=== PATIENT | female | born 1955 | race Caucasian/White ===

== ENCOUNTER 2016-10-11 17:53 | Emergency (ER) | payer BC, MEDICARE, OTHER ==
[2016-10-11 18:00] VITALS: TEMP 98.7
--- NOTE | 2016-10-11 18:26 | ED ---
General Adult HPI - General Chief complaint: Chest Pain Stated complaint: chest pain Time Seen by Provider: 10/11/16 18:25 Source: patient, RN notes reviewed, old records reviewed Mode of arrival: wheelchair Limitations: no limitations - History of Present Illness Initial comments: This is a 61-year-old female here for chest pain. Patient has significant history of coronary artery disease, patient states chest pain is been going on for about a week now. Still has pain evaluation for persistent pain. She states it does state her does feel similar to prior anginal-type issues. Patient states she does have improvement with nitro. Patient concerned for heart disease or heart attack. No fevers cough or congestion or travel history. Patient states she does take all medication as prescribed. Pain is just been persistent, worse with activity. Patient states that she has insulin diabetes. Patient states her blood sugar is elevated and she does sometimes have chest pain and anxiety with this. She does also admit to increased stress at home prior to event. Patient states upon arrival to emergency room her pain has resolved, she states she would like to go home but states since she is here surmise will be evaluated - Related Data Home Medications Medication Instructions Recorded Confirmed ALPRAZolam [Xanax] 0.25 mg PO DAILY PRN 10/11/16 10/11/16 Allopurinol [Zyloprim] 100 mg PO DAILY 10/11/16 10/11/16 Aspirin EC [Ecotrin Low Dose] 81 mg PO DAILY 10/11/16 10/11/16 Atenolol [Tenormin] 25 mg PO HS 10/11/16 10/11/16 Atorvastatin [Lipitor] 80 mg PO HS 10/11/16 10/11/16 David/D3/Mag11/Zinc/Cook Specialty/Anjel/Bor 1 tab PO HS 10/11/16 10/11/16 [Caltrate 600+D Plus Tablet] Clopidogrel Bisulfate [Plavix] 75 mg PO DAILY 10/11/16 10/11/16 Ezetimibe [Zetia] 10 mg PO HS 10/11/16 10/11/16 Ferrous Sulfate [Feosol] 325 mg PO TID 10/11/16 10/11/16 Insulin Aspart (For Pump) [NovoLOG 0.01 unit SQ-PUMP CONTINUOUS 10/11/16 (For Pump)] Montelukast [Singulair] 10 mg PO HS 10/11/16 10/11/16 Nitroglycerin Sl Tabs [Nitrostat] 0.4 mg SUBLINGUAL Q5M PRN 10/11/16 10/11/16 Quinapril HCl [Accupril] 20 mg PO DAILY 10/11/16 10/11/16 Torsemide [Demadex] 20 mg PO DAILY 10/11/16 10/11/16 Allergies Allergy/AdvReac Type Severity Reaction Status Date / Time droperidol AdvReac Anxiety Verified 10/11/16 18:38 ezetimibe [From Vytorin] AdvReac Acid Reflux Verified 10/11/16 18:38 fentanyl AdvReac "Can't Verified 10/11/16 18:38 wake up"/Nausea hydrocodone AdvReac Angina Verified 10/11/16 18:38 hydromorphone [From Dilaudid] AdvReac Angina Verified 10/11/16 18:38 midazolam [From Versed] AdvReac Anxiety Verified 10/11/16 18:38 paroxetine [From Paxil] AdvReac Acid Reflux Verified 10/11/16 18:38 simvastatin [From Vytorin] AdvReac Acid Reflux Verified 10/11/16 18:38 sulfamethoxazole AdvReac Decreased Verified 10/11/16 18:38 [From Bactrim] Renal Function trandolapril [From Tarka] AdvReac Acid Reflux Verified 10/11/16 18:38 trimethoprim [From Bactrim] AdvReac Decreased Verified 10/11/16 18:38 Renal Function verapamil [From Tarka] AdvReac Acid Reflux Verified 10/11/16 18:38 Review of Systems ROS Statement: Those systems with pertinent positive or pertinent negative responses have been documented in the HPI. ROS Other: All systems not noted in ROS Statement are negative. Past Medical History Past Medical History: Diabetes Mellitus, Renal Disease Additional Past Medical History / Comment(s): angina, kidney disease stage 4, pilonidal cyst, carpal tunnel, insulin pump History of Any Multi-Drug Resistant Organisms: None Reported Past Surgical History: Heart Catheterization With Stent, Tonsillectomy, Tubal Ligation Additional Past Surgical History / Comment(s): cataracts Past Psychological History: No Psychological Hx Reported Smoking Status: Never smoker Past Alcohol Use History: Rare Past Drug Use History: None Reported General Exam Limitations: no limitations General appearance: alert, in no apparent distress, anxious Head exam: Present: atraumatic, normocephalic, normal inspection Eye exam: Present: normal appearance, PERRL, EOMI. Absent: scleral icterus, conjunctival injection, periorbital swelling ENT exam: Present: normal exam, mucous membranes moist Neck exam: Present: normal inspection. Absent: tenderness, meningismus, lymphadenopathy Respiratory exam: Present: normal lung sounds bilaterally. Absent: respiratory distress, wheezes, rales, rhonchi, stridor Cardiovascular Exam: Present: regular rate, normal rhythm, normal heart sounds. Absent: systolic murmur, diastolic murmur, rubs, gallop, clicks GI/Abdominal exam: Present: soft, normal bowel sounds. Absent: distended, tenderness, guarding, rebound, rigid Extremities exam: Present: normal inspection, full ROM, normal capillary refill. Absent: tenderness, pedal edema, joint swelling, calf tenderness Back exam: Present: normal inspection Neurological exam: Present: alert, oriented X3, CN II-XII intact Psychiatric exam: Present: normal affect, normal mood Skin exam: Present: warm, dry, intact, normal color. Absent: rash Course Vital Signs 10/11/16 10/11/16 17:54 20:02 Temperature 98.7 F Pulse Rate 85 53 L Respiratory 18 16 Rate Blood Pressure 122/57 138/70 O2 Sat by Pulse 98 98 Oximetry - Reevaluation(s) Reevaluation #1: Patient does remain without chest pain , at this time is refusing to stay in the hospital EKG Findings - EKG Comments: EKG Findings:: EKG shows sinus rhythm rate of 80, OH 144, QRS 76, QT C4 33 Medical Decision Making - Medical Decision Making 61 female to the ED chest pain, does have significant cardiac history. She has spoken with at length regarding need to stay in the hospital for evaluation of cardiac disease. Patient's troponin is initially negative, EKG is normal and unchanged from prior. Patient states chest pain is and remains resolved - Lab Data Result diagrams: 10/11/16 18:14 10/11/16 18:14 Lab Results 10/11/16 10/11/16 10/11/16 Range/Units 18:14 18:14 18:14 WBC 8.5 (3.8-10.6) k/uL RBC 3.91 (3.80-5.40) m/uL Hgb 11.9 (11.4-16.0) gm/dL Hct 38.5 (34.0-46.0) % MCV 98.4 (80.0-100.0) fL MCH 30.5 (25.0-35.0) pg MCHC 31.0 (31.0-37.0) g/dL RDW 14.4 (11.5-15.5) % Plt Count 233 (150-450) k/uL Neutrophils % 81 % Lymphocytes % 12 % Monocytes % 3 % Eosinophils % 2 % Basophils % 1 % Neutrophils # 6.9 (1.3-7.7) k/uL Lymphocytes # 1.1 (1.0-4.8) k/uL Monocytes # 0.3 (0-1.0) k/uL Eosinophils # 0.1 (0-0.7) k/uL Basophils # 0.1 (0-0.2) k/uL PT (9.0-12.0) sec INR (<1.1) APTT (22.0-30.0) sec Sodium 138 (137-145) mmol/L Potassium 4.6 (3.5-5.1) mmol/L Chloride 102 (98-107) mmol/L Carbon Dioxide 22 (22-30) mmol/L Anion Gap 14 mmol/L BUN 70 H (7-17) mg/dL Creatinine 2.60 H (0.52-1.04) mg/dL Est GFR (MDRD) Af Amer 23 (>60 ml/min/1.73 sqM) Est GFR (MDRD) Non-Af 19 (>60 ml/min/1.73 sqM) Glucose 321 H (74-99) mg/dL Calcium 9.8 (8.4-10.2) mg/dL Magnesium 2.1 (1.6-2.3) mg/dL Total Bilirubin 0.5 (0.2-1.3) mg/dL AST 25 (14-36) U/L ALT 33 (9-52) U/L Alkaline Phosphatase 107 (38-126) U/L Total Creatine Kinase 147 H (30-135) U/L CK-MB (CK-2) 2.2 (0.0-2.4) ng/mL CK-MB (CK-2) Rel Index 1.5 Troponin I <0.012 (0.000-0.034) ng/mL Total Protein 6.2 L (6.3-8.2) g/dL Albumin 4.1 (3.5-5.0) g/dL Lipase 88 (23-300) U/L 10/11/16 Range/Units 18:14 WBC (3.8-10.6) k/uL RBC (3.80-5.40) m/uL Hgb (11.4-16.0) gm/dL Hct (34.0-46.0) % MCV (80.0-100.0) fL MCH (25.0-35.0) pg MCHC (31.0-37.0) g/dL RDW (11.5-15.5) % Plt Count (150-450) k/uL Neutrophils % % Lymphocytes % % Monocytes % % Eosinophils % % Basophils % % Neutrophils # (1.3-7.7) k/uL Lymphocytes # (1.0-4.8) k/uL Monocytes # (0-1.0) k/uL Eosinophils # (0-0.7) k/uL Basophils # (0-0.2) k/uL PT 10.3 (9.0-12.0) sec INR 1.0 (<1.1) APTT 24.4 (22.0-30.0) sec Sodium (137-145) mmol/L Potassium (3.5-5.1) mmol/L Chloride (98-107) mmol/L Carbon Dioxide (22-30) mmol/L Anion Gap mmol/L BUN (7-17) mg/dL Creatinine (0.52-1.04) mg/dL Est GFR (MDRD) Af Amer (>60 ml/min/1.73 sqM) Est GFR (MDRD) Non-Af (>60 ml/min/1.73 sqM) Glucose (74-99) mg/dL Calcium (8.4-10.2) mg/dL Magnesium (1.6-2.3) mg/dL Total Bilirubin (0.2-1.3) mg/dL AST (14-36) U/L ALT (9-52) U/L Alkaline Phosphatase (38-126) U/L Total Creatine Kinase (30-135) U/L CK-MB (CK-2) (0.0-2.4) ng/mL CK-MB (CK-2) Rel Index Troponin I (0.000-0.034) ng/mL Total Protein (6.3-8.2) g/dL Albumin (3.5-5.0) g/dL Lipase (23-300) U/L - Radiology Data Radiology results: report reviewed (Chest x-ray is negative for acute disease), image reviewed Critical Care Time Critical Care Time: Yes Total Critical Care Time: 31 Disposition Clinical Impression: Chest pain Disposition: HOME SELF-CARE Condition: Good Instructions: Chest Pain (ED) Referrals: Tavon Rose DO [Primary Care Provider] - 1-2 days
[2016-10-11 18:48] LABS: Basophils # (A) 0.1 k/uL (0-0.2); Basophils % (A) 1 %; CH 31.2; CHCM 31.9; Eosinophils # (A) 0.1 k/uL (0-0.7); Eosinophils % (A) 2 %; HCT 38.5 % (34.0-46.0); HDW 2.26; HGB 11.9 gm/dL (11.4-16.0); Luc % (Auto) 1; Lymphocytes # (A) 1.1 k/uL (1.0-4.8); Lymphocytes % (A) 12 %; MCH 30.5 pg (25.0-35.0); MCV 98.4 fL (80.0-100.0); Mean Platelet Volume 7.4; Monocytes # (A) 0.3 k/uL (0-1.0); Monocytes % (A) 3 %; Neutrophils # (A) 6.9 k/uL (1.3-7.7); Neutrophils % (A) 81 %; RBC 3.91 m/uL (3.80-5.40); RDW 14.4 % (11.5-15.5); WBC 8.5 k/uL (3.8-10.6); WBC (Perox) 9.05
[2016-10-11 18:56] LABS: Calcium 9.8 mg/dL (8.4-10.2); Magnesium 2.1 mg/dL (1.6-2.3); Potassium 4.6 mmol/L (3.5-5.1); Total Bilirubin 0.5 mg/dL (0.2-1.3); Total Protein 6.2 g/dL (6.3-8.2)
--- NOTE | 2016-10-11 18:58 | XR ---
EXAMINATION TYPE: XR chest 2V DATE OF EXAM: 10/11/2016 COMPARISON: 05/08/2008 HISTORY: Chest pain TECHNIQUE: Frontal and lateral views of the chest are obtained. FINDINGS: Heart and mediastinum are normal. There is small linear density in the left lower lobe. Th e other lung orourke are clear. There are no hilar masses. There are chest leads. There is no pleural effusion. Bony thorax is intact. IMPRESSION: There is new minimal atelectasis at the left lung base compared to old exam.
[2016-10-11 19:01] LABS: Partial Thromboplastin Time 24.4 sec (22.0-30.0); Prothrombin Time 10.3 sec (9.0-12.0)
[2016-10-11 19:12] LABS: Creatine Kinase 147 U/L (30-135)
[2016-10-11 19:25] LABS: Creatine Kinase MB 2.2 ng/mL (0.0-2.4); Troponin I <0.012 ng/mL (0.000-0.034)
[2016-10-11 20:03] VITALS: BP 138/70; PULSE 53; RESP 16
== END 2016-10-11 20:04 | disposition home or self-care (01) ==
LOC: EC 17:53
DX: R07.9 Chest pain, unspecified (principal); E11.22 Type 2 diabetes mellitus with diabetic chronic kidney disease; N18.4 Chronic kidney disease, stage 4 (severe); Z79.01 Long term (current) use of anticoagulants; Z79.4 Long term (current) use of insulin; Z79.82 Long term (current) use of aspirin; Z79.899 Other long term (current) drug therapy; Z88.1 Allergy status to other antibiotic agents; Z88.5 Allergy status to narcotic agent; Z88.8 Allergy status to other drugs, medicaments and biological substances
CPT/HCPCS: 36415; 71020; 80053; 82550; 82553; 83690; 83735; 84484; 85025; 85610; 85730; 93005; 99285

== ENCOUNTER → 2019-03-19 | Outpatient (CLI) | payer BC ==
--- NOTE | 2019-03-19 13:22 | MM ---
Reason for exam: screening (asymptomatic). Last mammogram was performed 5 years and 9 months ago. History: Patient is postmenopausal and history of other cancer. Took estrogen beginning at age 52. Took progesterone beginning at age 52. Physical Findings: A clinical breast exam by your physician is recommended on an annual basis and results should be correlated with mammographic findings. MG Screening Mammo w CAD Bilateral CC and MLO view(s) were taken. Prior study comparison: June 30, 2013, bilateral digital screening mammo w/CAD. August 28, 2007, bilateral digital screening mammogram. Finding: There are typically benign vascular, fine, diffuse/scattered calcifications in the left breast. No significant changes in finding since June 30, 2013. ASSESSMENT: Benign, BI-RAD 2 RECOMMENDATION: Routine screening mammogram of both breasts in 1 year.
== END | disposition home or self-care (01) ==
LOC: RADMAMWWP 07:12
PROVIDERS: ATTEND Family Medicine
DX: Z12.31 Encounter for screening mammogram for malignant neoplasm of breast (principal)
CPT/HCPCS: 77067

== ENCOUNTER → 2019-09-30 | Outpatient (CLI) | payer BC | END | disposition home or self-care (01) | LOC: LABWHC1 08:17 | PROVIDERS: ATTEND Surgery | DX: Z11.59 Encounter for screening for other viral diseases (principal) ==

== ENCOUNTER → 2019-10-20 | Outpatient (CLI) | payer BC | END | disposition home or self-care (01) | LOC: LABWHC1 12:14 | PROVIDERS: ATTEND Internal Medicine | DX: Z11.59 Encounter for screening for other viral diseases (principal) ==

== ENCOUNTER → 2020-01-12 | Outpatient (CLI) | payer BC | END | disposition home or self-care (01) | LOC: LABWHC1 10:25 | PROVIDERS: ATTEND Surgery | DX: Z20.828 Contact with and (suspected) exposure to other viral communicable diseases (principal) | CPT/HCPCS: U0003; C9803 ==

== ENCOUNTER 2020-02-03 15:33 | Inpatient (IN) | payer BC ==
[2020-02-03] MEDS ORDERED: ASPIRIN 81 MG PO STA (15:56)
[2020-02-03] MEDS ORDERED: NITROGLYCERIN SL TABS 0.4 MG TAB SUBLINGUAL STA (15:56)
--- NOTE | 2020-02-03 16:05 | ED ---
Chest Pain HPI - General Chief Complaint: Chest Pain Stated Complaint: chest pain/acid reflux Time Seen by Provider: 02/03/20 15:45 Source: patient, RN notes reviewed Mode of arrival: ambulatory Limitations: no limitations - History of Present Illness Initial Comments: This is a 64-year-old female history of heart disease with stents reportedly with one vessel was 90% occluded also history of kidney failure with a GFR of 16% who states she's been having a lot of reflux recently she believes partially due to medication she states was every night but last night started developing cough congestion and retrosternal chest pressure that she states is 6/10 in severity gets worse with exertion. No fevers chills sweats no overt phlegm production no other complaints or modifying factors he does have a gallbladder ultrasound scheduled for this week in 3 days. He was instructed to come for further evaluation MD Complaint: chest pain - Related Data Home Medications Medication Instructions Recorded Confirmed ALPRAZolam [Xanax] 0.25 mg PO DAILY PRN 10/11/16 02/03/20 Aspirin EC [Ecotrin Low Dose] 81 mg PO DAILY 10/11/16 02/03/20 Atorvastatin [Lipitor] 80 mg PO HS 10/11/16 02/03/20 Clopidogrel Bisulfate [Plavix] 75 mg PO DAILY 10/11/16 02/03/20 Ezetimibe [Zetia] 10 mg PO HS 10/11/16 02/03/20 Insulin Aspart (For Pump) [NovoLOG 0.01 unit SQ-PUMP CONTINUOUS 10/11/16 02/03/20 (For Pump)] Montelukast [Singulair] 10 mg PO HS 10/11/16 02/03/20 Nitroglycerin Sl Tabs [Nitrostat] 0.4 mg SUBLINGUAL Q5M PRN 10/11/16 02/03/20 Torsemide [Demadex] 20 mg PO BID PRN 10/11/16 02/03/20 allopurinoL [Zyloprim] 100 mg PO DAILY 10/11/16 02/03/20 atenoloL [Tenormin] 25 mg PO DAILY 10/11/16 02/03/20 Calcium Citrate/Vitamin D3 1 tab PO DAILY 02/03/20 02/03/20 [Calcium Cit 315-Vit D3 250 Tab] Cholecalciferol [Vitamin D3 (25 1,000 unit PO HS 02/03/20 02/03/20 Mcg = 1000 Iu)] NIFEdipine [NIFEdipine ER] 30 mg PO HS 02/03/20 02/03/20 Allergies Allergy/AdvReac Type Severity Reaction Status Date / Time droperidol AdvReac Anxiety Verified 02/03/20 16:41 ezetimibe [From Vytorin] AdvReac Acid Reflux Verified 02/03/20 16:41 fentanyl AdvReac "Can't Verified 02/03/20 16:41 wake up"/Nausea hydrocodone AdvReac Angina Verified 02/03/20 16:41 hydromorphone [From Dilaudid] AdvReac Angina Verified 02/03/20 16:41 midazolam [From Versed] AdvReac Anxiety Verified 02/03/20 16:41 nitroglycerin AdvReac Acid Reflux Verified 02/03/20 16:41 paroxetine [From Paxil] AdvReac Acid Reflux Verified 02/03/20 16:41 simvastatin [From Vytorin] AdvReac Acid Reflux Verified 02/03/20 16:41 sulfamethoxazole AdvReac Decreased Verified 02/03/20 16:41 [From Bactrim] Renal Function trandolapril [From Tarka] AdvReac Acid Reflux Verified 02/03/20 16:41 trimethoprim [From Bactrim] AdvReac Decreased Verified 02/03/20 16:41 Renal Function verapamil [From Tarka] AdvReac Acid Reflux Verified 02/03/20 16:41 Review of Systems ROS Statement: Those systems with pertinent positive or pertinent negative responses have been documented in the HPI. ROS Other: All systems not noted in ROS Statement are negative. Past Medical History Past Medical History: Diabetes Mellitus, Hyperlipidemia, Hypertension, Renal Disease Additional Past Medical History / Comment(s): angina, kidney disease stage 4, pilonidal cyst, carpal tunnel, insulin pump History of Any Multi-Drug Resistant Organisms: None Reported Past Surgical History: Heart Catheterization With Stent, Tonsillectomy, Tubal Ligation Additional Past Surgical History / Comment(s): cataracts Past Psychological History: No Psychological Hx Reported Smoking Status: Never smoker Past Alcohol Use History: Rare Past Drug Use History: None Reported General Exam - General Exam Comments Initial Comments: This is a well-developed well-nourished awake alert oriented 3 female Limitations: no limitations General appearance: alert, in no apparent distress Head exam: Present: atraumatic, normocephalic, normal inspection Eye exam: Present: normal appearance, PERRL, EOMI. Absent: scleral icterus, conjunctival injection, periorbital swelling ENT exam: Present: normal exam, mucous membranes moist Neck exam: Present: normal inspection. Absent: tenderness, meningismus, lymphadenopathy Respiratory exam: Present: normal lung sounds bilaterally. Absent: respiratory distress, wheezes, rales, rhonchi, stridor Cardiovascular Exam: Present: regular rate, normal rhythm, normal heart sounds. Absent: systolic murmur, diastolic murmur, rubs, gallop, clicks GI/Abdominal exam: Present: soft, normal bowel sounds. Absent: distended, tenderness, guarding, rebound, rigid Extremities exam: Present: normal inspection, full ROM, normal capillary refill. Absent: tenderness, pedal edema, joint swelling, calf tenderness Back exam: Present: normal inspection Neurological exam: Present: alert, oriented X3, CN II-XII intact Psychiatric exam: Present: normal affect, normal mood Skin exam: Present: warm, dry, intact, normal color. Absent: rash Course Vital Signs 02/03/20 15:38 Temperature 98.4 F Pulse Rate 76 Respiratory 18 Rate Blood Pressure 164/72 O2 Sat by Pulse 98 Oximetry - Reevaluation(s) Reevaluation #1: 02/03/20 17:34 A she did get relief from her nitroglycerin with respect her chest discomfort. She did however also get nauseated from it. The patient's troponin is mildly elevated there is evidence of CHF. Renal function has improved from the previous one done in the office she will be admitted case discussed with the [facility]. Critical Care Time Critical Care Time: Yes Total Critical Care Time: 37 Critical Care Time: Critical care time includes initial presentation with history physical labs x- rays multiple reevaluation the patient discussed with the admitting physician initial orders review of old charting mentation the above Disposition Clinical Impression: Unstable angina pectoris, Chest pain Disposition: ADMITTED IP TO THIS HOSP Condition: Fair Referrals: Tavon Rose DO [Primary Care Provider] - 1-2 days
[2020-02-03 16:21] LABS: Basophils # (A) 0.1 k/uL (0-0.2); Basophils % (A) 1 %; Eosinophils # (A) 0.1 k/uL (0-0.7); Eosinophils % (A) 2 %; HCT 32.7 % (34.0-46.0); HGB 10.5 gm/dL (11.4-16.0); Lymphocytes # (A) 1.1 k/uL (1.0-4.8); Lymphocytes % (A) 15 %; MCH 30.4 pg (25.0-35.0); MCHC 32.1 g/dL (31.0-37.0); MCV 94.6 fL (80.0-100.0); Mean Platelet Volume 7.8; Monocytes # (A) 0.4 k/uL (0-1.0); Monocytes % (A) 5 %; Neutrophils # (A) 5.3 k/uL (1.3-7.7); Neutrophils % (A) 76 %; Platelet Count 221 k/uL (150-450); RBC 3.45 m/uL (3.80-5.40); RDW 15.6 % (11.5-15.5)
--- NOTE | 2020-02-03 16:36 | XR ---
EXAMINATION TYPE: XR chest 2V DATE OF EXAM: 02/03/2020 CLINICAL HISTORY: Chest pain. Reflux. TECHNIQUE: Frontal and lateral views of the chest are obtained. COMPARISON: 10/11/2016 chest radiograph FINDINGS: Cardiomegaly. Mediastinal silhouette normal. Coarsened interstitial markings. There is no focal air space opacity, pleural effusion, or pneumothorax seen. The osseous structures are intact. IMPRESSION: Cardiomegaly. Increased interstitial coarsening versus 10/11/2016 comparison. Findings are nonspecific and may represent interstitial pneumonitis, pulmonary edema, or chronic interstitial abilio nges.
[2020-02-03 16:40] LABS: INR 0.9 (<1.2); Partial Thromboplastin Time 26.6 sec (22.0-30.0); Prothrombin Time 9.7 sec (9.0-12.0)
[2020-02-03 17:05] LABS: Albumin 3.6 g/dL (3.5-5.0); Calcium 9.3 mg/dL (8.4-10.2); Magnesium 2.5 mg/dL (1.6-2.3); Potassium 4.4 mmol/L (3.5-5.1); Total Bilirubin 0.7 mg/dL (0.2-1.3); Total Protein 5.9 g/dL (6.3-8.2)
[2020-02-03] MEDS ORDERED: PANTOPRAZOLE 40 MG/10 ML VIAL IVP STA (17:10)
[2020-02-03] MEDS ORDERED: MORPHINE SULFATE 4 MG/ML SYRINGE IVP STA (17:12)
[2020-02-03] MEDS ORDERED: FUROSEMIDE 10 MG/ML 4 ML VIAL IV STA (17:13)
[2020-02-03] MEDS ORDERED: ONDANSETRON 4 MG/2 ML VIAL IVP STA (17:25)
[2020-02-03] MEDS ORDERED: NITROGLYCERIN SL TABS 0.4 MG TAB SUBLINGUAL PRN (17:35)
[2020-02-03] MEDS ORDERED: HEPARIN SODIUM,PORCINE 5,000 UNIT/ML 1 ML VIAL IV ONE (17:35)
[2020-02-03] MEDS ORDERED: ALPRAZolam 0.25 MG TAB PO PRN (17:38)
--- NOTE | 2020-02-03 17:41 | ED ---
Medical Decision Making - Lab Data Result diagrams: 02/03/20 16:04 02/03/20 16:04 Lab Results 02/03/20 02/03/20 02/03/20 Range/Units 16:04 16:04 16:04 WBC 7.0 (3.8-10.6) k/uL RBC 3.45 L (3.80-5.40) m/uL Hgb 10.5 L (11.4-16.0) gm/dL Hct 32.7 L (34.0-46.0) % MCV 94.6 (80.0-100.0) fL MCH 30.4 (25.0-35.0) pg MCHC 32.1 (31.0-37.0) g/dL RDW 15.6 H (11.5-15.5) % Plt Count 221 (150-450) k/uL Neutrophils % 76 % Lymphocytes % 15 % Monocytes % 5 % Eosinophils % 2 % Basophils % 1 % Neutrophils # 5.3 (1.3-7.7) k/uL Lymphocytes # 1.1 (1.0-4.8) k/uL Monocytes # 0.4 (0-1.0) k/uL Eosinophils # 0.1 (0-0.7) k/uL Basophils # 0.1 (0-0.2) k/uL PT 9.7 (9.0-12.0) sec INR 0.9 (<1.2) APTT 26.6 (22.0-30.0) sec Sodium 137 (137-145) mmol/L Potassium 4.4 (3.5-5.1) mmol/L Chloride 105 (98-107) mmol/L Carbon Dioxide 28 (22-30) mmol/L Anion Gap 4 mmol/L BUN 65 H (7-17) mg/dL Creatinine 2.60 H (0.52-1.04) mg/dL Est GFR (CKD-EPI)AfAm 22 (>60 ml/min/1.73 sqM) Est GFR (CKD-EPI)NonAf 19 (>60 ml/min/1.73 sqM) Glucose 197 H (74-99) mg/dL Calcium 9.3 (8.4-10.2) mg/dL Magnesium 2.5 H (1.6-2.3) mg/dL Total Bilirubin 0.7 (0.2-1.3) mg/dL AST 33 (14-36) U/L ALT 35 H (4-34) U/L Alkaline Phosphatase 74 (38-126) U/L Creatine Kinase 79 (30-135) U/L Troponin I (0.000-0.034) ng/mL NT-Pro-B Natriuret Pep pg/mL Total Protein 5.9 L (6.3-8.2) g/dL Albumin 3.6 (3.5-5.0) g/dL Lipase 46 (23-300) U/L 02/03/20 02/03/20 Range/Units 16:04 16:04 WBC (3.8-10.6) k/uL RBC (3.80-5.40) m/uL Hgb (11.4-16.0) gm/dL Hct (34.0-46.0) % MCV (80.0-100.0) fL MCH (25.0-35.0) pg MCHC (31.0-37.0) g/dL RDW (11.5-15.5) % Plt Count (150-450) k/uL Neutrophils % % Lymphocytes % % Monocytes % % Eosinophils % % Basophils % % Neutrophils # (1.3-7.7) k/uL Lymphocytes # (1.0-4.8) k/uL Monocytes # (0-1.0) k/uL Eosinophils # (0-0.7) k/uL Basophils # (0-0.2) k/uL PT (9.0-12.0) sec INR (<1.2) APTT (22.0-30.0) sec Sodium (137-145) mmol/L Potassium (3.5-5.1) mmol/L Chloride (98-107) mmol/L Carbon Dioxide (22-30) mmol/L Anion Gap mmol/L BUN (7-17) mg/dL Creatinine (0.52-1.04) mg/dL Est GFR (CKD-EPI)AfAm (>60 ml/min/1.73 sqM) Est GFR (CKD-EPI)NonAf (>60 ml/min/1.73 sqM) Glucose (74-99) mg/dL Calcium (8.4-10.2) mg/dL Magnesium (1.6-2.3) mg/dL Total Bilirubin (0.2-1.3) mg/dL AST (14-36) U/L ALT (4-34) U/L Alkaline Phosphatase (38-126) U/L Creatine Kinase (30-135) U/L Troponin I 0.048 H* (0.000-0.034) ng/mL NT-Pro-B Natriuret Pep 17522 pg/mL Total Protein (6.3-8.2) g/dL Albumin (3.5-5.0) g/dL Lipase (23-300) U/L Disposition Clinical Impression: Unstable angina pectoris, Chest pain, Congestive heart failure (CHF), Chronic renal insufficiency Disposition: ADMITTED IP TO THIS HOSP Condition: Fair Referrals: Tavon Rose DO [Primary Care Provider] - 1-2 days
[2020-02-03] MEDS ORDERED: HEPARIN SOD,PORK IN 0.45% NACL 25,000 UNIT in 0.45% NACL 1 250ML.BAG IV SCH (17:45)
[2020-02-03] MEDS ORDERED: Insulin Aspart (For Pump) 100 UNIT/ML VIAL SQ-PUMP SCH (17:45)
[2020-02-03] MEDS: CHOLECALCIFEROL 1,000 UNIT TAB PO SCH (20:04)
[2020-02-03] MEDS: NIFEdipine XL 30 MG TAB.ER.24 PO SCH (20:04)
[2020-02-03] MEDS: MONTELUKAST 10 MG TAB PO SCH (20:04)
[2020-02-03] MEDS: ATORVASTATIN 80 MG TAB PO SCH (20:04)
[2020-02-03 20:26] LABS: Glucose,Whole Blood 117 mg/dL (75-99)
[2020-02-03] MEDS ORDERED: ONDANSETRON 4 MG/2 ML VIAL IVP PRN (20:55)
[2020-02-03] MEDS: EZETIMIBE 10 MG TAB PO SCH (20:59)
[2020-02-04 02:10] LABS: Cholesterol 163 mg/dL (<200); HDL Cholesterol 90 mg/dL (40-60); LDL Cholesterol,Calculated 57 mg/dL (0-99); Triglycerides 79 mg/dL (<150)
[2020-02-04 06:41] LABS: Glucose,Whole Blood 97 mg/dL (75-99)
[2020-02-04] MEDS: atenoloL 25 MG TAB PO SCH ×2 (08:58→11:46)
[2020-02-04] MEDS: CALCIUM CARB-VIT D 500MG-200UN 1 EACH TAB PO SCH (08:58)
[2020-02-04] MEDS: CLOPIDOGREL 75 MG TAB PO SCH (08:58)
[2020-02-04] MEDS: allopurinoL 100 MG TAB PO SCH (08:58)
[2020-02-04] MEDS ORDERED: ASPIRIN 325 MG TAB PO SCH (09:00)
[2020-02-04] MEDS ORDERED: ASPIRIN 81 MG PO SCH (09:00)
[2020-02-04] MEDS ORDERED: ALPRAZolam 0.25 MG TAB PO PRN (10:48)
[2020-02-04] MEDS ORDERED: SODIUM CHLORIDE 0.9% 1,000 ML in EMPTY BAG 1 BAG IV ONE (10:48)
[2020-02-04] MEDS ORDERED: ATORVASTATIN 80 MG TAB PO STA (10:48)
[2020-02-04] MEDS ORDERED: ALPRAZolam 0.5 MG TAB PO PRN (10:48)
[2020-02-04] MEDS ORDERED: ASPIRIN 325 MG TAB PO STA (10:48)
[2020-02-04] MEDS: ATORVASTATIN 80 MG TAB PO SCH (11:03)
[2020-02-04] MEDS ORDERED: INSULIN PUMP ACTIVE INSULIN 1 EACH MISC MISCELLANE PRN (11:23)
[2020-02-04] MEDS ORDERED: INSULIN PUMP BASAL RATES 1 EACH MISC MISCELLANE PRN (11:23)
[2020-02-04] MEDS ORDERED: INSPUCOR MISCELLANE PRN (11:23)
[2020-02-04] MEDS ORDERED: INSULIN PUMP TARGET GLUCOSE 1 EACH MISC MISCELLANE PRN (11:23)
[2020-02-04] MEDS ORDERED: INSULIN ASPART (NovoLOG) 100 UNIT/ML VIAL SQ PRN (11:23)
[2020-02-04] MEDS: INSULIN PUMP MEAL BOLUS 1 UNIT MISC MISCELLANE SCH ×3 (11:47→21:00)
[2020-02-04 11:51] LABS: Glucose,Whole Blood 82 mg/dL (75-99)
--- NOTE | 2020-02-04 11:53 | US ---
EXAMINATION TYPE: US gallbladder DATE OF EXAM: 02/04/2020 COMPARISON: 05/15/2012 CLINICAL HISTORY: epigastric pain, reflux. reflux, diabetic, known gb stones EXAM MEASUREMENTS: Liver Length: 14.5 cm Gallbladder Wall: 0.2 cm CBD: 0.4 cm Right Kidney: 9.3 x 4.6 x 4.5 cm Pancreas: wnl Liver: wnl Gallbladder: 2 stones seen, one within fundal fold = 1.0cm Evidence for sonographic Ramesh's sign: no CBD: wnl Right Kidney: 3.5cm superior irregular cyst seen IMPRESSION: 1. Cholelithiasis with no evidence of gallbladder wall thickening. 2. There is a somewhat irregular right renal cyst which does not meet the criteria of a simple cyst. Recommend CT scan of the abdomen.
--- NOTE | 2020-02-04 12:07 | ECHOF ---
Referral Reason:chest pain MEASUREMENTS -------- HEIGHT: 154.9 cm WEIGHT: 61.2 kg BP: IVSd: 1.6 cm (0.6 - 1.1) LVIDd: 3.5 cm (3.9 - 5.3) LVPWd: 1.7 cm (0.6 - 1.1) IVSs: 1.9 cm LVIDs: 2.6 cm LVPWs: 1.7 cm LAESV Index (A-L): 26.34 ml/m Ao Diam: 2.8 cm (2.0 - 3.7) AV Cusp: 0.9 cm (1.5 - 2.6) LA Diam: 2.6 cm (2.7 - 3.8) MV EXCURSION: 9.371 mm (> 18.000) MV EF SLOPE: 59 mm/s (70 - 150) EPSS: 0.3 cm MV E Hakeem: 1.38 m/s MV DecT: 131 ms MV A Hakeem: 1.07 m/s MV E/A Ratio: 1.29 AV maxP.01 mmHg AV meanP.72 mmHg RAP: 5.00 mmHg RVSP: 20.13 mmHg FINDINGS -------- Sinus rhythm. This was a technically adequate study. The left ventricular size is normal. There is severe concentric left ventricular hypertrophy. Ove rall left ventricular systolic function is low-normal with, an EF between 50 - 55 %. Normal LAP Gra de 1 Diastolic Dysfunction. Mid to The right ventricle is normal in size. Normal LA size by volume 22+/-6 ml/m2. The right atrial size is normal. There is severe aortic valve sclerosis. There is moderate aortic stenosis present. Peak/mean grad ient across the Aortic Valve is 30.01mmHg / 14.72mmHg. The mitral valve leaflets are moderately thickened. Severe mitral annular calcification present. [id number] mitral regurgitation is present. The tricuspid valve appears structurally normal. Mild tricuspid regurgitation present. Right vent ricular systolic pressure is normal at < 35 mmHg. The pulmonic valve was not well visualized. There is no pulmonic regurgitation present. The aortic root size is normal. Normal inferior vena cava with normal inspiratory collapse consistent with estimated right atrial pre ssure of 5 mmHg. There is a small, generalized pericardial effusion present. CONCLUSIONS -------- 1. There is severe concentric left ventricular hypertrophy. 2. Overall left ventricular systolic function is low-normal with, an EF between 50 - 55 %. 3. Normal LAP Grade 1 Diastolic Dysfunction. 4. Normal LA size by volume 22+/-6 ml/m2. 5. There is severe aortic valve sclerosis. 6. There is moderate aortic stenosis present. 7. Peak/mean gradient across the Aortic Valve is 30.01mmHg / 14.72mmHg. 8. The mitral valve leaflets are moderately thickened. 9. Severe mitral annular calcification present. 10. [id number] mitral regurgitation is present. 11. Mild tricuspid regurgitation present. 12. There is a small, generalized pericardial effusion present. UNDERTAKER ASSISTANT: Rylee Sierra RDCS
[2020-02-04] MEDS ORDERED: fentaNYL (PF) 50 MCG/ML 2 ML AMP ONE (12:09)
[2020-02-04] MEDS ORDERED: LIDOCAINE 1% INJ 10MG/ML (20 ML MDV) ONE (12:09)
[2020-02-04] MEDS ORDERED: VERAPAMIL 2.5 MG/ML 2 ML AMP ONE (12:09)
[2020-02-04] MEDS ORDERED: IV FLUID CONTINUATION 1,000 ML IV ONE ×2 (12:11)
[2020-02-04] MEDS ORDERED: LORazepam 2 MG/ML INJ IV STA (12:17)
[2020-02-04] MEDS: LORazepam 2 MG/ML INJ IV ONE ×2 (12:26→12:29)
[2020-02-04] MEDS ORDERED: HEPARIN SODIUM 1,000 UN/ML (10ML VL) ONE (12:27)
[2020-02-04] MEDS: LIDOCAINE 1% INJ 10MG/ML (20 ML MDV) SQ ONE ×2 (12:31→12:43)
--- NOTE | 2020-02-04 12:51 | P.CRDCN ---
History of Present Illness Consult date: 02/04/20 History of present illness: CHIEF COMPLAINT: Chest pain HISTORY OF PRESENT ILLNESS: This is a 64-year old female with a past medical history significant for coronary artery disease, diabetes mellitus, hypertension, hyperlipidemia, and chronic kidney disease. Patient follows with Dr. Lima at [facility]. We have been asked to see the patient in consultation for chest pain. Patient does have a history of cardiac catheterization in 2004 and had 3 stents placed to the RCA. Patient reports she has been experiencing reflux like symptoms since June. She was evaluated at [facility] and underwent EGD which was unremarkable. She is supposed to have a gallbladder US performed this week to rule out gallbladder etiology. She states she has been having a burning pain in her chest almost daily. This usually occurs after eating. However, it has also been occurring more frequently and has been worse at night. She reports chest pain that started two days ago. She denies radiation to arm, jaw, or neck. She also reports associated shortness of breath. She states she received nitro in the ER with relief of chest pain. Re cords were obtained from [facility] and reviewed. Patient had a stress test performed in November 2019 at [facility] revealing oderate sized, moderate to severe, inferior lateral and inferior significant partial reversibility defect consistent with impaired perfusion reversible ischemia and infarction in the territory typical of the mid and distal LCx and/or RCA. DIAGNOSTICS: EKG reveals sinus mechanism with t wave inversions in V1-V2. Chest xray cardiomegaly. Increased interstitial coarsening compared to previous x-ray. Findings are nonspecific and may represent interstitial pneumonitis, pulmonary edema, or chronic interstitial changes. Laboratory data: WBC 7.0. Hemoglobin 10.5. Platelet count 221. Sodium 137. Potassium 4.4. BUN 65. Creatinine 2.60. Magnesium 2.5. BNP 11,200. troponin 0.048. 0.063. 0.072. Current home cardiac medications include Demadex 20 mg twice a day as needed, nifedipine 30 mg daily, atenolol 25 mg daily, Plavix 75 mg daily, Lipitor 80 mg daily, aspirin 81 mg daily Echocardiogram reveals ejection fraction 50-55%, moderate aortic stenosis, moderate to severe mitral regurgitation, mild tricuspid regurgitation, and small generalized pericardial effusion. REVIEW OF SYSTEMS: At the time of my exam: CONSTITUTIONAL: Denies fever or chills. HEENT: Denies blurred vision, vision changes, or eye pain. Denies hemoptysis CARDIOVASCULAR: Denies chest pain, orthopnea, PND or palpitations RESPIRATORY: No shortness of breath. GASTROINTESTINAL: Denies abdominal pain. Denies nausea or vomiting. HEMATOLOGIC: Denies bleeding disorders. GENITOURINARY: Denies any blood in urine. SKIN: Denies pruitis. Denies rash. PHYSICAL EXAM: VITAL SIGNS: Reviewed. GENERAL: Well-developed in no acute distress. HEENT: Head is normocephalic. Pupils are equal, round. Sclerae anicteric. Mucous membranes of the mouth are moist. Neck supple. No JVD or thyromegaly LUNGS: Respirations even and unlabored. Lungs diminished. HEART: Regular rate and rhythm. S1 and S2 heard. Systolic murmur noted. ABDOMEN: Soft. Nondistended. Nontender. EXTREMITIES: Normal range of motion. No clubbing or cyanosis. Peripheral pulse s intact. Trace bilateral extremity edema NEUROLOGIC: Awake and alert. Oriented x 3. ASSESSMENT: Chest pain with abnormal troponins, possible NSTEMI Abnormal stress test, November 2019 History of coronary artery disease with previous PCI to RCA 3 Acute exacerbation of chronic diastolic congestive heart failure, EF 50-55% Valvular heart disease including moderate aortic stenosis, moderate to severe mitral regurgitation, mild tricuspid regurgitation Chronic kidney disease Hypertension Hyperlipidemia Diabetes mellitus PLAN: Resume home cardiac medications Patient received IV lasix x 1 dose in ER. Resume home dose of Demadex Patient to undergo cardiac cath today with Dr. Canas Nurse practitioner note has been reviewed by physician. Signing provider agrees with the documented findings, assessment, and plan of care. Past Medical History Past Medical History: Diabetes Mellitus, Hyperlipidemia, Hypertension, Renal Disease Additional Past Medical History / Comment(s): angina, kidney disease stage 4, pilonidal cyst, carpal tunnel, insulin pump History of Any Multi-Drug Resistant Organisms: None Reported Past Surgical History: Heart Catheterization With Stent, Tonsillectomy, Tubal Ligation Additional Past Surgical History / Comment(s): cataracts Date of Last Stent Placement:: 2004 Past Psychological History: No Psychological Hx Reported Smoking Status: Former smoker Past Alcohol Use History: Rare Past Drug Use History: None Reported Medications and Allergies Home Medications Medication Instructions Recorded Confirmed Type ALPRAZolam [Xanax] 0.25 mg PO DAILY PRN 10/11/16 02/03/20 History Aspirin EC [Ecotrin Low Dose] 81 mg PO DAILY 10/11/16 02/03/20 History Atorvastatin [Lipitor] 80 mg PO HS 10/11/16 02/03/20 History Clopidogrel Bisulfate [Plavix] 75 mg PO DAILY 10/11/16 02/03/20 History Ezetimibe [Zetia] 10 mg PO HS 10/11/16 02/03/20 History Insulin Aspart (For Pump) [NovoLOG 0.01 unit SQ-PUMP CONTINUOUS 10/11/16 02/03/20 History (For Pump)] Montelukast [Singulair] 10 mg PO HS 10/11/16 02/03/20 History Nitroglycerin Sl Tabs [Nitrostat] 0.4 mg SUBLINGUAL Q5M PRN 10/11/16 02/03/20 History Torsemide [Demadex] 20 mg PO BID PRN 10/11/16 02/03/20 History allopurinoL [Zyloprim] 100 mg PO DAILY 10/11/16 02/03/20 History atenoloL [Tenormin] 25 mg PO DAILY 10/11/16 02/03/20 History Calcium Citrate/Vitamin D3 1 tab PO DAILY 02/03/20 02/03/20 History [Calcium Cit 315-Vit D3 250 Tab] Cholecalciferol [Vitamin D3 (25 1,000 unit PO HS 02/03/20 02/03/20 History Mcg = 1000 Iu)] NIFEdipine [NIFEdipine ER] 30 mg PO HS 02/03/20 02/03/20 History Allergies Allergy/AdvReac Type Severity Reaction Status Date / Time droperidol AdvReac Anxiety Verified 02/03/20 16:41 ezetimibe [From Vytorin] AdvReac Acid Reflux Verified 02/03/20 16:41 fentanyl AdvReac "Can't Verified 02/03/20 16:41 wake up"/Nausea hydrocodone AdvReac Angina Verified 02/03/20 16:41 hydromorphone [From Dilaudid] AdvReac Angina Verified 02/03/20 16:41 midazolam [From Versed] AdvReac Anxiety Verified 02/03/20 16:41 nitroglycerin AdvReac Acid Reflux Verified 02/03/20 16:41 paroxetine [From Paxil] AdvReac Acid Reflux Verified 02/03/20 16:41 simvastatin [From Vytorin] AdvReac Acid Reflux Verified 02/03/20 16:41 sulfamethoxazole AdvReac Decreased Verified 02/03/20 16:41 [From Bactrim] Renal Function trandolapril [From Tarka] AdvReac Acid Reflux Verified 02/03/20 16:41 trimethoprim [From Bactrim] AdvReac Decreased Verified 02/03/20 16:41 Renal Function verapamil [From Tarka] AdvReac Acid Reflux Verified 02/03/20 16:41 Physical Exam Vitals: Vital Signs Temp Pulse Pulse Resp BP BP Pulse Ox 02/04/20 11:43 97.6 F 67 17 134/64 92 L 02/04/20 08:00 98.5 F 95 16 119/58 95 02/04/20 04:00 97.6 F 69 18 117/58 93 L 02/04/20 00:00 98.9 F 83 18 156/72 95 02/03/20 20:00 99.3 F 70 18 143/67 98 02/03/20 18:59 98.6 F 69 18 109/56 97 02/03/20 18:00 99.3 F 70 18 145/67 98 02/03/20 17:36 71 18 138/68 96 02/03/20 15:38 98.4 F 76 18 164/72 98 Intake and Output 02/03/20 02/04/20 02/04/20 22:59 06:59 14:59 Intake Total 59.886 75.728 Balance 59.886 75.728 Intake: Intake, IV Titration 59.886 75.728 Amount Heparin Sod,Pork in 0.45% 59.886 75.728 NaCl 25,000 unit In 0.45 % NaCl 1 250ml.bag @ 12 UNITS/KG/HR 7.348 mls/hr IV .Q24H [facility] Rx#: [id number] Oral 0 Other: Voiding Method Toilet Toilet Toilet # Voids 1 Weight 61.235 kg 62.5 kg Results 02/03/20 16:04 02/03/20 16:04 Cardiac Enzymes 02/03/20 02/03/20 02/03/20 Range/Units 16:04 16:04 19:24 AST 33 (14-36) U/L Troponin I 0.048 H* 0.063 H* (0.000-0.034) ng/mL 02/03/20 Range/Units 22:14 AST (14-36) U/L Troponin I 0.072 H* (0.000-0.034) ng/mL Coagulation 02/03/20 02/04/20 Range/Units 16:04 01:45 PT 9.7 (9.0-12.0) sec APTT 26.6 43.2 H (22.0-30.0) sec Lipids 02/04/20 Range/Units 01:45 Triglycerides 79 (<150) mg/dL Cholesterol 163 (<200) mg/dL HDL Cholesterol 90 H (40-60) mg/dL CBC 02/03/20 Range/Units 16:04 WBC 7.0 (3.8-10.6) k/uL RBC 3.45 L (3.80-5.40) m/uL Hgb 10.5 L (11.4-16.0) gm/dL Hct 32.7 L (34.0-46.0) % Plt Count 221 (150-450) k/uL Comprehensive Metabolic Panel 02/03/20 Range/Units 16:04 Sodium 137 (137-145) mmol/L Potassium 4.4 (3.5-5.1) mmol/L Chloride 105 (98-107) mmol/L Carbon Dioxide 28 (22-30) mmol/L BUN 65 H (7-17) mg/dL Creatinine 2.60 H (0.52-1.04) mg/dL Glucose 197 H (74-99) mg/dL Calcium 9.3 (8.4-10.2) mg/dL AST 33 (14-36) U/L ALT 35 H (4-34) U/L Alkaline Phosphatase 74 (38-126) U/L Total Protein 5.9 L (6.3-8.2) g/dL Albumin 3.6 (3.5-5.0) g/dL Current Medications Generic Name Dose Route Start Last Admin Trade Name Freq PRN Reason Stop Dose Admin Allopurinol 100 mg 02/04/20 09:00 02/04/20 08:58 Allopurinol 100 Mg Tab PO 100 mg DAILY OSIRIS Administration Alprazolam 0.25 mg 02/04/20 10:48 Alprazolam 0.25 Mg Tab PO Q6HR PRN Mild Anxiety Alprazolam 0.5 mg 02/04/20 10:48 Alprazolam 0.5 Mg Tab PO Q6HR PRN Moderate Anxiety Aspirin 81 mg 02/05/20 09:00 Aspirin 81 Mg PO DAILY OSIRIS Atenolol 25 mg 02/04/20 09:00 02/04/20 11:46 Atenolol 25 Mg Tab PO Not Given DAILY OSIRIS Atorvastatin Calcium 80 mg 02/03/20 21:00 02/04/20 11:03 Atorvastatin 80 Mg Tab PO Not Given HS OSIRIS Calcium Carbonate 1 each 02/04/20 09:00 02/04/20 08:58 Calcium Carb-Vit D 500mg-200un 1 Each Tab PO 1 each DAILY OSIRIS Administration Cholecalciferol 1,000 unit 02/03/20 21:00 02/03/20 20:04 Cholecalciferol 1,000 Unit Tab PO Not Given HS OSIRIS Clopidogrel Bisulfate 75 mg 02/04/20 09:00 02/04/20 08:58 Clopidogrel 75 Mg Tab PO 75 mg DAILY OSIRIS Administration Ezetimibe 10 mg 02/03/20 21:00 02/03/20 20:59 Ezetimibe 10 Mg Tab PO 10 mg HS OSIRIS Administration Heparin Sodium/Sodium Chloride 250 mls @ 7.348 mls/hr 02/03/20 17:45 02/04/20 11:47 25,000 unit/ Sodium Chloride IV 0 units/kg/hr .Q24H OSIRIS 0 mls/hr Titration Protocol 12 UNITS/KG/HR Sodium Chloride 1,000 ml/ IV 1,000 mls @ 62.5 mls/hr 02/04/20 10:48 02/04/20 11:28 Solution IV 02/05/20 02:47 62.5 mls/hr .Q16H ONE Administration 1 ML/KG/HR Insulin Aspart 0 unit 02/04/20 11:23 Insulin Aspart (Novolog) 100 Unit/Ml Vial SQ DAILY PRN Insulin Pump Replacement Miscellaneous Information 1 each 02/04/20 11:23 Insulin Pump Basal Rates 1 Each Misc MISCELLANE Q6HR PRN Blood Sugar - High Protocol Miscellaneous Information 0 unit 02/04/20 12:30 02/04/20 11:47 Insulin Pump Meal Bolus 1 Unit Misc MISCELLANE Not Given ACHS [facility] Protocol Miscellaneous Information 0 unit 02/04/20 11:23 Insulin Pump Correction Bolus 1 Unit Misc MISCELLANE ACHS PRN Blood Sugar - High Protocol Miscellaneous Information 1 each 02/04/20 11:23 Insulin Pump Active Insulin 1 Each Misc MISCELLANE ACHS PRN Blood Sugar - High Protocol Miscellaneous Information 1 each 02/04/20 11:23 Insulin Pump Target Glucose 1 Each Misc MISCELLANE ACHS PRN Blood Sugar - High Protocol Montelukast Sodium 10 mg 02/03/20 21:00 02/03/20 20:04 Montelukast 10 Mg Tab PO 10 mg HS OSIRIS Administration Nifedipine 30 mg 02/03/20 21:00 02/03/20 20:04 Nifedipine Xl 30 Mg Tab.Er.24 PO 30 mg HS OSIRIS Administration Nitroglycerin 0.4 mg 02/04/20 10:48 Nitroglycerin Sl Tabs 0.4 Mg Tab SUBLINGUAL Q5M PRN Chest Pain Ondansetron HCl 4 mg 02/03/20 20:55 02/03/20 22:27 Ondansetron 4 Mg/2 Ml Vial IVP 4 mg Q6HR PRN Administration Nausea And Vomiting Torsemide 20 mg 02/03/20 17:38 Torsemide 20 Mg Tab PO BID PRN Edema Intake and Output 02/03/20 02/04/20 02/04/20 22:59 06:59 14:59 Intake Total 59.886 75.728 Balance 59.886 75.728 Intake: Intake, IV Titration 59.886 75.728 Amount Heparin Sod,Pork in 0.45% 59.886 75.728 NaCl 25,000 unit In 0.45 % NaCl 1 250ml.bag @ 12 UNITS/KG/HR 7.348 mls/hr IV .Q24H [facility] Rx#: [id number] Oral 0 Other: Voiding Method Toilet Toilet Toilet # Voids 1 Weight 61.235 kg 62.5 kg 02/03/20 16:04 02/03/20 16:04
[2020-02-04] MEDS ORDERED: BIVALIRUDIN BOLUS 250 MG/50 ML IV ONE (13:25)
[2020-02-04] MEDS ORDERED: BIVALIRUDIN 250 MG in SODIUM CHLORIDE 0.9% 50 ML IV ONE (13:26)
--- NOTE | 2020-02-04 13:29 | P.CARDCATH ---
Date of Procedure: 02/04/20 Preoperative Diagnosis: Non-STEMI Postoperative Diagnosis: Critical 2 vessel disease Procedure(s) Performed: Left heart catheterization without left ventriculography Description of Procedure: HISTORY: This is a 64-year-old female with history of ischemic heart disease, chronic renal failure was admitted to the hospital with complaints of increasing chest pain and positive enzymes CONSENT:I have discussed the risks, benefits and alternative therapies for the above-mentioned procedure and for both sedation/analgesia as well as necessary blood product administration, if indicated, as they pertain to this patient. The patient has indicated understanding and acceptance of the risks and procedures discussed. [] PROCEDURE: Patient was brought to the lab in a fasting state. Patient was given some IV sedation. The right wrist is infiltrated with lidocaine. The right radial artery was entered and a guidewire was advanced. However catheter could not be advanced because of the spasm. The procedure was abandoned and the catheterization was performed from the right groin. The right groin is infiltrated with lidocaine and right femoral artery was entered using Seldinger technique. A 6-Greek catheter was left in place and selective coronary arteriography and left ventriculography was performed. Patient tolerated the procedure well. Femoral angiogram was performed and Angio-Seal was applied for hemostasis. No immediate complications were noted and patient was transferred to [facility] in a stable condition Conscious Sedation: Ativan 1 mg Duration 50 minutes HEMODYNAMICS: The aortic pressure is about 100/70. Left ventricle end-diastolic pressure is 20. No gradient across the aortic valve SELECTIVE CORONARY ARTERIOGRAPHY: LEFT MAIN: Normal length and free of any significant occlusive disease THE LEFT ANTERIOR DESCENDING CORONARY ARTERY:. This is a good caliber vessel giving rise to good-sized diagonal branch. The LAD and branches show mild diffuse plaque without any significant focal lesions THE LEFT CIRCUMFLEX AND IS CORONARY ARTERY:. This is totally occluded after the OM branch. There is a faint flow into the OM branch which has about 99% stenosis proximally. THE RIGHT CORONARY ARTERY: This a fair caliber vessel with about 95% stenosis in the stented segment, distally. Patient has multiple stent minutes LEFT VENTRICULOGRAPHY: Not performed FINAL IMPRESSION: Critical two-vessel disease. 95% stenosis of the RCA within the stented segments. Total occlusion of the circumflex with a chronic 99% stenosis of the OM branch PLAN: Dr. Velasco is going to the stent placement to the RCA. Possible stenting of the circumflex in the future. PROGNOSIS: Guarded
[2020-02-04] MEDS ORDERED: NITROGLYCERIN 1000MCG/10ML SYRINGE INTRACORON ONE (13:42)
[2020-02-04] MEDS ORDERED: CLOPIDOGREL 75 MG TAB ONE (13:50)
[2020-02-04] MEDS ORDERED: CLOPIDOGREL 75 MG TAB PO ONE (13:52)
[2020-02-04] MEDS ORDERED: IOPAMIDOL-370 125ML BTL INJ ONE (13:52)
[2020-02-04] MEDS ORDERED: ONDANSETRON 4 MG/2 ML VIAL ONE (14:01)
[2020-02-04] MEDS ORDERED: ONDANSETRON 4 MG/2 ML VIAL IVP ONE (14:03)
[2020-02-04] MEDS: NITROGLYCERIN SL TABS 0.4 MG TAB SUBLINGUAL PRN ×2 (15:32→16:53)
[2020-02-04 16:53] LABS: Glucose,Whole Blood 151 mg/dL (75-99)
[2020-02-04] MEDS: SODIUM CHLORIDE 0.9% 1,000 ML IV SCH (18:00)
[2020-02-04] MEDS ORDERED: CALCIUM CARBONATE 500 MG CHEWABLE PO PRN (18:51)
--- NOTE | 2020-02-04 19:44 | CA ---
CARDIOLOGY REPORT DATE OF SERVICE: 02/04/2020 CHIEF COMPLAINT: Chest pain. HISTORY OF PRESENT ILLNESS: This 64-year-old woman with a past medical history of multiple medical problems, including diabetes mellitus, hypertension, hyperlipidemia, renal disease, chronic kidney disease, stage 4, being followed by Dr. Rose as well as [facility], has presented with chest pain to [facility]. The patient had chest pain which was felt in the anterior part of the chest which was radiating upwards, mild to moderate in intensity, developing cough and congestion. Patient came to [facility] and was found to have troponin elevated at 0.072 and creatinine was elevated up to 2.6. The patient was admitted for further evaluation. Patient does have AV fistula on the left forearm which is maturing at this time. There is no history of any fever, rigor or chills. No history of headache, loss of consciousness, seizures. PAST MEDICAL HISTORY: History of diabetes mellitus, hypertension, hyperlipidemia, history of renal disease, history of angina, history of cardiac catheterization and stent. HOME MEDICATIONS: Home medications are calcium with vitamin D, Demadex, vitamin D3, nitroglycerin, nifedipine, Singulair, NovoLog, Tenormin, Zetia, Plavix, Lipitor, Ecotrin, zyloprim, Xanax. ALLERGIES: MULTIPLE ALLERGIES, INCLUDING VYTORIN, FENTANYL, HYDROCODONE, DILAUDID, VERSED, NITROGLYCERIN, PAXIL, BACTRIM, TARKA. FAMILY HISTORY: No history of heart disease or strokes in the family. SOCIAL HISTORY: Previous history of smoking. No current smoking or alcohol intake. REVIEW OF SYSTEMS: ENT: No diminished hearing. No diminished vision. CARDIOVASCULAR SYSTEM: As mentioned earlier. RESPIRATORY SYSTEM: As mentioned earlier. GI: As mentioned earlier. : As mentioned earlier. NERVOUS SYSTEM: No numbness, weakness. ALLERGY/IMMUNOLOGY: No asthma, hayfever. MUSCULOSKELETAL: As mentioned earlier. HEMATOLOGY/ONCOLOGY: No history of anemia. ENDOCRINE: Diabetes mellitus. CONSTITUTIONAL: As mentioned earlier. DERMATOLOGY: Negative. RHEUMATOLOGY: Negative. PSYCHIATRY: As mentioned earlier. PHYSICAL EXAMINATION: Patient alert and oriented x3. Pulse is 90, blood pressure is 130/64, respirations 17, temperature normal, pulse ox 94% on 3 L. HEENT: Conjunctivae normal. Oral mucosa moist. NECK: No jugular venous distention. No carotid bruit. No lymph node enlargement. CARDIOVASCULAR SYSTEM: S1, S2 muffled. No S3. No S4. RESPIRATORY SYSTEM: Breath sounds diminished at the bases. A few scattered rhonchi. No crackles. ABDOMEN: Soft, non-tender. No mass palpable. LEGS: No edema. No swelling. NERVOUS SYSTEM: Higher functions as mentioned earlier. Moves all 4 limbs. No focal motor or sensory deficit. LYMPHATICS: No lymph node palpable in neck, axillae or groin. SKIN: No ulcer, rash, bleeding. JOINTS: No active deforming arthropathy. LABS: WBC 7, hemoglobin 10.5, creatinine is 2.60. Other labs are noted. Troponin 0.072. ASSESSMENT: 1. Chest pain, possible unstable angina, possible acute kae-DC-heejyoc-elevation myocardial infarction. 2. History of coronary artery disease, stent. 3. Diabetes mellitus, type 2. 4. Chronic kidney stage, stage 4. 5. Hyperlipidemia. 6. Hypertension. 7. History of pilonidal cyst. 8. History of insulin pump. 9. Tonsillectomy. 10.Tubal ligation. 11.History of cataracts. RECOMMENDATIONS AND DISCUSSION: In this 64-year-old woman who presented with multiple complex medical issues, we will monitor the patient closely, continue the current medications, continue with symptomatic treatment. Cardiology consultation. Possible cardiac cath. Resume the home medications. Avoid nephrotoxic medications. Monitor creatinine closely. Prognosis is guarded because of multiple complex medical issues. Further recommendations to follow. A copy of this dictation is being forwarded to Dr. Rose, who is the primary physician. MMANA MARIAL / IJN: [id number] /
[2020-02-04 20:17] LABS: Glucose,Whole Blood 294 mg/dL (75-99)
[2020-02-04] MEDS: EZETIMIBE 10 MG TAB PO SCH (20:34)
[2020-02-04] MEDS: NIFEdipine XL 30 MG TAB.ER.24 PO SCH (20:34)
[2020-02-04] MEDS: CHOLECALCIFEROL 1,000 UNIT TAB PO SCH (20:34)
[2020-02-04] MEDS: MONTELUKAST 10 MG TAB PO SCH (20:34)
--- NOTE | 2020-02-05 02:57 | PTCA ---
PERCUTANEOUSTRANS CORORONARY ANGIOGRAPHY DATE OF SERVICE: 02/04/2020 PROCEDURE: PTCA and stenting of distal dominant RCA a restenotic lesion with in-stent restenosis using a drug-eluting stent. PERFORMED BY: Dr. Yoly Velasco. Moderate conscious sedation time was 32 minutes. Patient was administered Versed. Oxygen saturation, hemodynamics and EKG were monitored closely. CLINICAL INFORMATION: Mrs. Dionne Mercado is a 64-year-old lady with diabetes mellitus and advanced chronic kidney disease, who also has known CAD, underwent stenting of RCA performed more than 10 years ago and since then she has stopped seeing here and was being followed at [facility]. She had a positive stress test with inferior wall ischemia, was advised medical therapy comes into the hospital with chest pain and troponin elevation was seen and evaluated by Dr. Canas who performed a cardiac cath which revealed a total occlusion of circumflex which is a non dominant/codominant vessel. This appears to be a chronic total occlusion with the circumflex marginal being filled antegrade and the groove branch being filled by collaterals from the RCA. LAD had 30% to 40% narrowing. She was advised intervention of the right coronary artery with the understanding that circumflex could be staged later, but this would be a [employer] occlusion of circumflex. The patient already received about 50 mL of dye and she had a threshold of about 70 or so. She was advised intervention mainly because she was having symptoms of chest discomfort. PROCEDURE NOTE: The existing 6-Eritrean introducer in the right femoral artery was used. I used an ART 3.5 right catheter to cannulate the right coronary artery and a Whisper wire was used to cross the lesion. Predilatation was performed with a 12 mm 2.5 caliber NC Trek balloon at 12 atmospheres. Patient had discomfort in the chest with mild EKG changes. She also became hypotensive with the inflation. Subsequently a 15 mm long 3.0 caliber Xience stent was deployed at 14 atmospheres. Patient had chest pain, hypotension and mild EKG changes. Excellent angiographic result was achieved without complication. The catheter was then taken out. The patient was transiently hypotensive, but after giving some fluids, the pressure came back to 108/60. Patient was asymptomatic. EKG was normal. There was a good PAULINA-3 flow. The sheath was taken out and Angio-Seal device used to secure hemostasis. Results were discussed with the patient and also I spoke to her daughter, Valarie, who is a nurse in the emergency room. The patient will also need circumflex intervention, but this should be performed at a later date and this is probably a chronic total occlusion. The right coronary artery results were excellent. This was a restenotic lesion within a previously placed stent that was of 2.5 caliber and I used a 3.0 caliber Xience stent of 15 mm length. The patient received Angiomax bolus and infusion as per protocol adjusted to her renal condition. She also received 225 mg of Plavix and she was already on aspirin and Plavix combination. The patient was sent to the room in stable condition with excellent angiographic result. MMODL / IJN: [id number] /
[2020-02-05 04:08] LABS: Appearance,Urine Clear (Clear); Bacteria,Urine Rare /hpf; Bilirubin,Urine Negative (Negative); Blood,Urine Trace (Negative); Color,Urine Light Yellow; Glucose,Urine (UA) Trace (Negative); Ketones,Urine Negative (Negative); Leukocyte Esterase,Urine Large (Negative); Mucus,Urine Rare /hpf; Nitrite,Urine Negative (Negative); PH, Urine 5.5 (5.0-8.0); Protein,Urine 2+ (Negative); RBC,Urine 5 /hpf (0-5); Specific Gravity,Urine 1.027 (1.001-1.035); Squamous Epithelial Cell,Urine 2 /hpf (0-4); Urobilinogen,Urine <2.0 mg/dL (<2.0); WBC,Urine 10 /hpf (0-5)
[2020-02-05 06:10] LABS: Glucose,Whole Blood 104 mg/dL (75-99)
[2020-02-05] MEDS: SODIUM CHLORIDE 0.9% 1,000 ML IV SCH (06:12)
[2020-02-05] MEDS: INSULIN PUMP MEAL BOLUS 1 UNIT MISC MISCELLANE SCH ×4 (06:13→20:44)
[2020-02-05] MEDS: TORSEMIDE 20 MG TAB PO PRN ×2 (06:34→20:40)
[2020-02-05] MEDS ORDERED: FUROSEMIDE 10 MG/ML 4 ML VIAL IV STA (08:16)
[2020-02-05] MEDS ORDERED: FUROSEMIDE 10 MG/ML 4 ML VIAL ONE (08:18)
[2020-02-05 08:38] LABS: HCT 31.3 % (34.0-46.0); HGB 9.9 gm/dL (11.4-16.0); Hypochromasia Slight; MCH 30.4 pg (25.0-35.0); MCHC 31.7 g/dL (31.0-37.0); MCV 95.6 fL (80.0-100.0); Mean Platelet Volume 7.8; Platelet Count 209 k/uL (150-450); RBC 3.27 m/uL (3.80-5.40); RDW 15.6 % (11.5-15.5); WBC 10.3 k/uL (3.8-10.6)
[2020-02-05 09:04] LABS: Calcium 8.6 mg/dL (8.4-10.2); Potassium 4.8 mmol/L (3.5-5.1)
[2020-02-05] MEDS: CLOPIDOGREL 75 MG TAB PO SCH (09:38)
[2020-02-05] MEDS: ASPIRIN 81 MG PO SCH (09:38)
[2020-02-05] MEDS: CALCIUM CARB-VIT D 500MG-200UN 1 EACH TAB PO SCH (09:38)
[2020-02-05] MEDS: allopurinoL 100 MG TAB PO SCH (09:38)
[2020-02-05] MEDS: atenoloL 25 MG TAB PO SCH (09:38)
[2020-02-05 12:03] LABS: Glucose,Whole Blood 183 mg/dL (75-99)
--- NOTE | 2020-02-05 13:33 | P.PN ---
Subjective Progress Note Date: 02/05/20 CHIEF COMPLAINT: Chest pain HISTORY OF PRESENT ILLNESS: Patient examined this morning at the bedside. Patient is s/p cardiac cath with stent placement to the RCA. Patient denies chest pain or pressure. She did report some shortness of breath this morning and was given a one time dose of lasix. PHYSICAL EXAM: VITAL SIGNS: Reviewed. GENERAL: Well-developed in no acute distress. HEENT: Head is normocephalic. Pupils are equal, round. Sclerae anicteric. Mucous membranes of the mouth are moist. Neck supple. No JVD or thyromegaly LUNGS: Respirations even and unlabored. Lungs diminished with rales noted to the bases. HEART: Regular rate and rhythm. S1 and S2 heard. Systolic murmur noted. ABDOMEN: Soft. Nondistended. Nontender. EXTREMITIES: Normal range of motion. No clubbing or cyanosis. Right groin and radial cath site with pulses intact. Peripheral pulses intact. Trace bilateral extremity edema NEUROLOGIC: Awake and alert. Oriented x 3. ASSESSMENT: NSTEMI, s/p PCI to RCA Abnormal stress test, November 2019 History of coronary artery disease with previous PCI to RCA 3 Acute exacerbation of chronic diastolic congestive heart failure, EF 50-55% Valvular heart disease including moderate aortic stenosis, moderate to severe mitral regurgitation, mild tricuspid regurgitation Chronic kidney disease Hypertension Hyperlipidemia Diabetes mellitus PLAN: Nephrology consulted for CKD Diuretics per nephrology Monitor kidney function Accurate I & O Continue current cardiac medications Patient will require stenting of circumflex at a later date Nurse practitioner note has been reviewed by physician. Signing provider agrees with the documented findings, assessment, and plan of care. Objective - Vital Signs Vital signs: Vital Signs Temp 98.5 F 02/05/20 12:00 Pulse 79 02/05/20 12:00 Resp 17 02/05/20 12:00 BP 107/52 02/05/20 12:00 Pulse Ox 94 L 02/05/20 12:00 Intake & Output 02/04/20 02/05/20 02/05/20 18:59 06:59 18:59 Intake Total 765.728 450 Balance 765.728 450 Weight 64.4 kg Intake: IV 570 Intake, IV Titration 75.728 Amount Heparin Sod,Pork in 0.45% 75.728 NaCl 25,000 unit In 0.45 % NaCl 1 250ml.bag @ 12 UNITS/KG/HR 7.348 mls/hr IV .Q24H [facility] Rx#: [id number] Oral 120 450 Other: Voiding Method Toilet Toilet Toilet # Voids 0 2 1 - Labs CBC & Chem 7: 02/05/20 07:17 02/05/20 07:17 Labs: Abnormal Lab Results - Last 24 Hours (Table) 02/04/20 02/04/20 02/05/20 Range/Units 16:41 20:16 03:50 RBC (3.80-5.40) m/uL Hgb (11.4-16.0) gm/dL Hct (34.0-46.0) % RDW (11.5-15.5) % Sodium (137-145) mmol/L Carbon Dioxide (22-30) mmol/L BUN (7-17) mg/dL Creatinine (0.52-1.04) mg/dL POC Glucose (mg/dL) 151 H 294 H (75-99) mg/dL Urine Protein 2+ H (Negative) Urine Glucose (UA) Trace H (Negative) Urine Blood Trace H (Negative) Ur Leukocyte Esterase Large H (Negative) Urine WBC 10 H (0-5) /hpf Urine Bacteria Rare H (None) /hpf Urine Mucus Rare H (None) /hpf 02/05/20 02/05/20 02/05/20 Range/Units 06:09 07:17 07:17 RBC 3.27 L (3.80-5.40) m/uL Hgb 9.9 L (11.4-16.0) gm/dL Hct 31.3 L (34.0-46.0) % RDW 15.6 H (11.5-15.5) % Sodium 133 L (137-145) mmol/L Carbon Dioxide 21 L (22-30) mmol/L BUN 77 H (7-17) mg/dL Creatinine 3.48 H (0.52-1.04) mg/dL POC Glucose (mg/dL) 104 H (75-99) mg/dL Urine Protein (Negative) Urine Glucose (UA) (Negative) Urine Blood (Negative) Ur Leukocyte Esterase (Negative) Urine WBC (0-5) /hpf Urine Bacteria (None) /hpf Urine Mucus (None) /hpf 02/05/20 Range/Units 12:00 RBC (3.80-5.40) m/uL Hgb (11.4-16.0) gm/dL Hct (34.0-46.0) % RDW (11.5-15.5) % Sodium (137-145) mmol/L Carbon Dioxide (22-30) mmol/L BUN (7-17) mg/dL Creatinine (0.52-1.04) mg/dL POC Glucose (mg/dL) 183 H (75-99) mg/dL Urine Protein (Negative) Urine Glucose (UA) (Negative) Urine Blood (Negative) Ur Leukocyte Esterase (Negative) Urine WBC (0-5) /hpf Urine Bacteria (None) /hpf Urine Mucus (None) /hpf
--- NOTE | 2020-02-05 14:18 | XR ---
EXAMINATION TYPE: XR chest 2V DATE OF EXAM: 02/05/2020 CLINICAL HISTORY: Shortness of breath TECHNIQUE: Frontal and lateral views of the chest are obtained. COMPARISON: 02/03/2020 chest radiograph FINDINGS: Cardiomegaly. Mediastinal silhouette normal. Coarsened interstitial lung markings redemons trated. Mild haziness of the left costophrenic angle. No pneumothorax. The osseous structures are int act. IMPRESSION: 1. Unchanged diffuse interstitial coarsening versus 02/03/2020. 2. Haziness of the left costophrenic angle may represent atelectasis versus tiny pleural effusion. 3. Cardiomegaly.
[2020-02-05 17:16] LABS: Glucose,Whole Blood 174 mg/dL (75-99)
--- NOTE | 2020-02-05 17:40 | CONS ---
CONSULTATION REASON FOR CONSULT: Renal failure. HISTORY OF PRESENT ILLNESS: The patient is a 64-year-old female who was admitted to the hospital on 02/03/2020 with complaints of chest pain. She has stage 4-5 chronic kidney disease and follows with a manager graphic out of [facility]. She does have a fistula in her left arm and she states her GFR has been at about 16. Post admission patient was noted to have elevated troponin at 0.072. She did have cardiac catheterization performed yesterday which showed critical two-vessel disease, and plan was for stent placement to RCA later on, which was done last night. At this time patient denies any chest pains. Her serum creatinine is up to 3.4 from 2.6 on 02/03/2020. Current GFR is at 13 mL/minute. The patient has been voiding. Her blood pressure is slightly on the lower side this morning. She is not on any nephrotoxic medications. PAST MEDICAL HISTORY: Coronary artery disease, CKD stage 4 to 5, hypertension, dyslipidemia. PAST SURGICAL HISTORY: AV fistula in left arm, previous cardiac catheterization, coronary stent placement, tonsillectomy, tubal ligation, cataract surgery. SOCIAL HISTORY: Negative for smoking, drug abuse or alcohol abuse. MEDICATIONS: Medications prior to admission were Xanax, aspirin, Lipitor, Plavix, Zetia, Nitrostat, Singulair, Demadex, zyloprim, Tenormin, vitamin D, nifedipine. ALLERGIES: ALLERGIES are MULTIPLE. Please see list. REVIEW OF SYSTEMS: As per HPI. Other systems negative. PHYSICAL EXAMINATION: Patient is comfortable, awake, not in any acute distress. Alert and oriented x3. Blood pressure is 107/52, heart rate 79 per minute. She is afebrile. EXAMINATION OF THE HEART: S1 and S2. EXAMINATION OF LUNGS: Bilateral breath sounds are heard. ABDOMEN: Soft, non-tender. Examination of lower extremities shows no significant edema. 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 LABS: Labs show sodium 133, potassium 4.8, chloride 104. CO2 is 21, BUN 77, serum creatinine 3.48, hemoglobin 9.9 g/dL. ASSESSMENT: 1. Chronic kidney disease secondary to nephrosclerosis, stage 4-5, with baseline GFR close to 16 to 15 mL/minute, currently with a left arm AV fistula. 2. Acute kidney injury, nonoliguric, possibly prerenal. Currently patient does not appear to be significantly volume-overloaded. However, chest x-ray on 02/03/2020 did show some interstitial changes. She is not on any IV fluids. Patient has received IV Lasix as well this morning; therefore I will maintain her off of IV fluids for now, follow up on the chest x-ray from today, and there is no indication for renal replacement therapy at this time. However, we will continue to monitor the renal function and patient is advised to follow up with her primary manager graphic soon after discharge. 3. Coronary artery disease, status post cardiac catheterization and stenting of RCA with positive stress test and inferior wall ischemia as outpatient. 4. Hypertension, controlled. PLAN: Follow up on chest x-ray. Continue off of IV fluids for now. Avoid hypotension. Repeat labs in a.m. Follow up with primary manager graphic post discharge. No indication for starting renal replacement therapy at this time. MMODL / IJN: [id number] /
[2020-02-05] MEDS: ACETAMINOPHEN TAB 325 MG TAB PO PRN (18:05)
--- NOTE | 2020-02-05 20:06 | P.PN ---
Progress Note - Text Progress Note Date: 02/05/20 presenting complaint: Chest pain Interval history: Patient was admitted by my colleague Dr. Dorado. This is 64-year-old patient was chronic stable medical conditions include diabetes mellitus, hypertension, hyperlipidemia, CK D stage IV, on insulin pump, coronary artery disease with prior stent. Presented with chest pain. Admitted with non-ST elevation myocardial infarction. Had abnormal stress test in November this year. Underwent cardiac catheterization with a PTCA and stenting to distal dominant RCA with in-stent restenosis. Drug-eluting stent was used. Today-this morning patient got short of breath. 1 dose of IV Lasix was given. Feeling better. No chest pain. Did eat breakfast. Review of systems: Was done for constitutional, cardiovascular, GI, pulmonary. relevant finding as above Active Medications Acetaminophen (Acetaminophen Tab 325 Mg Tab) 650 mg PO Q6HR PRN PRN Reason: Fever and/ or Pain Last Admin: 02/05/20 18:05 Dose: 650 mg Documented by: Allopurinol (Allopurinol 100 Mg Tab) 100 mg PO DAILY [facility] Last Admin: 02/05/20 09:38 Dose: 100 mg Documented by: Alprazolam (Alprazolam 0.25 Mg Tab) 0.25 mg PO Q6HR PRN PRN Reason: Mild Anxiety Alprazolam (Alprazolam 0.5 Mg Tab) 0.5 mg PO Q6HR PRN PRN Reason: Moderate Anxiety Aspirin (Aspirin 81 Mg) 81 mg PO DAILY [facility] Last Admin: 02/05/20 09:38 Dose: 81 mg Documented by: Atenolol (Atenolol 25 Mg Tab) 25 mg PO DAILY [facility] Last Admin: 02/05/20 09:38 Dose: 25 mg Documented by: Atorvastatin Calcium (Atorvastatin 80 Mg Tab) 80 mg PO [facility] Last Admin: 02/04/20 11:03 Dose: Not Given Documented by: Calcium Carbonate (Calcium Carb-Vit D 500mg-200un 1 Each Tab) 1 each PO DAILY [facility] Last Admin: 02/05/20 09:38 Dose: 1 each Documented by: Calcium Carbonate/Glycine (Calcium Carbonate 500 Mg Chewable) 500 mg PO QID PRN PRN Reason: Heartburn Cholecalciferol (Cholecalciferol 1,000 Unit Tab) 1,000 unit PO [facility] Last Admin: 02/04/20 20:34 Dose: 1,000 unit Documented by: Clopidogrel Bisulfate (Clopidogrel 75 Mg Tab) 75 mg PO DAILY [facility] Last Admin: 02/05/20 09:38 Dose: 75 mg Documented by: Ezetimibe (Ezetimibe 10 Mg Tab) 10 mg PO [facility] Last Admin: 02/04/20 20:34 Dose: 10 mg Documented by: Insulin Aspart (Insulin Aspart (Novolog) 100 Unit/Ml Vial) 0 unit SQ DAILY PRN PRN Reason: Insulin Pump Replacement Miscellaneous Information (Insulin Pump Basal Rates 1 Each Misc) 1 each MISCELLANE Q6HR PRN; Protocol PRN Reason: Blood Sugar - High Miscellaneous Information (Insulin Pump Meal Bolus 1 Unit Misc) 0 unit MISCELLANE ACHS [facility]; Protocol Last Admin: 02/05/20 18:41 Dose: 1.8 unit Documented by: Miscellaneous Information (Insulin Pump Correction Bolus 1 Unit Misc) 0 unit MISCELLANE ACHS PRN; Protocol PRN Reason: Blood Sugar - High Miscellaneous Information (Insulin Pump Active Insulin 1 Each Misc) 1 each MISCELLANE ACHS PRN; Protocol PRN Reason: Blood Sugar - High Miscellaneous Information (Insulin Pump Target Glucose 1 Each Misc) 1 each MISCELLANE ACHS PRN; Protocol PRN Reason: Blood Sugar - High Montelukast Sodium (Montelukast 10 Mg Tab) 10 mg PO [facility] Last Admin: 02/04/20 20:34 Dose: 10 mg Documented by: Nifedipine (Nifedipine Xl 30 Mg Tab.Er.24) 30 mg PO [facility] Last Admin: 02/04/20 20:34 Dose: 30 mg Documented by: Nitroglycerin (Nitroglycerin Sl Tabs 0.4 Mg Tab) 0.4 mg SUBLINGUAL Q5M PRN PRN Reason: Chest Pain Last Admin: 02/04/20 16:53 Dose: 0.4 mg Documented by: Ondansetron HCl (Ondansetron 4 Mg/2 Ml Vial) 4 mg IVP Q6HR PRN PRN Reason: Nausea And Vomiting Last Admin: 02/03/20 22:27 Dose: 4 mg Documented by: Torsemide (Torsemide 20 Mg Tab) 20 mg PO BID PRN PRN Reason: Edema Last Admin: 02/05/20 06:34 Dose: 20 mg Documented by: On examination: VITAL SIGNS: 98.5, 79, 17, 107/52, 94% room air GENERAL APPEARANCE: Propped up in bed, tired EYES: Pupils equal. Conjunctiva normal. NECK: JVD not raised. Mass not palpable. RESPIRATORY: Respiratory effort increased. Lungs-basilar crackles. CARDIOVASCULAR: First and second sounds normal. No edema. ABDOMEN: Soft. Liver and spleen not palpable. No tenderness. No mass palpable. PSYCHIATRY: Alert and oriented x3. Mood and affect normal. INVESTIGATIONS, reviewed in the clinical context: White count 10.3 hemoglobin 9.9 potassium 4.8 creatinine 3.48 bun 77 Chest x-ray film personally reviewed by me-pulmonary edema Admission testing: Hemoglobin 10.5 platelets 221 bun 65 creatinine 2.60 Troponin I 0.048, 0.063, 0.072 LDL 57 2-D echocardiogram-severe concentric LVH, EF 50-55%, severe aortic valve sclerosis, moderate aortic stenosis, moderate to severe mitral regurgitation Abdominal ultrasound-gallstones. Assessment: -Acute non-Q wave myocardial infarction -Acute congestive heart failure exacerbation from diastolic dysfunction EF 50- 55% from underlying coronary artery disease-new diagnosis today -Cardiac catheterization with successful angioplasty stenting to RCA -Coronary artery disease with prior stents -Diabetes mellitus type 2 on insulin pump -Hyperlipidemia -Essential hypertension -CK D stage IV to include diabetic nephropathy and hypertensive nephrosclerosis -Acute kidney injury possibly contrast-induced nephropathy -Severe aortic valve sclerosis with moderate aortic stenosis, moderate to severe mitral regurgitation -Gallstones asymptomatic -Normocytic anemia, secondary to chronic kidney disease Plan: Patient did receive a dose of IV Lasix earlier today. Current medications include Xanax, aspirin, Lipitor, Tenormin, Procardia XL. Plavix.follow with cardiology, nephrology discussed with the patient.
[2020-02-05] MEDS: EZETIMIBE 10 MG TAB PO SCH (20:41)
[2020-02-05] MEDS: ATORVASTATIN 80 MG TAB PO SCH (20:41)
[2020-02-05] MEDS: MONTELUKAST 10 MG TAB PO SCH (20:41)
[2020-02-05] MEDS: CHOLECALCIFEROL 1,000 UNIT TAB PO SCH (20:41)
[2020-02-05] MEDS: NIFEdipine XL 30 MG TAB.ER.24 PO SCH (20:41)
[2020-02-05 20:43] LABS: Glucose,Whole Blood 109 mg/dL (75-99)
[2020-02-06 06:21] LABS: Glucose,Whole Blood 126 mg/dL (75-99)
[2020-02-06] MEDS: INSULIN PUMP MEAL BOLUS 1 UNIT MISC MISCELLANE SCH ×5 (06:22→19:17)
[2020-02-06 08:45] LABS: Calcium 8.4 mg/dL (8.4-10.2); Potassium 4.7 mmol/L (3.5-5.1)
[2020-02-06] MEDS: ASPIRIN 81 MG PO SCH (09:02)
[2020-02-06] MEDS: allopurinoL 100 MG TAB PO SCH (09:02)
[2020-02-06] MEDS: atenoloL 25 MG TAB PO SCH (09:02)
[2020-02-06] MEDS: CALCIUM CARB-VIT D 500MG-200UN 1 EACH TAB PO SCH (09:02)
[2020-02-06] MEDS: CLOPIDOGREL 75 MG TAB PO SCH (09:02)
[2020-02-06] MEDS ORDERED: FUROSEMIDE 10 MG/ML 10 ML VIAL IV STA (11:27)
[2020-02-06 12:09] LABS: Glucose,Whole Blood 223 mg/dL (75-99)
--- NOTE | 2020-02-06 13:28 | P.PN ---
Subjective This is a pleasant 64-year-old female past medical history significant for coronary artery disease status post PCI to the RCA, chronic diastolic heart failure, chronic kidney disease, hypertension, dyslipidemia and diabetes mellitus. She underwent coronary angiography and PCI to the RCA on this admission. She has an almost total occlusion of the circumflex that will require intervention in the future. She is seen and examined sitting up in bed in no acute distress. She has no symptoms of chest pain, shortness of breath, dizziness or palpitations. Blood pressure 121/56 heart rate 76 afebrile maintaining oxygen saturation on nasal cannula. Laboratory data reviewed, sodium 132, potassium 4.7, creatinine 4.31. Currently maintained on aspirin 81 mg daily, atenolol 25 mg daily, atorvastatin 80 mg daily, Plavix 75 mg daily, Ze tia 10 mg daily, Lasix 60 mg IV twice a day per nephrology and nifedipine 30 mg at bedtime. Nephrology is following closely as well and they're recommending IV diuresis repeat kidney function in the morning possible dialysis if renal function does not improve. Chest xray from this morning reveals coursened interstitial markings. Telemetry tracings indicate sinus mechanism with no significant arrhythmias noted. GENERAL: Well-appearing, well-nourished and in no acute distress. NECK: Supple without JVD or thyromegaly. LUNGS: Breath sounds clear to auscultation bilaterally. Respiration equal and unlabored. No wheezes, rales or rhonchi. HEART: Regular rate and rhythm with systolic ejection murmur at the base and left sternal border, no rubs or gallops. S1 and S2 heard. EXTREMITIES: Normal range of motion, no edema. No clubbing or cyanosis. Peripheral pulses intact. Right radial access site clean, dry and intact with no evidence of bleeding or hematoma. ASSESSMENT Non-ST elevated myocardial infarction status post PCI to the RCA History of previous coronary artery disease Acute on chronic diastolic heart failure ejection fraction 50-55% Valvular heart disease Chronic kidney disease Hypertension Dyslipidemia Diabetes mellitus PLAN Continue IV diuretics per nephrology. Document accurate intake and output along with daily weights. Follow renal function and electrolytes in the morning. Continue dual anti-platelet therapy. Nurse Practitioner note has been reviewed, I agree with a documented findings and plan of care. Patient was seen and examined. Objective - Vital Signs Vital signs: Vital Signs Temp 98.9 F 02/06/20 12:00 Pulse 76 02/06/20 12:00 Resp 15 02/06/20 12:00 BP 121/56 02/06/20 12:00 Pulse Ox 91 L 02/06/20 12:00 Intake & Output 02/05/20 02/06/20 02/06/20 18:59 06:59 18:59 Intake Total 0 Balance 0 Weight 65.1 kg 65.1 kg Intake: Oral 0 Other: Voiding Method Toilet Toilet Toilet # Voids 3 1 - Labs CBC & Chem 7: 02/05/20 07:17 02/06/20 07:44 Labs: Abnormal Lab Results - Last 24 Hours (Table) 02/05/20 02/05/20 02/06/20 Range/Units 17:12 20:21 06:12 Sodium (137-145) mmol/L BUN (7-17) mg/dL Creatinine (0.52-1.04) mg/dL Glucose (74-99) mg/dL POC Glucose (mg/dL) 174 H 109 H 126 H (75-99) mg/dL 02/06/20 02/06/20 Range/Units 07:44 12:07 Sodium 132 L (137-145) mmol/L BUN 85 H (7-17) mg/dL Creatinine 4.31 H (0.52-1.04) mg/dL Glucose 112 H (74-99) mg/dL POC Glucose (mg/dL) 223 H (75-99) mg/dL
[2020-02-06 15:23] VITALS: BMI 26.6
[2020-02-06] MEDS: FUROSEMIDE 100 MG in SODIUM CHLORIDE 0.9% 90 ML IV SCH ×2 (16:43→21:52)
--- NOTE | 2020-02-06 19:44 | PN ---
PROGRESS NOTE Patient is seen for followup for acute kidney injury on top of chronic kidney disease. Patient follows up at [facility] for CKD, which is basically stage 4 to 5 with baseline GFR about 15 to 16 mL/minute. She was admitted to the hospital with a [id number] VT and she is status post PTCA and stenting of the RCA. Patient, however, has developed volume overload. She does have some urine output. She has an AV fistula in her left arm. However, this was only placed about 3 to 4 weeks ago and is not ready yet. Patient has had good urine output. I have discussed with her regarding possibility of starting dialysis this admission if her renal function and volume status do not improve. Patient is agreeable. PHYSICAL EXAMINATION: On examination today, blood pressure is 121/56, heart rate 76 per minute. She is afebrile. EXAMINATION OF THE HEART: S1 and S2. EXAMINATION OF LUNGS: Bilateral breath sounds are heard. Bilateral crackles are heard at the bases. ABDOMEN: Soft, non-tender. Examination of lower extremities shows edema 1+ bilaterally. 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 LABS: Labs show sodium 132, potassium 4.7, BUN 85, creatinine 4.3, calcium 8.4. ASSESSMENT: 1. Chronic kidney disease, stage 5, with progressive acute kidney injury post myocardial infarction and cardiac catheterization. Currently patient is also in volume overload. I will diurese her and I have advised her that if her renal function does not improve and if her volume status does not improve, she will need to start dialysis. At this time she is agreeable. She will, however, need a PermCath, as her AV fistula is not mature yet. 2. Volume overload. Add diuretics. Lasix 60 mg IV x1 now and then maintain q.12 hours. 3. Okg-[id number] myocardial infarction, status post cardiac catheterization and stenting of right coronary artery. 4. Severe aortic valve sclerosis. 5. Hypertension, currently controlled. PLAN: Diurese patient, and if no further improvement start dialysis this admission. Patient is agreeable. However, her AV fistula is not ready and we will need to consult Vascular Surgery for PermCath placement. MMODL / IJN: [id number] /
[2020-02-06] MEDS: EZETIMIBE 10 MG TAB PO SCH (20:26)
[2020-02-06] MEDS: NIFEdipine XL 30 MG TAB.ER.24 PO SCH (20:26)
[2020-02-06] MEDS: MONTELUKAST 10 MG TAB PO SCH (20:26)
[2020-02-06] MEDS: CHOLECALCIFEROL 1,000 UNIT TAB PO SCH (20:27)
[2020-02-06] MEDS: ATORVASTATIN 80 MG TAB PO SCH (20:27)
[2020-02-06 20:31] LABS: Glucose,Whole Blood 207 mg/dL (75-99)
[2020-02-06] MEDS ORDERED: FUROSEMIDE 10 MG/ML 10 ML VIAL IV SCH (21:00)
--- NOTE | 2020-02-06 23:12 | P.PN ---
Progress Note - Text Progress Note Date: 02/06/20 presenting complaint: Chest pain Interval history: Patient was admitted by my colleague Dr. Dorado. This is 64-year-old patient was chronic stable medical conditions include diabetes mellitus, hypertension, hyperlipidemia, CK D stage IV, on insulin pump, coronary artery disease with prior stent. Presented with chest pain. Admitted with non-ST elevation myocardial infarction. Had abnormal stress test in November this year. Underwent cardiac catheterization with a PTCA and stenting to distal dominant RCA with in-stent restenosis. Drug-eluting stent was used. Also had pulmonary edema. Kidney function worsening Today-no chest pain. Shortness of breath still present. Getting diuretics. Did tolerate some diet. Review of systems: Was done for constitutional, cardiovascular, GI, pulmonary. relevant finding as above Active Medications Acetaminophen (Acetaminophen Tab 325 Mg Tab) 650 mg PO Q6HR PRN PRN Reason: Fever and/ or Pain Last Admin: 02/05/20 18:05 Dose: 650 mg Documented by: Allopurinol (Allopurinol 100 Mg Tab) 100 mg PO DAILY [facility] Last Admin: 02/06/20 09:02 Dose: 100 mg Documented by: Alprazolam (Alprazolam 0.25 Mg Tab) 0.25 mg PO Q6HR PRN PRN Reason: Mild Anxiety Alprazolam (Alprazolam 0.5 Mg Tab) 0.5 mg PO Q6HR PRN PRN Reason: Moderate Anxiety Aspirin (Aspirin 81 Mg) 81 mg PO DAILY [facility] Last Admin: 02/06/20 09:02 Dose: 81 mg Documented by: Atenolol (Atenolol 25 Mg Tab) 25 mg PO DAILY [facility] Last Admin: 02/06/20 09:02 Dose: 25 mg Documented by: Atorvastatin Calcium (Atorvastatin 80 Mg Tab) 80 mg PO [facility] Last Admin: 02/06/20 20:27 Dose: 80 mg Documented by: Calcium Carbonate (Calcium Carb-Vit D 500mg-200un 1 Each Tab) 1 each PO DAILY [facility] Last Admin: 02/06/20 09:02 Dose: 1 each Documented by: Calcium Carbonate/Glycine (Calcium Carbonate 500 Mg Chewable) 500 mg PO QID PRN PRN Reason: Heartburn Cholecalciferol (Cholecalciferol 1,000 Unit Tab) 1,000 unit PO [facility] Last Admin: 02/06/20 20:27 Dose: 1,000 unit Documented by: Clopidogrel Bisulfate (Clopidogrel 75 Mg Tab) 75 mg PO DAILY [facility] Last Admin: 02/06/20 09:02 Dose: 75 mg Documented by: Ezetimibe (Ezetimibe 10 Mg Tab) 10 mg PO [facility] Last Admin: 02/06/20 20:26 Dose: 10 mg Documented by: Furosemide 100 mg/ Sodium (Chloride) 100 mls @ 10 mls/hr IV .Q10H [facility] Last Admin: 02/06/20 21:52 Dose: 10 mg/hr, 10 mls/hr Documented by: Insulin Aspart (Insulin Aspart (Novolog) 100 Unit/Ml Vial) 0 unit SQ DAILY PRN PRN Reason: Insulin Pump Replacement Miscellaneous Information (Insulin Pump Basal Rates 1 Each Misc) 1 each MISCELLANE Q6HR PRN; Protocol PRN Reason: Blood Sugar - High Miscellaneous Information (Insulin Pump Meal Bolus 1 Unit Misc) 0 unit MISCELLANE ACHS [facility]; Protocol Last Admin: 02/06/20 19:17 Dose: 1.8 unit Documented by: Miscellaneous Information (Insulin Pump Correction Bolus 1 Unit Misc) 0 unit IN SCELLANE ACHS PRN; Protocol PRN Reason: Blood Sugar - High Miscellaneous Information (Insulin Pump Active Insulin 1 Each Misc) 1 each MISCELLANE ACHS PRN; Protocol PRN Reason: Blood Sugar - High Miscellaneous Information (Insulin Pump Target Glucose 1 Each Misc) 1 each MISCELLANE ACHS PRN; Protocol PRN Reason: Blood Sugar - High Montelukast Sodium (Montelukast 10 Mg Tab) 10 mg PO [facility] Last Admin: 02/06/20 20:26 Dose: 10 mg Documented by: Nifedipine (Nifedipine Xl 30 Mg Tab.Er.24) 30 mg PO [facility] Last Admin: 02/06/20 20:26 Dose: 30 mg Documented by: Nitroglycerin (Nitroglycerin Sl Tabs 0.4 Mg Tab) 0.4 mg SUBLINGUAL Q5M PRN PRN Reason: Chest Pain Last Admin: 02/04/20 16:53 Dose: 0.4 mg Documented by: Ondansetron HCl (Ondansetron 4 Mg/2 Ml Vial) 4 mg IVP Q6HR PRN PRN Reason: Nausea And Vomiting Last Admin: 02/03/20 22:27 Dose: 4 mg Documented by: On examination: VITAL SIGNS: 98.9, 76, 15, 121/56, 91% liters GENERAL APPEARANCE: Propped up in bed, awake EYES: Pupils equal. Conjunctiva normal. NECK: JVD not raised. Mass not palpable. RESPIRATORY: Respiratory effort increased. Lungs-basilar crackles. CARDIOVASCULAR: First and second sounds normal. No edema. ABDOMEN: Soft. Liver and spleen not palpable. No tenderness. No mass palpable. PSYCHIATRY: Alert and oriented x3. Mood and affect normal. INVESTIGATIONS, reviewed in the clinical context: Potassium 3.7 creatinine 4.31 bun 85 Admission testing: Hemoglobin 10.5 platelets 221 bun 65 creatinine 2.60 Troponin I 0.048, 0.063, 0.072 LDL 57 2-D echocardiogram-severe concentric LVH, EF 50-55%, severe aortic valve sclerosis, moderate aortic stenosis, moderate to severe mitral regurgitation Abdominal ultrasound-gallstones. 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 Kidney functions worsening. Nephrology did discuss with the patient about possible renal replacement therapy if no improvement in renal function. Other medications to continue.
[2020-02-07 06:33] LABS: Glucose,Whole Blood 107 mg/dL (75-99)
[2020-02-07] MEDS: INSULIN PUMP MEAL BOLUS 1 UNIT MISC MISCELLANE SCH ×4 (06:51→21:23)
[2020-02-07] MEDS: FUROSEMIDE 100 MG in SODIUM CHLORIDE 0.9% 90 ML IV SCH ×3 (07:30→20:01)
[2020-02-07 08:20] LABS: Calcium 8.1 mg/dL (8.4-10.2); Potassium 4.4 mmol/L (3.5-5.1)
[2020-02-07] MEDS: ASPIRIN 81 MG PO SCH (09:14)
[2020-02-07] MEDS: atenoloL 25 MG TAB PO SCH (09:15)
[2020-02-07] MEDS: allopurinoL 100 MG TAB PO SCH (09:15)
[2020-02-07] MEDS: CLOPIDOGREL 75 MG TAB PO SCH (09:15)
[2020-02-07] MEDS: CALCIUM CARB-VIT D 500MG-200UN 1 EACH TAB PO SCH (09:15)
--- NOTE | 2020-02-07 10:50 | P.PN ---
Subjective Progress Note Date: 02/07/20 Principal diagnosis: This 63-year-old female admitted with chest pain and is diagnosed as non-ST MN. She has known chronic kidney disease stage IV to 5, [employer] at [facility]. She has a sister in her left upper arm which is about 3 weeks old. She had cardiac catheterization done here on 02/04/2020, and stent was placed. Creatinine went up postprocedure from 2.6 on 02/02/2021 creatinine to -4.78 today. She was fairly short of breath yesterday but she is feeling somewhat better but has poor appetite like of energy. No nausea, vomiting no dizziness. Her blood pressure is somewhat low in the 107/55-116/63 range heart rate is in the 60s to 80s. She is on Procardia 30 mg, Objective - Vital Signs Vital signs: Vital Signs Temp 97.7 F 02/07/20 07:30 Pulse 66 02/07/20 07:30 Resp 18 02/07/20 07:35 BP 107/55 02/07/20 07:30 Pulse Ox 95 02/07/20 07:35 Intake & Output 02/06/20 02/07/20 02/07/20 18:59 06:59 18:59 Intake Total 480 171.5 306.333 Output Total 100 950 Balance 380 -778.5 306.333 Weight 65.1 kg 64.5 kg Intake: IV 10 Invasive Line 2 10 Intake, IV Titration 51.5 96.333 Amount Furosemide 100 mg In 51.5 96.333 Sodium Chloride 0.9% 90 ml @ 10 MG/HR 10 mls/hr IV .Q10H [facility] Rx#: [id number] Oral 480 120 200 Output: Urine 100 950 Other: Voiding Method Toilet # Voids 3 Examination awake alert oriented she is on room air HEENT exam no JVP neck is supple no facial asymmetry Lungs are significant for an occasional fine crackle at bases on both sides good air entry bilaterally Heart sounds are unremarkable for any murmur rub gallop Abdomen soft nontender Extremity exam was minimal edema - Labs CBC & Chem 7: 02/05/20 07:17 02/07/20 06:56 Labs: Abnormal Lab Results - Last 24 Hours (Table) 02/06/20 02/06/20 02/07/20 Range/Units 12:07 20:27 06:10 Sodium (137-145) mmol/L Carbon Dioxide (22-30) mmol/L BUN (7-17) mg/dL Creatinine (0.52-1.04) mg/dL POC Glucose (mg/dL) 223 H 207 H 107 H (75-99) mg/dL Calcium (8.4-10.2) mg/dL 02/07/20 Range/Units 06:56 Sodium 132 L (137-145) mmol/L Carbon Dioxide 21 L (22-30) mmol/L BUN 95 H (7-17) mg/dL Creatinine 4.78 H (0.52-1.04) mg/dL POC Glucose (mg/dL) (75-99) mg/dL Calcium 8.1 L (8.4-10.2) mg/dL Assessment and Plan Assessment: Impression 1. Chronic kidney disease stage IV, etiology nephrosclerosis. Creatinine was 2.6 on 02/03/2020 and was 2.09, on 08/27/2013 6 years ago 2. Admitted with non-ST MN with slight increase in troponins, max troponin is 0.072 3. Status post cardiac cath, thousand 2019 with stent. 4. Acute kidney injury secondary to dye 5. Congestive heart failure 6. Anemia hemoglobin 10.5 down to 9.9 7. Mild hyponatremia secondary to acute kidney injury 8. Mild non-gap acidosis with bicarb is 21 secondary to chronic kidney disease and acute kidney injury Recommendation 1. Hold Procardia for blood pressure less than 120 2. We'll try to hold off dialysis. 3. Diurese, she is on Lasix drip continued 4. Strict I's and O's 5. Check iron saturation 6. Is aware of need for possible dialysis. We will try to hold it off for righ t now
[2020-02-07 12:05] LABS: Glucose,Whole Blood 160 mg/dL (75-99)
--- NOTE | 2020-02-07 15:15 | P.PN ---
Subjective This is a pleasant 64-year-old female past medical history significant for coronary artery disease status post PCI to the RCA, chronic diastolic heart failure, chronic kidney disease, hypertension, dyslipidemia and diabetes mellitus. She underwent coronary angiography and PCI to the RCA on this admission. She has an almost total occlusion of the circumflex that will require intervention in the future. She is seen and examined sitting up in bed in no acute distress. She has no symptoms of chest pain, shortness of breath, dizziness or palpitations. Blood pressure 121/56 heart rate 76 afebrile maintaining oxygen saturation on nasal cannula. Laboratory data reviewed, sodium 132, potassium 4.7, creatinine 4.31. Currently maintained on aspirin 81 mg daily, atenolol 25 mg daily, atorvastatin 80 mg daily, Plavix 75 mg daily, Ze tia 10 mg daily, Lasix 60 mg IV twice a day per nephrology and nifedipine 30 mg at bedtime. Nephrology is following closely as well and they're recommending IV diuresis repeat kidney function in the morning possible dialysis if renal function does not improve. Chest xray from this morning reveals coursened interstitial markings. Telemetry tracings indicate sinus mechanism with no significant arrhythmias noted. 02/07/2020 Pt is seen and examined sitting up in bed in no acute distress. She states overall she is feeling great and is surprised that her renal function has not improved based on how she is feeling. Nephrology has her on a lasix infusion currently. No immediate plans for dialysis today. She denies chest pain, shortness of breath, dizziness or palpitations. Blood pressure 106/47 heart rate 69 afebrile and maintaining oxygen saturations on room air. Lab data reviewed, sodium 132, potassium 4.4, creatinine 4.78. She has had just over 1-liter of urine output and is maintaining a negative fluid balance. GENERAL: Well-appearing, well-nourished and in no acute distress. NECK: Supple without JVD or thyromegaly. LUNGS: Breath sounds clear to auscultation bilaterally. Respiration equal and unlabored. No wheezes, rales or rhonchi. HEART: Regular rate and rhythm with systolic ejection murmur at the base and left sternal border, no rubs or gallops. S1 and S2 heard. EXTREMITIES: Normal range of motion, no edema. No clubbing or cyanosis. Peripheral pulses intact. Right radial access site clean, dry and intact with no evidence of bleeding or hematoma. ASSESSMENT Non-ST elevated myocardial infarction status post PCI to the RCA History of previous coronary artery disease Acute on chronic diastolic heart failure ejection fraction 50-55% Valvular heart disease Chronic kidney disease Hypertension Dyslipidemia Diabetes mellitus PLAN Continue IV diuretics per nephrology. Document accurate intake and output along with daily weights. Follow renal function and electrolytes in the morning. Continue dual anti-platelet therapy. Nurse Practitioner note has been reviewed, I agree with a documented findings and plan of care. Patient was seen and examined. Objective - Vital Signs Vital signs: Vital Signs Temp 97.8 F 02/07/20 11:10 Pulse 69 02/07/20 11:10 Resp 18 02/07/20 11:10 BP 106/47 02/07/20 11:10 Pulse Ox 93 L 02/07/20 11:10 Intake & Output 02/06/20 02/07/20 02/07/20 18:59 06:59 18:59 Intake Total 480 171.5 326.333 Output Total 100 950 300 Balance 380 -778.5 26.333 Weight 65.1 kg 64.5 kg Intake: IV 30 Invasive Line 2 30 Intake, IV Titration 51.5 96.333 Amount Furosemide 100 mg In 51.5 96.333 Sodium Chloride 0.9% 90 ml @ 10 MG/HR 10 mls/hr IV .Q10H [facility] Rx#: [id number] Oral 480 120 200 Output: Urine 100 950 300 Other: Voiding Method Toilet # Voids 3 3 - Labs CBC & Chem 7: 02/05/20 07:17 02/07/20 06:56 Labs: Abnormal Lab Results - Last 24 Hours (Table) 02/06/20 02/07/20 02/07/20 Range/Units 20:27 06:10 06:56 Sodium 132 L (137-145) mmol/L Carbon Dioxide 21 L (22-30) mmol/L BUN 95 H (7-17) mg/dL Creatinine 4.78 H (0.52-1.04) mg/dL POC Glucose (mg/dL) 207 H 107 H (75-99) mg/dL Calcium 8.1 L (8.4-10.2) mg/dL 02/07/20 Range/Units 12:02 Sodium (137-145) mmol/L Carbon Dioxide (22-30) mmol/L BUN (7-17) mg/dL Creatinine (0.52-1.04) mg/dL POC Glucose (mg/dL) 160 H (75-99) mg/dL Calcium (8.4-10.2) mg/dL
[2020-02-07 17:04] LABS: Glucose,Whole Blood 218 mg/dL (75-99)
[2020-02-07] MEDS: ACETAMINOPHEN TAB 325 MG TAB PO PRN (19:57)
[2020-02-07 20:43] LABS: Glucose,Whole Blood 166 mg/dL (75-99)
[2020-02-07] MEDS: CHOLECALCIFEROL 1,000 UNIT TAB PO SCH (21:20)
[2020-02-07] MEDS: ATORVASTATIN 80 MG TAB PO SCH (21:20)
[2020-02-07] MEDS: EZETIMIBE 10 MG TAB PO SCH (21:20)
[2020-02-07] MEDS: MONTELUKAST 10 MG TAB PO SCH (21:20)
--- NOTE | 2020-02-07 21:55 | P.PN ---
Progress Note - Text Progress Note Date: 02/07/20 presenting complaint: Chest pain Interval history: Patient was admitted by my colleague Dr. Dorado. This is 64-year-old patient was chronic stable medical conditions include diabetes mellitus, hypertension, hyperlipidemia, CK D stage IV, on insulin pump, coronary artery disease with prior stent. Presented with chest pain. Admitted with non-ST elevation myocardial infarction. Had abnormal stress test in November this year. Underwent cardiac catheterization with a PTCA and stenting to distal dominant RCA with in-stent restenosis. Drug-eluting stent was used. Also had pulmonary edema. Kidney function worsening. Still short of breath. Put on a Lasix drip. Today-on Lasix drip. Failure urine output. Breathing getting better. Oral intake improving. Review of systems: Was done for constitutional, cardiovascular, GI, pulmonary. relevant finding as above Active Medications Acetaminophen (Acetaminophen Tab 325 Mg Tab) 650 mg PO Q6HR PRN PRN Reason: Fever and/ or Pain Last Admin: 02/07/20 19:57 Dose: 650 mg Documented by: Allopurinol (Allopurinol 100 Mg Tab) 100 mg PO DAILY [facility] Last Admin: 02/07/20 09:15 Dose: 100 mg Documented by: Alprazolam (Alprazolam 0.25 Mg Tab) 0.25 mg PO Q6HR PRN PRN Reason: Mild Anxiety Alprazolam (Alprazolam 0.5 Mg Tab) 0.5 mg PO Q6HR PRN PRN Reason: Moderate Anxiety Aspirin (Aspirin 81 Mg) 81 mg PO DAILY [facility] Last Admin: 02/07/20 09:14 Dose: 81 mg Documented by: Atenolol (Atenolol 25 Mg Tab) 25 mg PO DAILY [facility] Last Admin: 02/07/20 09:15 Dose: 25 mg Documented by: Atorvastatin Calcium (Atorvastatin 80 Mg Tab) 80 mg PO [facility] Last Admin: 02/07/20 21:20 Dose: 80 mg Documented by: Calcium Carbonate (Calcium Carb-Vit D 500mg-200un 1 Each Tab) 1 each PO DAILY [facility] Last Admin: 02/07/20 09:15 Dose: 1 each Documented by: Calcium Carbonate/Glycine (Calcium Carbonate 500 Mg Chewable) 500 mg PO QID PRN PRN Reason: Heartburn Cholecalciferol (Cholecalciferol 1,000 Unit Tab) 1,000 unit PO [facility] Last Admin: 02/07/20 21:20 Dose: 1,000 unit Documented by: Clopidogrel Bisulfate (Clopidogrel 75 Mg Tab) 75 mg PO DAILY [facility] Last Admin: 02/07/20 09:15 Dose: 75 mg Documented by: Ezetimibe (Ezetimibe 10 Mg Tab) 10 mg PO HS [facility] Last Admin: 02/07/20 21:20 Dose: 10 mg Documented by: Furosemide 100 mg/ Sodium (Chloride) 100 mls @ 10 mls/hr IV .Q10H [facility] Last Admin: 02/07/20 20:01 Dose: 10 mg/hr, 10 mls/hr Documented by: Insulin Aspart (Insulin Aspart (Novolog) 100 Unit/Ml Vial) 0 unit SQ DAILY PRN PRN Reason: Insulin Pump Replacement Miscellaneous Information (Insulin Pump Basal Rates 1 Each Misc) 1 each MISCELLANE Q6HR PRN; Protocol PRN Reason: Blood Sugar - High Miscellaneous Information (Insulin Pump Meal Bolus 1 Unit Misc) 0 unit MISCELLANE ACHS [facility]; Protocol Last Admin: 02/07/20 21:23 Dose: 1.5 unit Documented by: Miscellaneous Information (Insulin Pump Correction Bolus 1 Unit Misc) 0 unit MISCELLANE ACHS PRN; Protocol PRN Reason: Blood Sugar - High Miscellaneous Information (Insulin Pump Active Insulin 1 Each Misc) 1 each MISCELLANE ACHS PRN; Protocol PRN Reason: Blood Sugar - High Miscellaneous Information (Insulin Pump Target Glucose 1 Each Misc) 1 each MISCELLANE ACHS PRN; Protocol PRN Reason: Blood Sugar - High Montelukast Sodium (Montelukast 10 Mg Tab) 10 mg PO [facility] Last Admin: 02/07/20 21:20 Dose: 10 mg Documented by: Nifedipine (Nifedipine Xl 30 Mg Tab.Er.24) 30 mg PO DAILY [facility] Nitroglycerin (Nitroglycerin Sl Tabs 0.4 Mg Tab) 0.4 mg SUBLINGUAL Q5M PRN PRN Reason: Chest Pain Last Admin: 02/04/20 16:53 Dose: 0.4 mg Documented by: Ondansetron HCl (Ondansetron 4 Mg/2 Ml Vial) 4 mg IVP Q6HR PRN PRN Reason: Nausea And Vomiting Last Admin: 02/03/20 22:27 Dose: 4 mg Documented by: On examination: VITAL SIGNS: 97.8, 69, 18, 106/47, 93% on room air GENERAL APPEARANCE: Propped up in bed, tired EYES: Pupils equal. Conjunctiva normal. NECK: JVD not raised. Mass not palpable. RESPIRATORY: Respiratory effort increased. Bases decreased crackles CARDIOVASCULAR: First and second sounds normal. No edema. ABDOMEN: Soft. Liver and spleen not palpable. No tenderness. No mass palpable. PSYCHIATRY: Alert and oriented x3. Mood and affect normal. INVESTIGATIONS, reviewed in the clinical context: Potassium 4.4 bun 35 creatinine 4.78 Admission testing: Hemoglobin 10.5 platelets 221 bun 65 creatinine 2.60 Troponin I 0.048, 0.063, 0.072 LDL 57 2-D echocardiogram-severe concentric LVH, EF 50-55%, severe aortic valve sclerosis, moderate aortic stenosis, moderate to severe mitral regurgitation Abdominal ultrasound-gallstones. Chest x-ray film personally reviewed by me-pulmonary edema Assessment: -Acute non-Q wave myocardial infarction -Acute congestive heart failure exacerbation from diastolic dysfunction EF 50- 55% from underlying coronary artery- slow to respond. On Lasix drip -Cardiac catheterization with successful angioplasty stenting to RCA -Coronary artery disease with prior stents -Diabetes mellitus type 2 on insulin pump -Hyperlipidemia -Essential hypertension -CK D stage IV to include diabetic nephropathy and hypertensive nephrosclerosis -Acute kidney injury possibly contrast-induced nephropathy-worsening -Severe aortic valve sclerosis with moderate aortic stenosis, moderate to severe mitral regurgitation -Gallstones asymptomatic -Normocytic anemia, secondary to chronic kidney disease Plan: Continue IV Lasix drip. Kidney functions worsening. Patient may be heading close to delivery Presman therapy. Discussed with the patient. Repeat chest x- ray in the morning
[2020-02-08] MEDS: FUROSEMIDE 100 MG in SODIUM CHLORIDE 0.9% 90 ML IV SCH (03:15)
[2020-02-08 06:22] LABS: Glucose,Whole Blood 105 mg/dL (75-99)
[2020-02-08] MEDS: INSULIN PUMP MEAL BOLUS 1 UNIT MISC MISCELLANE SCH ×4 (06:41→20:24)
[2020-02-08] MEDS: ASPIRIN 81 MG PO SCH (08:20)
[2020-02-08] MEDS: allopurinoL 100 MG TAB PO SCH (08:20)
[2020-02-08] MEDS: CALCIUM CARB-VIT D 500MG-200UN 1 EACH TAB PO SCH (08:20)
[2020-02-08] MEDS: atenoloL 25 MG TAB PO SCH (08:20)
[2020-02-08] MEDS: CLOPIDOGREL 75 MG TAB PO SCH (08:20)
[2020-02-08] MEDS ORDERED: NIFEdipine XL 30 MG TAB.ER.24 PO SCH (09:00)
--- NOTE | 2020-02-08 09:21 | XR ---
EXAMINATION TYPE: XR chest 2V DATE OF EXAM: 02/08/2020 COMPARISON: 02/05/2020 HISTORY: 64-year-old female CHF TECHNIQUE: PA and lateral views FINDINGS: Heart mildly enlarged. Small bilateral pleural effusions. Diffuse interstitial and perihilar opacitie s persist. Effusion slightly increased. IMPRESSION: Mild cardiomegaly and interstitial/perihilar density. Small effusions have increased. Correlate for C HF with worsening pulmonary vascular congestion.
--- NOTE | 2020-02-08 12:08 | P.PN ---
Subjective Progress Note Date: 02/08/20 Principal diagnosis: This 63-year-old female followed up with chronic kidney disease secondary diabetic nephropathy and acute kidney injury post cardiac cath. She was admitted with chest pain and is diagnosed as non-ST PA. She has known chronic kidney disease stage IV to 5, likely from diabetic nephropathy since she is diabetic from age 19. she follows up with a [employer] at [facility]. She has a fistula in her left upper arm which is about 3 weeks old. She had cardiac catheterization done here on 02/04/2020, and stent was placed. Creatinine went up post procedure from 2.6 on 02/02/2021 creatinine to -4.78 today. She is on Lasix drip and she is feeling much better today urine output has gone up and cc severe to the bathroom almost on the hour. Her breathing is better No chest pain Her blood pressure is somewhat low in the 110 systolic 120 systolic, heart rate in the 70s. She was on Procardia 30 mg that was discontinued yesterday because of the low blood pressure Urine output is 9 50 mL, 300 mL, 800 mL for the last three 12 hour shifts Objective - Vital Signs Vital signs: Vital Signs Temp 97.3 F L 02/08/20 08:00 Pulse 73 02/08/20 08:00 Resp 16 02/08/20 10:57 BP 100/47 02/08/20 08:00 Pulse Ox 95 02/08/20 08:00 Intake & Output 02/07/20 02/08/20 02/08/20 18:59 06:59 18:59 Intake Total 904.166 339.666 Output Total 300 800 Balance 604.166 -460.334 Weight 64.3 kg Intake: IV 30 Invasive Line 2 30 Intake, IV Titration 194.166 99.666 Amount Furosemide 100 mg In 194.166 99.666 Sodium Chloride 0.9% 90 ml @ 10 MG/HR 10 mls/hr IV .Q10H [facility] Rx#: [id number] Oral 680 240 Output: Urine 300 800 Other: Voiding Method Toilet Toilet # Voids 3 1 Examination awake alert oriented comfortable HEENT exam no JVP neck is supple no facial asymmetry Lungs are with in her bilateral crackles. Good air entry bilaterally Heart sounds are unremarkable for any murmur rub gallop Abdomen soft nontender Extremity exam was minimal edema. Her right leg seems to be slightly more swollen than the left and she had some knee injury on the right side Neurologically awake alert oriented - Labs CBC & Chem 7: 02/05/20 07:17 02/07/20 06:56 Labs: Abnormal Lab Results - Last 24 Hours (Table) 02/07/20 02/07/20 02/07/20 Range/Units 12:02 17:03 20:15 POC Glucose (mg/dL) 160 H 218 H 166 H (75-99) mg/dL 02/08/20 Range/Units 06:12 POC Glucose (mg/dL) 105 H (75-99) mg/dL Assessment and Plan Assessment: Impression 1. Acute kidney injury secondary to cardiac catheterization. Urine output is improved, labs are pending today. Creatinine was 2.6 on 02/02/2023 cardiac cath and was 4.78 as of yesterday. 2. Chronic kidney disease stage IV, etiology is diabetic nephropathy. Creatinine was 2.6 on 02/03/2020 and was 2.09, on 08/27/2013 - 6 years ago. 3. Admitted with non-ST PA with slight increase in troponins, max troponin is 0.072 4. Status post cardiac cath, dated 02/04/2020 with stent. 5. Congestive heart failure 6. Anemia hemoglobin 10.5 down to 9.9 as of 02/05/2020 7. Mild hyponatremia secondary to acute kidney injury. Last today pending 8. Mild non-gap acidosis with bicarb is 21 secondary to chronic kidney disease and acute kidney injury Recommendation 1. Pending labs today no changes in medications, expect recovery so in 2. We'll try to hold off dialysis. 3. continue Diurese, she is on Lasix drip 4. Strict I's and O's 5. Check iron saturation 6. Is aware of need for possible dialysis. We will try to hold it off for right now
[2020-02-08 12:24] LABS: Calcium 8.5 mg/dL (8.4-10.2)
[2020-02-08 12:25] LABS: Glucose,Whole Blood 152 mg/dL (75-99)
--- NOTE | 2020-02-08 14:12 | P.PN ---
Subjective This is a pleasant 64-year-old female past medical history significant for coronary artery disease status post PCI to the RCA, chronic diastolic heart failure, chronic kidney disease, hypertension, dyslipidemia and diabetes mellitus. She underwent coronary angiography and PCI to the RCA on this admission. She has an almost total occlusion of the circumflex that will require intervention in the future. She is seen and examined sitting up in bed in no acute distress. She has no symptoms of chest pain, shortness of breath, dizziness or palpitations. Overall she states she is feeling pretty good. Blood pressure 105/53 heart rate 73 afebrile maintaining oxygen saturation on nasal cannula Laboratory data reviewed, sodium 136, potassium 4.0, BUS and 103, creatinine 4.64. Output for the previous 24 hours 1050 mL's. GENERAL: Well-appearing, well-nourished and in no acute distress. NECK: Supple without JVD or thyromegaly. LUNGS: Breath sounds clear to auscultation bilaterally. Respiration equal and unlabored. No wheezes, rales or rhonchi. HEART: Regular rate and rhythm with systolic ejection murmur at the base and left sternal border, no rubs or gallops. S1 and S2 heard. EXTREMITIES: Normal range of motion, no edema. No clubbing or cyanosis. Peripheral pulses intact. Right radial access site clean, dry and intact with no evidence of bleeding or hematoma. ASSESSMENT Non-ST elevated myocardial infarction status post PCI to the RCA History of previous coronary artery disease Acute on chronic diastolic heart failure ejection fraction 50-55% Valvular heart disease Chronic kidney disease Hypertension Dyslipidemia Diabetes mellitus PLAN Continue IV diuretics per nephrology. Document accurate intake and output along with daily weights. Follow renal function and electrolytes in the morning. Continue dual anti-platelet therapy. Nurse Practitioner note has been reviewed, I agree with a documented findings and plan of care. Patient was seen and examined. Objective - Vital Signs Vital signs: Vital Signs Temp 98.3 F 02/08/20 12:56 Pulse 73 02/08/20 12:56 Resp 16 02/08/20 12:56 BP 105/53 02/08/20 12:56 Pulse Ox 95 02/08/20 12:56 Intake & Output 02/07/20 02/08/20 02/08/20 18:59 06:59 18:59 Intake Total 904.166 339.666 Output Total 300 800 Balance 604.166 -460.334 Weight 64.3 kg Intake: IV 30 Invasive Line 2 30 Intake, IV Titration 194.166 99.666 Amount Furosemide 100 mg In 194.166 99.666 Sodium Chloride 0.9% 90 ml @ 10 MG/HR 10 mls/hr IV .Q10H [facility] Rx#: [id number] Oral 680 240 Output: Urine 300 800 Other: Voiding Method Toilet Toilet # Voids 3 1 - Labs CBC & Chem 7: 02/05/20 07:17 02/08/20 11:54 Labs: Abnormal Lab Results - Last 24 Hours (Table) 02/07/20 02/07/20 02/08/20 Range/Units 17:03 20:15 06:12 Sodium (137-145) mmol/L BUN (7-17) mg/dL Creatinine (0.52-1.04) mg/dL Glucose (74-99) mg/dL POC Glucose (mg/dL) 218 H 166 H 105 H (75-99) mg/dL 02/08/20 02/08/20 Range/Units 11:54 12:17 Sodium 136 L (137-145) mmol/L BUN 103 H* (7-17) mg/dL Creatinine 4.64 H (0.52-1.04) mg/dL Glucose 134 H (74-99) mg/dL POC Glucose (mg/dL) 152 H (75-99) mg/dL
--- NOTE | 2020-02-08 16:26 | P.PN ---
Progress Note - Text Progress Note Date: 02/08/20 presenting complaint: Chest pain Interval history: Patient was admitted by my colleague Dr. Dorado. This is 64-year-old patient was chronic stable medical conditions include diabetes mellitus, hypertension, hyperlipidemia, CK D stage IV, on insulin pump, coronary artery disease with prior stent. Presented with chest pain. Admitted with non-ST elevation myocardial infarction. Had abnormal stress test in November this year. Underwent cardiac catheterization with a PTCA and stenting to distal dominant RCA with in-stent restenosis. Drug-eluting stent was used. Also had pulmonary edema. Kidney function worsening. Still short of breath. Put on a Lasix drip. Today-on Lasix drip. breathing better. Appetite improved. Shortness of breath improved.. Review of systems: Was done for constitutional, cardiovascular, GI, pulmonary. relevant finding as above Active Medications Acetaminophen (Acetaminophen Tab 325 Mg Tab) 650 mg PO Q6HR PRN PRN Reason: Fever and/ or Pain Last Admin: 02/07/20 19:57 Dose: 650 mg Documented by: Allopurinol (Allopurinol 100 Mg Tab) 100 mg PO DAILY [facility] Last Admin: 02/08/20 08:20 Dose: 100 mg Documented by: Alprazolam (Alprazolam 0.25 Mg Tab) 0.25 mg PO Q6HR PRN PRN Reason: Mild Anxiety Alprazolam (Alprazolam 0.5 Mg Tab) 0.5 mg PO Q6HR PRN PRN Reason: Moderate Anxiety Aspirin (Aspirin 81 Mg) 81 mg PO DAILY [facility] Last Admin: 02/08/20 08:20 Dose: 81 mg Documented by: Atenolol (Atenolol 25 Mg Tab) 25 mg PO DAILY [facility] Last Admin: 02/08/20 08:20 Dose: 25 mg Documented by: Atorvastatin Calcium (Atorvastatin 80 Mg Tab) 80 mg PO [facility] Last Admin: 02/07/20 21:20 Dose: 80 mg Documented by: Calcium Carbonate (Calcium Carb-Vit D 500mg-200un 1 Each Tab) 1 each PO DAILY [facility] Last Admin: 02/08/20 08:20 Dose: 1 each Documented by: Calcium Carbonate/Glycine (Calcium Carbonate 500 Mg Chewable) 500 mg PO QID PRN PRN Reason: Heartburn Cholecalciferol (Cholecalciferol 1,000 Unit Tab) 1,000 unit PO [facility] Last Admin: 02/07/20 21:20 Dose: 1,000 unit Documented by: Clopidogrel Bisulfate (Clopidogrel 75 Mg Tab) 75 mg PO DAILY [facility] Last Admin: 02/08/20 08:20 Dose: 75 mg Documented by: Ezetimibe (Ezetimibe 10 Mg Tab) 10 mg PO HS [facility] Last Admin: 02/07/20 21:20 Dose: 10 mg Documented by: Furosemide 100 mg/ Sodium (Chloride) 100 mls @ 10 mls/hr IV .Q10H [facility] Last Admin: 02/08/20 03:15 Dose: 10 mg/hr, 10 mls/hr Documented by: Insulin Aspart (Insulin Aspart (Novolog) 100 Unit/Ml Vial) 0 unit SQ DAILY PRN PRN Reason: Insulin Pump Replacement Miscellaneous Information (Insulin Pump Basal Rates 1 Each Misc) 1 each MISCELLANE Q6HR PRN; Protocol PRN Reason: Blood Sugar - High Miscellaneous Information (Insulin Pump Meal Bolus 1 Unit Misc) 0 unit MISCELLANE ACHS [facility]; Protocol Last Admin: 02/08/20 12:32 Dose: 0.9 unit Documented by: Miscellaneous Information (Insulin Pump Correction Bolus 1 Unit Misc) 0 unit MISCELLANE ACHS PRN; Protocol PRN Reason: Blood Sugar - High Miscellaneous Information (Insulin Pump Active Insulin 1 Each Misc) 1 each MISCELLANE ACHS PRN; Protocol PRN Reason: Blood Sugar - High Miscellaneous Information (Insulin Pump Target Glucose 1 Each Misc) 1 each MISCELLANE ACHS PRN; Protocol PRN Reason: Blood Sugar - High Montelukast Sodium (Montelukast 10 Mg Tab) 10 mg PO [facility] Last Admin: 02/07/20 21:20 Dose: 10 mg Documented by: Nifedipine (Nifedipine Xl 30 Mg Tab.Er.24) 30 mg PO [facility] Nitroglycerin (Nitroglycerin Sl Tabs 0.4 Mg Tab) 0.4 mg SUBLINGUAL Q5M PRN PRN Reason: Chest Pain Last Admin: 02/04/20 16:53 Dose: 0.4 mg Documented by: Ondansetron HCl (Ondansetron 4 Mg/2 Ml Vial) 4 mg IVP Q6HR PRN PRN Reason: Nausea And Vomiting Last Admin: 02/03/20 22:27 Dose: 4 mg Documented by: On examination: VITAL SIGNS:98.3, 70, 16, 105/53, 95% on 2 L GENERAL APPEARANCE: Propped up in bed,looking therapy or EYES: Pupils equal. Conjunctiva normal. NECK: JVD not raised. Mass not palpable. RESPIRATORY: Respiratory effort increased. decreased basal crackles CARDIOVASCULAR: First and second sounds normal. No edema. ABDOMEN: Soft. Liver and spleen not palpable. No tenderness. No mass palpable. PSYCHIATRY: Alert and oriented x3. Mood and affect normal. INVESTIGATIONS, reviewed in the clinical context: Potassium 4.4 bun bun 103 creatinine 4.64 Chest x-ray film personally reviewed by me-pulmonary edema and a small pleural effusion Admission testing: Hemoglobin 10.5 platelets 221 bun 65 creatinine 2.60 Troponin I 0.048, 0.063, 0.072 LDL 57 2-D echocardiogram-severe concentric LVH, EF 50-55%, severe aortic valve sclerosis, moderate aortic stenosis, moderate to severe mitral regurgitation Abdominal ultrasound-gallstones. Chest x-ray film personally reviewed by me-pulmonary edema Assessment: -Acute non-Q wave myocardial infarction -Acute congestive heart failure exacerbation from diastolic dysfunction EF 50- 55% from underlying coronary artery- slow to respond. 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 Slowly heading towards renal replacement therapy.keep on Lasix drip. Discussed with patient.
[2020-02-08 17:32] LABS: Glucose,Whole Blood 178 mg/dL (75-99)
[2020-02-08] MEDS: MONTELUKAST 10 MG TAB PO SCH (20:19)
[2020-02-08] MEDS: EZETIMIBE 10 MG TAB PO SCH (20:19)
[2020-02-08] MEDS: ATORVASTATIN 80 MG TAB PO SCH (20:19)
[2020-02-08] MEDS: CHOLECALCIFEROL 1,000 UNIT TAB PO SCH (20:19)
[2020-02-08] MEDS: NIFEdipine XL 30 MG TAB.ER.24 PO SCH (20:20)
[2020-02-08 20:49] LABS: Glucose,Whole Blood 182 mg/dL (75-99)
[2020-02-08] MEDS: ACETAMINOPHEN TAB 325 MG TAB PO PRN (23:01)
--- NOTE | 2020-02-08 23:34 | HP ---
HISTORY AND PHYSICAL DATE OF SERVICE: 02/04/2020 CHIEF COMPLAINT: Chest pain. HISTORY OF PRESENT ILLNESS: This 64-year-old woman with a past medical history of multiple medical problems including diabetes mellitus, hypertension, hyperlipidemia, history of renal failure, chronic kidney disease stage 4 was being followed by [facility] . The patient came with anterior chest pain which radiated to the neck and troponin was found to be 0.072. The patient admitted for further evaluation and treatment. The patient had AV fistula on the left arm which is maturing at this time. There is no history of any fever or rigors. No history of headache, loss of consciousness, seizures. PAST MEDICAL HISTORY: Diabetes mellitus, hypertension, hyperlipidemia, history of renal disease, chronic kidney stage 4. MEDICATIONS: Home medications are reviewed and include: Calcium with vitamin D, Demadex, vitamin D3, Nitrostat, nifedipine, Singulair, insulin pump, Tenormin, Zetia, Plavix, Lipitor, Ecotrin, Zyloprim, Xanax. ALLERGIES: Allergies are multiple allergies: DROPERIDOL, VYTORIN, FENTANYL, DILAUDID, VERSED, NITROGLYCERIN, PAXIL, VYTORIN, BACTRIM, TARKA. FAMILY HISTORY: No history of heart disease or strokes in the family. SOCIAL HISTORY: Previous history of smoking. REVIEW OF SYSTEMS: ENT: No diminished hearing or diminished vision. CARDIOVASCULAR SYSTEM: As mentioned earlier. RESPIRATORY SYSTEM: As mentioned earlier. GI: As mentioned earlier. : As mentioned earlier. NERVOUS SYSTEM: No numbness or weakness. ALLERGY/IMMUNOLOGY: No asthma or hayfever. MUSCULOSKELETAL: As mentioned earlier. HEMATOLOGY/ONCOLOGY: No history of anemia. ENDOCRINE: As mentioned earlier. CONSTITUTIONAL: As mentioned earlier. DERMATOLOGY: Negative. RHEUMATOLOGY: Negative. PSYCHIATRY: As mentioned earlier. PHYSICAL EXAMINATION: Patient is alert and oriented x3. The pulse is 76, blood pressure 164/72, respiration 18, temperature 98.4, pulse ox 98% on room air. HEENT: Conjunctivae normal. Normal oral mucosa NECK: No jugular venous distention. No carotid bruit. No lymph node enlargement. CARDIOVASCULAR: S1, S2 muffled. No S3, no S4. RESPIRATORY: Breath sound diminished at the bases. A few scattered rhonchi and crackles. ABDOMEN: Soft, nontender. No mass palpable. LEGS: No edema, no swelling. NERVOUS SYSTEM: Higher function as mentioned earlier. Moves all 4 limbs. No focal motor or sensory deficits. LYMPHATICS: No lymphadenopathy of the neck, axillae or groin. SKIN: Left AV fistula present left upper arm. JOINTS: No active deforming arthropathy. LABS: WBC 7.3, hemoglobin 10.5. Creatinine is 2.6. Other labs are noted. ASSESSMENT: 1. Chest pain possible acute rax-ZJ-mdthxme-elevation myocardial infarction. 2. Troponin 0.072. 3. Chronic kidney disease, stage 4. 4. Anemia, normocytic anemia of kidney disease. 5. Hypertension. 6. Hyperlipidemia. 7. Diabetes mellitus type 2. 8. History of pilonidal cyst. 9. History of insulin pump. 10.History of coronary artery disease, stent. 11.History of tonsillectomy. 12.History of tubal ligation. 13.History of cataracts. RECOMMENDATIONS AND DISCUSSION: In this 64-year-old woman who presented with multiple complex medical issues, we will monitor the patient closely. We will initiate protocol. Obtain cardiology consultation possible cardiac catheterization. The renal failure is an issue at this time. I recommend nephrology consultation. Obtain old records from [facility]. Overall prognosis guarded. Further recommendations to follow. Please refer to the medication record sheet for further information. Discussed with the patient, understands and agrees. Further recommendations follow. Dr. Mar will follow tomorrow. MMANA MARIAL / IJN: [id number] / MTDD
[2020-02-09 06:38] LABS: Glucose,Whole Blood 81 mg/dL (75-99)
[2020-02-09] MEDS: FUROSEMIDE 100 MG in SODIUM CHLORIDE 0.9% 90 ML IV SCH (06:41)
[2020-02-09] MEDS: INSULIN PUMP MEAL BOLUS 1 UNIT MISC MISCELLANE SCH ×5 (06:43→21:11)
[2020-02-09 08:07] LABS: Calcium 8.7 mg/dL (8.4-10.2); Potassium 3.9 mmol/L (3.5-5.1)
[2020-02-09] MEDS: allopurinoL 100 MG TAB PO SCH (08:17)
[2020-02-09] MEDS: CLOPIDOGREL 75 MG TAB PO SCH (08:17)
[2020-02-09] MEDS: CALCIUM CARB-VIT D 500MG-200UN 1 EACH TAB PO SCH (08:17)
[2020-02-09] MEDS: atenoloL 25 MG TAB PO SCH (08:17)
[2020-02-09] MEDS: ASPIRIN 81 MG PO SCH (08:17)
[2020-02-09] MEDS: FUROSEMIDE 10 MG/ML 10 ML VIAL IV SCH ×2 (10:52→21:11)
--- NOTE | 2020-02-09 11:01 | P.PN ---
Subjective Patient is seen in follow-up for acute kidney injury and chronic kidney disease. Renal function better. Good urine output. Edema improved. Maintained on Lasix drip. Vital signs are stable. General: The patient appeared well nourished and normally developed. HEENT: Head exam is unremarkable. Neck is without jugular venous distension. LUNGS: Lungs are clear to auscultation and percussion. Breath sounds decreased. HEART: Rate and Rhythm are regular. First and second heart sounds normal. No murmurs, rubs or gallops. ABDOMEN: Abdominal exam reveals normal bowel sounds. Non-tender and non- distended. EXTREMITITES: No clubbing, cyanosis, or edema. Objective - Vital Signs Vital signs: Vital Signs Temp 98.0 F 02/09/20 07:49 Pulse 63 02/09/20 07:54 Resp 17 02/09/20 07:54 BP 118/55 02/09/20 07:49 Pulse Ox 95 02/09/20 07:49 Intake & Output 02/08/20 02/09/20 02/09/20 18:59 06:59 18:59 Intake Total 422 Output Total 700 Balance -278 Weight 63.3 kg Intake: Intake, IV Titration 100 Amount Furosemide 100 mg In 100 Sodium Chloride 0.9% 90 ml @ 10 MG/HR 10 mls/hr IV .Q10H [facility] Rx#: [id number] Oral 322 Output: Urine 700 Other: Voiding Method Toilet Toilet Toilet # Voids 2 1 - Labs CBC & Chem 7: 02/05/20 07:17 02/09/20 07:04 Labs: Abnormal Lab Results - Last 24 Hours (Table) 02/08/20 02/08/20 02/08/20 Range/Units 11:54 12:17 17:29 Sodium 136 L (137-145) mmol/L BUN 103 H* (7-17) mg/dL Creatinine 4.64 H (0.52-1.04) mg/dL Glucose 134 H (74-99) mg/dL POC Glucose (mg/dL) 152 H 178 H (75-99) mg/dL 02/08/20 02/09/20 Range/Units 20:46 07:04 Sodium (137-145) mmol/L BUN 98 H (7-17) mg/dL Creatinine 3.96 H (0.52-1.04) mg/dL Glucose (74-99) mg/dL POC Glucose (mg/dL) 182 H (75-99) mg/dL Assessment and Plan Plan: Assessment: 1. Acute kidney injury secondary to ATN secondary to cardiorenal syndrome. Also component of contrast-induced acute kidney injury. Creatinine peaked at 4.78 this admission and is 3.96 today. 2. Chronic kidney disease stage IV/V. she has a maturing AV fistula. Etiology is diabetic kidney disease. 3. Coronary artery disease status post stent to the RCA February 03. 4. Volume overload. Improved with diuresis. 5. Insulin-dependent diabetes mellitus. Plan: Stop Lasix drip. Start IV Lasix 60 mg twice daily. Continue to monitor renal function and urine output. No urgent need for renal placement therapy at this time.
[2020-02-09 12:15] LABS: Glucose,Whole Blood 188 mg/dL (75-99)
--- NOTE | 2020-02-09 14:07 | P.PN ---
Subjective This is a pleasant 64-year-old female past medical history significant for coronary artery disease status post PCI to the RCA, chronic diastolic heart failure, chronic kidney disease, hypertension, dyslipidemia and diabetes mellitus. She underwent coronary angiography and PCI to the RCA on this admission. She has an almost total occlusion of the circumflex that will require intervention in the future if she is symptomatic. She is seen and examined sitting up in the chair in no acute distress. She is urinating frequently. Output for the previous 24 hours is 1100 ml. She denies chest pain, shortness of breath, dizziness or palpitations. Blood pressure 112/56 heart rate 60 afebrile and maintaining oxygen saturation on room air. Laboratory data reviewed, sodium 139, potassium 3.9, creatinine 3.96. Nephrology has discontinued her lasix gtt and started IVP 60 mg BID. GENERAL: Well-appearing, well-nourished and in no acute distress. NECK: Supple without JVD or thyromegaly. LUNGS: Breath sounds clear to auscultation bilaterally. Respiration equal and unlabored. No wheezes, rales or rhonchi. HEART: Regular rate and rhythm with systolic ejection murmur at the base and left sternal border, no rubs or gallops. S1 and S2 heard. EXTREMITIES: Normal range of motion, no edema. No clubbing or cyanosis. Peripheral pulses intact. Right radial access site clean, dry and intact with no evidence of bleeding or hematoma. ASSESSMENT Non-ST elevated myocardial infarction status post PCI to the RCA History of previous coronary artery disease Acute on chronic diastolic heart failure ejection fraction 50-55% Valvular heart disease Chronic kidney disease Hypertension Dyslipidemia Diabetes mellitus PLAN Continue IV diuretics per nephrology. Document accurate intake and output along with daily weights. Follow renal function and electrolytes in the morning. Continue dual anti-platelet therapy. Nurse Practitioner note has been reviewed, I agree with a documented findings and plan of care. Patient was seen and examined. Objective - Vital Signs Vital signs: Vital Signs Temp 98.2 F 02/09/20 11:41 Pulse 60 02/09/20 11:41 Resp 17 02/09/20 11:41 BP 112/56 02/09/20 11:41 Pulse Ox 100 02/09/20 11:41 Intake & Output 02/08/20 02/09/20 02/09/20 18:59 06:59 18:59 Intake Total 422 Output Total 700 600 Balance -278 -600 Weight 63.3 kg Intake: Intake, IV Titration 100 Amount Furosemide 100 mg In 100 Sodium Chloride 0.9% 90 ml @ 10 MG/HR 10 mls/hr IV .Q10H [facility] Rx#: [id number] Oral 322 Output: Urine 700 600 Other: Voiding Method Toilet Toilet Toilet # Voids 2 1 - Labs CBC & Chem 7: 02/05/20 07:17 02/09/20 07:04 Labs: Abnormal Lab Results - Last 24 Hours (Table) 02/08/20 02/08/20 02/09/20 Range/Units 17:29 20:46 07:04 BUN 98 H (7-17) mg/dL Creatinine 3.96 H (0.52-1.04) mg/dL POC Glucose (mg/dL) 178 H 182 H (75-99) mg/dL 02/09/20 Range/Units 12:13 BUN (7-17) mg/dL Creatinine (0.52-1.04) mg/dL POC Glucose (mg/dL) 188 H (75-99) mg/dL
[2020-02-09 16:37] LABS: Glucose,Whole Blood 248 mg/dL (75-99)
--- NOTE | 2020-02-09 19:22 | P.PN ---
Progress Note - Text Progress Note Date: 02/09/20 presenting complaint: Chest pain Interval history: Patient was admitted by my colleague Dr. Dorado. This is 64-year-old patient was chronic stable medical conditions include diabetes mellitus, hypertension, hyperlipidemia, CK D stage IV, on insulin pump, coronary artery disease with prior stent. Presented with chest pain. Admitted with non-ST elevation myocardial infarction. Had abnormal stress test in November this year. Underwent cardiac catheterization with a PTCA and stenting to distal dominant RCA with in-stent restenosis. Drug-eluting stent was used. Also had pulmonary edema. Kidney function worsening. Still short of breath. Put on a Lasix drip. Today-breathing much improved. Eating better. No chest pain. Swished over to Lasix 60 mg IV every 12.. Review of systems: Was done for constitutional, cardiovascular, GI, pulmonary. relevant finding as above Active Medications Acetaminophen (Acetaminophen Tab 325 Mg Tab) 650 mg PO Q6HR PRN PRN Reason: Fever and/ or Pain Last Admin: 02/08/20 23:01 Dose: 650 mg Documented by: Allopurinol (Allopurinol 100 Mg Tab) 100 mg PO DAILY [facility] Last Admin: 02/09/20 08:17 Dose: 100 mg Documented by: Alprazolam (Alprazolam 0.25 Mg Tab) 0.25 mg PO Q6HR PRN PRN Reason: Mild Anxiety Last Admin: 02/08/20 23:07 Dose: 0.25 mg Documented by: Alprazolam (Alprazolam 0.5 Mg Tab) 0.5 mg PO Q6HR PRN PRN Reason: Moderate Anxiety Aspirin (Aspirin 81 Mg) 81 mg PO DAILY [facility] Last Admin: 02/09/20 08:17 Dose: 81 mg Documented by: Atenolol (Atenolol 25 Mg Tab) 25 mg PO DAILY [facility] Last Admin: 02/09/20 08:17 Dose: 25 mg Documented by: Atorvastatin Calcium (Atorvastatin 80 Mg Tab) 80 mg PO HS [facility] Last Admin: 02/08/20 20:19 Dose: 80 mg Documented by: Calcium Carbonate (Calcium Carb-Vit D 500mg-200un 1 Each Tab) 1 each PO DAILY [facility] Last Admin: 02/09/20 08:17 Dose: 1 each Documented by: Calcium Carbonate/Glycine (Calcium Carbonate 500 Mg Chewable) 500 mg PO QID PRN PRN Reason: Heartburn Cholecalciferol (Cholecalciferol 1,000 Unit Tab) 1,000 unit PO [facility] Last Admin: 02/08/20 20:19 Dose: 1,000 unit Documented by: Clopidogrel Bisulfate (Clopidogrel 75 Mg Tab) 75 mg PO DAILY [facility] Last Admin: 02/09/20 08:17 Dose: 75 mg Documented by: Ezetimibe (Ezetimibe 10 Mg Tab) 10 mg PO [facility] Last Admin: 02/08/20 20:19 Dose: 10 mg Documented by: Furosemide (Furosemide 10 Mg/Ml 10 Ml Vial) 60 mg IV Q12HR [facility] Last Admin: 02/09/20 10:52 Dose: 60 mg Documented by: Insulin Aspart (Insulin Aspart (Novolog) 100 Unit/Ml Vial) 0 unit SQ DAILY PRN PRN Reason: Insulin Pump Replacement Miscellaneous Information (Insulin Pump Basal Rates 1 Each Misc) 1 each MISCELLANE Q6HR PRN; Protocol PRN Reason: Blood Sugar - High Miscellaneous Information (Insulin Pump Meal Bolus 1 Unit Misc) 0 unit MISCELLANE ACHS [facility]; Protocol Last Admin: 02/09/20 18:03 Dose: 5.3 unit Documented by: Miscellaneous Information (Insulin Pump Correction Bolus 1 Unit Misc) 0 unit MISCELLANE ACHS PRN; Protocol PRN Reason: Blood Sugar - High Miscellaneous Information (Insulin Pump Active Insulin 1 Each Misc) 1 each MISCELLANE ACHS PRN; Protocol PRN Reason: Blood Sugar - High Miscellaneous Information (Insulin Pump Target Glucose 1 Each Misc) 1 each MISCELLANE ACHS PRN; Protocol PRN Reason: Blood Sugar - High Montelukast Sodium (Montelukast 10 Mg Tab) 10 mg PO [facility] Last Admin: 02/08/20 20:19 Dose: 10 mg Documented by: Nifedipine (Nifedipine Xl 30 Mg Tab.Er.24) 30 mg PO [facility] Last Admin: 02/08/20 20:20 Dose: Not Given Documented by: Nitroglycerin (Nitroglycerin Sl Tabs 0.4 Mg Tab) 0.4 mg SUBLINGUAL Q5M PRN PRN Reason: Chest Pain Last Admin: 02/04/20 16:53 Dose: 0.4 mg Documented by: Ondansetron HCl (Ondansetron 4 Mg/2 Ml Vial) 4 mg IVP Q6HR PRN PRN Reason: Nausea And Vomiting Last Admin: 02/03/20 22:27 Dose: 4 mg Documented by: On examination: VITAL SIGNS: 98.2, 16, 17, 112/56, 100% room air GENERAL APPEARANCE: Sitting up in a chair, breathing better EYES: Pupils equal. Conjunctiva normal. NECK: JVD not raised. Mass not palpable. RESPIRATORY: Respiratory effort increased. Crackles improved CARDIOVASCULAR: First and second sounds normal. No edema. ABDOMEN: Soft. Liver and spleen not palpable. No tenderness. No mass palpable. PSYCHIATRY: Alert and oriented x3. Mood and affect normal. INVESTIGATIONS, reviewed in the clinical context: Potassium 3.9 creatinine 3.86 Admission testing: Hemoglobin 10.5 platelets 221 bun 65 creatinine 2.60 Troponin I 0.048, 0.063, 0.072 LDL 57 2-D echocardiogram-severe concentric LVH, EF 50-55%, severe aortic valve sclerosis, moderate aortic stenosis, moderate to severe mitral regurgitation Abdominal ultrasound-gallstones. 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 Changed to IV Lasix bolus 60 mg every 12. Other medications to continue. Encouraged to ambulate in the hallway.
[2020-02-09 20:38] LABS: Glucose,Whole Blood 94 mg/dL (75-99)
[2020-02-09] MEDS: ATORVASTATIN 80 MG TAB PO SCH (21:10)
[2020-02-09] MEDS: CHOLECALCIFEROL 1,000 UNIT TAB PO SCH (21:10)
[2020-02-09] MEDS: MONTELUKAST 10 MG TAB PO SCH (21:11)
[2020-02-09] MEDS: NIFEdipine XL 30 MG TAB.ER.24 PO SCH (21:11)
[2020-02-09] MEDS: EZETIMIBE 10 MG TAB PO SCH (21:11)
[2020-02-10] MEDS: ACETAMINOPHEN TAB 325 MG TAB PO PRN (02:57)
[2020-02-10 06:15] LABS: Glucose,Whole Blood 92 mg/dL (75-99)
[2020-02-10 08:18] LABS: Calcium 8.4 mg/dL (8.4-10.2); Magnesium 2.2 mg/dL (1.6-2.3); Potassium 3.9 mmol/L (3.5-5.1)
[2020-02-10] MEDS: ASPIRIN 81 MG PO SCH (08:56)
[2020-02-10] MEDS: CALCIUM CARB-VIT D 500MG-200UN 1 EACH TAB PO SCH (08:57)
[2020-02-10] MEDS: atenoloL 25 MG TAB PO SCH (08:57)
[2020-02-10] MEDS: FUROSEMIDE 10 MG/ML 10 ML VIAL IV SCH (08:57)
[2020-02-10] MEDS: allopurinoL 100 MG TAB PO SCH (08:57)
[2020-02-10] MEDS: CLOPIDOGREL 75 MG TAB PO SCH (08:57)
[2020-02-10 10:08] VITALS: TEMP 97.8
[2020-02-10] MEDS: INSULIN PUMP MEAL BOLUS 1 UNIT MISC MISCELLANE SCH (10:09)
--- NOTE | 2020-02-10 10:29 | P.PN ---
Subjective Patient is seen in follow-up for acute kidney injury and chronic kidney disease. Renal function better. Good urine output. Edema improved. Maintained on 60 mg IV twice daily Lasix. Feels better. No active complaints. Vital signs are stable. General: The patient appeared well nourished and normally developed. HEENT: Head exam is unremarkable. Neck is without jugular venous distension. LUNGS: Lungs are clear to auscultation and percussion. Breath sounds decreased. HEART: Rate and Rhythm are regular. First and second heart sounds normal. No murmurs, rubs or gallops. ABDOMEN: Abdominal exam reveals normal bowel sounds. Non-tender and non- distended. EXTREMITITES: No clubbing, cyanosis, or edema. Objective - Vital Signs Vital signs: Vital Signs Temp 97.8 F 02/10/20 08:00 Pulse 62 02/10/20 08:00 Resp 14 02/10/20 08:00 BP 111/47 02/10/20 08:00 Pulse Ox 100 02/10/20 08:00 Intake & Output 02/09/20 02/10/20 02/10/20 18:59 06:59 18:59 Intake Total 180 230 Output Total 1700 1800 Balance -1520 -1800 230 Weight 61.2 kg Intake: Oral 180 230 Output: Urine 1700 1800 Other: Voiding Method Toilet Toilet Toilet # Voids 1 - Labs CBC & Chem 7: 02/05/20 07:17 02/10/20 06:55 Labs: Abnormal Lab Results - Last 24 Hours (Table) 02/09/20 02/09/20 02/10/20 Range/Units 12:13 16:35 06:55 BUN 93 H (7-17) mg/dL Creatinine 3.17 H (0.52-1.04) mg/dL Glucose 105 H (74-99) mg/dL POC Glucose (mg/dL) 188 H 248 H (75-99) mg/dL Assessment and Plan Plan: Assessment: 1. Acute kidney injury secondary to ATN secondary to cardiorenal syndrome. Also component of contrast-induced acute kidney injury. Creatinine peaked at 4.78 this admission and is 3.17 today. 2. Chronic kidney disease stage IV/V. she has a maturing AV fistula. Etiology is diabetic kidney disease. 3. Coronary artery disease status post stent to the RCA February 03. 4. Volume overload. Improved with diuresis. 5. Insulin-dependent diabetes mellitus. Plan: Discontinue IV Lasix. Start torsemide 20 mg once daily which is what she takes at home. Continue to monitor renal function and urine output. No urgent need for renal placement therapy at this time. Stable for discharge home from nephrology standpoint. Follow up outpatient in 1-2 weeks.
[2020-02-10 12:13] LABS: Glucose,Whole Blood 143 mg/dL (75-99)
--- NOTE | 2020-02-10 13:00 | P.PN ---
Subjective This is a pleasant 64-year-old female past medical history significant for coronary artery disease status post PCI to the RCA, chronic diastolic heart failure, chronic kidney disease, hypertension, dyslipidemia and diabetes mellitus. She underwent coronary angiography and PCI to the RCA on this admission. She has an almost total occlusion of the circumflex that will require intervention in the future if she is symptomatic. She is seen and examined sitting up in the chair in no acute distress. She is urinating frequently. Output for the previous 24 hours is 1100 ml. She denies chest pain, shortness of breath, dizziness or palpitations. Blood pressure 112/56 heart rate 60 afebrile and maintaining oxygen saturation on room air. Laboratory data reviewed, sodium 139, potassium 3.9, creatinine 3.96. Nephrology has discontinued her lasix gtt and started IVP 60 mg BID. 02/10/2020 Patient is seen and examined sitting up in the chair in no acute distress. She has no symptoms of chest pain, shortness of breath, dizziness or palpitations. Blood pressure 111/47 heart rate 62 afebrile maintaining oxygen saturation on room air. Laboratory data reviewed, Sodium 139, potassium 3.9, creatinine 3.17 and magnesium 2.2. GENERAL: Well-appearing, well-nourished and in no acute distress. NECK: Supple without JVD or thyromegaly. LUNGS: Breath sounds clear to auscultation bilaterally. Respiration equal and unlabored. No wheezes, rales or rhonchi. HEART: Regular rate and rhythm with systolic ejection murmur at the base and left sternal border, no rubs or gallops. S1 and S2 heard. EXTREMITIES: Normal range of motion, no edema. No clubbing or cyanosis. Peripheral pulses intact. Right radial access site clean, dry and intact with no evidence of bleeding or hematoma. ASSESSMENT Non-ST elevated myocardial infarction status post PCI to the RCA History of previous coronary artery disease Acute on chronic diastolic heart failure ejection fraction 50-55% Valvular heart disease Chronic kidney disease Hypertension Dyslipidemia Diabetes mellitus PLAN Creatinine has stabilized. Hemodynamically stable from a cardiac perspective. Continue dual anti-platelet therapy. Follow-up with Dr. Canas in the office in one week. Nurse Practitioner note has been reviewed, I agree with a documented findings and plan of care. Patient was seen and examined. Objective - Vital Signs Vital signs: Vital Signs Temp 97.8 F 02/10/20 08:00 Pulse 62 02/10/20 08:00 Resp 14 02/10/20 08:00 BP 111/47 02/10/20 08:00 Pulse Ox 100 02/10/20 08:00 Intake & Output 02/09/20 02/10/20 02/10/20 18:59 06:59 18:59 Intake Total 180 230 Output Total 1700 1800 900 Balance -1526 -1800 -222 Weight 61.2 kg Intake: Oral 180 230 Output: Urine 1700 1800 900 Other: Voiding Method Toilet Toilet Toilet # Voids 1 3 - Labs CBC & Chem 7: 02/05/20 07:17 02/10/20 06:55 Labs: Abnormal Lab Results - Last 24 Hours (Table) 02/09/20 02/10/20 02/10/20 Range/Units 16:35 06:55 12:09 BUN 93 H (7-17) mg/dL Creatinine 3.17 H (0.52-1.04) mg/dL Glucose 105 H (74-99) mg/dL POC Glucose (mg/dL) 248 H 143 H (75-99) mg/dL
[2020-02-10 13:27] VITALS: BP 152/70; PULSE 60; RESP 15
--- NOTE | 2020-02-10 23:29 | P.DS ---
Providers Date of admission: 02/03/20 17:35 Expected date of discharge: 02/10/20 Attending physician: Mio Mar Consults: 02/03/20 17:35 Consult Physician Urgent Consulting Provider: Christopher Mckeon Consult Reason/Comments: Chest pain Do you want consulting provider notified?: Yes 02/04/20 14:09 Consult Physician Routine Consulting Provider: Chula Arriaga Consult Reason/Comments: CKD, s/p cardiac cath Do you want consulting provider notified?: Yes Primary care physician: [facility] Course: presenting complaint: Chest pain Interval history: Patient was admitted by my colleague Dr. Dorado. This is 64-year-old patient was chronic stable medical conditions include diabetes mellitus, hypertension, hyperlipidemia, CK D stage IV, on insulin pump, coronary artery disease with prior stent. Presented with chest pain. Admitted with non-ST elevation myocardial infarction. Had abnormal stress test in November this year. Underwent cardiac catheterization with a PTCA and stenting to distal dominant RCA with in-stent restenosis. Drug-eluting stent was used. Also had pulmonary edema. Kidney function worsening. [place] to be cardiorenal syndrome. . Put on a Lasix drip. Then used well. Creatinine went up from 2.6-4.78. Did come down to 3.17 today. Today-feeling well. Up to the bathroom. Breathing greatly improved. Discussed with the patient. Swished to oral diuretic. Study Assistant: [facility] On examination: VITAL SIGNS: 97.8, 60, 15, 150 dose 70, 98% room air GENERAL APPEARANCE: Sitting comfortable EYES: Pupils equal. Conjunctiva normal. NECK: JVD not raised. Mass not palpable. RESPIRATORY: Respiratory effort increased. Clear CARDIOVASCULAR: First and second sounds normal. No edema. ABDOMEN: Soft. Liver and spleen not palpable. No tenderness. No mass palpable. PSYCHIATRY: Alert and oriented x3. Mood and affect normal. INVESTIGATIONS, reviewed in the clinical context: Potassium 3.9 bun 93 creatinine 3.17 Admission testing: Hemoglobin 10.5 platelets 221 bun 65 creatinine 2.60 Troponin I 0.048, 0.063, 0.072 LDL 57 2-D echocardiogram-severe concentric LVH, EF 50-55%, severe aortic valve sclerosis, moderate aortic stenosis, moderate to severe mitral regurgitation Abdominal ultrasound-gallstones. Chest x-ray film personally reviewed by me-pulmonary edema Assessment: -Acute non-Q wave myocardial infarction -Acute congestive heart failure exacerbation from diastolic dysfunction EF 50- 55% from underlying coronary artery- -Cardiac catheterization with successful angioplasty stenting to RCA -Coronary artery disease with prior stents -Diabetes mellitus type 2 on insulin pump -Hyperlipidemia -Essential hypertension -CK D stage IV to include diabetic nephropathy and hypertensive nephrosclerosis -Acute kidney injury possibly contrast-induced improved -Severe aortic valve sclerosis with moderate aortic stenosis, moderate to severe mitral regurgitation -Gallstones asymptomatic -Normocytic anemia, secondary to chronic kidney disease Disposition: Home Patient Condition at Discharge: Stable Plan - Discharge Summary Discharge Rx Participant: Yes New Discharge Prescriptions: Continue Nitroglycerin Sl Tabs [Nitrostat] 0.4 mg SUBLINGUAL Q5M PRN PRN Reason: Angina Montelukast [Singulair] 10 mg PO HS Ezetimibe [Zetia] 10 mg PO HS allopurinoL [Zyloprim] 100 mg PO DAILY ALPRAZolam [Xanax] 0.25 mg PO DAILY PRN PRN Reason: Anxiety Clopidogrel Bisulfate [Plavix] 75 mg PO DAILY Atorvastatin [Lipitor] 80 mg PO HS atenoloL [Tenormin] 25 mg PO DAILY Aspirin EC [Ecotrin Low Dose] 81 mg PO DAILY Insulin Aspart (For Pump) [NovoLOG (For Pump)] 0.01 unit SQ-PUMP CONTINUOUS Calcium Citrate/Vitamin D3 [Calcium Cit 315-Vit D3 250 Tab] 1 tab PO DAILY Cholecalciferol [Vitamin D3 (25 Mcg = 1000 Iu)] 1,000 unit PO HS NIFEdipine [NIFEdipine ER] 30 mg PO HS Changed Torsemide [Demadex] 20 mg PO DAILY PRN #0 PRN Reason: Edema Discharge Medication List ALPRAZolam [Xanax] 0.25 mg PO DAILY PRN 10/11/16 [History] Aspirin EC [Ecotrin Low Dose] 81 mg PO DAILY 10/11/16 [History] Atorvastatin [Lipitor] 80 mg PO HS 10/11/16 [History] Clopidogrel Bisulfate [Plavix] 75 mg PO DAILY 10/11/16 [History] Ezetimibe [Zetia] 10 mg PO HS 10/11/16 [History] Insulin Aspart (For Pump) [NovoLOG (For Pump)] 0.01 unit SQ-PUMP CONTINUOUS 10/11/16 [History] Montelukast [Singulair] 10 mg PO HS 10/11/16 [History] Nitroglycerin Sl Tabs [Nitrostat] 0.4 mg SUBLINGUAL Q5M PRN 10/11/16 [History] allopurinoL [Zyloprim] 100 mg PO DAILY 10/11/16 [History] atenoloL [Tenormin] 25 mg PO DAILY 10/11/16 [History] Calcium Citrate/Vitamin D3 [Calcium Cit 315-Vit D3 250 Tab] 1 tab PO DAILY 02/03/20 [History] Cholecalciferol [Vitamin D3 (25 Mcg = 1000 Iu)] 1,000 unit PO HS 02/03/20 [History] NIFEdipine [NIFEdipine ER] 30 mg PO HS 02/03/20 [History] Torsemide [Demadex] 20 mg PO DAILY PRN #0 02/10/20 [Rx] Follow up Appointment(s)/Referral(s): kidney-doctor, [Other] - 1 Week (Please follow up with your kidney specialist.) [facility] [NON-STAFF] - (After discharge, you will follow-up with your cue selector. Once you have obtained a prescription for cardiac rehab, please call [phone] to set up an evaluation.) Tavon Rose DO [Primary Care Provider] - 02/24/20 10:40 am Arely Canas MD [STAFF PHYSICIAN] - 02/13/20 10:15 am (Cancelled per patient wishes. See's [facility] cue selector.) Patient Instructions/Handouts: *Surgery [facility] - After Heart Catheterization - Pad Extraction Tender Instructions, Chest Pain (GEN), Chronic Kidney Disease (DC) Discharge Disposition: HOME SELF-CARE
[2020-02-11] MEDS ORDERED: TORSEMIDE 20 MG TAB PO SCH (09:00)
== END 2020-02-10 15:24 | disposition home or self-care (01) | DRG 246 ==
LOC: EC 15:33 → 3SCARD 17:35
PROVIDERS: ADMIT Hospitalist; ATTEND Hospitalist
PROC: 027034Z Dilation of Coronary Artery, One Artery with Drug-eluting Intraluminal Device, Percutaneous Approach (ICD-10-PCS; principal; 2020-02-04 12:10)
PROC: 4A023N7 Measurement of Cardiac Sampling and Pressure, Left Heart, Percutaneous Approach (ICD-10-PCS; 2020-02-04 12:10)
PROC: B2111ZZ Fluoroscopy of Multiple Coronary Arteries using Low Osmolar Contrast (ICD-10-PCS; 2020-02-04 12:10)
DX: T82.855A Stenosis of coronary artery stent, initial encounter (principal); I21.4 Non-ST elevation (NSTEMI) myocardial infarction; I50.33 Acute on chronic diastolic (congestive) heart failure; N17.0 Acute kidney failure with tubular necrosis; I13.0 Hypertensive heart and chronic kidney disease with heart failure and stage 1 through stage 4 chronic kidney disease, or unspecified chronic kidney disease; N18.4 Chronic kidney disease, stage 4 (severe); I25.110 Atherosclerotic heart disease of native coronary artery with unstable angina pectoris; E87.1 Hypo-osmolality and hyponatremia; E87.2 Acidosis; D63.1 Anemia in chronic kidney disease; E11.22 Type 2 diabetes mellitus with diabetic chronic kidney disease; Z79.4 Long term (current) use of insulin; I08.3 Combined rheumatic disorders of mitral, aortic and tricuspid valves; E78.5 Hyperlipidemia, unspecified; K80.20 Calculus of gallbladder without cholecystitis without obstruction; K21.9 Gastro-esophageal reflux disease without esophagitis; G56.00 Carpal tunnel syndrome, unspecified upper limb; N14.2 Nephropathy induced by unspecified drug, medicament or biological substance; T50.8X5A Adverse effect of diagnostic agents, initial encounter; Z79.82 Long term (current) use of aspirin; Z79.02 Long term (current) use of antithrombotics/antiplatelets; Z79.899 Other long term (current) drug therapy; Z96.41 Presence of insulin pump (external) (internal); Z95.5 Presence of coronary angioplasty implant and graft; Z90.89 Acquired absence of other organs; Z98.51 Tubal ligation status; Z98.890 Other specified postprocedural states; Z98.42 Cataract extraction status, left eye; Z98.41 Cataract extraction status, right eye; Z87.2 Personal history of diseases of the skin and subcutaneous tissue; Z95.828 Presence of other vascular implants and grafts; Z87.891 Personal history of nicotine dependence; Y84.0 Cardiac catheterization as the cause of abnormal reaction of the patient, or of later complication, without mention of misadventure at the time of the procedure; Z88.5 Allergy status to narcotic agent; Z88.2 Allergy status to sulfonamides; Z88.8 Allergy status to other drugs, medicaments and biological substances
CPT/HCPCS: 36415; 71046; 76705; 80048; 80053; 80061; 81001; 82550; 83690; 83735; 83880; 84484; 85025; 85027; 85610; 85730; 93005; 93306; 93458; 96374; 96375; 99291

== ENCOUNTER → 2020-03-31 | Outpatient (CLI) | payer BC ==
--- NOTE | 2020-04-01 11:19 | MM ---
Reason for exam: screening (asymptomatic). Last mammogram was performed 1 year ago. History: Patient is postmenopausal and history of other cancer. Took estrogen beginning at age 52. Took progesterone beginning at age 52. Physical Findings: A clinical breast exam by your physician is recommended on an annual basis and results should be correlated with mammographic findings. MG Screening Mammo w CAD Bilateral CC and MLO view(s) were taken. Prior study comparison: March 19, 2019, bilateral MG screening mammo w CAD. June 30, 2013, bilateral digital screening mammo w/CAD. The breast tissue is heterogeneously dense. This may lower the sensitivity of mammography. There are benign appearing round, vascular calcifications. There is no discrete abnormality. ASSESSMENT: Benign, BI-RAD 2 RECOMMENDATION: Routine screening mammogram of both breasts in 1 year.
== END | disposition home or self-care (01) ==
LOC: RADMAMWWP 07:48
PROVIDERS: ATTEND Family Medicine
DX: Z12.31 Encounter for screening mammogram for malignant neoplasm of breast (principal)
CPT/HCPCS: 77067

== ENCOUNTER → 2020-06-15 | Outpatient (CLI) | payer BC | END | disposition home or self-care (01) | LOC: LABWHC1 09:59 | PROVIDERS: ATTEND Surgery | DX: Z20.822 Contact with and (suspected) exposure to COVID-19 (principal) | CPT/HCPCS: U0003; C9803 ==

== ENCOUNTER → 2020-08-16 | Outpatient (CLI) | payer BC | END | disposition home or self-care (01) | LOC: LABWHC1 10:52 | PROVIDERS: ATTEND Internal Medicine | DX: Z20.822 Contact with and (suspected) exposure to COVID-19 (principal); Z88.1 Allergy status to other antibiotic agents; Z88.2 Allergy status to sulfonamides; Z88.4 Allergy status to anesthetic agent; Z88.5 Allergy status to narcotic agent; Z88.6 Allergy status to analgesic agent; Z88.8 Allergy status to other drugs, medicaments and biological substances | CPT/HCPCS: U0003; C9803; U0005 ==

== ENCOUNTER → 2021-07-15 | Outpatient (CLI) | payer MEDICARE | END | disposition home or self-care (01) | LOC: LABWHC1 15:12 | PROVIDERS: ATTEND Physician Assistant | DX: Z53.9 Procedure and treatment not carried out, unspecified reason (principal) ==

== ENCOUNTER 2021-08-12 04:23 | Emergency (ER) | payer MEDICARE ==
[2021-08-12 04:32] VITALS: TEMP 97.8
--- NOTE | 2021-08-12 05:01 | ED ---
Chest Pain HPI - General Chief Complaint: Chest Pain Stated Complaint: chest pain Time Seen by Provider: 08/12/21 04:35 Source: patient, family Mode of arrival: ambulatory Limitations: no limitations - History of Present Illness Initial Comments: Patient is 66-year-old woman presenting to have evaluation for chest pain. She states she has been having episodes of chest pain going back 1 month though much more consistent over past 1-2 days. Is morning that was also accompanying nausea and vomiting as well as some dyspnea. Patient was told she probably should go to [facility] for evaluation by her buff wheel fabricator's there, but patient family did not want to risk the long drive before she had evaluation. Patient states that she is feeling a little better after arrival here and initial medicine. MD Complaint: chest pain -: month(s) Onset: during rest Pain Location: substernal, left chest Pain Radiation: neck Severity: moderate Quality: aching Consistency: intermittent Improves With: nothing Worsens With: nothing Anginal Symptoms: nausea, dyspnea - Related Data Home Medications Medication Instructions Recorded Confirmed ALPRAZolam [Xanax] 0.25 mg PO DAILY PRN 10/11/16 02/03/20 Aspirin EC [Ecotrin Low Dose] 81 mg PO DAILY 10/11/16 02/03/20 Atorvastatin [Lipitor] 80 mg PO HS 10/11/16 02/03/20 Clopidogrel Bisulfate [Plavix] 75 mg PO DAILY 10/11/16 02/03/20 Ezetimibe [Zetia] 10 mg PO HS 10/11/16 02/03/20 Insulin Aspart (For Pump) [NovoLOG 0.01 unit SQ-PUMP CONTINUOUS 10/11/16 02/03/20 (For Pump)] Montelukast [Singulair] 10 mg PO HS 10/11/16 02/03/20 Nitroglycerin Sl Tabs [Nitrostat] 0.4 mg SUBLINGUAL Q5M PRN 10/11/16 02/03/20 allopurinoL [Zyloprim] 100 mg PO DAILY 10/11/16 02/03/20 atenoloL [Tenormin] 25 mg PO DAILY 10/11/16 02/03/20 Calcium Citrate/Vitamin D3 1 tab PO DAILY 02/03/20 02/03/20 [Calcium Cit 315-Vit D3 6.25 Mcg (250 Iu)] Cholecalciferol [Vitamin D3 (25 1,000 unit PO HS 02/03/20 02/03/20 Mcg = 1000 Iu)] NIFEdipine [NIFEdipine ER] 30 mg PO HS 02/03/20 02/03/20 Previous Rx's Medication Instructions Recorded Torsemide [Demadex] 20 mg PO DAILY PRN #0 02/10/20 Allergies Allergy/AdvReac Type Severity Reaction Status Date / Time nifedipine Allergy Swelling Verified 08/12/21 04:33 droperidol AdvReac Anxiety Verified 08/12/21 04:32 ezetimibe [From Vytorin] AdvReac Acid Reflux Verified 08/12/21 04:32 fentanyl AdvReac "Can't Verified 08/12/21 04:32 wake up"/Nausea hydrocodone AdvReac Angina Verified 08/12/21 04:32 hydromorphone [From Dilaudid] AdvReac Angina Verified 08/12/21 04:32 midazolam [From Versed] AdvReac Anxiety Verified 08/12/21 04:32 nitroglycerin AdvReac Acid Reflux Verified 08/12/21 04:32 paroxetine [From Paxil] AdvReac Acid Reflux Verified 08/12/21 04:32 simvastatin [From Vytorin] AdvReac Acid Reflux Verified 08/12/21 04:32 sulfamethoxazole AdvReac Decreased Verified 08/12/21 04:32 [From Bactrim] Renal Function trandolapril [From Tarka] AdvReac Acid Reflux Verified 08/12/21 04:32 trimethoprim [From Bactrim] AdvReac Decreased Verified 08/12/21 04:32 Renal Function verapamil [From Tarka] AdvReac Acid Reflux Verified 08/12/21 04:32 Review of Systems ROS Statement: Those systems with pertinent positive or pertinent negative responses have been documented in the HPI. ROS Other: All systems not noted in ROS Statement are negative. Constitutional: Denies: fever, chills Respiratory: Reports: dyspnea. Denies: cough Cardiovascular: Reports: chest pain. Denies: palpitations, edema Gastrointestinal: Reports: nausea. Denies: abdominal pain, vomiting Genitourinary: Denies: dysuria, hematuria Musculoskeletal: Denies: back pain Skin: Denies: rash Neurological: Denies: headache EKG Findings - EKG Results: EKG: sinus rhythm (With sinus arrhythmia, rate 78 bpm), normal axis, normal QRS - Blocks, [place], Hypertrophy, ST Abn: Repolarization changes or abnormalities: ST or T wave suggestive of ischemia Past Medical History Past Medical History: Diabetes Mellitus, Hyperlipidemia, Hypertension, Renal Disease Additional Past Medical History / Comment(s): angina, kidney disease stage 4, pilonidal cyst, carpal tunnel, insulin pump History of Any Multi-Drug Resistant Organisms: None Reported Past Surgical History: Coronary Bypass/CABG, Heart Catheterization With Stent, Tonsillectomy, Tubal Ligation Additional Past Surgical History / Comment(s): cataracts Date of Last Stent Placement:: 2004 Past Psychological History: No Psychological Hx Reported Smoking Status: Former smoker Past Alcohol Use History: Rare Past Drug Use History: None Reported General Exam Limitations: no limitations General appearance: alert, in no apparent distress Head exam: Present: atraumatic, normocephalic Eye exam: Present: normal appearance. Absent: scleral icterus, conjunctival injection ENT exam: Present: normal oropharynx Neck exam: Present: normal inspection Respiratory exam: Present: normal lung sounds bilaterally. Absent: respiratory distress, wheezes, rales, rhonchi, stridor Cardiovascular Exam: Present: regular rate, normal rhythm, normal heart sounds. Absent: systolic murmur, diastolic murmur, rubs, gallop GI/Abdominal exam: Present: soft. Absent: distended, tenderness, guarding, rebound, rigid, mass Extremities exam: Present: normal inspection, normal capillary refill. Absent: pedal edema, calf tenderness Back exam: Present: normal inspection. Absent: CVA tenderness (R), CVA tenderness (L) Neurological exam: Present: alert Skin exam: Present: warm, dry, intact, normal color. Absent: rash Course Vital Signs 08/12/21 08/12/21 08/12/21 04:28 05:05 05:59 Temperature 97.8 F Pulse Rate 82 78 65 Respiratory 20 14 16 Rate Blood Pressure 159/79 166/96 153/70 O2 Sat by Pulse 98 98 100 Oximetry 08/12/21 08/12/21 08/12/21 06:44 07:00 07:11 Temperature Pulse Rate 76 82 80 Respiratory 11 L 18 18 Rate Blood Pressure 145/81 162/108 148/79 O2 Sat by Pulse 100 100 100 Oximetry Chest Pain [facility] Patient is a 66-year-old woman with chest pain and found to have degree of congestive heart failure. The patient does have mildly elevated troponin. Discussed with patient's further evaluation and treatment and she would like to be transferred to [facility] where her cardiology care is located. Discussed with the transfer team there and they will accept. Disposition Clinical Impression: Congestive heart failure (CHF), Chronic renal insufficiency, Chest pain, Elevated troponin I level Disposition: OTHER INSTITUTION NOT DEFINED Condition: Fair Is patient prescribed a controlled substance at d/c from ED?: No Referrals: Tavon Rose DO [Primary Care Provider] - 1-2 days - Out of Hospital Transfer - Req. Specs Out of Hospital Transfer - Requested Specifics: Other Emergency Center
[2021-08-12 05:02] LABS: Anisocytosis Slight; Basophils # (A) 0.1 k/uL (0-0.2); Basophils % (A) 1 %; Eosinophils # (A) 0.3 k/uL (0-0.7); Eosinophils % (A) 5 %; HCT 35.2 % (34.0-46.0); HGB 11.3 gm/dL (11.4-16.0); Lymphocytes # (A) 1.4 k/uL (1.0-4.8); Lymphocytes % (A) 21 %; MCHC 32.2 g/dL (31.0-37.0); MCV 93.2 fL (80.0-100.0); Mean Platelet Volume 8.2; Monocytes # (A) 0.4 k/uL (0-1.0); Monocytes % (A) 6 %; Neutrophils # (A) 4.3 k/uL (1.3-7.7); Neutrophils % (A) 64 %; Platelet Count 219 k/uL (150-450); RBC 3.77 m/uL (3.80-5.40); RDW 16.3 % (11.5-15.5); WBC 6.7 k/uL (3.8-10.6)
--- NOTE | 2021-08-12 05:11 | XR ---
EXAMINATION TYPE: XR chest 2V DATE OF EXAM: 08/12/2021 COMPARISON: 02/08/2020 HISTORY: Short of breath. Chest pain TECHNIQUE: FINDINGS: There is linear density in the right midlung field. No heart failure seen. There are chest leads. There are sternal wires. Costophrenic angles are clear. IMPRESSION: Mild atelectasis right mid lung field. There is clearing of the heart failure and pleural fluid compared to old exam.
[2021-08-12 05:43] LABS: INR 0.9 (<1.2); Prothrombin Time 9.9 sec (9.0-12.0)
[2021-08-12 06:19] LABS: Calcium 10.5 mg/dL (8.4-10.2); Potassium 4.3 mmol/L (3.5-5.1)
[2021-08-12 06:20] LABS: Albumin 4.2 g/dL (3.5-5.0); Magnesium 2.3 mg/dL (1.6-2.3); Total Bilirubin 0.5 mg/dL (0.2-1.3); Total Protein 6.9 g/dL (6.3-8.2)
[2021-08-12] MEDS ORDERED: ONDANSETRON 4 MG/2 ML VIAL IVP STA (07:00)
[2021-08-12] MEDS ORDERED: MORPHINE SULFATE 4 MG/ML SYRINGE IV STA (07:00)
[2021-08-12] MEDS ORDERED: NITROGLYCERIN SL TABS 0.4 MG TAB SUBLINGUAL STA (07:00)
[2021-08-12 07:09] VITALS: RESP 18
[2021-08-12 07:12] VITALS: BP 148/79; PULSE 80
== END 2021-08-12 07:27 | disposition other institution (70) ==
LOC: EC 04:23
DX: I13.0 Hypertensive heart and chronic kidney disease with heart failure and stage 1 through stage 4 chronic kidney disease, or unspecified chronic kidney disease (principal); I50.9 Heart failure, unspecified; N18.4 Chronic kidney disease, stage 4 (severe); E11.22 Type 2 diabetes mellitus with diabetic chronic kidney disease; E11.36 Type 2 diabetes mellitus with diabetic cataract; E78.5 Hyperlipidemia, unspecified; Z79.82 Long term (current) use of aspirin; Z87.891 Personal history of nicotine dependence; Z88.1 Allergy status to other antibiotic agents; Z88.2 Allergy status to sulfonamides; Z88.5 Allergy status to narcotic agent; Z95.1 Presence of aortocoronary bypass graft; Z88.8 Allergy status to other drugs, medicaments and biological substances
CPT/HCPCS: 36415; 93005; 83880; 80053; 83735; 84484; 85025; 85610; 85730; 71046; 99285; 96374; 96375; J2270; J2405

== ENCOUNTER → 2022-03-13 | Outpatient (CLI) | payer MEDICARE ==
[~2022-03-13] MED LIST: DENOSUMAB 60 MG/ML 1 ML SYRINGE SQ ONE
[2022-03-13 08:28] VITALS: BP 138/62; PULSE 74; RESP 16; TEMP 98.2
== END ==
LOC: PROCWHC3 08:17
PROVIDERS: ATTEND Internal Medicine
DX: M81.0 Age-related osteoporosis without current pathological fracture (principal); Z88.8 Allergy status to other drugs, medicaments and biological substances; Z88.5 Allergy status to narcotic agent; Z88.2 Allergy status to sulfonamides; Z88.6 Allergy status to analgesic agent
CPT/HCPCS: 96372; J0897

== ENCOUNTER → 2022-03-22 | Outpatient (CLI) | payer MEDICARE, OTHER ==
--- NOTE | 2022-03-23 18:50 | MM ---
Reason for Exam: Screening (asymptomatic). Last mammogram was performed 1 year(s) and 11 month(s) ago. Patient History: Menarche at age 13. First Full-Term at age 18. Postmenopausal. Estrogen, from age 52 until age 56. Progesterone, from age 52 until age 56. Risk Values: Mervat 5 year model risk: 1.2%. NCI Lifetime model risk: 4.6%. Prior Study Comparison: 06/30/2013 Bilateral Screening Mammogram, [facility]. 03/19/2019 Bilateral Screening Mammogram, [facility]. 03/31/2020 Bilateral Screening Mammogram, [facility]. Tissue Density: The breast tissue is heterogeneously dense. This may lower the sensitivity of mammography. Findings: Analyzed By CAD. Benign vascular calcifications on both sides. There is no suspicious group of microcalcifications or new suspicious mass in either breast. Overall Assessment: Benign, BI-RAD 2 Management: Screening Mammogram of both breasts in 1 year. 1. Patient should continue monthly self breast exams. 2. A clinical breast exam by your physician is recommended on an annual basis. 3. This exam should not preclude additional follow-up of suspicious palpable abnormalities. Electronically signed and approved by: Valeriy Flor M.D. Radiologist
== END | disposition home or self-care (01) ==
LOC: RADMAMWWP 14:54
PROVIDERS: ATTEND Family Medicine
DX: Z12.31 Encounter for screening mammogram for malignant neoplasm of breast (principal); Z78.0 Asymptomatic menopausal state
CPT/HCPCS: 77063; 77067

== ENCOUNTER → 2022-09-11 | Outpatient (CLI) | payer MEDICARE, OTHER ==
[~2022-09-11] MED LIST changes: +DENOSUMAB 60 MG/ML 1 ML SYRINGE SQ NR; -DENOSUMAB 60 MG/ML 1 ML SYRINGE SQ ONE
[2022-09-11 13:22] VITALS: BP 114/53; PULSE 72; RESP 16; TEMP 97.7
== END ==
LOC: PROCWHC3 13:01
PROVIDERS: ATTEND Internal Medicine
DX: M81.0 Age-related osteoporosis without current pathological fracture (principal)
CPT/HCPCS: 96372; J0897

== ENCOUNTER 2023-02-27 01:50 | Inpatient (IN) | payer MEDICARE, OTHER ==
[2023-02-27] MEDS ORDERED: NITROGLYCERIN OINT 1 INCH/GM PACKET TOPICAL STA (02:10)
--- NOTE | 2023-02-27 02:14 | ED ---
Chest Pain HPI - General Source: patient, EMS, RN notes reviewed Mode of arrival: EMS Limitations: no limitations <Tomás Lopez - Last Filed: 02/27/23 02:10> - History of Present Illness MD Complaint: chest pain -: hour(s) Onset: during rest, during exertion Pain Location: substernal, left chest Pain Radiation: LUE Severity: moderate Severity scale (1-10): 4 Quality: tightness, heaviness Consistency: constant Improves With: nitroglycerin Worsens With: nothing Anginal Symptoms: sense of impending doom Other Symptoms: palpitations Treatments Prior to Arrival: none <Aguila Hernandez - Last Filed: 02/27/23 21:46> - General Chief Complaint: Chest Pain Stated Complaint: Chest Pain Time Seen by Provider: 02/27/23 02:04 - History of Present Illness Initial Comments: This a 67-year-old female presents emergency department via EMS chief complaint of chest pain, chest pressure. Patient states it started earlier this evening. Patient states that she has a very extensive cardiac history in which she states that she's had multiple stents, CABG. She has a history of hyperlipidemia hypertension, renal disease. She states that she has cardiac cath every 3-6 months at [facility] secondary to plaque formation. Patient states that she does dialysis Sunday there is a Sunday. She states nitro does help for a short period of time states she took 6 nitro she did receive aspirin by EMS and states that she took aspirin prior. (Tomás Lopez) This is a 67-year-old female to the emergency department for evaluation. He does have extensive cardiac history with recurrent heart catheterization (Aguila Hernandez) - Related Data Home Medications Medication Instructions Recorded Confirmed ALPRAZolam [Xanax] 0.25 mg PO TID PRN 10/11/16 02/27/23 Aspirin EC [Ecotrin Low Dose] 81 mg PO DAILY 10/11/16 02/27/23 Atorvastatin [Lipitor] 80 mg PO HS 10/11/16 02/27/23 Clopidogrel Bisulfate [Plavix] 75 mg PO DAILY 10/11/16 02/27/23 Ezetimibe [Zetia] 10 mg PO HS 10/11/16 02/27/23 Insulin Aspart (For Pump) [NovoLOG 0.01 unit SQ-PUMP CONTINUOUS 10/11/16 02/27/23 (For Pump)] Montelukast [Singulair] 10 mg PO HS 10/11/16 02/27/23 Nitroglycerin Sl Tabs [Nitrostat] 0.4 mg SUBLINGUAL Q5M PRN 10/11/16 02/27/23 allopurinoL [Zyloprim] 100 mg PO DAILY 10/11/16 02/27/23 Alirocumab [Praluent Pen] 75 mg SQ Q14D 09/08/21 02/27/23 Cinacalcet [Sensipar] 30 mg PO TUSA 02/27/23 02/27/23 Denosumab [Prolia] 1 dose SQ Q180D 02/27/23 02/27/23 Ferric Citrate [Auryxia] 210 mg PO AC-TID 02/27/23 02/27/23 Folic Acid/Vit B Complex and C 0.8 mg PO HS 02/27/23 02/27/23 [Nephro-Moi Tablet] Insulin Glargine,Hum.rec.anlog 12 unit SQ HS PRN 02/27/23 02/27/23 [Basaglar Kwikpen U-100] Isosorbide Mononitrate ER [Imdur] 30 mg PO SUMOWEFR 02/27/23 02/27/23 Lidocaine-Prilocaine Cream [Emla 1 applic TOPICAL TUTHSA 02/27/23 02/27/23 Cream 2.5%/2.5%] Metoprolol Tartrate [Lopressor] 12.5 mg PO SUMOWEFR 02/27/23 02/27/23 Midodrine [ProAmatine] 2.5 - 5 mg PO BID PRN 02/27/23 02/27/23 Torsemide [Demadex] 20 mg PO BID 02/27/23 02/27/23 Allergies Allergy/AdvReac Type Severity Reaction Status Date / Time nifedipine Allergy Swelling Verified 02/27/23 07:31 droperidol AdvReac Anxiety Verified 02/27/23 07:31 ezetimibe [From Vytorin] AdvReac Acid Reflux Verified 02/27/23 07:31 fentanyl AdvReac "Can't Verified 02/27/23 07:31 wake up"/Nausea hydrocodone AdvReac Angina Verified 02/27/23 07:31 hydromorphone [From Dilaudid] AdvReac Angina Verified 02/27/23 07:31 midazolam [From Versed] AdvReac Anxiety Verified 02/27/23 07:31 morphine AdvReac Nausea & Verified 02/27/23 07:31 Vomiting nitroglycerin AdvReac Acid Reflux Verified 02/27/23 07:31 paroxetine [From Paxil] AdvReac Acid Reflux Verified 02/27/23 07:31 simvastatin [From Vytorin] AdvReac Acid Reflux Verified 02/27/23 07:31 sulfamethoxazole AdvReac Decreased Verified 02/27/23 07:31 [From Bactrim] Renal Function trandolapril [From Tarka] AdvReac Acid Reflux Verified 02/27/23 07:31 trimethoprim [From Bactrim] AdvReac Decreased Verified 02/27/23 07:31 Renal Function verapamil [From Tarka] AdvReac Acid Reflux Verified 02/27/23 07:31 Review of Systems ROS Other: All systems not noted in ROS Statement are negative. <Tomás Lopez - Last Filed: 02/27/23 02:10> ROS Other: All systems not noted in ROS Statement are negative. <Aguila Hernandez - Last Filed: 02/27/23 21:46> ROS Statement: Those systems with pertinent positive or pertinent negative responses have been documented in the HPI. EKG Findings - EKG Comments: EKG Findings:: EKG performed at 2:07 sinus rhythm with rate of 84 [place] 166 QRS 105 QT/QTC 360/401 - EKG Results: EKG: interpreted by ERMD <Tomás Lopez - Last Filed: 02/27/23 02:10> - Dysrhythmias: Sinus rhythms and dysrhythmias: sinus rhythm (EKG is sinus 83 [place] 166 QRS profile QTC 401 souvenir and novelty maker by me with no ST elevation) <Aguila Hernandez - Last Filed: 02/27/23 21:46> Past Medical History Past Medical History: Diabetes Mellitus, Hyperlipidemia, Hypertension, Renal Disease Additional Past Medical History / Comment(s): DIALYSIS.angina, kidney disease stage 4, pilonidal cyst, carpal tunnel, insulin pump History of Any Multi-Drug Resistant Organisms: None Reported Past Surgical History: Coronary Bypass/CABG, Heart Catheterization With Stent, Tonsillectomy, Tubal Ligation Additional Past Surgical History / Comment(s): cataracts Past Anesthesia/Blood Transfusion Reactions: No Reported Reaction Date of Last Stent Placement:: 2004 Past Psychological History: No Psychological Hx Reported Smoking Status: Former smoker Past Alcohol Use History: Rare Past Drug Use History: None Reported <Tomás Lopez - Last Filed: 02/27/23 02:10> General Exam General appearance: alert, in no apparent distress Head exam: Present: atraumatic, normocephalic, normal inspection Eye exam: Present: normal appearance, PERRL, EOMI. Absent: scleral icterus, conjunctival injection, periorbital swelling ENT exam: Present: normal exam, normal oropharynx, mucous membranes moist Neck exam: Present: normal inspection, full ROM. Absent: tenderness, meningismus, lymphadenopathy Respiratory exam: Present: normal lung sounds bilaterally. Absent: respiratory distress, wheezes, rales, rhonchi, stridor Cardiovascular Exam: Present: regular rate, normal rhythm, normal heart sounds. Absent: systolic murmur, diastolic murmur, rubs, gallop, clicks GI/Abdominal exam: Present: soft, normal bowel sounds. Absent: distended, tenderness, guarding, rebound, rigid Neurological exam: Present: alert, oriented X3 Skin exam: Present: warm, dry, intact, normal color. Absent: rash <Tomás Lopez - Last Filed: 02/27/23 02:10> General appearance: alert, in no apparent distress Head exam: Present: atraumatic, normocephalic, normal inspection Eye exam: Present: normal appearance, PERRL, EOMI. Absent: scleral icterus, conjunctival injection, periorbital swelling ENT exam: Present: normal exam, mucous membranes moist Neck exam: Present: normal inspection. Absent: tenderness, meningismus, lymphadenopathy Respiratory exam: Present: normal lung sounds bilaterally. Absent: respiratory distress, wheezes, rales, rhonchi, stridor Cardiovascular Exam: Present: regular rate, normal rhythm, normal heart sounds. Absent: systolic murmur, diastolic murmur, rubs, gallop, clicks GI/Abdominal exam: Present: soft, normal bowel sounds. Absent: distended, tenderness, guarding, rebound, rigid Extremities exam: Present: normal inspection, full ROM, normal capillary refill. Absent: tenderness, pedal edema, joint swelling, calf tenderness Back exam: Present: normal inspection Neurological exam: Present: alert, oriented X3, CN II-XII intact Psychiatric exam: Present: normal affect, normal mood Skin exam: Present: warm, dry, intact, normal color. Absent: rash <Aguila Hernandez - Last Filed: 02/27/23 21:46> Course <Aguila Hernandez - Last Filed: 02/27/23 21:46> Vital Signs 02/27/23 02/27/23 02/27/23 01:54 03:30 04:00 Temperature Pulse Rate 80 80 Pulse Rate [ Traffic Officer ] Respiratory 20 18 16 Rate Blood Pressure 128/66 112/54 Blood Pressure [Right Arm] O2 Sat by Pulse 98 93 L Oximetry 02/27/23 02/27/23 02/27/23 05:00 08:35 09:50 Temperature 97.9 F 98.0 F Pulse Rate 78 87 90 Pulse Rate [ Traffic Officer ] Respiratory 16 17 19 Rate Blood Pressure 135/71 143/61 117/51 Blood Pressure [Right Arm] O2 Sat by Pulse 95 97 95 Oximetry 02/27/23 02/27/23 02/27/23 11:35 14:20 17:35 Temperature 98.1 F 98.3 F 98.5 F Pulse Rate 85 98 Pulse Rate [ 74 Traffic Officer ] Respiratory 18 20 18 Rate Blood Pressure 129/68 151/77 Blood Pressure 142/63 [Right Arm] O2 Sat by Pulse 96 98 Oximetry 02/27/23 18:30 Temperature 98.2 F Pulse Rate 82 Pulse Rate [ Traffic Officer ] Respiratory 18 Rate Blood Pressure 122/73 Blood Pressure [Right Arm] O2 Sat by Pulse 96 Oximetry - Reevaluation(s) Reevaluation #1: 02/27/23 Medical records reviewed (Aguila Hernandez) Reevaluation #2: 02/27/23 Patient symptoms are unchanged Patient still with persistent chest pain here in the ER (Aguila Hernandez) Reevaluation #3: 02/27/23 Patient informed results and questions also been answered Studies Chest x-ray is negative for acute disease interpreted by me (Aguila Hernandez) Reevaluation #4: 02/27/23 Was pt. sent in by a medical professional or institution (Dr., PA, HORTICULTURAL FARMWORKER, urgent care, hospital, or custodial...) When possible be specific @ -no Did you speak to anyone other than the patient for history (EMS, parent, family, police, friend...)? What history was obtained from this source @ -no Did you review nursing and triage notes (agree or disagree)? Why? @ -agree Are old charts reviewed (outside hosp., previous admission, EMS record, old EKG, old radiological studies, urgent care reports/EKG's, custodial records)? Report findings @ -yes Differential Diagnosis (chest pain, altered mental status, abdominal pain women, abdominal pain men, vaginal bleeding, weakness, fever, dyspnea, syncope, headache, dizziness, GI bleed, back pain, seizure, CVA, palpatations, mental health, musculoskeletal)? @ -prior EKG interpreted by me (3pts min.). @ -yes X-rays interpreted by me (1pt min.). @ -yes CT interpreted by me (1pt min.). @ -no U/S interpreted by me (1pt. min.). @ -no What testing was considered but not performed or refused? (CT, X-rays, U/S, labs)? Why? @ -none What meds were considered but not given or refused? Why? @ -none Did you discuss the management of the patient with other professionals (mariah finn i.eNAYA Rodrigues Dr., HORTICULTURAL FARMWORKER, lab, RT, psych nurse, psychosocial rehabilitation counselor, miner pick, teacher, juvenile justice officer, director of casework department)? Give summary @ -no Was smoking cessation discussed for >3mins.? @ -no Was critical care preformed (if so, how long)? @ -yes31 Were there social determinants of health that impacted care today? How? (Homelessness, low income, unemployed, alcoholism, drug addiction, transportation, low edu. Level, literacy, decrease access to med. care, [facility], rehab)? @ -none Was there de-escalation of care discussed even if they declined (Discuss DNR or withdrawal of care, Hospice)? DNR status @ -no What co-morbidities impacted this encounter? (DM, HTN, Smoking, COPD, CAD, Cancer, CVA, ARF, Chemo, Hep., AIDS, mental health diagnosis, sleep apnea, morbid obesity)? @ -none Was patient admitted / discharged? Hospital course, mention meds given and route, prescriptions, significant lab abnormalities, going to OR and other pertinent info. @ - 67 female today for evaluation, patient comes in for evaluation of chest pain with extensive history of heart disease. Patient is usually followed at [facility] but states that she needs more urgent evaluation would like to stay in the hospital today. Patient be admitted for cardiology evaluation Admitted Undiagnosed new problem with uncertain prognosis? @ -no Drug Therapy requiring intensive monitoring for toxicity (Heparin, Nitro, Insulin, Cardizem)? @ -no Were any procedures done? @ -no Diagnosis/symptom? @ -Chest pain with unstable angina Acute, or Chronic, or Acute on Chronic? @ -Acute Uncomplicated (without systemic symptoms) or Complicated (systemic symptoms)? @ -Complicated Side effects of treatment? @ -no Exacerbation, Progression, or Severe Exacerbation? @ -exacerbation Poses a threat to life or bodily function? How? (Chest pain, [place], [place], pneumonia, PE, COPD, DKA, ARF, appy, cholecystitis, CVA, Diverticulitis, Homicidal, Suicidal, threat to staff... and all critical care pts) @ -yes with acute ACS and history of heart disease (Aguila Hernandez) Reevaluation #5: Differential Chest Pain: Stable Angina, Unstable Angina, STEMI, NSTEMI Aortic Dissection, Pneumothorax, Musculoskeletal, Esophageal Spasm GERD, Cholecystitis, Pancreatitis, Zoster, this is not meant to be an all-inclusive list. (Aguila Hernandez) - Consultations Consultation #1: Spoke with [facility] were agrees to admit this patient (Aguila Hernandez) Chest Pain MDM <Aguila Hernandez - Last Filed: 02/27/23 21:46> - [facility] 67 female today for evaluation, patient comes in for evaluation of chest pain with extensive history of heart disease. Patient is usually followed at [facility] but states that she needs more urgent evaluation would like to stay in the hospital today. Patient be admitted for cardiology evaluation (Aguila Hernandez) Critical Care Time Critical Care Time: Yes Total Critical Care Time: 31 <Aguila Hernandez - Last Filed: 02/27/23 21:46> Disposition <Tomás Lopez - Last Filed: 02/27/23 02:10> Is patient prescribed a controlled substance at d/c from ED?: No Time of Disposition: 04:35 <Aguila Hernandez - Last Filed: 02/27/23 21:46> Clinical Impression: Unstable angina pectoris, Chest pain, Chronic renal insufficiency, Congestive heart failure (CHF) Disposition: ADMITTED IP TO THIS HOSP Condition: Serious
[2023-02-27 02:30] LABS: Basophils # (A) 0.1 k/uL (0-0.2); Basophils % (A) 1 %; Eosinophils # (A) 0.3 k/uL (0-0.7); Eosinophils % (A) 3 %; HGB 10.2 gm/dL (11.4-16.0); Lymphocytes # (A) 1.3 k/uL (1.0-4.8); Lymphocytes % (A) 18 %; MCH 33.1 pg (25.0-35.0); MCHC 32.9 g/dL (31.0-37.0); MCV 100.6 fL (80.0-100.0); Macrocytosis Slight; Mean Platelet Volume 7.7; Monocytes # (A) 0.5 k/uL (0-1.0); Monocytes % (A) 8 %; Neutrophils # (A) 4.9 k/uL (1.3-7.7); Neutrophils % (A) 67 %; Platelet Count 228 k/uL (150-450); RBC 3.08 m/uL (3.80-5.40); RDW 14.1 % (11.5-15.5); WBC 7.3 k/uL (3.8-10.6)
[2023-02-27 02:35] LABS: ALT 15 U/L (4-34); AST 23 U/L (14-36); African American GFR (CKD) 7 (>60 ml/min/1.73 sqM); Albumin 3.6 g/dL (3.5-5.0); Alkaline Phosphatase 136 U/L (38-126); Anion Gap 12 mmol/L; Blood Urea Nitrogen 64 mg/dL (7-17); Calcium 10.1 mg/dL (8.4-10.2); Carbon Dioxide 26 mmol/L (22-30); Chloride 101 mmol/L (98-107); Glucose 98 mg/dL (74-99); Magnesium 2.3 mg/dL (1.6-2.3); Non-African American GFR(CKD) 6 (>60 ml/min/1.73 sqM); Potassium 4.4 mmol/L (3.5-5.1); Sodium 139 mmol/L (137-145); Total Bilirubin 0.4 mg/dL (0.2-1.3); Total Protein 6.2 g/dL (6.3-8.2)
[2023-02-27 02:43] LABS: NT-Pro-B-Type Natriuretic Pept 16100 pg/mL
[2023-02-27 03:03] LABS: Partial Thromboplastin Time 24.9 sec (22.0-30.0); Prothrombin Time 10.8 sec (10.0-12.5)
[2023-02-27] MEDS ORDERED: ASPIRIN 81 MG PO STA (04:49)
[2023-02-27] MEDS ORDERED: NITROGLYCERIN SL TABS 0.4 MG TAB SUBLINGUAL PRN ×2 (04:49→10:29)
[2023-02-27] MEDS ORDERED: HEPARIN SODIUM 1,000 UN/ML (10ML VL) IV ONE (04:49)
--- NOTE | 2023-02-27 05:26 | XR ---
EXAM: XR Chest, 2 Views CLINICAL HISTORY: Chest Pain TECHNIQUE: Frontal and lateral views of the chest. COMPARISON: 08-12-21 FINDINGS: Lungs: Small linear opacities over bilateral lower lung zones are again noted. Pleural space: Unremarkable. No pneumothorax. Mediastinum: Sternal wires and mediastinal clips are again noted. Bones/joints: No acute findings. IMPRESSION: Small linear opacities over bilateral lower lung zones are again noted, likely represent atelectasis and/or scarring. Pneumonia is less. No substantial change.
[2023-02-27] MEDS: HEPARIN SOD,PORK IN 0.45% NACL 25,000 UNIT in 0.45% NACL 1 250ML.BAG IV SCH (06:08)
--- NOTE | 2023-02-27 09:09 | CONS ---
CONSULTATION CHIEF COMPLAINT: Chest pain. HISTORY OF PRESENT ILLNESS: Dionne is a 67-year-old lady with history of coronary artery disease, status post prior bypass surgery; end-stage renal disease, on hemodialysis; hypertension; diabetes; and dyslipidemia, who presented to [facility] with episodes of chest pain. She states that she had an episode of chest discomfort 2 days ago while she was mowing the lawn and subsequently has had recurrent episodes of chest discomfort, had most pain yesterday evening, due to which she came to hospital and is being admitted. She follows with a rrts at [facility] and has had bypass surgery 2 years ago and also had cardiac catheterization and angioplasty and brachytherapy. I do not have details of these records at this time. At the time of my evaluation, she is being treated with the intravenous heparin with significant improvement in her symptoms. Her troponin is elevated at 0.035, and she had elevated troponin in July of 2021 also. Her BNP is also elevated. The patient states that most recently she had a cardiac catheterization about 6 to 8 months ago and underwent brachytherapy. I am going to get hold of these records from [facility]. She underwent a cardiac catheterization here in 2019 and underwent stenting of the distal right coronary artery and also had chronically occluded circumflex coronary artery at that time. An EKG on this admission revealed sinus rhythm with nonspecific ST-T wave changes. An echocardiogram in 2019 revealed normal LV systolic function with moderate aortic stenosis and moderate to severe mitral regurgitation. PAST MEDICAL HISTORY: Significant for coronary artery disease, status post bypass surgery, status post prior brachytherapy; hypertension; diabetes; dyslipidemia. CURRENT MEDICATIONS: Include: 1. Xanax. 2. Lopressor 12.5. 3. Imdur 30 daily. 4. Allopurinol. 5. Lipitor. 6. Singulair. 7. Aspirin. 8. Demadex. 9. Zetia. 10.Plavix. ALLERGIES: She has multiple drug allergies. They are charted, and I reviewed them. FAMILY HISTORY: Negative for premature coronary artery disease. SOCIAL HISTORY: Denies current smoking, EtOH abuse, or drug abuse. REVIEW OF SYSTEMS: HEENT: Unremarkable. CARDIAC: As described above. RESPIRATORY: As described above. GI: Negative. GENITOURINARY: Negative. ALLERGY/IMMUNOLOGY: Negative. SKIN: Negative. MUSCULOSKELETAL: Significant for arthritis. PSYCHOSOCIAL: Negative. DERM: Negative. CONSTITUTIONAL: Negative. ONCOLOGICAL: Negative. STEVEDORE DOCK: Negative. Rest of the system review is not relevant. PHYSICAL EXAMINATION: GENERAL: She is comfortable at rest. Afebrile. VITAL SIGNS: Stable. NECK: There is no jugular venous distention. Carotid upstroke is normal. There is no bruit. CHEST: Reveals good air entry bilaterally. HEART: Reveals first and second heart sounds. Grade 3/6 ejection systolic murmur in the aortic area at the right upper sternal border and also a systolic murmur at the apex. ABDOMEN: Soft. EXTREMITIES: Did not reveal any edema. Peripheral pulses are palpable. LABS: Show a hemoglobin of 10.2, platelet count of 228. Potassium is 4.4, BUN is 64, creatinine is 6.7. Troponin is 0.035, and BNP is 16,000. ASSESSMENT: 1. Unstable angina in a patient with known coronary artery disease. 2. End-stage renal disease, on hemodialysis. 3. Hypertension. 4. Dyslipidemia. PLAN: I am going to obtain a 2D echo. Continue the IV heparin. Resume the nitrates, beta blockers, aspirin, Plavix, and statin that she is on. I am going to review records from [facility] to see what had been done and if she is a candidate for invasive angiography and revascularization at this time. MMODL / IJN: [id number] /
[2023-02-27 09:24] LABS: Platelet Count 240 k/uL (150-450)
[2023-02-27] MEDS ORDERED: INSULIN DETEMIR (LEVEMIR) 100 UNIT/ML SYR SQ PRN (10:28)
[2023-02-27] MEDS ORDERED: ALPRAZolam 0.25 MG TAB PO PRN (10:28)
[2023-02-27] MEDS ORDERED: LIDOCAINE-PRILOCAINE 2.5-2.5% CREAM 5 GM TUBE TOPICAL SCH (10:30)
[2023-02-27] MEDS: CLOPIDOGREL 75 MG TAB PO SCH (11:12)
[2023-02-27] MEDS: CINACALCET 30 MG TAB PO SCH ×2 (11:12→11:15)
[2023-02-27] MEDS: TORSEMIDE 20 MG TAB PO SCH ×2 (11:12→21:32)
[2023-02-27] MEDS: allopurinoL 100 MG TAB PO SCH (11:12)
[2023-02-27] MEDS: Insulin Aspart (For Pump) 100 UNIT/ML VIAL SQ-PUMP SCH (11:15)
[2023-02-27] MEDS: FERRIC CITRATE 210 MG PO SCH ×2 (11:32→17:16)
--- NOTE | 2023-02-27 18:46 | P.HPIM ---
History of Present Illness H&P Date: 02/27/23 Chief Complaint: Chest pain This is 67-year-old patient with chronic stable medical conditions include diabetes mellitus, hypertension, hyperlipidemia, end-stage kidney disease on hemodialysis since 2021, on insulin pump, coronary artery disease with prior stent. AST around 5 PM she started up having left-sided chest pain. On and off. She took up to 6 nitroglycerin. Finally decided to come in. Pain did not radiate. No shortness of breath. [place] tired. She follows with membership secretary , from [facility]. Patient is due for dialysis today. She does feel she is bloating up a bit. Review of systems: GEN.: Tired EYES: None HEENT: None NECK: None RESPIRATORY: None CARDIOVASCULAR: As above GASTROINTESTINAL: None GENITOURINARY: None MUSCULOSKELETAL: None LYMPHATICS: None HEMATOLOGICAL: None PSYCHIATRY: None NEUROLOGICAL: None Past medical history to include: Diabetes mellitus, hypertension, hyperlipidemia, end-stage kidney disease on eve lysis Tuesdays and Sunday, CAD with stent and bypass Social history: Lives alone. Prior smoker. Alcohol rarely. Physical examination: VITAL SIGNS: 98, 87, 17, 143/61, 97% room air GENERAL: BMI 27.4, reclining bed awake EYES: Pupils equal. Conjunctiva normal. HEENT: External appearance of nose and ears normal, oral cavity grossly normal. NECK: JVD not raised; masses not palpable. HEART: First and second heart sounds are normal; no edema. LUNGS: Respiratory rate normal; clear to auscultation. ABDOMEN: Soft, nontender, liver spleen not palpable, no masses palpable. PSYCH: Alert and oriented x3; mood and affect normal. MUSCULOSKELETAL:No Clubbing/cyanosis;muscles-grossly intact NEUROLOGICAL: Cranial nerves grossly intact; no facial asymmetry, power and sensation grossly intact. LYMPHATICS: No lymph nodes palpable in the axilla and neck EXTREMITY is: Left upper extremity proximal fistula INVESTIGATIONS, reviewed in the clinical context: 02/27/2023: White count 7.3 hemoglobin 10.2 platelets 228 sodium 139 potassium 4.4 BUN 64 creatinine 6.77 Troponin I 0.035, 0.046 EKG tracing personally reviewed by me-normal sinus rhythm. Nonspecific ST-T wave changes. Chest x-ray film personally reviewed by me-some cardiomegaly. Assessment and plan: -Unstable angina in a patient with known CAD and a prior bypass. Follows with membership secretary , from [facility] Cardiology consulted. -Chronic congestive heart failure from diastolic dysfunction EF 50-55% from underlying coronary artery- -Coronary artery disease with prior stents, coronary bypass Aspirin. Lipitor. Plavix. -Diabetes mellitus type 2 on insulin pump Continue the same -Hyperlipidemia Lipitor 80 mg daily at bedtime. Zetia 10 mg daily at bedtime -Essential hypertension -End-stage kidney disease on hemodialysis since 2021 Regular schedule: Sunday. Left upper extremity proximal AV fistula Consult nephrology -Severe aortic valve sclerosis with moderate aortic stenosis, moderate to severe mitral regurgitation -Gallstones asymptomatic -Normocytic anemia, secondary to chronic kidney disease Nephrology consulted for hemodialysis. Patient chest pain is better. Follow with cardiology. Patient informs me she's been scheduled for a cardiac cath at [facility] this Sunday. Past Medical History Past Medical History: Diabetes Mellitus, Hyperlipidemia, Hypertension, Renal Disease Additional Past Medical History / Comment(s): DIALYSIS.angina, kidney disease stage 4, pilonidal cyst, carpal tunnel, insulin pump History of Any Multi-Drug Resistant Organisms: None Reported Past Surgical History: Coronary Bypass/CABG, Heart Catheterization With Stent, Tonsillectomy, Tubal Ligation Additional Past Surgical History / Comment(s): cataracts Past Anesthesia/Blood Transfusion Reactions: No Reported Reaction Date of Last Stent Placement:: 2004 Past Psychological History: No Psychological Hx Reported Smoking Status: Former smoker Past Alcohol Use History: Rare Past Drug Use History: None Reported Medications and Allergies Home Medications Medication Instructions Recorded Confirmed Type ALPRAZolam [Xanax] 0.25 mg PO TID PRN 10/11/16 02/27/23 History Aspirin EC [Ecotrin Low Dose] 81 mg PO DAILY 10/11/16 02/27/23 History Atorvastatin [Lipitor] 80 mg PO HS 10/11/16 02/27/23 History Clopidogrel Bisulfate [Plavix] 75 mg PO DAILY 10/11/16 02/27/23 History Ezetimibe [Zetia] 10 mg PO HS 10/11/16 02/27/23 History Insulin Aspart (For Pump) [NovoLOG 0.01 unit SQ-PUMP CONTINUOUS 10/11/16 02/27/23 History (For Pump)] Montelukast [Singulair] 10 mg PO HS 10/11/16 02/27/23 History Nitroglycerin Sl Tabs [Nitrostat] 0.4 mg SUBLINGUAL Q5M PRN 10/11/16 02/27/23 History allopurinoL [Zyloprim] 100 mg PO DAILY 10/11/16 02/27/23 History Alirocumab [Praluent Pen] 75 mg SQ Q14D 09/08/21 02/27/23 History Cinacalcet [Sensipar] 30 mg PO TUSA 02/27/23 02/27/23 History Denosumab [Prolia] 1 dose SQ Q180D 02/27/23 02/27/23 History Ferric Citrate [Auryxia] 210 mg PO AC-TID 02/27/23 02/27/23 History Folic Acid/Vit B Complex and C 0.8 mg PO HS 02/27/23 02/27/23 History [Nephro-Moi Tablet] Insulin Glargine,Hum.rec.anlog 12 unit SQ HS PRN 02/27/23 02/27/23 History [Basaglar Kwikpen U-100] Isosorbide Mononitrate ER [Imdur] 30 mg PO SUMOWEFR 02/27/23 02/27/23 History Lidocaine-Prilocaine Cream [Emla 1 applic TOPICAL TUTA 02/27/23 02/27/23 History Cream 2.5%/2.5%] Metoprolol Tartrate [Lopressor] 12.5 mg PO SUMOWEFR 02/27/23 02/27/23 History Midodrine [ProAmatine] 2.5 - 5 mg PO BID PRN 02/27/23 02/27/23 History Torsemide [Demadex] 20 mg PO BID 02/27/23 02/27/23 History Allergies Allergy/AdvReac Type Severity Reaction Status Date / Time nifedipine Allergy Swelling Verified 02/27/23 07:31 droperidol AdvReac Anxiety Verified 02/27/23 07:31 ezetimibe [From Vytorin] AdvReac Acid Reflux Verified 02/27/23 07:31 fentanyl AdvReac "Can't Verified 02/27/23 07:31 wake up"/Nausea hydrocodone AdvReac Angina Verified 02/27/23 07:31 hydromorphone [From Dilaudid] AdvReac Angina Verified 02/27/23 07:31 midazolam [From Versed] AdvReac Anxiety Verified 02/27/23 07:31 morphine AdvReac Nausea & Verified 02/27/23 07:31 Vomiting nitroglycerin AdvReac Acid Reflux Verified 02/27/23 07:31 paroxetine [From Paxil] AdvReac Acid Reflux Verified 02/27/23 07:31 simvastatin [From Vytorin] AdvReac Acid Reflux Verified 02/27/23 07:31 sulfamethoxazole AdvReac Decreased Verified 02/27/23 07:31 [From Bactrim] Renal Function trandolapril [From Tarka] AdvReac Acid Reflux Verified 02/27/23 07:31 trimethoprim [From Bactrim] AdvReac Decreased Verified 02/27/23 07:31 Renal Function verapamil [From Tarka] AdvReac Acid Reflux Verified 02/27/23 07:31 Physical Exam Vitals: Vital Signs Temp Pulse Pulse Resp BP BP Pulse Ox 02/27/23 18:30 98.2 F 82 18 122/73 96 02/27/23 17:35 98.5 F 74 18 142/63 02/27/23 14:20 98.3 F 98 20 151/77 98 02/27/23 11:35 98.1 F 85 18 129/68 96 02/27/23 09:50 90 19 117/51 95 02/27/23 08:35 98.0 F 87 17 143/61 97 02/27/23 05:00 97.9 F 78 16 135/71 95 02/27/23 04:00 80 16 112/54 93 L 02/27/23 03:30 80 18 128/66 98 02/27/23 01:54 20 Intake and Output 02/27/23 02/27/23 02/27/23 06:59 14:59 22:59 Intake Total 500 Output Total 1999 Balance -1500 Intake: Hemodialysis 500 Output: Hemodialysis 1999 Other: Weight 65.771 kg Results CBC & Chem 7: 02/27/23 08:50 02/27/23 02:14 Labs: Abnormal Lab Results - Last 24 Hours (Table) 02/27/23 02/27/23 02/27/23 Range/Units 02:14 02:14 02:14 RBC 3.08 L (3.80-5.40) m/uL Hgb 10.2 L (11.4-16.0) gm/dL Hct 31.0 L (34.0-46.0) % MCV 100.6 H (80.0-100.0) fL APTT (22.0-30.0) sec BUN 64 H (7-17) mg/dL Creatinine 6.77 H (0.52-1.04) mg/dL Alkaline Phosphatase 136 H (38-126) U/L Troponin I 0.035 H* (0.000-0.034) ng/mL Total Protein 6.2 L (6.3-8.2) g/dL 02/27/23 02/27/23 02/27/23 Range/Units 08:50 08:50 10:59 RBC (3.80-5.40) m/uL Hgb (11.4-16.0) gm/dL Hct (34.0-46.0) % MCV (80.0-100.0) fL APTT 72.7 H 50.6 H (22.0-30.0) sec BUN (7-17) mg/dL Creatinine (0.52-1.04) mg/dL Alkaline Phosphatase (38-126) U/L Troponin I 0.046 H* (0.000-0.034) ng/mL Total Protein (6.3-8.2) g/dL 02/27/23 Range/Units 17:31 RBC (3.80-5.40) m/uL Hgb (11.4-16.0) gm/dL Hct (34.0-46.0) % MCV (80.0-100.0) fL APTT 42.8 H (22.0-30.0) sec BUN (7-17) mg/dL Creatinine (0.52-1.04) mg/dL Alkaline Phosphatase (38-126) U/L Troponin I (0.000-0.034) ng/mL Total Protein (6.3-8.2) g/dL
[2023-02-27] MEDS ORDERED: HEPARIN SODIUM 1,000 UN/ML (10ML VL) MISCELLANE ONE (19:34)
[2023-02-27] MEDS ORDERED: MONTELUKAST 10 MG TAB PO SCH (21:00)
[2023-02-27] MEDS ORDERED: ATORVASTATIN 80 MG TAB PO SCH (21:00)
[2023-02-27] MEDS ORDERED: EZETIMIBE 10 MG TAB PO SCH (21:00)
[2023-02-27] MEDS ORDERED: FOLIC ACID-VIT B COMPLEX-VIT C 1 CAP PO SCH (21:00)
[2023-02-28] MEDS: HEPARIN SOD,PORK IN 0.45% NACL 25,000 UNIT in 0.45% NACL 1 250ML.BAG IV SCH (03:21)
--- NOTE | 2023-02-28 06:58 | CA ---
Transthoracic Echo Report Name: Dionne Mercado Age: 67 Gender: F : 1955 Exam Date: 02/27/2023 10:39 Exam Location: [facility] Ht (in): 61 Wt (lb): 145 Ordering Physician: Christopher Mckeon MD ([id number]) Attending/Referring Phys: Linda MUNGUIA [employer] Supervisor Jenny Clancy RDCS Procedure CPT: Indications: CP Cardiac Hx: Technical Quality: Fair Contrast 1: Total Dose (mL): Contrast 2: Total Dose (mL): MEASUREMENTS (Male / Female) Normal Values 2D ECHO LV Diastolic Diameter PLAX 4.7 cm 4.2 - 5.9 / 3.9 - 5.3 cm LV Systolic Diameter PLAX 4.1 cm IVS Diastolic Thickness 1.4 cm 0.6 - 1.0 / 0.6 - 0.9 cm LVPW Diastolic Thickness 1.5 cm 0.6 - 1.0 / 0.6 - 0.9 cm LV Relative Wall Thickness 0.6 RV Internal Dim ED PLAX 3.7 cm LVOT Diameter 1.9 cm LV Diastolic Volume MOD BP 128.2 cm??? 67 - 155 / 56 - 104 cm??? LV Systolic Volume MOD BP 91.6 cm??? 22 - 58 / 19 - 49 cm??? LV Ejection Fraction MOD BP 28.6 % >= 55 % LV Cardiac Index MOD BP 2065.1 cm???/min???m??? LV Diastolic Volume MOD 4C 148.4 cm??? LV Systolic Volume MOD 4C 95.9 cm??? LV Ejection Fraction MOD 4C 35.4 % LV Cardiac Index MOD 4C 2961.6 cm???/min???m??? LV Diastolic Length 4C 8.0 cm LV Systolic Length 4C 7.5 cm LV Diastolic Volume MOD 2C 108.8 cm??? LV Systolic Volume MOD 2C 87.9 cm??? LV Ejection Fraction MOD 2C 19.2 % LV Cardiac Index MOD 2C 1175.4 cm???/min???m??? LV Diastolic Length 2C 8.5 cm LV Systolic Length 2C 7.5 cm LA Volume 64.5 cm??? 18 - 58 / 22 - 52 cm??? LA Volume Index 37.9 cm???/m??? 16 - 28 cm???/m??? M-MODE Aortic Root Diameter MM 3.1 cm LA Systolic Diameter MM 4.6 cm LA Ao Ratio MM 1.5 AV Cusp Separation MM 0.8 cm DOPPLER AV Peak Velocity 285.0 cm/s AV Peak Gradient 32.5 mmHg AV Mean Velocity 214.1 cm/s AV Mean Gradient 19.6 mmHg AV Velocity Time Integral 67.6 cm LVOT Peak Velocity 113.3 cm/s LVOT Peak Gradient 5.1 mmHg LVOT Velocity Time Integral 24.4 cm LVOT Stroke Volume 71.7 cm??? LVOT Stroke Volume Index 43.5 ml/m??? LVOT Cardiac Index 4045.8 cm???/min???m??? AV Area Cont Eq vti 1.1 cm??? AV Area Cont Eq pk 1.2 cm??? MV Area PHT 3.8 cm??? Mitral E Point Velocity 124.8 cm/s Mitral A Point Velocity 89.7 cm/s Mitral E to A Ratio 1.4 MV Deceleration Time 201.1 ms MV E' Velocity 5.2 cm/s Mitral E to MV E' Ratio 24.2 TR Peak Velocity 227.5 cm/s TR Peak Gradient 20.7 mmHg Right Ventricular Systolic Press 24.3 mmHg FINDINGS Left Ventricle Moderately increased left ventricular diastolic volume. Severely increased left ventricular systolic volume. Moderately increased left ventricular wall thickness. Reduced global left ventricular systolic function. Left ventricular ejection fraction is estimated at 35-40 %. Right Ventricle Mild right ventricular dilatation. Right ventricular systolic pressure within normal limits. Right Atrium Normal right atrial size. Left Atrium Moderately increased left atrial volume. Mitral Valve Mitral valve thickened. Moderate mitral annular calcification. Moderate mitral regurgitation. Aortic Valve moderate aortic stenosis with a peak gradient of 33 mmHg and a mean gradient of 20 mmHg. Tricuspid Valve Structurally normal tricuspid valve. Mild tricuspid regurgitation. Pulmonic Valve Structurally normal pulmonic valve. Pericardium No pericardial effusion. Aorta Normal size aortic root and proximal ascending aorta. CONCLUSIONS 1. Moderate global hypokinesis of the left ventricular systolic function 2. Severely calcified aortic valve with moderate aortic stenosis, the possibility of bicuspid valve cannot be excluded 3. Moderate mitral annulus calcification with moderate mitral regurgitation 4. Mild tricuspid regurgitation Previewed by: Dr. Marsha Peguero MD (Electronically Signed) Final Date: 28 February 2023 06:57
[2023-02-28 07:56] LABS: Mean Platelet Volume 7.8; Platelet Count 237 k/uL (150-450)
[2023-02-28] MEDS ORDERED: ISOSORBIDE MONONITRATE ER 30 MG TAB.ER.24H PO SCH (09:00)
[2023-02-28] MEDS ORDERED: ASPIRIN 325 MG TAB PO SCH (09:00)
[2023-02-28] MEDS: CLOPIDOGREL 75 MG TAB PO SCH (09:37)
[2023-02-28] MEDS: TORSEMIDE 20 MG TAB PO SCH (09:37)
[2023-02-28] MEDS: allopurinoL 100 MG TAB PO SCH (09:37)
[2023-02-28] MEDS: FERRIC CITRATE 210 MG PO SCH ×2 (09:38→12:21)
--- NOTE | 2023-02-28 09:43 | PN ---
PROGRESS NOTE SUBJECTIVE: Dionne is a 67-year-old lady with history of coronary artery disease status post CABG with MADERA to LAD, venous graft to diagonal and multiple angioplasties including brachytherapy of right coronary artery and circumflex coronary artery, end-stage renal disease, on hemodialysis, who presented to hospital with chest pain. She had mild troponin elevation probably related to her underlying renal failure or myocardial ischemia. She had an EKG that showed sinus rhythm with nonspecific ST-T wave changes, had an echocardiogram that showed cardiomyopathy with an ejection fraction of 35% to 40% with mitral annular calcification with moderate mitral regurgitation and moderate aortic stenosis. Given her chest pain, known CAD, multiple prior interventions and the elevated troponin, I advised her to undergo cardiac catheterization. The patient who follows regularly at [facility], understanding all the issues, does not wish to undergo any procedures here, wishes to go home and follow up with her own tourist agent at [facility]. The patient states that her symptoms have resolved completely ever since she had dialysis yesterday. She is actually ready to jump out of the bed and go home. I am going to stop the IV heparin, ambulate her and if she is feeling fine, let her go home and follow up with her own tourist agent. If she has further episodes of chest pain, the patient will come back to hospital. She is currently on aspirin, Lipitor Plavix, Imdur, whose dose I advised her to increase to 60 mg daily, and metoprolol. The patient does not take nitrates or beta blockers on the day of her dialysis because of hypotension. OBJECTIVE: On exam today, GENERAL: She is comfortable at rest. VITAL SIGNS: Stable. NECK: There is no jugular venous distention. Carotid upstroke is normal. There is no bruit. CHEST: Reveals good air entry bilaterally. HEART: Reveals first and second heart sounds. Systolic murmur at the apex and an ejection systolic murmur in the aortic area. ABDOMEN: Soft. EXTREMITIES: Exam of extremities did not reveal any edema. Peripheral pulses are felt. ASSESSMENT: 1. Unstable angina in a patient with known coronary artery disease status post prior bypass surgery and status post multiple prior interventions. 2. End-stage renal disease, on hemodialysis. PLAN: I advised the patient to undergo cardiac catheterization. Understanding risks and benefits, she does not wish to have cardiac cath done at this time, but wishes to go home. Follow up with her own tourist agent at [facility] and proceed from there. MMCUCA / TKN: [id number] /
[2023-02-28] MEDS ORDERED: METOPROLOL TARTRATE 12.5 MG TAB PO SCH (10:15)
[2023-02-28 11:56] VITALS: BP 105/67; PULSE 98; RESP 15; TEMP 98
--- NOTE | 2023-02-28 12:05 | P.NPCON ---
History of Present Illness - Reason for Consult end stage renal disease - History of Present Illness Patient is a 67-year-old female with end-stage renal disease maintained on hemodialysis on a Sunday schedule. Patient also has underlying history of severe coronary artery disease being f ollowed at [facility]. Patient was admitted to the hospital with complaints of chest pain. She felt that she had increased weight gain over the weekend. Troponin was borderline elevated. Patient did Dialyzed yesterday with 2 L of ultrafiltration. She states she is feels better however patient did have chest pain this morning as she walked in the hallway. No shortness of breath Review of Systems As per HPI Past Medical History Past Medical History: Diabetes Mellitus, Hyperlipidemia, Hypertension, Renal Disease Additional Past Medical History / Comment(s): DIALYSIS.angina, kidney disease stage 4, pilonidal cyst, carpal tunnel, insulin pump History of Any Multi-Drug Resistant Organisms: None Reported Past Surgical History: Coronary Bypass/CABG, Heart Catheterization With Stent, Tonsillectomy, Tubal Ligation Additional Past Surgical History / Comment(s): cataracts Past Anesthesia/Blood Transfusion Reactions: No Reported Reaction Date of Last Stent Placement:: 2004 Past Psychological History: No Psychological Hx Reported Smoking Status: Former smoker Past Alcohol Use History: Rare Past Drug Use History: None Reported Medications and Allergies Home Medications Medication Instructions Recorded Confirmed Type ALPRAZolam [Xanax] 0.25 mg PO TID PRN 10/11/16 02/27/23 History Aspirin EC [Ecotrin Low Dose] 81 mg PO DAILY 10/11/16 02/27/23 History Atorvastatin [Lipitor] 80 mg PO HS 10/11/16 02/27/23 History Clopidogrel Bisulfate [Plavix] 75 mg PO DAILY 10/11/16 02/27/23 History Ezetimibe [Zetia] 10 mg PO HS 10/11/16 02/27/23 History Insulin Aspart (For Pump) [NovoLOG 0.01 unit SQ-PUMP CONTINUOUS 10/11/1611/12 History (For Pump)] Montelukast [Singulair] 10 mg PO HS 10/11/16 02/27/23 History Nitroglycerin Sl Tabs [Nitrostat] 0.4 mg SUBLINGUAL Q5M PRN 10/11/16 02/27/23 History allopurinoL [Zyloprim] 100 mg PO DAILY 10/11/16 02/27/23 History Alirocumab [Praluent Pen] 75 mg SQ Q14D 09/08/21 02/27/23 History Cinacalcet [Sensipar] 30 mg PO TUSA 02/27/23 02/27/23 History Denosumab [Prolia] 1 dose SQ Q180D 02/27/23 02/27/23 History Ferric Citrate [Auryxia] 210 mg PO AC-TID 02/27/23 02/27/23 History Folic Acid/Vit B Complex and C 0.8 mg PO HS 02/27/23 02/27/23 History [Nephro-Moi Tablet] Insulin Glargine,Hum.rec.anlog 12 unit SQ HS PRN 02/27/23 02/27/23 History [Basaglar Kwikpen U-100] Isosorbide Mononitrate ER [Imdur] 30 mg PO SUMOWEFR 02/27/23 02/27/23 History Lidocaine-Prilocaine Cream [Emla 1 applic TOPICAL TUTHSA 02/27/23 02/27/23 History Cream 2.5%/2.5%] Metoprolol Tartrate [Lopressor] 12.5 mg PO SUMOWEFR 02/27/23 02/27/23 History Midodrine [ProAmatine] 2.5 - 5 mg PO BID PRN 02/27/23 02/27/23 History Torsemide [Demadex] 20 mg PO BID 02/27/23 02/27/23 History Allergies Allergy/AdvReac Type Severity Reaction Status Date / Time nifedipine Allergy Swelling Verified 02/27/23 07:31 droperidol AdvReac Anxiety Verified 02/27/23 07:31 ezetimibe [From Vytorin] AdvReac Acid Reflux Verified 02/27/23 07:31 fentanyl AdvReac "Can't Verified 02/27/23 07:31 wake up"/Nausea hydrocodone AdvReac Angina Verified 02/27/23 07:31 hydromorphone [From Dilaudid] AdvReac Angina Verified 02/27/23 07:31 midazolam [From Versed] AdvReac Anxiety Verified 02/27/23 07:31 morphine AdvReac Nausea & Verified 02/27/23 07:31 Vomiting nitroglycerin AdvReac Acid Reflux Verified 02/27/23 07:31 paroxetine [From Paxil] AdvReac Acid Reflux Verified 02/27/23 07:31 simvastatin [From Vytorin] AdvReac Acid Reflux Verified 02/27/23 07:31 sulfamethoxazole AdvReac Decreased Verified 02/27/23 07:31 [From Bactrim] Renal Function trandolapril [From Tarka] AdvReac Acid Reflux Verified 02/27/23 07:31 trimethoprim [From Bactrim] AdvReac Decreased Verified 02/27/23 07:31 Renal Function verapamil [From Tarka] AdvReac Acid Reflux Verified 02/27/23 07:31 Physical Exam Vitals: Vital Signs Temp Pulse Pulse Pulse Resp BP BP 02/28/23 11:44 98.0 F 98 15 105/67 02/28/23 08:00 97.8 F 96 18 146/79 02/28/23 04:49 02/28/23 04:00 98.1 F 98 17 143/70 02/28/23 02:00 68 19 02/28/23 00:00 98.3 F 68 19 113/51 02/27/23 21:33 97.9 F 92 17 122/73 02/27/23 20:00 92 18 02/27/23 18:30 98.2 F 82 18 122/73 02/27/23 17:35 98.5 F 74 18 142/63 02/27/23 14:20 98.3 F 98 20 151/77 Pulse Ox 02/28/23 11:44 97 02/28/23 08:00 98 02/28/23 04:49 98 02/28/23 04:00 98 02/28/23 02:00 02/28/23 00:00 96 02/27/23 21:33 94 L 02/27/23 20:00 02/27/23 18:30 96 02/27/23 17:35 02/27/23 14:20 98 Intake and Output 02/27/23 02/28/23 02/28/23 22:59 06:59 14:59 Intake Total 606.556 71.055 67.703 Output Total 1999 200 Balance -1393.444 -128.945 67.703 Intake: IV 10 Invasive Line 1 10 Intake, IV Titration 106.556 71.055 57.703 Amount Heparin Sod,Pork in 0.45% 106.556 71.055 57.703 NaCl 25,000 unit In 0.45 % NaCl 1 250ml.bag @ 12 UNITS/KG/HR 7.893 mls/hr IV .Q24H [facility] Rx#: [id number] Hemodialysis 500 Output: Urine 200 Hemodialysis 2000 Other: Voiding Method Toilet Toilet Toilet # Voids 1 Weight 65.771 kg Patient is awake alert oriented 3 No acute distress Examination of the heart S1 and S2 Examination of the lungs bilateral breath sounds are heard Abdomen is soft nontender Examination of lower extremities shows no edema [employer] exam grossly intact Results - Lab Results Most recent lab results Calcium 10.1 mg/dL (8.4-10.2) 02/27/23 02:14 Magnesium 2.3 mg/dL (1.6-2.3) 02/27/23 02:14 02/28/23 07:30 02/27/23 02:14 Assessment and Plan Assessment: 1. End-stage renal disease on hemodialysis on a Sunday schedule 2. Volume overload currently improved 3. Chest pain with underlying history of severe coronary artery disease being followed at [facility] 4. 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 Continue Sensipar twice a week Continue with torsemide next Thank you for the consultation. We will continue to follow the patient with you during her hospitalization.
[2023-02-28] MEDS: Insulin Aspart (For Pump) 100 UNIT/ML VIAL SQ-PUMP SCH (12:21)
[2023-02-28 13:52] LABS: Chol/HDL Ratio 1.38 Ratio
--- NOTE | 2023-03-01 19:48 | P.DS ---
Providers Date of admission: 02/27/23 10:27 Expected date of discharge: 02/28/23 Attending physician: Mio Mar Consults: 02/27/23 04:49 Consult Physician Routine Consulting Provider: Marsha Peguero Consult Reason/Comments: cp Do you want consulting provider notified?: Yes 02/27/23 13:24 Consult Physician Urgent Consulting Provider: Ernst Johnson Consult Reason/Comments: hemodialysis Do you want consulting provider notified?: Yes Primary care physician: [facility] Course: Chief Complaint: Chest pain This is 67-year-old patient with chronic stable medical conditions include diabetes mellitus, hypertension, hyperlipidemia, end-stage kidney disease on hemodialysis since 2021, on insulin pump, coronary artery disease with prior stent. AST around 5 PM she started up having left-sided chest pain. On and off. She took up to 6 nitroglycerin. Finally decided to come in. Pain did not radiate. No shortness of breath. [place] tired. She follows with mails supervisor , from [facility]. Patient is due for dialysis today. She does feel she is bloating up a bit. February 28: Patient was dialyzed. Doing much better. Discussed length. Patient is keen to codeine was to [place] for us cardiac catheterization scheduled on Sunday. Does not want to be done here. No change in medications. Told patient to take it easy to return here or go to see a mails supervisor. As soon as possible. Past medical history to include: Diabetes mellitus, hypertension, hyperlipidemia, end-stage kidney disease on dialysis Tuesdays and Sunday, CAD with stent and bypass Social history: Lives alone. Prior smoker. Alcohol rarely. Physical examination: VITAL SIGNS: 98, 98, 15, 105/67, 97% room air GENERAL: Comfortable EYES: Pupils equal. Conjunctiva normal. HEENT: External appearance of nose and ears normal, oral cavity grossly normal. NECK: JVD not raised; masses not palpable. HEART: First and second heart sounds are normal; no edema. LUNGS: Respiratory rate normal; clear to auscultation. ABDOMEN: Soft, nontender, liver spleen not palpable, no masses palpable. PSYCH: Alert and oriented x3; mood and affect normal. MUSCULOSKELETAL:No Clubbing/cyanosis;muscles-grossly intact EXTREMITY is: Left upper extremity proximal fistula INVESTIGATIONS, reviewed in the clinical context: LDL 28 02/27/2023: White count 7.3 hemoglobin 10.2 platelets 228 sodium 139 potassium 4.4 BUN 64 creatinine 6.77 Troponin I 0.035, 0.046 EKG tracing personally reviewed by me-normal sinus rhythm. Nonspecific ST-T wave changes. Chest x-ray film personally reviewed by me-some cardiomegaly. Assessment and plan: -Unstable angina in a patient with known CAD and a prior bypass.: Currently stable Follows with mails supervisor , from [facility]. Patient keen to follow-up with him. Does not want cardiac catheterization here. Seen by Dr. Luda Mckeon here -Chronic congestive heart failure from diastolic dysfunction EF 50-55% from underlying coronary artery- -Coronary artery disease with prior stents, coronary bypass Aspirin. Lipitor. Plavix. -Diabetes mellitus type 2 on insulin pump Continue the same -Hyperlipidemia Lipitor 80 mg daily at bedtime. Zetia 10 mg daily at bedtime -Essential hypertension -End-stage kidney disease on hemodialysis since 2021 Regular schedule: Sunday. Left upper extremity proximal AV fistula Consult nephrology -Severe aortic valve sclerosis with moderate aortic stenosis, moderate to severe mitral regurgitation -Gallstones asymptomatic -Normocytic anemia, secondary to chronic kidney disease Disposition: Home Patient Condition at Discharge: Serious Plan - Discharge Summary Discharge Rx Participant: Yes New Discharge Prescriptions: Continue Nitroglycerin Sl Tabs [Nitrostat] 0.4 mg SUBLINGUAL Q5M PRN PRN Reason: Angina Montelukast [Singulair] 10 mg PO HS Ezetimibe [Zetia] 10 mg PO HS allopurinoL [Zyloprim] 100 mg PO DAILY ALPRAZolam [Xanax] 0.25 mg PO TID PRN PRN Reason: Anxiety Clopidogrel Bisulfate [Plavix] 75 mg PO DAILY Atorvastatin [Lipitor] 80 mg PO HS Aspirin EC [Ecotrin Low Dose] 81 mg PO DAILY Insulin Aspart (For Pump) [NovoLOG (For Pump)] 0.01 unit SQ-PUMP CONTINUOUS Alirocumab [Praluent Pen] 75 mg SQ Q14D Ferric Citrate [Auryxia] 210 mg PO AC-TID Cinacalcet [Sensipar] 30 mg PO Midodrine [ProAmatine] 2.5 - 5 mg PO BID PRN PRN Reason: systolic <90 Lidocaine-Prilocaine Cream [Emla Cream 2.5%/2.5%] 1 applic TOPICAL TUTHSA Torsemide [Demadex] 20 mg PO BID Denosumab [Prolia] 1 dose SQ Q180D Metoprolol Tartrate [Lopressor] 12.5 mg PO SUMOWEFR Insulin Glargine,Hum.rec.anlog [Basaglar Kwikpen U-100] 12 unit SQ HS PRN PRN Reason: pump failure Isosorbide Mononitrate ER [Imdur] 30 mg PO SUMOWEFR Folic Acid/Vit B Complex and C [Nephro-Moi Tablet] 0.8 mg PO HS Discharge Medication List ALPRAZolam [Xanax] 0.25 mg PO TID PRN 10/11/16 [History] Aspirin EC [Ecotrin Low Dose] 81 mg PO DAILY 10/11/16 [History] Atorvastatin [Lipitor] 80 mg PO HS 10/11/16 [History] Clopidogrel Bisulfate [Plavix] 75 mg PO DAILY 10/11/16 [History] Ezetimibe [Zetia] 10 mg PO HS 10/11/16 [History] Insulin Aspart (For Pump) [NovoLOG (For Pump)] 0.01 unit SQ-PUMP CONTINUOUS 10/11/16 [History] Montelukast [Singulair] 10 mg PO HS 10/11/16 [History] Nitroglycerin Sl Tabs [Nitrostat] 0.4 mg SUBLINGUAL Q5M PRN 10/11/16 [History] allopurinoL [Zyloprim] 100 mg PO DAILY 10/11/16 [History] Alirocumab [Praluent Pen] 75 mg SQ Q14D 09/08/21 [History] Cinacalcet [Sensipar] 30 mg PO TUSA 02/27/23 [History] Denosumab [Prolia] 1 dose SQ Q180D 02/27/23 [History] Ferric Citrate [Auryxia] 210 mg PO AC-TID 02/27/23 [History] Folic Acid/Vit B Complex and C [Nephro-Moi Tablet] 0.8 mg PO HS 02/27/23 [History] Insulin Glargine,Hum.rec.anlog [Basaglar Kwikpen U-100] 12 unit SQ HS PRN 02/27/23 [History] Isosorbide Mononitrate ER [Imdur] 30 mg PO SUMOWEFR 02/27/23 [History] Lidocaine-Prilocaine Cream [Emla Cream 2.5%/2.5%] 1 applic TOPICAL TUTHSA 02/27/23 [History] Metoprolol Tartrate [Lopressor] 12.5 mg PO SUMOWEFR 02/27/23 [History] Midodrine [ProAmatine] 2.5 - 5 mg PO BID PRN 02/27/23 [History] Torsemide [Demadex] 20 mg PO BID 02/27/23 [History] Follow up Appointment(s)/Referral(s): Tavon Rose DO [Primary Care Provider] - 1 Week (office did not answer, please call and make appointment. ) Isidro Lima MD [Family Provider] - 03/20/23 2:15 pm Patient Instructions/Handouts: Chest Pain (DC), Chronic Kidney Disease (DC), High Troponin Levels (GEN) Discharge Disposition: HOME SELF-CARE
== END 2023-02-28 13:56 | disposition home or self-care (01) | DRG 302 ==
LOC: EC 01:50 → 3SCARD 04:50 → OBSVTOIN 10:27 → 3SCARD 23:09
PROVIDERS: ADMIT Hospitalist; ATTEND Hospitalist
PROC: 5A1D70Z Performance of Urinary Filtration, Intermittent, Less than 6 Hours Per Day (ICD-10-PCS; principal; 2023-02-27)
DX: I25.110 Atherosclerotic heart disease of native coronary artery with unstable angina pectoris (principal); N18.6 End stage renal disease; I13.2 Hypertensive heart and chronic kidney disease with heart failure and with stage 5 chronic kidney disease, or end stage renal disease; I50.32 Chronic diastolic (congestive) heart failure; E11.22 Type 2 diabetes mellitus with diabetic chronic kidney disease; M89.8X9 Other specified disorders of bone, unspecified site; M81.0 Age-related osteoporosis without current pathological fracture; K80.20 Calculus of gallbladder without cholecystitis without obstruction; I42.9 Cardiomyopathy, unspecified; I08.0 Rheumatic disorders of both mitral and aortic valves; I25.9 Chronic ischemic heart disease, unspecified; E78.5 Hyperlipidemia, unspecified; I25.82 Chronic total occlusion of coronary artery; D63.1 Anemia in chronic kidney disease; Z96.41 Presence of insulin pump (external) (internal); Z95.1 Presence of aortocoronary bypass graft; Z99.2 Dependence on renal dialysis; Z79.4 Long term (current) use of insulin; Z95.5 Presence of coronary angioplasty implant and graft; Z87.891 Personal history of nicotine dependence; Z79.899 Other long term (current) drug therapy; Z79.82 Long term (current) use of aspirin; Z79.02 Long term (current) use of antithrombotics/antiplatelets
CPT/HCPCS: 36415; 71046; 80053; 80061; 83735; 83880; 84484; 85025; 85049; 85610; 85730; 90935; 93005; 93306; 96365; 96366; 99291

== ENCOUNTER → 2023-05-07 | Outpatient (CLI) | payer MEDICARE, OTHER ==
--- NOTE | 2023-05-08 11:36 | MM ---
Reason for Exam: Screening (asymptomatic). Last mammogram was performed 1 year(s) and 2 month(s) ago. Patient History: Menarche at age 13. First Full-Term at age 18. Postmenopausal. Other cancer, age 55. Estrogen, from age 52 until age 56. Progesterone, from age 52 until age 56. Risk Values: Mervat 5 year model risk: 1.2%. NCI Lifetime model risk: 4.4%. Prior Study Comparison: 03/19/2019 Bilateral Screening Mammogram, [facility]. 03/31/2020 Bilateral Screening Mammogram, [facility]. 03/22/2022 Bilateral MG 3D screening mammo w/cad, [facility]. Tissue Density: There are scattered fibroglandular densities. Findings: Analyzed By CAD. There is no suspicious group of microcalcifications or new suspicious mass. Benign-appearing calcifications bilaterally. Overall Assessment: Benign, BI-RAD 2 Management: Screening Mammogram of both breasts in [address] [facility] will attempt to contact patient to return for supplemental views and ultrasound if indicated. Patient should continue monthly self-breast exams. A clinical breast exam by your physician is recommended on an annual basis. This exam should not preclude additional follow-up of suspicious palpable abnormalities. Note on Mervat scores and lifetime risk: 1. A Mervat score greater than 3% is considered moderate risk. If this is the case, consider specialist referral to assess eligibility for a risk reducing agent. 2. If overall lifetime risk for the development of breast cancer is 20% or higher, the patient may qualify for future screening with alternating mammogram and breast MRI. Electronically signed and approved by: Isidro Boston DO
== END | disposition home or self-care (01) ==
LOC: RADMAMWWP 07:02
PROVIDERS: ATTEND Family Medicine
DX: Z12.31 Encounter for screening mammogram for malignant neoplasm of breast (principal); Z78.0 Asymptomatic menopausal state
CPT/HCPCS: 77063; 77067

== ENCOUNTER 2023-09-04 23:50 | Inpatient (IN) | payer MEDICARE, OTHER ==
--- NOTE | 2023-09-05 00:34 | ED ---
Chest Pain HPI - General Chief Complaint: Chest Pain Stated Complaint: Chest Pain,Sob Time Seen by Provider: 09/04/23 23:56 Source: patient Mode of arrival: ambulatory Limitations: no limitations - History of Present Illness Initial Comments: 68-year-old female with past medical history of end-stage renal disease on hemodialysis Sunday, Sunday, Sunday, coronary artery disease and diabetes who presents emergency department reporting chest pain. Patient states that she follows with Dr. Lima out of [facility]. She has had coronary bypass x 2 as well as multiple stents. States that she has been having chest pain for the past 3 weeks however it has become more constant. She did see her administration clerk earlier this week. She told him about the chest pain and they placed a Holter monitor on her. Today she was taking her trash out when she had substernal pressure with some associated shortness of breath. She did take 2 nitro. She does not feel as if it alleviated her symptoms. Patient finally decided to come to the emergency department. States that her pain is gone at this time. She has no associated nausea or vomiting. No diaphoresis. No ripping or tearing station to her back. She has not missed any dialysis sessions. No other alleviating, precipitating or modifying factors - Related Data Home Medications Medication Instructions Recorded Confirmed ALPRAZolam [Xanax] 0.25 mg PO TID PRN 10/11/16 02/27/23 Aspirin EC [Ecotrin Low Dose] 81 mg PO DAILY 10/11/16 02/27/23 Atorvastatin [Lipitor] 80 mg PO HS 10/11/16 02/27/23 Clopidogrel Bisulfate [Plavix] 75 mg PO DAILY 10/11/16 02/27/23 Ezetimibe [Zetia] 10 mg PO HS 10/11/16 02/27/23 Insulin Aspart (For Pump) [NovoLOG 0.01 unit SQ-PUMP CONTINUOUS 10/11/16 02/27/23 (For Pump)] Montelukast [Singulair] 10 mg PO HS 10/11/16 02/27/23 Nitroglycerin Sl Tabs [Nitrostat] 0.4 mg SUBLINGUAL Q5M PRN 10/11/16 02/27/23 allopurinoL [Zyloprim] 100 mg PO DAILY 10/11/16 02/27/23 Alirocumab [Praluent Pen] 75 mg SQ Q14D 09/08/21 02/27/23 Cinacalcet [Sensipar] 30 mg PO TUSA 02/27/23 02/27/23 Denosumab [Prolia] 1 dose SQ Q180D 02/27/23 02/27/23 Ferric Citrate [Auryxia] 210 mg PO AC-TID 02/27/23 02/27/23 Folic Acid/Vit B Complex and C 0.8 mg PO HS 02/27/23 02/27/23 [Nephro-Moi Tablet] Insulin Glargine,Hum.rec.anlog 12 unit SQ HS PRN 02/27/23 02/27/23 [Basaglar Kwikpen U-100] Isosorbide Mononitrate ER [Imdur] 30 mg PO SUMOWEFR 02/27/23 02/27/23 Lidocaine-Prilocaine Cream [Emla 1 applic TOPICAL TUTHSA 02/27/23 02/27/23 Cream 2.5%/2.5%] Metoprolol Tartrate [Lopressor] 12.5 mg PO SUMOWEFR 02/27/23 02/27/23 Midodrine [ProAmatine] 2.5 - 5 mg PO BID PRN 02/27/23 02/27/23 Torsemide [Demadex] 20 mg PO BID 02/27/23 02/27/23 Allergies Allergy/AdvReac Type Severity Reaction Status Date / Time nifedipine Allergy Swelling Verified 09/04/23 23:54 droperidol AdvReac Anxiety Verified 09/04/23 23:54 ezetimibe [From Vytorin] AdvReac Acid Reflux Verified 09/04/23 23:54 fentanyl AdvReac "Can't Verified 09/04/23 23:54 wake up"/Nausea hydrocodone AdvReac Angina Verified 09/04/23 23:54 hydromorphone [From Dilaudid] AdvReac Angina Verified 09/04/23 23:54 midazolam [From Versed] AdvReac Anxiety Verified 09/04/23 23:54 morphine AdvReac Nausea & Verified 09/04/23 23:54 Vomiting nitroglycerin AdvReac Acid Reflux Verified 09/04/23 23:54 paroxetine [From Paxil] AdvReac Acid Reflux Verified 09/04/23 23:54 simvastatin [From Vytorin] AdvReac Acid Reflux Verified 09/04/23 23:54 sulfamethoxazole AdvReac Decreased Verified 09/04/23 23:54 [From Bactrim] Renal Function trandolapril [From Tarka] AdvReac Acid Reflux Verified 09/04/23 23:54 trimethoprim [From Bactrim] AdvReac Decreased Verified 09/04/23 23:54 Renal Function verapamil [From Tarka] AdvReac Acid Reflux Verified 09/04/23 23:54 Review of Systems ROS Statement: Those systems with pertinent positive or pertinent negative responses have been documented in the HPI. ROS Other: All systems not noted in ROS Statement are negative. Past Medical History Past Medical History: Diabetes Mellitus, Hyperlipidemia, Hypertension, Renal Disease Additional Past Medical History / Comment(s): DIALYSIS.angina, kidney disease stage 4, pilonidal cyst, carpal tunnel, insulin pump History of Any Multi-Drug Resistant Organisms: None Reported Past Surgical History: Coronary Bypass/CABG, Heart Catheterization With Stent, Tonsillectomy, Tubal Ligation Additional Past Surgical History / Comment(s): cataracts Past Anesthesia/Blood Transfusion Reactions: No Reported Reaction Date of Last Stent Placement:: 2004 Past Psychological History: No Psychological Hx Reported Smoking Status: Former smoker Past Alcohol Use History: Rare Past Drug Use History: None Reported General Exam Limitations: no limitations General appearance: alert, in no apparent distress Head exam: Present: atraumatic, normocephalic, normal inspection Eye exam: Present: normal appearance, PERRL, EOMI. Absent: scleral icterus, conjunctival injection, periorbital swelling ENT exam: Present: normal exam, mucous membranes moist Neck exam: Present: normal inspection. Absent: tenderness, meningismus, lymphadenopathy Respiratory exam: Present: normal lung sounds bilaterally. Absent: respiratory distress, wheezes, rales, rhonchi, stridor Cardiovascular Exam: Present: regular rate, normal rhythm, normal heart sounds. Absent: systolic murmur, diastolic murmur, rubs, gallop, clicks GI/Abdominal exam: Present: soft, normal bowel sounds. Absent: distended, tenderness, guarding, rebound, rigid Extremities exam: Present: normal inspection, full ROM, normal capillary refill, other (Fistula left upper extremity). Absent: tenderness, pedal edema, joint swelling, calf tenderness Back exam: Present: normal inspection Neurological exam: Present: alert, oriented X3, CN II-XII intact Psychiatric exam: Present: normal affect, normal mood Skin exam: Present: warm, dry, intact, normal color. Absent: rash Course Vital Signs 09/04/23 09/05/23 09/05/23 23:53 01:00 02:00 Temperature 98.6 F Pulse Rate 106 H 89 84 Respiratory 20 18 16 Rate Blood Pressure 138/65 141/63 126/59 O2 Sat by Pulse 100 95 96 Oximetry - Reevaluation(s) Reevaluation #1: [facility] 09/05/23 0153 Chest Pain MDM - MDM Was pt. sent in by a medical professional or institution (, PA, ELECTRIC DRILL OPERATOR, urgent care, hospital, or usp...) When possible be specific @ -No Did you speak to anyone other than the patient for history (EMS, parent, family, police, friend...)? What history was obtained from this source @ -No Did you review nursing and triage notes (agree or disagree)? Why? @ -I reviewed and agree with nursing and triage notes Were old charts reviewed (outside hosp., previous admission, EMS record, old EKG, old radiological studies, urgent care reports/EKG's, usp records)? Report findings @ -No old charts were reviewed Differential Diagnosis (chest pain, altered mental status, abdominal pain women, abdominal pain men, vaginal bleeding, weakness, fever, dyspnea, syncope, headache, dizziness, GI bleed, back pain, seizure, CVA, palpatations, mental health, musculoskeletal)? @ -Differential Chest Pain: Stable Angina, Unstable Angina, STEMI, NSTEMI Aortic Dissection, Pneumothorax, Musculoskeletal, Esophageal Spasm GERD, Cholecystitis, Pancreatitis, Zoster, th is is not meant to be an all-inclusive list. EKG interpreted by me (3pts min.). @ -Yes and demonstrates sinus rhythm with a rate of 96. [place] interval 175. QRS 117. QTc of 400. Mild ST depression 2, 3, aVF. No acute ST segment elevations X-rays interpreted by me (1pt min.). @ -Yes and my interpretation demonstrates no acute process CT interpreted by me (1pt min.). @ -None done U/S interpreted by me (1pt. min.). @ -None done What testing was considered but not performed or refused? (CT, X-rays, U/S, labs)? Why? @ -None What meds were considered but not given or refused? Why? @ -None Did you discuss the management of the patient with other professionals (professionals i.e. , PA, ELECTRIC DRILL OPERATOR, lab, RT, psych nurse, social insurance specialist, car repairman, teacher, event security officer, returned case inspector)? Give summary @ -I discussed the case with Dr. Kaplan at [facility]. He has to refuse transfer the patient due to capacity reasons Was smoking cessation discussed for >3mins.? @ -No Was critical care preformed (if so, how long)? @ -Yes, 35 minutes for NSTEMI Were there social determinants of health that impacted care today? How? (Homelessness, low income, unemployed, alcoholism, drug addiction, transportation, low edu. Level, literacy, decrease access to med. care, [facility], rehab)? @ -No Was there de-escalation of care discussed even if they declined (Discuss DNR or withdrawal of care, Hospice)? DNR status @ -No What co-morbidities impacted this encounter? (DM, HTN, Smoking, COPD, CAD, Cancer, CVA, ARF, Chemo, Hep., AIDS, mental health diagnosis, sleep apnea, morbid obesity)? @ -End-stage renal disease on hemodialysis, coronary artery disease status post CABG, diabetes Was patient admitted / discharged? Hospital course, mention meds given and route, prescriptions, significant lab abnormalities, going to OR and other pertinent info. @ -Upon arrival patient was seen and evaluated in room 12. Thorough history and physical exam was performed. Patient placed on continuous pulse ox and cardiac monitoring. Twelve-lead EKG was obtained. Laboratory studies are conducted. Chest x-ray was performed. Patient does have an elevated troponin level. She is given 4 aspirin, heparin bolus and started on heparin drip. She has no active chest pain at this time. I did speak with Dr. Almonte who was agreeable to the plan. Patient admitted to Dr. Mar. Undiagnosed new problem with uncertain prognosis? @ -No Drug Therapy requiring intensive monitoring for toxicity (Heparin, Nitro, Insulin, Cardizem)? @ -Heparin Were any procedures done? @ -No Diagnosis/symptom? @ -Acute chest pain, NSTEMI Acute, or Chronic, or Acute on Chronic? @ -Acute Uncomplicated (without systemic symptoms) or Complicated (systemic symptoms)? @ -Complicated Side effects of treatment? @ -No Exacerbation, Progression, or Severe Exacerbation? @ -No Poses a threat to life or bodily function? How? (Chest pain, [place], [place], pneumonia, PE, COPD, DKA, ARF, appy, cholecystitis, CVA, Diverticulitis, Homicidal, Suicidal, threat to staff... and all critical care pts) @ -Yes as patient has markedly elevated troponin Disposition Clinical Impression: Chest pain, ESRD on hemodialysis, NSTEMI (non-ST elevated myocardial infarction) Disposition: ADMITTED IP TO THIS [facility] Condition: Serious Is patient prescribed a controlled substance at d/c from ED?: No Time of Disposition: 02:44 Decision to Admit Reason: Admit from EC Decision Date: 09/05/23 Decision Time: 02:44
[2023-09-05 00:41] LABS: Basophils % (A) 1 %; Eosinophils # (A) 0.2 k/uL (0-0.7); Eosinophils % (A) 4 %; HCT 31.4 % (34.0-46.0); HGB 10.1 gm/dL (11.4-16.0); Lymphocytes % (A) 17 %; MCH 34.2 pg (25.0-35.0); MCHC 32.2 g/dL (31.0-37.0); MCV 106.3 fL (80.0-100.0); Macrocytosis Moderate; Mean Platelet Volume 8.5; Monocytes # (A) 0.5 k/uL (0-1.0); Monocytes % (A) 8 %; Neutrophils # (A) 4.1 k/uL (1.3-7.7); Neutrophils % (A) 68 %; Platelet Count 276 k/uL (150-450); RBC 2.95 m/uL (3.80-5.40)
[2023-09-05 00:58] LABS: INR 0.9 (<1.2); Partial Thromboplastin Time 22.2 sec (22.0-30.0); Prothrombin Time 9.9 sec (10.0-12.5)
[2023-09-05 01:09] LABS: ALT 22 U/L (4-34); AST 26 U/L (14-36); African American GFR (CKD) 7 (>60 ml/min/1.73 sqM); Albumin 4.1 g/dL (3.5-5.0); Alkaline Phosphatase 142 U/L (38-126); Anion Gap 10 mmol/L; Blood Urea Nitrogen 52 mg/dL (7-17); Calcium 11.6 mg/dL (8.4-10.2); Carbon Dioxide 28 mmol/L (22-30); Chloride 98 mmol/L (98-107); Glucose 224 mg/dL (74-99); Magnesium 2.4 mg/dL (1.6-2.3); Non-African American GFR(CKD) 6 (>60 ml/min/1.73 sqM); Potassium 4.2 mmol/L (3.5-5.1); Sodium 136 mmol/L (137-145); Total Bilirubin 0.5 mg/dL (0.2-1.3); Total Protein 6.8 g/dL (6.3-8.2)
[2023-09-05] MEDS ORDERED: HEPARIN SODIUM 1,000 UN/ML (10ML VL) IV PRN (01:38)
[2023-09-05] MEDS: HEPARIN SOD,PORK IN 0.45% NACL 25,000 UNIT in 0.45% NACL 1 250ML.BAG IV SCH (01:55)
[2023-09-05] MEDS: HEPARIN SODIUM 1,000 UN/ML (10ML VL) IV ONE (01:55)
[2023-09-05] MEDS: ASPIRIN 81 MG PO STA (01:56)
[2023-09-05] MEDS ORDERED: NALOXONE 0.4 MG/ML 1 ML VIAL IV PRN (02:50)
--- NOTE | 2023-09-05 03:10 | XR ---
EXAM: XR Chest, 2 Views CLINICAL HISTORY: ITS.REASON XR Reason: Chest Pain TECHNIQUE: Frontal and lateral views of the chest. COMPARISON: No relevant prior studies available. FINDINGS: Lungs: No consolidation or mass. Slightly prominent interstitial markings. Pleural space: No effusion. Heart: cardiomegaly. Bones/joints: No acute findings. IMPRESSION: Slightly prominent interstitial markings.
[2023-09-05] MEDS ORDERED: INSULIN PUMP BASAL RATES 1 EACH MISC MISCELLANE PRN (04:07)
[2023-09-05] MEDS ORDERED: INSULIN ASPART (NovoLOG) 100 UNIT/ML VIAL SQ PRN (04:07)
[2023-09-05] MEDS ORDERED: INSPUCOR MISCELLANE PRN (04:07)
[2023-09-05 07:42] LABS: Glucose,Whole Blood 108 mg/dL (70-110)
[2023-09-05] MEDS: INSULIN PUMP MEAL BOLUS 1 UNIT MISC MISCELLANE SCH (07:43)
[2023-09-05] MEDS ORDERED: MIDODRINE 5 MG TAB PO PRN (08:14)
[2023-09-05] MEDS ORDERED: ALPRAZolam 0.25 MG TAB PO PRN (10:09)
[2023-09-05] MEDS ORDERED: NITROGLYCERIN SL TABS 0.4 MG TAB SUBLINGUAL PRN (10:09)
[2023-09-05] MEDS ORDERED: ONDANSETRON ODT 4 MG TAB PO PRN (10:09)
--- NOTE | 2023-09-05 11:01 | P.CRDCN ---
History of Present Illness History of present illness: HISTORY OF PRESENT ILLNESS: This is a 68-year-old female with a past medical history significant for end- stage renal disease on hemodialysis, valvular heart disease, coronary artery disease with previous CABG and stenting, hypertension, hyperlipidemia, and diabetes. Patient follows with a commercial escrow officer at the [facility], Dr. Lima. We have been asked to see the patient in consultation for chest pain. Patient examined at the bedside in the emergency room. Patient reports that she has been having chest pain on and off for the past few weeks. The patient did see her commercial escrow officer recently and reported the chest pain she has been having to him. The patient had a Holter monitor placed at that time. She states there was no plan to repeat cardiac catheterization at that time. Patient states yesterday she was moving her trash can yesterday when she developed chest pain. She came to the ER for further evaluation. At the time of examination, the patient denies any further episodes of chest pain or pressure. Patient reports that she had a two-vessel CABG in December 2020. Patient has also had previous stenting prior to her CABG. 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 Reports [facility] She did not require stenting at that time. DIAGNOSTICS: - EKG reveals sinus mechanism with mild ST depression. - Chest xray slightly prominent interstitial markings. - Laboratory data: WBC 6.0. Hemoglobin 10.1. Platelet count 276. Sodium 136. Potassium 4.2. BUN 52. Creatinine 6.80. Magnesium 2.4. Troponin 0.320. 0.306. - Current home cardiac medications include aspirin 81 mg daily, Lipitor 80 mg at night, Plavix 75 mg daily, Zetia 10 mg daily, Imdur 30 mg Sunday, metoprolol tartrate 12.5 mg Sunday, midodrine 5 mg 4 times a day as needed, Demadex 20 mg twice a day. - Most recent echocardiogram obtained in February 2023 reveals ejection fraction 35 to 40%, moderate MR, moderate aortic stenosis with a peak gradient of 33 mmHg and a mean gradient of 20 mmHg. - Cardiac catheterization history: January 2020 with stenting of the distal dominant RCA, a restenotic lesion with in-stent restenosis using a drug-eluting stent REVIEW OF SYSTEMS: At the time of my exam: CONSTITUTIONAL: Denies fever or chills. HEENT: Denies blurred vision, vision changes, or eye pain. Denies hemoptysis CARDIOVASCULAR: Denies chest pain. Denies orthopnea. Denies PND. Denies palpitations RESPIRATORY: Denies shortness of breath. GASTROINTESTINAL: Denies abdominal pain. Denies nausea or vomiting. HEMATOLOGIC: Denies bleeding disorders. GENITOURINARY: Denies any blood in urine. SKIN: Denies pruitis. Denies rash. PHYSICAL EXAM: VITAL SIGNS: Reviewed. GENERAL: Well-developed in no acute distress. HEENT: Head is normocephalic. Pupils are equal, round. Sclerae anicteric. Mucous membranes of the mouth are moist. Neck supple. No JVD or thyromegaly LUNGS: Respirations even and unlabored. Lungs essentially clear to auscultation bilaterally. HEART: Regular rate and rhythm. S1 and S2 heard. Systolic murmur noted ABDOMEN: Soft. Nondistended. Nontender. EXTREMITIES: Normal range of motion. No clubbing or cyanosis. Peripheral pulses intact. No lower extremity edema NEUROLOGIC: Awake and alert. Oriented x 3. ASSESSMENT: Chest pain/unstable angina Elevated troponins, flat, ACS ruled out Coronary artery disease with previous CABG in 12/2020 x 2 vessels and stenting (details unknown) Ischemic cardiomyopathy, 35 to 40% Moderate mitral regurgitation Moderate aortic stenosis End-stage renal disease on hemodialysis Hypertension Hyperlipidemia Diabetes PLAN: Obtain 2D echo to assess cardiac structure and function Resume home cardiac medications Hemodialysis per nephrology Continue IV heparin for additional 24 hours No plans for cardiac catheterization at this time Continue to monitor patient for an additional 24 hours. Possible discharge home tomorrow if patient remains stable She was instructed to follow-up postdischarge with her primary commercial escrow officer at [facility] Further recommendations pending patient course Nurse practitioner note has been reviewed by physician. Signing provider agrees with the documented findings, assessment, and plan of care documented by OPTICS TEST TECHNICIAN as a scribe. Past Medical History Past Medical History: Diabetes Mellitus, Hyperlipidemia, Hypertension, Renal Disease Additional Past Medical History / Comment(s): DIALYSIS.angina, kidney disease stage 4, pilonidal cyst, carpal tunnel, insulin pump History of Any Multi-Drug Resistant Organisms: None Reported Past Surgical History: Coronary Bypass/CABG, Heart Catheterization With Stent, Tonsillectomy, Tubal Ligation Additional Past Surgical History / Comment(s): cataracts Past Anesthesia/Blood Transfusion Reactions: No Reported Reaction Date of Last Stent Placement:: 2004 Past Psychological History: No Psychological Hx Reported Smoking Status: Former smoker Past Alcohol Use History: Rare Past Drug Use History: None Reported Medications and Allergies Home Medications Medication Instructions Recorded Confirmed Type ALPRAZolam [Xanax] 0.25 mg PO HS PRN 10/11/16 09/05/23 History Aspirin EC [Ecotrin Low Dose] 81 mg PO DAILY 10/11/16 09/05/23 History Atorvastatin [Lipitor] 80 mg PO HS 10/11/16 09/05/23 History Clopidogrel Bisulfate [Plavix] 75 mg PO DAILY 10/11/16 09/05/23 History Ezetimibe [Zetia] 10 mg PO HS 10/11/16 09/05/23 History Insulin Aspart (For Pump) [NovoLOG 0.01 unit SQ-PUMP CONTINUOUS 10/11/16 09/05/23 History (For Pump)] Montelukast [Singulair] 10 mg PO HS 10/11/16 09/05/23 History Nitroglycerin Sl Tabs [Nitrostat] 0.4 mg SUBLINGUAL Q5M PRN 10/11/16 09/05/23 History allopurinoL [Zyloprim] 100 mg PO DAILY 10/11/16 09/05/23 History Alirocumab [Praluent Pen] 75 mg SQ Q14D 09/08/21 09/05/23 History Denosumab [Prolia] 1 dose SQ Q180D 02/27/23 09/05/23 History Ferric Citrate [Auryxia] 210 mg PO AC-TID 02/27/23 09/05/23 History Folic Acid/Vit B Complex and C 0.8 mg PO HS 02/27/23 09/05/23 History [Nephro-Moi Tablet] Insulin Glargine,Hum.rec.anlog 12 unit SQ HS PRN 02/27/23 09/05/23 History [Basaglar Kwikpen U-100] Isosorbide Mononitrate ER [Imdur] 30 mg PO SUTUTHSA 02/27/23 09/05/23 History Lidocaine-Prilocaine Cream [Emla 1 applic TOPICAL MOWEFR 02/27/23 09/05/23 History Cream 2.5%/2.5%] Metoprolol Tartrate [Lopressor] 12.5 mg PO SUTUTHSA 02/27/23 09/05/23 History Midodrine [ProAmatine] 5 mg PO QID PRN 02/27/23 09/05/23 History Torsemide [Demadex] 20 mg PO BID 02/27/23 09/05/23 History Acetaminophen Tab [Tylenol Tab] 1,000 mg PO TID 09/05/23 09/05/23 History Cinacalcet HCl [Sensipar] 90 mg PO DIRECTED 09/05/23 09/05/23 History Iron Infusion 50 mg IV WE 09/05/23 09/05/23 History Ondansetron Odt [Zofran ODT] 4 mg PO BID PRN 09/05/23 09/05/23 History calcitrioL 0.25 mcg PO MOWEFR 09/05/23 09/05/23 History Allergies Allergy/AdvReac Type Severity Reaction Status Date / Time famotidine [From Pepcid] Allergy Unknown Verified 09/05/23 07:10 nifedipine Allergy Swelling Verified 09/05/23 07:10 droperidol AdvReac Anxiety Verified 09/05/23 07:10 ezetimibe [From Vytorin] AdvReac Acid Reflux Verified 09/05/23 07:10 fentanyl AdvReac "Can't Verified 09/05/23 07:10 wake up"/Nausea hydrocodone AdvReac Angina Verified 09/05/23 07:10 hydromorphone [From Dilaudid] AdvReac Angina Verified 09/05/23 07:10 midazolam [From Versed] AdvReac Anxiety Verified 09/05/23 07:10 morphine AdvReac Nausea & Verified 09/05/23 07:10 Vomiting nitroglycerin AdvReac Acid Reflux Verified 09/05/23 07:10 paroxetine [From Paxil] AdvReac Acid Reflux Verified 09/05/23 07:10 simvastatin [From Vytorin] AdvReac Acid Reflux Verified 09/05/23 07:10 sulfamethoxazole AdvReac Decreased Verified 09/05/23 07:10 [From Bactrim] Renal Function trandolapril [From Tarka] AdvReac Acid Reflux Verified 09/05/23 07:10 trimethoprim [From Bactrim] AdvReac Decreased Verified 09/05/23 07:10 Renal Function verapamil [From Tarka] AdvReac Acid Reflux Verified 09/05/23 07:10 Physical Exam Vitals: Vital Signs Temp Pulse Resp BP Pulse Ox 09/05/23 06:00 89 16 135/78 96 09/05/23 04:00 91 14 130/64 97 09/05/23 02:00 84 16 126/59 96 09/05/23 01:00 89 18 141/63 95 09/04/23 23:53 98.6 F 106 H 20 138/65 100 Intake and Output 09/04/23 09/05/23 09/05/23 22:59 06:59 14:59 Other: Weight 62.596 kg Results 09/05/23 00:20 09/05/23 00:20 Cardiac Enzymes 09/05/23 09/05/23 09/05/23 Range/Units 00:20 00:20 03:07 AST 26 (14-36) U/L Troponin I 0.320 H* 0.306 H* (0.000-0.034) ng/mL Coagulation 09/05/23 Range/Units 00:20 PT 9.9 L (10.0-12.5) sec APTT 22.2 (22.0-30.0) sec CBC 09/05/23 Range/Units 00:20 WBC 6.0 (3.8-10.6) k/uL RBC 2.95 L (3.80-5.40) m/uL Hgb 10.1 L (11.4-16.0) gm/dL Hct 31.4 L (34.0-46.0) % Plt Count 276 (150-450) k/uL Comprehensive Metabolic Panel 09/05/23 Range/Units 00:20 Sodium 136 L (137-145) mmol/L Potassium 4.2 (3.5-5.1) mmol/L Chloride 98 (98-107) mmol/L Carbon Dioxide 28 (22-30) mmol/L BUN 52 H (7-17) mg/dL Creatinine 6.80 H (0.52-1.04) mg/dL Glucose 224 H (74-99) mg/dL Calcium 11.6 H (8.4-10.2) mg/dL AST 26 (14-36) U/L ALT 22 (4-34) U/L Alkaline Phosphatase 142 H (38-126) U/L Total Protein 6.8 (6.3-8.2) g/dL Albumin 4.1 (3.5-5.0) g/dL Current Medications Generic Name Dose Route Start Last Admin Trade Name Freq PRN Reason Stop Dose Admin Heparin Sodium (Porcine) 0 unit 09/05/23 01:38 Heparin Sodium 1,000 Un/Ml (10ml Vl) IV PER PROTOCOL PRN Low PTT Protocol Heparin Sodium/Sodium Chloride 250 mls @ 7.512 mls/hr 09/05/23 01:45 09/05/23 01:55 25,000 unit/ Sodium Chloride IV 12 units/kg/hr .Q24H OSIRIS 7.512 mls/hr Administration Protocol 12 UNITS/KG/HR Insulin Aspart 0 unit 09/05/23 04:07 Insulin Aspart (Novolog) 100 Unit/Ml Vial SQ DAILY PRN Insulin Pump Replacement Miscellaneous Information 1 each 09/05/23 04:07 Insulin Pump Basal Rates 1 Each Misc MISCELLANE Q6HR PRN Blood Sugar - High Protocol Miscellaneous Information 0 unit 09/05/23 07:30 09/05/23 07:43 Insulin Pump Meal Bolus 1 Unit Misc MISCELLANE Not Given ACHS OSIRIS Protocol Miscellaneous Information 0 unit 09/05/23 04:07 Insulin Pump Correction Bolus 1 Unit Misc MISCELLANE ACHS PRN Blood Sugar - High Protocol Naloxone HCl 0.2 mg 09/05/23 02:50 Naloxone 0.4 Mg/Ml 1 Ml Vial IV Q2M PRN Opioid Reversal Intake and Output 09/04/23 09/05/23 09/05/23 22:59 06:59 14:59 Other: Weight 62.596 kg 09/05/23 00:20 09/05/23 00:20
[2023-09-05] MEDS: Insulin Aspart (For Pump) 100 UNIT/ML VIAL SQ-PUMP SCH (12:55)
--- NOTE | 2023-09-05 13:02 | P.NPCON ---
History of Present Illness - Reason for Consult end stage renal disease - History of Present Illness patient is a 68-year-old female with end-stage renal disease maintained on hemodialysis currently on a Sunday schedule. Patient also has underlying significant coronary artery disease with previous history of coronary artery bypass surgery and coronary stenting. Patient follows up at [facility]. Patient is admitted to the hospital with complaints of chest pain and chest pressure. troponin was 0.3. Chest x-ray showed evidence of pulmonary vascular congestion and CHF. patient is currently being dialyzed. No history of fever chills nausea vomiting or abdominal pain. Review of Systems as per HPI Past Medical History Past Medical History: Diabetes Mellitus, Hyperlipidemia, Hypertension, Renal Disease Additional Past Medical History / Comment(s): DIALYSIS.angina, kidney disease stage 4, pilonidal cyst, carpal tunnel, insulin pump History of Any Multi-Drug Resistant Organisms: None Reported Past Surgical History: Coronary Bypass/CABG, Heart Catheterization With Stent, Tonsillectomy, Tubal Ligation Additional Past Surgical History / Comment(s): cataracts Past Anesthesia/Blood Transfusion Reactions: No Reported Reaction Date of Last Stent Placement:: 2004 Past Psychological History: No Psychological Hx Reported Smoking Status: Former smoker Past Alcohol Use History: Rare Past Drug Use History: None Reported Medications and Allergies Home Medications Medication Instructions Recorded Confirmed Type ALPRAZolam [Xanax] 0.25 mg PO HS PRN 10/11/16 09/05/23 History Aspirin EC [Ecotrin Low Dose] 81 mg PO DAILY 10/11/16 09/05/23 History Atorvastatin [Lipitor] 80 mg PO HS 10/11/16 09/05/23 History Clopidogrel Bisulfate [Plavix] 75 mg PO DAILY 10/11/16 09/05/23 History Ezetimibe [Zetia] 10 mg PO HS 10/11/16 09/05/23 History Insulin Aspart (For Pump) [NovoLOG 0.01 unit SQ-PUMP CONTINUOUS 10/11/16 History (For Pump)] Montelukast [Singulair] 10 mg PO HS 10/11/16 09/05/23 History Nitroglycerin Sl Tabs [Nitrostat] 0.4 mg SUBLINGUAL Q5M PRN 10/11/16 09/05/23 History allopurinoL [Zyloprim] 100 mg PO DAILY 10/11/16 09/05/23 History Alirocumab [Praluent Pen] 75 mg SQ Q14D 09/08/21 09/05/23 History Denosumab [Prolia] 1 dose SQ Q180D 02/27/23 09/05/23 History Ferric Citrate [Auryxia] 210 mg PO AC-TID 02/27/23 09/05/23 History Folic Acid/Vit B Complex and C 0.8 mg PO HS 02/27/23 09/05/23 History [Nephro-Moi Tablet] Insulin Glargine,Hum.rec.anlog 12 unit SQ HS PRN 02/27/23 09/05/23 History [Basaglar Kwikpen U-100] Isosorbide Mononitrate ER [Imdur] 30 mg PO SUTUTHSA 02/27/23 09/05/23 History Lidocaine-Prilocaine Cream [Emla 1 applic TOPICAL MOWEFR 02/27/23 09/05/23 History Cream 2.5%/2.5%] Metoprolol Tartrate [Lopressor] 12.5 mg PO SUTUTHSA 02/27/23 09/05/23 History Midodrine [ProAmatine] 5 mg PO QID PRN 02/27/23 09/05/23 History Torsemide [Demadex] 20 mg PO BID 02/27/23 09/05/23 History Acetaminophen Tab [Tylenol Tab] 1,000 mg PO TID 09/05/23 09/05/23 History Cinacalcet HCl [Sensipar] 90 mg PO DIRECTED 09/05/23 09/05/23 History Iron Infusion 50 mg IV WE 09/05/23 09/05/23 History Ondansetron Odt [Zofran ODT] 4 mg PO BID PRN 09/05/23 09/05/23 History calcitrioL 0.25 mcg PO MOWEFR 09/05/23 09/05/23 History Allergies Allergy/AdvReac Type Severity Reaction Status Date / Time famotidine [From Pepcid] Allergy Unknown Verified 09/05/23 07:10 nifedipine Allergy Swelling Verified 09/05/23 07:10 droperidol AdvReac Anxiety Verified 09/05/23 07:10 ezetimibe [From Vytorin] AdvReac Acid Reflux Verified 09/05/23 07:10 fentanyl AdvReac "Can't Verified 09/05/23 07:10 wake up"/Nausea hydrocodone AdvReac Angina Verified 09/05/23 07:10 hydromorphone [From Dilaudid] AdvReac Angina Verified 09/05/23 07:10 midazolam [From Versed] AdvReac Anxiety Verified 09/05/23 07:10 morphine AdvReac Nausea & Verified 09/05/23 07:10 Vomiting nitroglycerin AdvReac Acid Reflux Verified 09/05/23 07:10 paroxetine [From Paxil] AdvReac Acid Reflux Verified 09/05/23 07:10 simvastatin [From Vytorin] AdvReac Acid Reflux Verified 09/05/23 07:10 sulfamethoxazole AdvReac Decreased Verified 09/05/23 07:10 [From Bactrim] Renal Function trandolapril [From Tarka] AdvReac Acid Reflux Verified 09/05/23 07:10 trimethoprim [From Bactrim] AdvReac Decreased Verified 09/05/23 07:10 Renal Function verapamil [From Tarka] AdvReac Acid Reflux Verified 09/05/23 07:10 Physical Exam Vitals: Vital Signs Temp Pulse Pulse Resp BP BP Pulse Ox 09/05/23 11:51 97.8 F 71 16 126/64 97 09/05/23 08:00 98 F 90 16 126/106 97 09/05/23 06:00 89 16 135/78 96 09/05/23 04:00 91 14 130/64 97 09/05/23 02:00 84 16 126/59 96 09/05/23 01:00 89 18 141/63 95 09/04/23 23:53 98.6 F 106 H 20 138/65 100 Intake and Output 09/04/23 09/05/23 09/05/23 22:59 06:59 14:59 Other: Voiding Method Toilet Weight 62.596 kg patient is awake, comfortable, alert oriented 3, no acute distress Examination of the heart S1 and S2 Examination the lungs bilateral breath sounds are heard Abdomen is soft nontender Examination of lower extremities shows no evidence of 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 End-stage renal disease on hemodialysis on a Sunday schedule 2. Volume overload 3. Chest pain with borderline elevated troponins in a patient with coronary ar abbie disease and previous history of coronary artery bypass surgery and coronary stenting. Patient follows at [facility]. 4. CK D mineral bone disorder. Calcium is elevated at 11.6. Patient is maintained on bisphosphonates as outpatient and developed significant hypocalcemia post prolia Plan: increase UF as tolerated with hemodialysis today. Continue with Renvela Hold calcitriol for now. Adjust estimated dry weight as outpatient on hemodialysis. Discussed with patient.
--- NOTE | 2023-09-05 14:35 | P.HPIM ---
History of Present Illness H&P Date: 09/05/23 Chief Complaint: Chest pain Very pleasant 68-year-old patient, follows with Dr. Rose. With chronic stable medical conditions include diabetes mellitus, hypertension, hyper lipidemia, end-stage kidney disease on hemodialysis since 2021, on insulin pump, coronary artery disease with prior stent. She goes for her cardiac care at [facility].-Has a previous bypass. 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 Does take nitroglycerin. Sometimes helps other times does not help. No history of [place] was made aware and they give the patient a heart monitor. Denies any edema. No fever no chills. Patient got COVID in February last year since that she is noticing that she gets increasing amount of vomiting. Especially after food. Admitted unstable angina. Review of systems: GEN.: Tired EYES: None HEENT: None NECK: None RESPIRATORY: None CARDIOVASCULAR: As above GASTROINTESTINAL: None GENITOURINARY: None MUSCULOSKELETAL: None LYMPHATICS: None HEMATOLOGICAL: None PSYCHIATRY: None NEUROLOGICAL: None Past medical history to include: Diabetes mellitus, hypertension, hyperlipidemia, end-stage kidney disease on dialysis Tuesdays and Sunday, CAD with stent and bypass-follows at [facility] Social history: Lives alone. Prior smoker. Alcohol rarely. Physical examination: VITAL SIGNS: 97.8, 71, 16, 126 x 64, 97% room air GENERAL: Lying in bed, getting hemodialysis EYES: Pupils equal. Conjunctiva normal. HEENT: External appearance of nose and ears normal, oral cavity grossly normal. NECK: JVD not raised; masses not palpable. HEART: First and second heart sounds are normal; no edema. LUNGS: Respiratory rate normal; clear to auscultation. ABDOMEN: Soft, nontender, liver spleen not palpable, no masses palpable. PSYCH: Alert and oriented x3; mood and affect normal. MUSCULOSKELETAL:No Clubbing/cyanosis;muscles-grossly intact EXTREMITY is: Left upper extremity proximal fistula LYMPHATICS: No lymph nodes palpable in the axilla and neck INVESTIGATIONS, reviewed in the clinical context: September 05, 2023: White count 6 hemoglobin 10.1 platelets 276 sodium 136 potassium 4.2. 52 creatinine 6.8 Troponin I 0.320 0.306 0.326 EKG tracing personally reviewed by me-normal sinus rhythm. Some ST depression in anterolateral leads. Chest x-ray film personally reviewed by me-cardiomegaly. Some right basilar atelectasis. Assessment and plan: -Possible unstable angina symptoms present for last 3 to 4 weeks. In a patient with known CAD and a prior bypass.: Currently stable EKG changes inferolateral leads. There is no rise and fall of troponin in the setting of kidney disease Follows with strategic planner , from [facility]. Cardiology consulted IV heparin -Chronic congestive heart failure from diastolic dysfunction EF 50-55% from underlying coronary artery- -Coronary artery disease with prior stents, coronary bypass Aspirin. Lipitor. Plavix. -Diabetes mellitus type 2 on insulin pump Continue pump -Hyperlipidemia Lipitor 80 mg daily at bedtime. Zetia 10 mg daily at bedtime -Essential hypertension -End-stage kidney disease on hemodialysis since 2021 Regular schedule: Sunday. Left upper extremity proximal AV fistula Hemodialysis today -Severe aortic valve sclerosis with moderate aortic stenosis, moderate to severe mitral regurgitation -Gallstones asymptomatic -Normocytic anemia, secondary to chronic kidney disease Hemodialysis today. Home medication resumed. Cardiology consulted. Past Medical History Past Medical History: Diabetes Mellitus, Hyperlipidemia, Hypertension, Renal Disease Additional Past Medical History / Comment(s): DIALYSIS.angina, kidney disease stage 4, pilonidal cyst, carpal tunnel, insulin pump History of Any Multi-Drug Resistant Organisms: None Reported Past Surgical History: Coronary Bypass/CABG, Heart Catheterization With Stent, Tonsillectomy, Tubal Ligation Additional Past Surgical History / Comment(s): cataracts Past Anesthesia/Blood Transfusion Reactions: No Reported Reaction Date of Last Stent Placement:: 2004 Past Psychological History: No Psychological Hx Reported Smoking Status: Former smoker Past Alcohol Use History: Rare Past Drug Use History: None Reported Medications and Allergies Home Medications Medication Instructions Recorded Confirmed Type ALPRAZolam [Xanax] 0.25 mg PO HS PRN 10/11/16 09/05/23 History Aspirin EC [Ecotrin Low Dose] 81 mg PO DAILY 10/11/16 09/05/23 History Atorvastatin [Lipitor] 80 mg PO HS 10/11/16 09/05/23 History Clopidogrel Bisulfate [Plavix] 75 mg PO DAILY 10/11/16 09/05/23 History Ezetimibe [Zetia] 10 mg PO HS 10/11/16 09/05/23 History Insulin Aspart (For Pump) [NovoLOG 0.01 unit SQ-PUMP CONTINUOUS 10/11/16 09/05/23 History (For Pump)] Montelukast [Singulair] 10 mg PO HS 10/11/16 09/05/23 History Nitroglycerin Sl Tabs [Nitrostat] 0.4 mg SUBLINGUAL Q5M PRN 10/11/16 09/05/23 History allopurinoL [Zyloprim] 100 mg PO DAILY 10/11/16 09/05/23 History Alirocumab [Praluent Pen] 75 mg SQ Q14D 09/08/21 09/05/23 History Denosumab [Prolia] 1 dose SQ Q180D 02/27/23 09/05/23 History Ferric Citrate [Auryxia] 210 mg PO AC-TID 02/27/23 09/05/23 History Folic Acid/Vit B Complex and C 0.8 mg PO HS 02/27/23 09/05/23 History [Nephro-Moi Tablet] Insulin Glargine,Hum.rec.anlog 12 unit SQ HS PRN 02/27/23 09/05/23 History [Basaglar Kwikpen U-100] Isosorbide Mononitrate ER [Imdur] 30 mg PO SUTUTHSA 02/27/23 09/05/23 History Lidocaine-Prilocaine Cream [Emla 1 applic TOPICAL MOWEFR 02/27/23 09/05/23 History Cream 2.5%/2.5%] Metoprolol Tartrate [Lopressor] 12.5 mg PO SUTUTHSA 02/27/23 09/05/23 History Midodrine [ProAmatine] 5 mg PO QID PRN 02/27/23 09/05/23 History Torsemide [Demadex] 20 mg PO BID 02/27/23 09/05/23 History Acetaminophen Tab [Tylenol Tab] 1,000 mg PO TID 09/05/23 09/05/23 History Cinacalcet HCl [Sensipar] 90 mg PO DIRECTED 09/05/23 09/05/23 History Iron Infusion 50 mg IV WE 09/05/23 09/05/23 History Ondansetron Odt [Zofran ODT] 4 mg PO BID PRN 09/05/23 09/05/23 History calcitrioL 0.25 mcg PO MOWEFR 09/05/23 09/05/23 History Allergies Allergy/AdvReac Type Severity Reaction Status Date / Time famotidine [From Pepcid] Allergy Unknown Verified 09/05/23 07:10 nifedipine Allergy Swelling Verified 09/05/23 07:10 droperidol AdvReac Anxiety Verified 09/05/23 07:10 ezetimibe [From Vytorin] AdvReac Acid Reflux Verified 09/05/23 07:10 fentanyl AdvReac "Can't Verified 09/05/23 07:10 wake up"/Nausea hydrocodone AdvReac Angina Verified 09/05/23 07:10 hydromorphone [From Dilaudid] AdvReac Angina Verified 09/05/23 07:10 midazolam [From Versed] AdvReac Anxiety Verified 09/05/23 07:10 morphine AdvReac Nausea & Verified 09/05/23 07:10 Vomiting nitroglycerin AdvReac Acid Reflux Verified 09/05/23 07:10 paroxetine [From Paxil] AdvReac Acid Reflux Verified 09/05/23 07:10 simvastatin [From Vytorin] AdvReac Acid Reflux Verified 09/05/23 07:10 sulfamethoxazole AdvReac Decreased Verified 09/05/23 07:10 [From Bactrim] Renal Function trandolapril [From Tarka] AdvReac Acid Reflux Verified 09/05/23 07:10 trimethoprim [From Bactrim] AdvReac Decreased Verified 09/05/23 07:10 Renal Function verapamil [From Tarka] AdvReac Acid Reflux Verified 09/05/23 07:10 Physical Exam Vitals: Vital Signs Temp Pulse Pulse Resp BP BP Pulse Ox 09/05/23 08:00 98 F 90 16 126/106 97 09/05/23 06:00 89 16 135/78 96 09/05/23 04:00 91 14 130/64 97 09/05/23 02:00 84 16 126/59 96 09/05/23 01:00 89 18 141/63 95 09/04/23 23:53 98.6 F 106 H 20 138/65 100 Intake and Output 09/04/23 09/05/23 09/05/23 22:59 06:59 14:59 Other: Voiding Method Toilet Weight 62.596 kg Results CBC & Chem 7: 09/05/23 00:20 09/05/23 00:20 Labs: Abnormal Lab Results - Last 24 Hours (Table) 09/05/23 09/05/23 09/05/23 Range/Units 00:20 00:20 00:20 RBC 2.95 L (3.80-5.40) m/uL Hgb 10.1 L (11.4-16.0) gm/dL Hct 31.4 L (34.0-46.0) % MCV 106.3 H (80.0-100.0) fL PT 9.9 L (10.0-12.5) sec Sodium 136 L (137-145) mmol/L BUN 52 H (7-17) mg/dL Creatinine 6.80 H (0.52-1.04) mg/dL Glucose 224 H (74-99) mg/dL Calcium 11.6 H (8.4-10.2) mg/dL Magnesium 2.4 H (1.6-2.3) mg/dL Alkaline Phosphatase 142 H (38-126) U/L Troponin I (0.000-0.034) ng/mL 09/05/23 09/05/23 Range/Units 00:20 03:07 RBC (3.80-5.40) m/uL Hgb (11.4-16.0) gm/dL Hct (34.0-46.0) % MCV (80.0-100.0) fL PT (10.0-12.5) sec Sodium (137-145) mmol/L BUN (7-17) mg/dL Creatinine (0.52-1.04) mg/dL Glucose (74-99) mg/dL Calcium (8.4-10.2) mg/dL Magnesium (1.6-2.3) mg/dL Alkaline Phosphatase (38-126) U/L Troponin I 0.320 H* 0.306 H* (0.000-0.034) ng/mL
[2023-09-05] MEDS: ASPIRIN 81 MG PO SCH (15:08)
[2023-09-05] MEDS: CLOPIDOGREL 75 MG TAB PO SCH (15:08)
[2023-09-05] MEDS: TORSEMIDE 20 MG TAB PO SCH (15:08)
[2023-09-05] MEDS: allopurinoL 100 MG TAB PO SCH (15:08)
[2023-09-05] MEDS: SEVELAMER 800 MG TAB PO SCH (15:10)
[2023-09-05 15:23] VITALS: BP 107/68; PULSE 78; RESP 18; TEMP 98
[2023-09-05] MEDS ORDERED: ACETAMINOPHEN TAB 500 MG TAB PO SCH (16:00)
--- NOTE | 2023-09-05 16:57 | P.DS ---
Providers Date of admission: 09/05/23 02:53 Expected date of discharge: 09/05/23 Attending physician: Mio Mar Consults: 09/05/23 02:50 Consult Physician Urgent Consulting Provider: [facility] Consult Reason/Comments: acute chest pain, nstemi, hx ascad Do you want consulting provider notified?: Yes 09/05/23 03:55 Consult Physician Urgent Consulting Provider: Chula Arriaga Consult Reason/Comments: esrd on hd - m, w, f Do you want consulting provider notified?: Yes Primary care physician: [facility] Course: Chief Complaint: Chest pain Very pleasant 68-year-old patient, follows with Dr. Rose. With chronic stable medical conditions include diabetes mellitus, hypertension, hyperlipidemia, end-stage kidney disease on hemodialysis since 2021, on insulin pump, coronary artery disease with prior stent. She goes for her cardiac care at [facility].-Has a previous bypass. 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 Does take nitroglycerin. Sometimes helps other times does not help. No history of [place] was made aware and they give the patient a heart monitor. Denies any edema. No fever no chills. Patient got COVID in February last year since that she is noticing that she gets increasing amount of vomiting. Especially after food. Admitted unstable angina. Patient seen by cardiology. Had the patient ambulate. No further chest pain. Patient to follow-up with her own technical sourcing recruiter. Patient was cleared by Dr. IDALMIS Velasco for discharge. Past medical history to include: Diabetes mellitus, hypertension, hyperlipidemia, end-stage kidney disease on dialysis Tuesdays and Sunday, CAD with stent and bypass-follows at [facility] Social history: Lives alone. Prior smoker. Alcohol rarely. Physical examination: VITAL SIGNS: 97.8, 71, 16, 126 x 64, 97% room air GENERAL: Lying in bed, getting hemodialysis EYES: Pupils equal. Conjunctiva normal. HEENT: External appearance of nose and ears normal, oral cavity grossly normal. NECK: JVD not raised; masses not palpable. HEART: First and second heart sounds are normal; no edema. LUNGS: Respiratory rate normal; clear to auscultation. ABDOMEN: Soft, nontender, liver spleen not palpable, no masses palpable. PSYCH: Alert and oriented x3; mood and affect normal. MUSCULOSKELETAL:No Clubbing/cyanosis;muscles-grossly intact EXTREMITY is: Left upper extremity proximal fistula LYMPHATICS: No lymph nodes palpable in the axilla and neck INVESTIGATIONS, reviewed in the clinical context: September 05, 2023: White count 6 hemoglobin 10.1 platelets 276 sodium 136 potassium 4.2. 52 creatinine 6.8 Troponin I 0.320 0.306 0.326 EKG tracing personally reviewed by me-normal sinus rhythm. Some ST depression in anterolateral leads. Chest x-ray film personally reviewed by me-cardiomegaly. Some right basilar atelectasis. Assessment and plan: -Possible unstable angina symptoms present for last 3 to 4 weeks. In a patient with known CAD and a prior bypass.: Currently stable EKG changes inferolateral leads. There is no rise and fall of troponin in the setting of kidney disease Follows with technical sourcing recruiter , from [facility]. By cardiology. Patient did ambulate later after dialysis. No further chest pains. Follow-up with own technical sourcing recruiter. IV heparin -Chronic congestive heart failure from diastolic dysfunction EF 50-55% from underlying coronary artery- -Coronary artery disease with prior stents, coronary bypass Aspirin. Lipitor. Plavix. -Diabetes mellitus type 2 on insulin pump Continue pump -Hyperlipidemia Lipitor 80 mg daily at bedtime. Zetia 10 mg daily at bedtime -Essential hypertension -End-stage kidney disease on hemodialysis since 2021 Regular schedule: Sunday. Left upper extremity proximal AV fistula Hemodialysis today -Severe aortic valve sclerosis with moderate aortic stenosis, moderate to severe mitral regurgitation -Gallstones asymptomatic -Normocytic anemia, secondary to chronic kidney disease This position: Home Past Medical History Past Medical History: Diabetes Mellitus, Hyperlipidemia, Hypertension, Renal Disease Additional Past Medical History / Comment(s): DIALYSIS.angina, kidney disease st age 5, pilonidal cyst, carpal tunnel, insulin pump History of Any Multi-Drug Resistant Organisms: None Reported Past Surgical History: Coronary Bypass/CABG, Heart Catheterization With Stent, Tonsillectomy, Tubal Ligation Additional Past Surgical History / Comment(s): cataracts Past Anesthesia/Blood Transfusion Reactions: No Reported Reaction Date of Last Stent Placement:: 2004 Past Psychological History: No Psychological Hx Reported Smoking Status: Former smoker Past Alcohol Use History: Rare Past Drug Use History: None Reported Plan - Discharge Summary New Discharge Prescriptions: Continue Nitroglycerin Sl Tabs [Nitrostat] 0.4 mg SUBLINGUAL Q5M PRN PRN Reason: Angina Montelukast [Singulair] 10 mg PO HS Ezetimibe [Zetia] 10 mg PO HS allopurinoL [Zyloprim] 100 mg PO DAILY ALPRAZolam [Xanax] 0.25 mg PO HS PRN PRN Reason: Anxiety Clopidogrel Bisulfate [Plavix] 75 mg PO DAILY Atorvastatin [Lipitor] 80 mg PO HS Aspirin EC [Ecotrin Low Dose] 81 mg PO DAILY Insulin Aspart (For Pump) [NovoLOG (For Pump)] 0.01 unit SQ-PUMP CONTINUOUS Alirocumab [Praluent Pen] 75 mg SQ Q14D Ferric Citrate [Auryxia] 210 mg PO AC-TID Midodrine [ProAmatine] 5 mg PO QID PRN PRN Reason: Blood Pressure - Low Lidocaine-Prilocaine Cream [Emla Cream 2.5%/2.5%] 1 applic TOPICAL MOWEFR Torsemide [Demadex] 20 mg PO BID Acetaminophen Tab [Tylenol] 1,000 mg PO TID Iron Infusion 50 mg IV WE calcitrioL 0.25 mcg PO MOWEFR Denosumab [Prolia] 1 dose SQ Q180D Metoprolol Tartrate [Lopressor] 12.5 mg PO SUTUTHSA Insulin Glargine,Hum.rec.anlog [Basaglar Kwikpen U-100] 12 unit SQ HS PRN PRN Reason: pump failure Isosorbide Mononitrate ER [Imdur] 30 mg PO SUTUTHSA Folic Acid/Vit B Complex and C [Nephro-Moi Tablet] 0.8 mg PO HS Ondansetron Odt [Zofran ODT] 4 mg PO BID PRN PRN Reason: Nausea Cinacalcet HCl [Sensipar] 90 mg PO DIRECTED Discharge Medication List ALPRAZolam [Xanax] 0.25 mg PO HS PRN 10/11/16 [History] Aspirin EC [Ecotrin Low Dose] 81 mg PO DAILY 10/11/16 [History] Atorvastatin [Lipitor] 80 mg PO HS 10/11/16 [History] Clopidogrel Bisulfate [Plavix] 75 mg PO DAILY 10/11/16 [History] Ezetimibe [Zetia] 10 mg PO HS 10/11/16 [History] Insulin Aspart (For Pump) [NovoLOG (For Pump)] 0.01 unit SQ-PUMP CONTINUOUS 10/11/16 [History] Montelukast [Singulair] 10 mg PO HS 10/11/16 [History] Nitroglycerin Sl Tabs [Nitrostat] 0.4 mg SUBLINGUAL Q5M PRN 10/11/16 [History] allopurinoL [Zyloprim] 100 mg PO DAILY 10/11/16 [History] Alirocumab [Praluent Pen] 75 mg SQ Q14D 09/08/21 [History] Denosumab [Prolia] 1 dose SQ Q180D 02/27/23 [History] Ferric Citrate [Auryxia] 210 mg PO AC-TID 02/27/23 [History] Folic Acid/Vit B Complex and C [Nephro-Moi Tablet] 0.8 mg PO HS 02/27/23 [History] Insulin Glargine,Hum.rec.anlog [Basaglar Kwikpen U-100] 12 unit SQ HS PRN 02/27/23 [History] Isosorbide Mononitrate ER [Imdur] 30 mg PO SUTUTHSA 02/27/23 [History] Lidocaine-Prilocaine Cream [Emla Cream 2.5%/2.5%] 1 applic TOPICAL MOWEFR 02/27/23 [History] Metoprolol Tartrate [Lopressor] 12.5 mg PO SUTUTHSA 02/27/23 [History] Midodrine [ProAmatine] 5 mg PO QID PRN 02/27/23 [History] Torsemide [Demadex] 20 mg PO BID 02/27/23 [History] Acetaminophen Tab [Tylenol] 1,000 mg PO TID 09/05/23 [History] Cinacalcet HCl [Sensipar] 90 mg PO DIRECTED 09/05/23 [History] Iron Infusion 50 mg IV WE 09/05/23 [History] Ondansetron Odt [Zofran ODT] 4 mg PO BID PRN 09/05/23 [History] calcitrioL 0.25 mcg PO MOWEFR 09/05/23 [History] Follow up Appointment(s)/Referral(s): dr melissa [Other] - 1-2 Days Tavon Rose DO [Primary Care Provider] - 1-2 days
[2023-09-05] MEDS ORDERED: FOLIC ACID-VIT B COMPLEX-VIT C 1 CAP PO SCH (21:00)
[2023-09-05] MEDS ORDERED: MONTELUKAST 10 MG TAB PO SCH (21:00)
[2023-09-05] MEDS ORDERED: ATORVASTATIN 80 MG TAB PO SCH (21:00)
[2023-09-05] MEDS ORDERED: EZETIMIBE 10 MG TAB PO SCH (21:00)
[2023-09-06] MEDS ORDERED: ISOSORBIDE MONONITRATE ER 30 MG TAB.ER.24H PO SCH (09:00)
[2023-09-06] MEDS ORDERED: METOPROLOL TARTRATE 12.5 MG TAB PO SCH (09:00)
== END 2023-09-05 16:43 | disposition home or self-care (01) | DRG 302 ==
LOC: EC 23:50 → 3SCARD 09-05 02:53
PROVIDERS: ADMIT Hospitalist; ATTEND Hospitalist
PROC: 5A1D70Z Performance of Urinary Filtration, Intermittent, Less than 6 Hours Per Day (ICD-10-PCS; principal; 2023-09-05)
DX: I25.110 Atherosclerotic heart disease of native coronary artery with unstable angina pectoris (principal); N18.6 End stage renal disease; I13.2 Hypertensive heart and chronic kidney disease with heart failure and with stage 5 chronic kidney disease, or end stage renal disease; I50.32 Chronic diastolic (congestive) heart failure; Z95.1 Presence of aortocoronary bypass graft; E78.5 Hyperlipidemia, unspecified; E11.22 Type 2 diabetes mellitus with diabetic chronic kidney disease; I25.5 Ischemic cardiomyopathy; Z99.2 Dependence on renal dialysis; D63.1 Anemia in chronic kidney disease; E83.51 Hypocalcemia; I08.0 Rheumatic disorders of both mitral and aortic valves; K80.20 Calculus of gallbladder without cholecystitis without obstruction; M89.8X9 Other specified disorders of bone, unspecified site; Z79.02 Long term (current) use of antithrombotics/antiplatelets; Z79.4 Long term (current) use of insulin; Z79.82 Long term (current) use of aspirin; Z79.899 Other long term (current) drug therapy; Z87.891 Personal history of nicotine dependence; Z86.16 Personal history of COVID-19; Z95.5 Presence of coronary angioplasty implant and graft; Z96.41 Presence of insulin pump (external) (internal); Z88.8 Allergy status to other drugs, medicaments and biological substances; Z88.5 Allergy status to narcotic agent
CPT/HCPCS: 36415; 71046; 80053; 83036; 83735; 84484; 85025; 85610; 85730; 90935; 93005; 96365; 96366; 99291

== ENCOUNTER 2023-09-29 11:38 | Emergency (ER) | payer MEDICARE, OTHER ==
--- NOTE | 2023-09-29 11:46 | ED ---
General Adult HPI - General Stated complaint: Fall/L Hip Time Seen by Provider: 09/29/23 11:40 Source: patient, RN notes reviewed, old records reviewed - History of Present Illness Initial comments: This is a 68-year-old female who states she tripped and fell on her left hip and now it hurts to move her left hip and it is difficult to ambulate. Patient denies any back pain that is new patient denies any other extremity pain. Patient denies hitting her head or neck. Patient denies any chest pain - Related Data Home Medications Medication Instructions Recorded Confirmed ALPRAZolam [Xanax] 0.25 mg PO HS PRN 10/11/16 09/05/23 Aspirin EC [Ecotrin Low Dose] 81 mg PO DAILY 10/11/16 09/05/23 Atorvastatin [Lipitor] 80 mg PO HS 10/11/16 09/05/23 Clopidogrel Bisulfate [Plavix] 75 mg PO DAILY 10/11/16 09/05/23 Ezetimibe [Zetia] 10 mg PO HS 10/11/16 09/05/23 Insulin Aspart (For Pump) [NovoLOG 0.01 unit SQ-PUMP CONTINUOUS 10/11/16 09/05/23 (For Pump)] Montelukast [Singulair] 10 mg PO HS 10/11/16 09/05/23 Nitroglycerin Sl Tabs [Nitrostat] 0.4 mg SUBLINGUAL Q5M PRN 10/11/16 09/05/23 allopurinoL [Zyloprim] 100 mg PO DAILY 10/11/16 09/05/23 Alirocumab [Praluent Pen] 75 mg SQ Q14D 09/08/21 09/05/23 Denosumab [Prolia] 1 dose SQ Q180D 02/27/23 09/05/23 Ferric Citrate [Auryxia] 210 mg PO AC-TID 02/27/23 09/05/23 Folic Acid/Vit B Complex and C 0.8 mg PO HS 02/27/23 09/05/23 [Nephro-Moi Tablet] Insulin Glargine,Hum.rec.anlog 12 unit SQ HS PRN 02/27/23 09/05/23 [Basaglar Kwikpen U-100] Isosorbide Mononitrate ER [Imdur] 30 mg PO SUTUTHSA 02/27/23 09/05/23 Lidocaine-Prilocaine Cream [Emla 1 applic TOPICAL MOWEFR 02/27/23 09/05/23 Cream 2.5%/2.5%] Metoprolol Tartrate [Lopressor] 12.5 mg PO SUTUTHSA 02/27/23 09/05/23 Midodrine [ProAmatine] 5 mg PO QID PRN 02/27/23 09/05/23 Torsemide [Demadex] 20 mg PO BID 02/27/23 09/05/23 Acetaminophen Tab [Tylenol] 1,000 mg PO TID 09/05/23 09/05/23 Cinacalcet HCl [Sensipar] 90 mg PO DIRECTED 09/05/23 09/05/23 Iron Infusion 50 mg IV WE 09/05/23 09/05/23 Ondansetron Odt [Zofran ODT] 4 mg PO BID PRN 09/05/23 09/05/23 calcitrioL 0.25 mcg PO MOWEFR 09/05/23 09/05/23 Allergies Allergy/AdvReac Type Severity Reaction Status Date / Time famotidine [From Pepcid] Allergy Unknown Verified 09/29/23 11:47 nifedipine Allergy Swelling Verified 09/29/23 11:47 droperidol AdvReac Anxiety Verified 09/29/23 11:47 ezetimibe [From Vytorin] AdvReac Acid Reflux Verified 09/29/23 11:47 fentanyl AdvReac "Can't Verified 09/29/23 11:47 wake up"/Nausea hydrocodone AdvReac Angina Verified 09/29/23 11:47 hydromorphone [From Dilaudid] AdvReac Angina Verified 09/29/23 11:47 midazolam [From Versed] AdvReac Anxiety Verified 09/29/23 11:47 morphine AdvReac Nausea & Verified 09/29/23 11:47 Vomiting nitroglycerin AdvReac Acid Reflux Verified 09/29/23 11:47 paroxetine [From Paxil] AdvReac Acid Reflux Verified 09/29/23 11:47 simvastatin [From Vytorin] AdvReac Acid Reflux Verified 09/29/23 11:47 sulfamethoxazole AdvReac Decreased Verified 09/29/23 11:47 [From Bactrim] Renal Function trandolapril [From Tarka] AdvReac Acid Reflux Verified 09/29/23 11:47 trimethoprim [From Bactrim] AdvReac Decreased Verified 09/29/23 11:47 Renal Function verapamil [From Tarka] AdvReac Acid Reflux Verified 09/29/23 11:47 Review of Systems ROS Statement: Those systems with pertinent positive or pertinent negative responses have been documented in the HPI. ROS Other: All systems not noted in ROS Statement are negative. Past Medical History Past Medical History: Diabetes Mellitus, Hyperlipidemia, Hypertension, Renal Disease Additional Past Medical History / Comment(s): DIALYSIS.angina, kidney disease stage 4, pilonidal cyst, carpal tunnel, insulin pump History of Any Multi-Drug Resistant Organisms: None Reported Past Surgical History: Coronary Bypass/CABG, Heart Catheterization With Stent, Tonsillectomy, Tubal Ligation Additional Past Surgical History / Comment(s): cataracts Past Anesthesia/Blood Transfusion Reactions: No Reported Reaction Date of Last Stent Placement:: 2004 Past Psychological History: No Psychological Hx Reported Smoking Status: Former smoker Past Alcohol Use History: Rare Past Drug Use History: None Reported General Exam - General Exam Comments Initial Comments: GENERAL Patient is well-developed and well-nourished. Patient is in mild distress. EYES Patient's pupils are equal and round. Extraocular motion is intact SKIN Unremarkable NEURO The patient is alert and oriented A&Ox3 PYSCH Patient has normal interpersonal interactions. MUSCULOSKELETAL Patient has palpable tenderness in the inguinal area on the left was able to li ft the leg and externally rotate. Patient had a passive range of motion that was almost full. Patient had much more pain when she tried to move her leg. Course Vital Signs 09/29/23 11:44 Temperature 97.6 F Pulse Rate 65 Respiratory 18 Rate Blood Pressure 103/51 O2 Sat by Pulse 94 L Oximetry Medical Decision Making - Medical Decision Making Was pt. sent in by a medical professional or institution (, PA, TR[employer]ITION M[employer], urgent care, hospital, or long term...) When possible be specific @ -No Did you speak to anyone other than the patient for history (EMS, parent, family, police, friend...)? What history was obtained from this source @ -No Did you review nursing and triage notes (agree or disagree)? Why? @ -I reviewed and agree with nursing and triage notes Were old charts reviewed (outside hosp., previous admission, EMS record, old EKG, old radiological studies, urgent care reports/EKG's, long term records)? Report findings @ -No old charts were reviewed Differential Diagnosis (chest pain, altered mental status, abdominal pain women, abdominal pain men, vaginal bleeding, weakness, fever, dyspnea, syncope, headache, dizziness, GI bleed, back pain, seizure, CVA, palpatations, mental health, musculoskeletal)? @ -Hip fracture, rami fracture, hip dislocation, acetabular fracture, this is not an all-inclusive list EKG interpreted by me (3pts min.). @ -As above X-rays interpreted by me (1pt min.). @ -X-ray shows a left inferior rami fracture CT interpreted by me (1pt min.). @ -None done U/S interpreted by me (1pt. min.). @ -None done What testing was considered but not performed or refused? (CT, X-rays, U/S, labs)? Why? @ -None What meds were considered but not given or refused? Why? @ -None Did you discuss the management of the patient with other professionals (professionals i.e. , PA, TR[employer]ITION M[employer], lab, RT, psych nurse, social service manager, skating rink ice maker, teacher, radio electronics officer, case reviewer)? Give summary @ -No Was smoking cessation discussed for >3mins.? @ -No Was critical care preformed (if so, how long)? @ -No Were there social determinants of health that impacted care today? How? (Homelessness, low income, unemployed, alcoholism, drug addiction, transportation, low edu. Level, literacy, decrease access to med. care, [facility], rehab)? @ -No Was there de-escalation of care discussed even if they declined (Discuss DNR or withdrawal of care, Hospice)? DNR status @ -No What co-morbidities impacted this encounter? (DM, HTN, Smoking, COPD, CAD, Cancer, CVA, ARF, Chemo, Hep., AIDS, mental health diagnosis, sleep apnea, morbid obesity)? @ -None Was patient admitted / discharged? Hospital course, mention meds given and route, prescriptions, significant lab abnormalities, going to OR and other pertinent info. @ -Patient had a left inferior rami fracture. Patient did not want any pain medicine in the emergency department. Patient was able to move the leg with s ome pain but was able to ambulate again with some pain Undiagnosed new problem with uncertain prognosis? @ -No Drug Therapy requiring intensive monitoring for toxicity (Heparin, Nitro, Insulin, Cardizem)? @ -No Were any procedures done? @ -No Diagnosis/symptom? @ -Left inferior rami fracture Acute, or Chronic, or Acute on Chronic? @ -Acute Uncomplicated (without systemic symptoms) or Complicated (systemic symptoms)? @ -Uncomplicated Side effects of treatment? @ -No Exacerbation, Progression, or Severe Exacerbation? @ -No Poses a threat to life or bodily function? How? (Chest pain, [place], [place], pneumonia, PE, COPD, DKA, ARF, appy, cholecystitis, CVA, Diverticulitis, Homicidal, Suicidal, threat to staff... and all critical care pts) @ -No Disposition Clinical Impression: Fall, Closed fracture of left inferior pubic ramus Disposition: HOME SELF-CARE Condition: Good Instructions (If sedation given, give patient instructions): Fall Prevention for Older Adults (ED), Pelvic Fracture (ED) Is patient prescribed a controlled substance at d/c from ED?: No Referrals: Tavon Rose DO [Primary Care Provider] - 1-2 days Time of Disposition: 12:56
[2023-09-29 11:48] VITALS: PULSE 65; RESP 18; TEMP 97.6
--- NOTE | 2023-09-29 12:17 | XR ---
EXAMINATION TYPE: XR Hip LT and AP Pelvis DATE OF EXAM: 09/29/2023 11:58 AM CLINICAL INDICATION:Female, 68 years old with history of Trauma; COMPARISON: None. TECHNIQUE: XR Hip LT and AP Pelvis; hip was examined in the frontal and lateral projections and a AP pelvis. FINDINGS/IMPRESSION: Deformity to the left inferior pubic ramus suspicious for minimally displaced fracture. No additional fractures definitively visualized.
[2023-09-29] MEDS: traMADol 50 MG STARTER PACK 3 TAB BTL PO STA (13:12)
[2023-09-29 13:16] VITALS: BP 103/70
== END 2023-09-29 13:15 | disposition home or self-care (01) ==
LOC: EC 11:38
DX: S32.592A Other specified fracture of left pubis, initial encounter for closed fracture (principal); Z88.1 Allergy status to other antibiotic agents; Z88.2 Allergy status to sulfonamides; Z88.5 Allergy status to narcotic agent; Z88.8 Allergy status to other drugs, medicaments and biological substances; Z87.891 Personal history of nicotine dependence; W01.0XXA Fall on same level from slipping, tripping and stumbling without subsequent striking against object, initial encounter
CPT/HCPCS: 73502; 99283

== ENCOUNTER 2024-01-21 02:22 | Observation (INO) | payer MEDICARE, OTHER ==
--- NOTE | 2024-01-21 02:43 | ED ---
Chest Pain HPI - General Chief Complaint: Chest Pain Stated Complaint: CP Time Seen by Provider: 01/21/24 02:29 Source: patient, EMS Mode of arrival: EMS - History of Present Illness Initial Comments: This patient is a 68-year-old woman, history of dialysis, previous coronary artery bypass and VT. She presents with intermittent chest pains going back 2 weeks. The patient had been seen at the [facility] last week and was cleared. She states pain recurred tonight and was accompanied by nausea and vomiting and that is what prompted her to come here. She does have relief of symptoms with nitroglycerin but it is recurring. MD Complaint: chest pain Onset/Timin -: week(s) Onset: during rest Pain Location: substernal Pain Radiation: none Severity: moderate Quality: other (Pressure) Consistency: intermittent Improves With: nitroglycerin Worsens With: nothing Anginal Symptoms: nausea, vomiting Treatments Prior to Arrival: aspirin, nitroglycerin, oxygen - Related Data Home Medications Medication Instructions Recorded Confirmed ALPRAZolam [Xanax] 0.25 mg PO HS PRN 10/11/16 01/21/24 Aspirin EC [Ecotrin Low Dose] 81 mg PO DAILY 10/11/16 01/21/24 Atorvastatin [Lipitor] 80 mg PO HS 10/11/16 01/21/24 Clopidogrel Bisulfate [Plavix] 75 mg PO DAILY 10/11/16 01/21/24 Ezetimibe [Zetia] 10 mg PO HS 10/11/16 01/21/24 Insulin Aspart (For Pump) [NovoLOG 0.01 unit SQ-PUMP CONTINUOUS 10/11/16 0 01/21/24 (For Pump)] Montelukast [Singulair] 10 mg PO HS 10/11/16 01/21/24 Nitroglycerin Sl Tabs [Nitrostat] 0.4 mg SUBLINGUAL Q5M PRN 10/11/16 01/21/24 allopurinoL [Zyloprim] 100 mg PO DAILY 10/11/16 01/21/24 Alirocumab [Praluent Pen] 75 mg SQ Q14D 09/08/21 01/21/24 Denosumab [Prolia] 1 dose SQ Q180D 02/27/23 01/21/24 Ferric Citrate [Auryxia] 210 mg PO AC-TID 02/27/23 01/21/24 Insulin Glargine,Hum.rec.anlog 12 unit SQ HS PRN 02/27/23 01/21/24 [Basaglgerson Sharma U-100] Isosorbide Mononitrate ER [Imdur] 30 mg PO SUTUTHSA 02/27/23 01/21/24 Lidocaine-Prilocaine Cream [Emla 1 applic TOPICAL MOWEFR 02/27/23 01/21/24 Cream 2.5%/2.5%] Midodrine [ProAmatine] 5 mg PO QID PRN 02/27/23 01/21/24 Torsemide [Demadex] 20 mg PO BID 02/27/23 01/21/24 Acetaminophen Tab [Tylenol] 1,000 mg PO TID 09/05/23 01/21/24 Ondansetron Odt [Zofran ODT] 4 mg PO BID PRN 09/05/23 01/21/24 Metoprolol Succinate (ER) [Toprol 25 mg PO DAILY 01/21/24 01/21/24 XL] Omeprazole [PriLOSEC] 20 mg PO AC-BID 01/21/24 01/21/24 Allergies Allergy/AdvReac Type Severity Reaction Status Date / Time famotidine [From Pepcid] Allergy Unknown Verified 01/21/24 07:42 nifedipine Allergy Swelling Verified 01/21/24 07:42 droperidol AdvReac Anxiety Verified 01/21/24 07:42 ezetimibe [From Vytorin] AdvReac Acid Reflux Verified 01/21/24 07:42 fentanyl AdvReac "Can't Verified 01/21/24 07:42 wake up"/Nausea hydrocodone AdvReac Angina Verified 01/21/24 07:42 hydromorphone [From Dilaudid] AdvReac Angina Verified 01/21/24 07:42 midazolam [From Versed] AdvReac Anxiety Verified 01/21/24 07:42 morphine AdvReac Nausea & Verified 01/21/24 07:42 Vomiting nitroglycerin AdvReac Patient Verified 01/21/24 07:42 denies this allergy. paroxetine [From Paxil] AdvReac Acid Reflux Verified 01/21/24 07:42 simvastatin [From Vytorin] AdvReac Acid Reflux Verified 01/21/24 07:42 sulfamethoxazole AdvReac Decreased Verified 01/21/24 07:42 [From Bactrim] Renal Function trandolapril [From Tarka] AdvReac Acid Reflux Verified 01/21/24 07:42 trimethoprim [From Bactrim] AdvReac Decreased Verified 01/21/24 07:42 Renal Function verapamil [From Tarka] AdvReac Acid Reflux Verified 01/21/24 07:42 Review of Systems ROS Statement: Those systems with pertinent positive or pertinent negative responses have been documented in the HPI. ROS Other: All systems not noted in ROS Statement are negative. Constitutional: Denies: fever, chills Respiratory: Denies: cough, dyspnea Cardiovascular: Reports: chest pain. Denies: palpitations, orthopnea, edema, syncope Gastrointestinal: Reports: nausea, vomiting. Denies: abdominal pain, hematemesis Musculoskeletal: Denies: back pain Skin: Denies: rash Neurological: Denies: headache, weakness EKG Findings - EKG Results: EKG: interpreted by ERMD, sinus rhythm (Rate 94 bpm), normal axis - Blocks, [place], Hypertrophy, ST Abn: AV and intraventricular conduction: intraventricular conduction delay Repolarization changes or abnormalities: nonspecific abnormality, ST segment, and/or T wave Past Medical History Past Medical History: Diabetes Mellitus, Hyperlipidemia, Hypertension, Renal Disease Additional Past Medical History / Comment(s): DIALYSIS.angina, kidney disease stage 4, pilonidal cyst, carpal tunnel, insulin pump History of Any Multi-Drug Resistant Organisms: None Reported Past Surgical History: Coronary Bypass/CABG, Heart Catheterization With Stent, Tonsillectomy, Tubal Ligation Additional Past Surgical History / Comment(s): cataracts Past Anesthesia/Blood Transfusion Reactions: No Reported Reaction Date of Last Stent Placement:: 2004 Past Psychological History: No Psychological Hx Reported Smoking Status: Former smoker Past Alcohol Use History: Rare Past Drug Use History: None Reported General Exam General appearance: alert, in no apparent distress Head exam: Present: atraumatic, normocephalic Eye exam: Present: normal appearance. Absent: scleral icterus, conjunctival injection Neck exam: Present: normal inspection Respiratory exam: Present: normal lung sounds bilaterally. Absent: respiratory distress, wheezes, rales, rhonchi, stridor, accessory muscle use Cardiovascular Exam: Present: regular rate, normal rhythm, systolic murmur. Absent: diastolic murmur, rubs, gallop GI/Abdominal exam: Present: soft. Absent: distended, tenderness, guarding, rebound, rigid, mass Extremities exam: Present: normal inspection, normal capillary refill. Absent: pedal edema, calf tenderness Back exam: Present: normal inspection. Absent: CVA tenderness (R), CVA tenderness (L) Neurological exam: Present: alert Skin exam: Present: warm, dry, intact, normal color. Absent: rash Course Vital Signs 01/21/24 01/21/24 01/21/24 02:25 05:30 08:14 Temperature 98.2 F Pulse Rate 98 86 75 Respiratory 18 18 20 Rate Blood Pressure 140/93 142/78 120/62 O2 Sat by Pulse 97 96 97 Oximetry 01/21/24 12:14 Temperature Pulse Rate 68 Respiratory 18 Rate Blood Pressure 124/67 O2 Sat by Pulse 97 Oximetry Chest Pain MDM - MDM The patient had chest x-ray that I interpreted as negative for acute infiltrate, pneumothorax, congestive heart failure Was pt. sent in by a medical professional or institution (, PA, [employer]ER, urgent care, hospital, or detention...) When possible be specific @ -[No] Did you speak to anyone other than the patient for history (EMS, parent, family, police, friend...)? What history was obtained from this source @ -[No] Did you review nursing and triage notes (agree or disagree)? Why? @ -[I reviewed and agree with nursing and triage notes] Were old charts reviewed (outside hosp., previous admission, EMS record, old EKG, old radiological studies, urgent care reports/EKG's, detention records)? Report findings @ -[yes, old charts were reviewed] Differential Diagnosis (chest pain, altered mental status, abdominal pain women, abdominal pain men, vaginal bleeding, weakness, fever, dyspnea, syncope, headache, dizziness, GI bleed, back pain, seizure, CVA, palpatations, mental health, musculoskeletal)? @ -[Differential Chest Pain: Stable Angina, Unstable Angina, STEMI, NSTEMI Aortic Dissection, Pneumothorax, Musculoskeletal, Esophageal Spasm GERD, Cholecystitis, Pancreatitis, Zoster, th is is not meant to be an all-inclusive list. EKG interpreted by me (3pts min.). @ -[I interpreted as above] X-rays interpreted by me (1pt min.). @ -[I interpreted as above CT interpreted by me (1pt min.). @ -[None done] U/S interpreted by me (1pt. min.). @ -[None done] What testing was considered but not performed or refused? (CT, X-rays, U/S, labs)? Why? @ -[None] What meds were considered but not given or refused? Why? @ -[None] Did you discuss the management of the patient with other professionals (professionals i.e. , PA, RESTAURANT [employer]ETER, lab, RT, psych nurse, social service worker, advertising columnist, teacher, police liaison officer, case advocate)? Give summary @ -[Case discussed with the admitting service and treatment recommendations are incorporated. Was smoking cessation discussed for >3mins.? @ -[No] Was critical care preformed (if so, how long)? @ -[No] Were there social determinants of health that impacted care today? How? (Homelessness, low income, unemployed, alcoholism, drug addiction, transportat ion, low edu. Level, literacy, decrease access to med. care, senior care, rehab)? @ -[No] Was there de-escalation of care discussed even if they declined (Discuss DNR or withdrawal of care, Hospice)? DNR status @ -[No] What co-morbidities impacted this encounter? (DM, HTN, Smoking, COPD, CAD, Cancer, CVA, ARF, Chemo, Hep., AIDS, mental health diagnosis, sleep apnea, morbid obesity)? @ -[Previous coronary artery disease, end-stage renal disease, hypertension Was patient admitted / discharged? Hospital course, mention meds given and route, prescriptions, significant lab abnormalities, going to OR and other pertinent info. @ -[Patient is 68-year-old woman who will be admitted to have serial cardiac enzymes, telemetry monitoring, cardiology consultation. Undiagnosed new problem with uncertain prognosis? @ -[No] Drug Therapy requiring intensive monitoring for toxicity (Heparin, Nitro, Insulin, Cardizem)? @ -[No] Were any procedures done? @ -[No] Diagnosis/symptom? @ -[Acute chest pain NSTEMI End-stage renal disease Acute, or Chronic, or Acute on Chronic? @ -[Acute Uncomplicated (without systemic symptoms) or Complicated (systemic symptoms)? @ -[Uncomplicated Side effects of treatment? @ -[No] Exacerbation, Progression, or Severe Exacerbation? @ -[No] Poses a threat to life or bodily function? How? (Chest pain, USA, [place], pneumonia, PE, COPD, DKA, ARF, appy, cholecystitis, CVA, Diverticulitis, Homicidal, Suicidal, threat to staff... and all critical care pts) @ -[Yes, requires further cardiology evaluation Disposition Clinical Impression: NSTEMI (non-ST elevated myocardial infarction), Chest pain, ESRD on hemodialysis Disposition: ADMITTED IP TO THIS HOSP Condition: Fair Is patient prescribed a controlled substance at d/c from ED?: No
[2024-01-21 03:06] LABS: INR 0.9 (<1.2)
[2024-01-21 03:07] LABS: Partial Thromboplastin Time 23.2 sec (22.0-30.0); Prothrombin Time 10.3 sec (10.0-12.5)
[2024-01-21 03:08] LABS: ALT 18 U/L (4-34); AST 24 U/L (14-36); African American GFR (CKD) 6 (>60 ml/min/1.73 sqM); Alkaline Phosphatase 156 U/L (38-126); Anion Gap 9 mmol/L; Blood Urea Nitrogen 75 mg/dL (7-17); Calcium 11.7 mg/dL (8.4-10.2); Carbon Dioxide 28 mmol/L (22-30); Chloride 102 mmol/L (98-107); Glucose 146 mg/dL (74-99); Magnesium 2.1 mg/dL (1.6-2.3); Non-African American GFR(CKD) 5 (>60 ml/min/1.73 sqM); Potassium 4.2 mmol/L (3.5-5.1); Sodium 139 mmol/L (137-145); Total Bilirubin 0.5 mg/dL (0.2-1.3); Total Protein 6.5 g/dL (6.3-8.2)
[2024-01-21 03:17] LABS: NT-Pro-B-Type Natriuretic Pept 18100 pg/mL
--- NOTE | 2024-01-21 03:17 | XR ---
EXAM: XR Chest, 2 Views CLINICAL HISTORY: Chest Pain TECHNIQUE: Frontal and lateral views of the chest. COMPARISON: 09/05/2023 FINDINGS: Status post sternotomy. Cardiomegaly. Mild pulmonary vascular congestion. Right basilar atelectasis. No pleural effusion or pneumothorax. Bones are osteopenic. IMPRESSION: Cardiomegaly. Mild pulmonary vascular congestion.
[2024-01-21 03:18] LABS: Anisocytosis Slight; Basophils # (A) 0.1 k/uL (0-0.2); Basophils % (A) 1 %; Eosinophils # (A) 0.3 k/uL (0-0.7); Eosinophils % (A) 4 %; HCT 30.9 % (34.0-46.0); HGB 10.2 gm/dL (11.4-16.0); Lymphocytes # (A) 1.4 k/uL (1.0-4.8); Lymphocytes % (A) 17 %; MCH 33.4 pg (25.0-35.0); MCV 101.2 fL (80.0-100.0); Macrocytosis Slight; Mean Platelet Volume 8.2; Monocytes # (A) 0.5 k/uL (0-1.0); Monocytes % (A) 7 %; Neutrophils # (A) 5.8 k/uL (1.3-7.7); Neutrophils % (A) 71 %; Platelet Count 260 k/uL (150-450); RBC 3.06 m/uL (3.80-5.40); RDW 17.2 % (11.5-15.5); WBC 8.2 k/uL (3.8-10.6)
[2024-01-21] MEDS ORDERED: NITROGLYCERIN SL TABS 0.4 MG TAB SUBLINGUAL PRN (05:37)
[2024-01-21] MEDS ORDERED: MIDODRINE 5 MG TAB PO PRN (05:38)
[2024-01-21] MEDS ORDERED: ONDANSETRON ODT 4 MG TAB PO PRN (05:38)
[2024-01-21] MEDS: NON FORMULARY DRUG (Cinacalcet Hcl [Sensipar] 90 MG Tablet) PO SCH (06:28)
[2024-01-21] MEDS: FERRIC CITRATE 210 MG PO SCH (07:19)
[2024-01-21] MEDS: ASPIRIN 81 MG PO SCH (08:11)
[2024-01-21] MEDS: CLOPIDOGREL 75 MG TAB PO SCH (08:11)
[2024-01-21] MEDS: METOPROLOL SUCCINATE (ER) 25 MG TAB.ER.24H PO SCH (08:11)
[2024-01-21] MEDS: TORSEMIDE 20 MG TAB PO SCH (08:12)
[2024-01-21] MEDS: ACETAMINOPHEN TAB 500 MG TAB PO SCH (08:12)
--- NOTE | 2024-01-21 11:38 | P.NPCON ---
History of Present Illness - Reason for Consult end stage renal disease - History of Present Illness patient is a 68-year-old female with end-stage renal disease on hemodialysis on Sunday schedule. Patient is admitted to the hospital with complaints of chest pain. She has significant underlying coronary artery disease and follows at [facility]. Patient feels her weight is significantly above the dry weight. No significant noncompliance reported. Last UF on hemodialysis last week was about 3.5 L. Patient has not missed any of her treatments. Patient has been evaluated by cardiology and there are plans for cardiac catheterization today. troponin increased to 0.3 Review of Systems as per HPI Past Medical History Past Medical History: Diabetes Mellitus, Hyperlipidemia, Hypertension, Renal Disease Additional Past Medical History / Comment(s): DIALYSIS.angina, kidney disease stage 4, pilonidal cyst, carpal tunnel, insulin pump History of Any Multi-Drug Resistant Organisms: None Reported Past Surgical History: Coronary Bypass/CABG, Heart Catheterization With Stent, Tonsillectomy, Tubal Ligation Additional Past Surgical History / Comment(s): cataracts Past Anesthesia/Blood Transfusion Reactions: No Reported Reaction Date of Last Stent Placement:: 2004 Past Psychological History: No Psychological Hx Reported Smoking Status: Former smoker Past Alcohol Use History: Rare Past Drug Use History: None Reported Medications and Allergies Home Medications Medication Instructions Recorded Confirmed Type ALPRAZolam [Xanax] 0.25 mg PO HS PRN 10/11/16 01/21/24 History Aspirin EC [Ecotrin Low Dose] 81 mg PO DAILY 10/11/16 01/21/24 History Atorvastatin [Lipitor] 80 mg PO HS 10/11/16 01/21/24 History Clopidogrel Bisulfate [Plavix] 75 mg PO DAILY 10/11/16 01/21/24 History Ezetimibe [Zetia] 10 mg PO HS 10/11/16 01/21/24 History Insulin Aspart (For Pump) [NovoLOG 0.01 unit SQ-PUMP CONTINUOUS 10/11/1612/24 History (For Pump)] Montelukast [Singulair] 10 mg PO HS 10/11/16 01/21/24 History Nitroglycerin Sl Tabs [Nitrostat] 0.4 mg SUBLINGUAL Q5M PRN 10/11/16 01/21/24 History allopurinoL [Zyloprim] 100 mg PO DAILY 10/11/16 01/21/24 History Alirocumab [Praluent Pen] 75 mg SQ Q14D 09/08/21 01/21/24 History Denosumab [Prolia] 1 dose SQ Q180D 02/27/23 01/21/24 History Ferric Citrate [Auryxia] 210 mg PO AC-TID 02/27/23 01/21/24 History Insulin Glargine,Hum.rec.anlog 12 unit SQ HS PRN 02/27/23 01/21/24 History [Basaglar Kwikpen U-100] Isosorbide Mononitrate ER [Imdur] 30 mg PO SUTUTHSA 02/27/23 01/21/24 History Lidocaine-Prilocaine Cream [Emla 1 applic TOPICAL MOWEFR 02/27/23 01/21/24 History Cream 2.5%/2.5%] Midodrine [ProAmatine] 5 mg PO QID PRN 02/27/23 01/21/24 History Torsemide [Demadex] 20 mg PO BID 02/27/23 01/21/24 History Acetaminophen Tab [Tylenol] 1,000 mg PO TID 09/05/23 01/21/24 History Ondansetron Odt [Zofran ODT] 4 mg PO BID PRN 09/05/23 01/21/24 History Metoprolol Succinate (ER) [Toprol 25 mg PO DAILY 01/21/24 01/21/24 History Xl] Omeprazole [PriLOSEC] 20 mg PO AC-BID 01/21/24 01/21/24 History Allergies Allergy/AdvReac Type Severity Reaction Status Date / Time famotidine [From Pepcid] Allergy Unknown Verified 01/21/24 07:42 nifedipine Allergy Swelling Verified 01/21/24 07:42 droperidol AdvReac Anxiety Verified 01/21/24 07:42 ezetimibe [From Vytorin] AdvReac Acid Reflux Verified 01/21/24 07:42 fentanyl AdvReac "Can't Verified 01/21/24 07:42 wake up"/Nausea hydrocodone AdvReac Angina Verified 01/21/24 07:42 hydromorphone [From Dilaudid] AdvReac Angina Verified 01/21/24 07:42 midazolam [From Versed] AdvReac Anxiety Verified 01/21/24 07:42 morphine AdvReac Nausea & Verified 01/21/24 07:42 Vomiting nitroglycerin AdvReac Patient Verified 01/21/24 07:42 denies this allergy. paroxetine [From Paxil] AdvReac Acid Reflux Verified 01/21/24 07:42 simvastatin [From Vytorin] AdvReac Acid Reflux Verified 01/21/24 07:42 sulfamethoxazole AdvReac Decreased Verified 01/21/24 07:42 [From Bactrim] Renal Function trandolapril [From Tarka] AdvReac Acid Reflux Verified 01/21/24 07:42 trimethoprim [From Bactrim] AdvReac Decreased Verified 01/21/24 07:42 Renal Function verapamil [From Tarka] AdvReac Acid Reflux Verified 01/21/24 07:42 Physical Exam Vitals: Vital Signs Temp Pulse Resp BP Pulse Ox 01/21/24 08:14 75 20 120/62 97 01/21/24 05:30 86 18 142/78 96 01/21/24 02:25 98.2 F 98 18 140/93 97 Intake and Output 01/20/24 01/21/24 01/21/24 22:59 06:59 14:59 Other: Weight 63.503 kg patient is awake, comfortable, no acute distress. Mildly short of breath Examination of the heart S1 and S2 Examination of the lungs bilateral breath sounds are heard Abdomen is soft nontender Examination of lower extremity shows edema 1+ bilaterally RUN LEAD exam grossly intact Results - Lab Results Most recent lab results Calcium 11.7 mg/dL (8.4-10.2) H 01/21/24 02:50 Magnesium 2.1 mg/dL (1.6-2.3) 01/21/24 02:50 01/21/24 02:50 01/21/24 02:50 Assessment and Plan Assessment: 1. End-stage renal disease on hemodialysis on Sunday schedule 2. Volume overload 3. Significant coronary artery disease with previous coronary stents being followed at [facility]. Troponin is elevated and there are plans for cardiac catheterization today 4. CK D mineral bone disorder. Hypercalcemia noted and calcitriol is on hold. Plan: hemodialysis today. Continue with Demadex Agree with discontinuation of calcitriol. We will dialyze the patient on low calcium bath. Repeat labs in a.m. Repeat hemodialysis in a.m. Thank you for the consultation. We will continue to follow the patient with you during her hospitalization.
[2024-01-21] MEDS ORDERED: ALPRAZolam 0.5 MG TAB PO PRN (12:37)
[2024-01-21] MEDS ORDERED: ALPRAZolam 0.25 MG TAB PO PRN ×2 (12:37→21:00)
[2024-01-21] MEDS: ATORVASTATIN 80 MG TAB PO STA (12:54)
[2024-01-21] MEDS: ASPIRIN 325 MG TAB PO STA (12:55)
[2024-01-21] MEDS: LIDOCAINE 1% INJ 10MG/ML (20 ML MDV) SQ ONE (14:11)
[2024-01-21] MEDS: ALPRAZolam 0.5 MG TAB PO ONE (14:14)
[2024-01-21] MEDS: HEPARIN SODIUM,PORCINE 10,000 UNIT in SODIUM CHLORIDE 0.9% 1,000 ML IRRIGATION PRN (14:25)
[2024-01-21] MEDS: SODIUM CHLORIDE 0.9% 1,000 ML IV ONE (14:25)
[2024-01-21] MEDS: HEPARIN SODIUM 1,000 UN/ML (10ML VL) IVP ONE (14:25)
[2024-01-21] MEDS: HEPARIN SODIUM,PORCINE (1 ML) 2,500 UNIT in SODIUM CHLORIDE 0.9% 250 ML IRRIGATION PRN (14:26)
[2024-01-21] MEDS: IOPAMIDOL-370 100ML BTL INJ ONE ×2 (14:27→15:24)
[2024-01-21] MEDS: ONDANSETRON 4 MG/2 ML VIAL IVP ONE (14:53)
[2024-01-21] MEDS: NITROGLYCERIN SL TABS 0.4 MG TAB SUBLINGUAL ONE (15:26)
[2024-01-21] MEDS ORDERED: ZOLPIDEM 5 MG TAB PO PRN (16:28)
[2024-01-21] MEDS ORDERED: RX INFO: IV CONTRAST WAS GIVEN 1 EACH MISC MISCELLANE PRN (16:28)
[2024-01-21] MEDS ORDERED: MAG HYDROX/AL HYDROX/SIMETH 30 ML CUP PO PRN (16:28)
[2024-01-21] MEDS ORDERED: ATROPINE SULFATE 0.1 MG/ML 10ML SYRINGE IV PRN (16:28)
[2024-01-21] MEDS: NITROGLYCERIN SL TABS 0.4 MG TAB SUBLINGUAL PRN (16:39)
--- NOTE | 2024-01-21 16:48 | P.PRCINT ---
Percutaneous Coronary Int. - Percutaneous Coronary Intervention Percutaneous Coronary Intervention: PROCEDURES PERFORMED: Left heart catheterization, bilateral coronary angiography, ultrasound guided arterial access, PCI proximal to mid RCA with a 3.0 x 23mm Xience JOHN, post dilated with a 3.0 NC balloon, shockwave lithotripsy proximal to mid RCA 3.0 balloon, IVUS RCA, iFR left main, SVG to diagonal, MADERA to LAD angiography INDICATION: NSTEMI CONSENT:I have discussed the risks, benefits and alternative therapies for the above-mentioned procedure and for both sedation/analgesia as well as necessary blood product administration, if indicated, as they pertain to this patient. The patient has indicated understanding and acceptance of the risks and procedures discussed. PROCEDURE: After the risks, benefits and alternatives of the above mentioned procedure explained in detail with the patient, informed consent was obtained. Patient was taken to the catheterization lab and prepped and draped in usual fashion. Ultrasound guidance was used to assess for arterial access. 1% lidocaine was used to anesthetize the right femoral artery. A 6-Indonesian sheath was placed in the right femoral artery using modified Seldinger technique and ultrasound guidance. Left coronary angiography was performed with a 6-Indonesian JL 4.0 catheter and right coronary angiography was performed with a 6-Indonesian FR4 catheter in various views. SVG to diagonal and MADERA to LAD angiography were performed with a 6Fr FR 4 catheter. A 5-Indonesian FR5 catheter was inserted into the left ventricle and pressure measurements were obtained. The decision was made to perform iFR (RFR) of the left main int OM1. Using the 6Fr FL 4.0 catheter, a pressure wire was advanced into the aorta and normalized. It was then advanced into the mid OM1 branch. Initial INR was abnormal at 0.82 however with pullback most of this was around the takeoff 1 branch where there was diffuse mild to moderate disease. The left main alone was normal at 0.98. Patient was having ongoing chest pressure even before any intervention was entertained out mainly related to his significantly elevated LVEDP. The culprit lesion appeared to be the RCA. Therefore decision was made to perform PCI of the RCA. Heparin was given. A 6Fr AL 0.75 guide was used to engage the RCA. A 0.014 BMW wire was unable to be advanced and a 0.014 whisper wire was able to be advanced into the distal RCA however unable to easily be wired into the small caliber PDA. Balloon angioplasty was performed with a 2.5 mm balloon. Extra intravascular ultrasound was performed which showed reference vessel 3.0 mm. The lesion was predilated with a 3.0 mm noncompliant balloon. There was additional area of in-stent stenosis of 75% and balloon angioplasty was performed with improvement from 75% to 20%. This appears to be in the area where she had prior number of brachy therapy interventions. Next shock wave lithotripsy was performed using a 3.0 mm balloon 4. Next a 3.0 x 23 mm Xience JOHN was placed from the proximal to mid RCA. The stent was postdilated with a 3.0 noncompliant balloon. Final angiograms were performed and repeat intravascular ultrasound was performed which showed expanded stent with no dissection.. Preintervention there was 99% stenosis and PAULINA 1 flow of the distal PDA and postintervention there was less than 10% stenosis and PAULINA-3 flow. The right femoral angiogram showed adequate anatomy for closure and a 6FR Angioseal was placed with hemostasis achieved. The patient tolerated the procedure well. Patient was transported back to the post catheterization holding area in stable condition. Conscious Sedation: Patient was monitored under the direct supervision of myself for conscious sedation using Xanax given allergies for a total duration of 69 minutes HEMODYNAMICS: 128/72 LV: 135/18, LVEDP 34, gradient across the aortic valve of 16 millimeters mercury SELECTIVE CORONARY ARTERIOGRAPHY: LEFT MAIN: The left main is a large caliber vessel which bifurcates into the LAD and circumflex. There is in ostial 50-60% stenosis and otherwise relatively normal. LEFT ANTERIOR DESCENDING CORONARY ARTERY: LAD is a large caliber vessel which wraps around to the apex. There is proximal 99% stenosis with some competitive flow to the distal LAD from the MADERA. LEFT CIRCUMFLEX CORONARY ARTERY: Left circumflex is a moderate caliber vessel with a patent stent into the OM1 branch and otherwise 100% stenosis of after the OM1 branch. The OM1 stent has diffuse 30-40% stenosis. RIGHT CORONARY ARTERY: The right coronary artery is a large caliber vessel which gives off a PDA and PLV branch and is the dominant vessel. There is proximal to mid tandem 80% to 99% stenoses followed by long segment of mid to distal RCA stents with it RCA 75% in-stent stenosis. The stents going to the PDA and if there is more distal subtotally occluded short segment 100% PDA stenosis with left to left collaterals. There is not significant antegrade flow past the mid PDA. There is diffuse disease and small caliber of the PDA. SVG to diagonal: Widely patent MADERA to LAD: Widely patent with some collaterals to distal circumflex as well as what appears to be distal PDA FINAL IMPRESSION: 1. CAD as described above including 50-60% left main stenosis, 99% proximal LAD stenosis, 30-40% OM1 stenosis, 100% mid circumflex stenosis, 99% proximal RCA stenosis, 100% small caliber PDA stenosis 2. Significantly elevated left sided filling pressures 3. Mild to moderate aortic stenosiswith mean gradient 16 mmHg 4. iFR OM1 long lesion abnormal at 0.82 however relatively normal iFR of left main 5. S/p PCI proximal to mid RCA with a 3.0 x 23mm Xience JOHN, post dilated with a 3.0 NC balloon, shockwave lithotripsy proximal to mid RCA 3.0 balloon 6. Patient SVG to diagonal and MADERA to LAD PLAN: 1. Aggressive risk factor modification per most recent ACC/AHA guidelines. 2. Continue dual antiplatelets with aspirin and Plavix for minimum of 12 months. 3. Patient with a number of issues of in-stent stenosis of the mid RCA stent and status post angioplasty 4. Diffuse disease with multiple interventions of the RCA and more distal PDA disease. PDA lesion small caliber and not easily wired and behaving more like a EVALUATION ADVISOR. Monitor response of PCI of the proximal segment however if she has angina may consider attempted PCI of PDA
--- NOTE | 2024-01-21 16:51 | P.CRDCN ---
History of Present Illness Consult date: 01/21/24 Consult reason: chest pain History of present illness: HISTORY OF PRESENT ILLNESS: This is a 68-year-old female with past medical history significant for CABG, IA, end-stage renal disease on dialysis. Per the patient she had stents placed in 2019, double vessel CABG in 2020 and an IA following that. Patient follows with Dr. Lima from [facility]. We have been asked to see the patient in consultation for chest pain. Patient was examined at the bedside in the emergency room. Patient came to the hospital because she states that over the last few weeks she has been having central, nonradiating chest pain. She states that she has been seen at [facility] last week on and was cleared. She states the pain reoccurred last night and was accompanied by nausea and vomiting. She states she took a few nitroglycerin tabs which usually relieves the pain for a few minutes but this did not work this time and that is what brought her into the hospital. DIAGNOSTICS: - EKG reveals sinus rhythm with some PVCs - Chest xray shows mild pulmonary vascular congestion - Laboratory data: Hemoglobin 10.2. MCV 101.2. BUN 75. Creatinine 7.58. Glu cose 146. Calcium 11.7. Troponins x 4: 0.048, 0.114, 0.348, 0.468. - Current home cardiac medications include aspirin 81 mg, Lipitor 80 mg, Plavix 75 mg, Zetia 10 mg, Imdur 30 mg, Toprol 25 mg, Nitrostat as needed, Demadex 20 mg twice daily Most recent echocardiogram in February 2023 showed moderate global hypokinesis of left ventricular systolic function, severely calcified aortic valve with moderate aortic stenosis, moderate mitral annulus calcification with moderate MR, mild TR -Most recent cath in May 2022 showed LMCA with 50% stenosis distally, LAD with ostial 80% stenosis, occlusion of first diagonal, circumflex with 70% stenosis, RCA with proximal 20 to 30% stenosis, mid 40% stenosis. There are 2 grafts present MADERA to LAD, SVG to diagonal and 8 stents. REVIEW OF SYSTEMS: As per HPI above. All other systems negative. PHYSICAL EXAM: VITAL SIGNS: Reviewed. GENERAL: Well-developed in no acute distress. HEENT: Head is normocephalic. Pupils are equal, round. Sclerae anicteric. Mucous membranes of the mouth are moist. Neck supple. No JVD or thyromegaly LUNGS: Respirations even and unlabored. Some crackles bilaterally. HEART: Irregular rate and rhythm. S1 and S2 heard. Systolic murmur heard at right upper sternal border ABDOMEN: Soft. Nontender to palpation. EXTREMITIES: Normal range of motion. No clubbing or cyanosis. Peripheral pulses intact. Trace extremity edema. NEUROLOGIC: Awake and alert. Oriented x 3. ASSESSMENT: Unstable angina NSTEMI type II Abnormal EKG Atypical chest pain History of coronary brachytherapy End-stage renal disease on dialysis PLAN: Follow-up on echocardiogram Patient will undergo dialysis Cardiac catheterization will be completed after dialysis Continue cardiac home meds Monitor vital signs, electrolytes and renal function Further recommendations to follow based upon clinical course Thank you kindly for this consultation. Past Medical History Past Medical History: Diabetes Mellitus, Hyperlipidemia, Hypertension, Renal Disease Additional Past Medical History / Comment(s): DIALYSIS.angina, kidney disease stage 4, pilonidal cyst, carpal tunnel, insulin pump History of Any Multi-Drug Resistant Organisms: None Reported Past Surgical History: Coronary Bypass/CABG, Heart Catheterization With Stent, Tonsillectomy, Tubal Ligation Additional Past Surgical History / Comment(s): cataracts Past Anesthesia/Blood Transfusion Reactions: No Reported Reaction Date of Last Stent Placement:: 2004 Past Psychological History: No Psychological Hx Reported Smoking Status: Former smoker Past Alcohol Use History: Rare Past Drug Use History: None Reported Medications and Allergies Home Medications Medication Instructions Recorded Confirmed Type ALPRAZolam [Xanax] 0.25 mg PO HS PRN 10/11/16 01/21/24 History Aspirin EC [Ecotrin Low Dose] 81 mg PO DAILY 10/11/16 01/21/24 History Atorvastatin [Lipitor] 80 mg PO HS 10/11/16 01/21/24 History Clopidogrel Bisulfate [Plavix] 75 mg PO DAILY 10/11/16 01/21/24 History Ezetimibe [Zetia] 10 mg PO HS 10/11/16 01/21/24 History Insulin Aspart (For Pump) [NovoLOG 0.01 unit SQ-PUMP CONTINUOUS 10/11/16 01/21/24 History (For Pump)] Montelukast [Singulair] 10 mg PO HS 10/11/16 01/21/24 History Nitroglycerin Sl Tabs [Nitrostat] 0.4 mg SUBLINGUAL Q5M PRN 10/11/16 01/21/24 History allopurinoL [Zyloprim] 100 mg PO DAILY 10/11/16 01/21/24 History Alirocumab [Praluent Pen] 75 mg SQ Q14D 09/08/21 01/21/24 History Denosumab [Prolia] 1 dose SQ Q180D 02/27/23 01/21/24 History Ferric Citrate [Auryxia] 210 mg PO AC-TID 02/27/23 01/21/24 History Insulin Glargine,Hum.rec.anlog 12 unit SQ HS PRN 02/27/23 01/21/24 History [Basaglar Kwikpen U-100] Isosorbide Mononitrate ER [Imdur] 30 mg PO SUTUTHSA 02/27/23 01/21/24 History Lidocaine-Prilocaine Cream [Emla 1 applic TOPICAL MOWEFR 02/27/23 01/21/24 History Cream 2.5%/2.5%] Midodrine [ProAmatine] 5 mg PO QID PRN 02/27/23 01/21/24 History Torsemide [Demadex] 20 mg PO BID 02/27/23 01/21/24 History Acetaminophen Tab [Tylenol] 1,000 mg PO TID 09/05/23 01/21/24 History Ondansetron Odt [Zofran ODT] 4 mg PO BID PRN 09/05/23 01/21/24 History Metoprolol Succinate (ER) [Toprol 25 mg PO DAILY 01/21/24 01/21/24 History Xl] Omeprazole [PriLOSEC] 20 mg PO AC-BID 01/21/24 01/21/24 History Allergies Allergy/AdvReac Type Severity Reaction Status Date / Time famotidine [From Pepcid] Allergy Unknown Verified 01/21/24 07:42 nifedipine Allergy Swelling Verified 01/21/24 07:42 droperidol AdvReac Anxiety Verified 01/21/24 07:42 ezetimibe [From Vytorin] AdvReac Acid Reflux Verified 01/21/24 07:42 fentanyl AdvReac "Can't Verified 01/21/24 07:42 wake up"/Nausea hydrocodone AdvReac Angina Verified 01/21/24 07:42 hydromorphone [From Dilaudid] AdvReac Angina Verified 01/21/24 07:42 midazolam [From Versed] AdvReac Anxiety Verified 01/21/24 07:42 morphine AdvReac Nausea & Verified 01/21/24 07:42 Vomiting nitroglycerin AdvReac Patient Verified 01/21/24 07:42 denies this allergy. paroxetine [From Paxil] AdvReac Acid Reflux Verified 01/21/24 07:42 simvastatin [From Vytorin] AdvReac Acid Reflux Verified 01/21/24 07:42 sulfamethoxazole AdvReac Decreased Verified 01/21/24 07:42 [From Bactrim] Renal Function trandolapril [From Tarka] AdvReac Acid Reflux Verified 01/21/24 07:42 trimethoprim [From Bactrim] AdvReac Decreased Verified 01/21/24 07:42 Renal Function verapamil [From Tarka] AdvReac Acid Reflux Verified 01/21/24 07:42 Physical Exam Vitals: Vital Signs Temp Pulse Pulse Resp BP BP Pulse Ox 01/21/24 15:38 86 16 103/50 95 01/21/24 12:14 68 18 124/67 97 01/21/24 08:14 75 20 120/62 97 01/21/24 05:30 86 18 142/78 96 01/21/24 02:25 98.2 F 98 18 140/93 97 Intake and Output 01/21/24 01/21/24 01/21/24 06:59 14:59 22:59 Intake Total 150 Balance 150 Intake: IV 150 Other: Weight 63.503 kg Results 01/21/24 02:50 01/21/24 02:50 Cardiac Enzymes 01/21/24 01/21/24 01/21/24 Range/Units 02:50 02:50 06:12 AST 24 (14-36) U/L Troponin I 0.048 H* 0.114 H* (0.000-0.034) ng/mL 01/21/24 01/21/24 Range/Units 10:14 11:29 AST (14-36) U/L Troponin I 0.348 H* 0.468 H* (0.000-0.034) ng/mL Coagulation 01/21/24 Range/Units 02:50 PT 10.3 (10.0-12.5) sec APTT 23.2 (22.0-30.0) sec CBC 01/21/24 Range/Units 02:50 WBC 8.2 (3.8-10.6) k/uL RBC 3.06 L (3.80-5.40) m/uL Hgb 10.2 L (11.4-16.0) gm/dL Hct 30.9 L (34.0-46.0) % Plt Count 260 (150-450) k/uL Comprehensive Metabolic Panel 01/21/24 Range/Units 02:50 Sodium 139 (137-145) mmol/L Potassium 4.2 (3.5-5.1) mmol/L Chloride 102 (98-107) mmol/L Carbon Dioxide 28 (22-30) mmol/L BUN 75 H (7-17) mg/dL Creatinine 7.58 H* (0.52-1.04) mg/dL Glucose 146 H (74-99) mg/dL Calcium 11.7 H (8.4-10.2) mg/dL AST 24 (14-36) U/L ALT 18 (4-34) U/L Alkaline Phosphatase 156 H (38-126) U/L Total Protein 6.5 (6.3-8.2) g/dL Albumin 4.0 (3.5-5.0) g/dL Current Medications Generic Name Dose Route Start Last Admin Trade Name Freq PRN Reason Stop Dose Admin Acetaminophen 1,000 mg 01/21/24 09:00 01/21/24 08:12 Acetaminophen Tab 500 Mg Tab PO 1,000 mg TID OSIRIS Administration Alprazolam 0.25 mg 01/21/24 12:37 Alprazolam 0.25 Mg Tab PO Q6HR PRN Mild Anxiety Alprazolam 0.5 mg 01/21/24 12:37 Alprazolam 0.5 Mg Tab PO Q6HR PRN Moderate Anxiety Aspirin 81 mg 01/21/24 09:00 01/21/24 08:11 Aspirin 81 Mg PO 81 mg DAILY OSIRIS Administration Atorvastatin Calcium 80 mg 01/21/24 21:00 Atorvastatin 80 Mg Tab PO HS OSIRIS Clopidogrel Bisulfate 75 mg 01/21/24 09:00 01/21/24 08:11 Clopidogrel 75 Mg Tab PO 75 mg DAILY OSIRIS Administration Ezetimibe 10 mg 01/21/24 21:00 Ezetimibe 10 Mg Tab PO HS [facility] Insulin Detemir 12 unit 01/21/24 21:00 Insulin Detemir (Levemir) 100 Unit/Ml Syr SQ HS PRN pump failure Isosorbide Mononitrate 30 mg 01/22/24 09:00 Isosorbide Mononitrate Er 30 Mg Tab.Er.24h PO [id number]@0900 [facility] Metoprolol Succinate 25 mg 01/21/24 09:00 01/21/24 08:11 Metoprolol Succinate (Er) 25 Mg Tab.Er.24h PO 25 mg DAILY OSIRIS Administration Montelukast Sodium 10 mg 01/21/24 21:00 Montelukast 10 Mg Tab PO HS [facility] Nitroglycerin 0.4 mg 01/21/24 12:37 Nitroglycerin Sl Tabs 0.4 Mg Tab SUBLINGUAL Q5M PRN Chest Pain Non-Formulary Medication 210 mg 01/21/24 07:30 01/21/24 11:37 Ferric Citrate [Auryxia] PO Not Given AC-TID [facility] Ondansetron HCl 4 mg 01/21/24 05:38 Ondansetron Odt 4 Mg Tab PO BID PRN Nausea Sodium Chloride 10 ml 01/21/24 09:00 01/21/24 08:13 Sodium Chloride 0.9% Flush 10 Ml Syringe IV 10 ml BID OSIRIS Administration Torsemide 20 mg 01/21/24 09:00 01/21/24 08:12 Torsemide 20 Mg Tab PO 20 mg BID OSIRIS Administration Intake and Output 01/21/24 01/21/24 01/21/24 06:59 14:59 22:59 Intake Total 150 Balance 150 Intake: IV 150 Other: Weight 63.503 kg 01/21/24 02:50 01/21/24 02:50
[2024-01-21] MEDS: SODIUM CHLORIDE 0.9% 1,000 ML in EMPTY BAG 1 BAG IV SCH (16:53)
--- NOTE | 2024-01-21 19:27 | P.HPIM ---
History of Present Illness H&P Date: 01/21/24 Chief Complaint: Chest pain Very pleasant 68-year-old patient, follows with Dr. Rose. With chronic stable medical conditions include diabetes mellitus, hypertension, hyper lipidemia, end-stage kidney disease on hemodialysis since 2021, on insulin pump, coronary artery disease with prior stent. Follows for her cardiac care at [facility].-Has a previous bypass. 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 Getting tired. No radiation. She was seen last week and [facility] with no further intervention. This time the pain occurred last night with some nausea vomiting. Nitroglycerin did not help her. Review of systems: GEN.: Tired EYES: None HEENT: None NECK: None RESPIRATORY: None CARDIOVASCULAR: As above GASTROINTESTINAL: None GENITOURINARY: None MUSCULOSKELETAL: None LYMPHATICS: None HEMATOLOGICAL: None PSYCHIATRY: None NEUROLOGICAL: None Past medical history to include: Diabetes mellitus, hypertension, hyperlipidemia, end-stage kidney disease on dialysis Tuesdays and Sunday, CAD with stent and bypass-follows at [facility] Social history: Lives alone. Prior smoker. Alcohol rarely. Physical examination: VITAL SIGNS: 98.2, 86, 18, 142 x 78, 96% room GENERAL: Lying in bed, comfortable EYES: Pupils equal. Conjunctiva normal. HEENT: External appearance of nose and ears normal, oral cavity grossly normal. NECK: JVD not raised; masses not palpable. HEART: First and second heart sounds are normal; no edema. LUNGS: Respiratory rate normal; clear to auscultation. ABDOMEN: Soft, nontender, liver spleen not palpable, no masses palpable. PSYCH: Alert and oriented x3; mood and affect normal. MUSCULOSKELETAL:No Clubbing/cyanosis;muscles-grossly intact EXTREMITY is: Left upper extremity proximal fistula LYMPHATICS: No lymph nodes palpable in the axilla and neck INVESTIGATIONS, reviewed in the clinical context: January 20: White count 8.2 hemoglobin 10.2 platelets 260 sodium 139 potassium 4.2 pain 35 creatinine 7.58 Troponin I 0.048, 0.114, 0.348 EKG tracing personally reviewed by me-normal sinus rhythm. ST segment depression in anterolateral leads and inferior leads. Chest x-ray film personally reviewed by me-cardiomegaly Assessment and plan: -Acute non-ST elevation IN. In a patient known coronary artery disease. And prior stent. Aspirin. IV heparin. Going for cardiac catheterization -Chronic congestive heart failure from diastolic dysfunction EF 50-55% from underlying coronary artery- -Coronary artery disease with prior stents, coronary bypass Aspirin. Lipitor. Plavix. -Diabetes mellitus type 2 on insulin pump Continue pump -Hyperlipidemia Lipitor 80 mg daily at bedtime. Zetia 10 mg daily at bedtime -Essential hypertension Toprol-XL. -End-stage kidney disease on hemodialysis since 2021 Regular schedule: Sunday. Left upper extremity proximal AV fistula Follow with nephrology -Severe aortic valve sclerosis with moderate aortic stenosis, moderate to severe mitral regurgitation -Gallstones asymptomatic -Normocytic anemia, secondary to chronic kidney disease Discussed with patient. Nephrology and cardiology consulted. Past Medical History Past Medical History: Diabetes Mellitus, Hyperlipidemia, Hypertension, Renal Disease Additional Past Medical History / Comment(s): DIALYSIS.angina, kidney disease stage 4, pilonidal cyst, carpal tunnel, insulin pump History of Any Multi-Drug Resistant Organisms: None Reported Past Surgical History: Coronary Bypass/CABG, Heart Catheterization With Stent, Tonsillectomy, Tubal Ligation Additional Past Surgical History / Comment(s): cataracts Past Anesthesia/Blood Transfusion Reactions: No Reported Reaction Date of Last Stent Placement:: 2004 Past Psychological History: No Psychological Hx Reported Smoking Status: Former smoker Past Alcohol Use History: Rare Past Drug Use History: None Reported Medications and Allergies Home Medications Medication Instructions Recorded Confirmed Type ALPRAZolam [Xanax] 0.25 mg PO HS PRN 10/11/16 01/21/24 History Aspirin EC [Ecotrin Low Dose] 81 mg PO DAILY 10/11/16 01/21/24 History Atorvastatin [Lipitor] 80 mg PO HS 10/11/16 01/21/24 History Clopidogrel Bisulfate [Plavix] 75 mg PO DAILY 10/11/16 01/21/24 History Ezetimibe [Zetia] 10 mg PO HS 10/11/16 01/21/24 History Insulin Aspart (For Pump) [NovoLOG 0.01 unit SQ-PUMP CONTINUOUS 10/11/16 01/21/24 History (For Pump)] Montelukast [Singulair] 10 mg PO HS 10/11/16 01/21/24 History Nitroglycerin Sl Tabs [Nitrostat] 0.4 mg SUBLINGUAL Q5M PRN 10/11/16 01/21/24 History allopurinoL [Zyloprim] 100 mg PO DAILY 10/11/16 01/21/24 History Alirocumab [Praluent Pen] 75 mg SQ Q14D 09/08/21 01/21/24 History Denosumab [Prolia] 1 dose SQ Q180D 02/27/23 01/21/24 History Ferric Citrate [Auryxia] 210 mg PO AC-TID 02/27/23 01/21/24 History Insulin Glargine,Hum.rec.anlog 12 unit SQ HS PRN 02/27/23 01/21/24 History [Basaglar Kwikpen U-100] Isosorbide Mononitrate ER [Imdur] 30 mg PO SUTUTHSA 02/27/23 01/21/24 History Lidocaine-Prilocaine Cream [Emla 1 applic TOPICAL MOWEFR 02/27/23 01/21/24 History Cream 2.5%/2.5%] Midodrine [ProAmatine] 5 mg PO QID PRN 02/27/23 01/21/24 History Torsemide [Demadex] 20 mg PO BID 02/27/23 01/21/24 History Acetaminophen Tab [Tylenol] 1,000 mg PO TID 09/05/23 01/21/24 History Ondansetron Odt [Zofran ODT] 4 mg PO BID PRN 09/05/23 01/21/24 History Metoprolol Succinate (ER) [Toprol 25 mg PO DAILY 01/21/24 01/21/24 History Xl] Omeprazole [PriLOSEC] 20 mg PO AC-BID 01/21/24 01/21/24 History Allergies Allergy/AdvReac Type Severity Reaction Status Date / Time famotidine [From Pepcid] Allergy Unknown Verified 01/21/24 07:42 nifedipine Allergy Swelling Verified 01/21/24 07:42 droperidol AdvReac Anxiety Verified 01/21/24 07:42 ezetimibe [From Vytorin] AdvReac Acid Reflux Verified 01/21/24 07:42 fentanyl AdvReac "Can't Verified 01/21/24 07:42 wake up"/Nausea hydrocodone AdvReac Angina Verified 01/21/24 07:42 hydromorphone [From Dilaudid] AdvReac Angina Verified 01/21/24 07:42 midazolam [From Versed] AdvReac Anxiety Verified 01/21/24 07:42 morphine AdvReac Nausea & Verified 01/21/24 07:42 Vomiting nitroglycerin AdvReac Patient Verified 01/21/24 07:42 denies this allergy. paroxetine [From Paxil] AdvReac Acid Reflux Verified 01/21/24 07:42 simvastatin [From Vytorin] AdvReac Acid Reflux Verified 01/21/24 07:42 sulfamethoxazole AdvReac Decreased Verified 01/21/24 07:42 [From Bactrim] Renal Function trandolapril [From Tarka] AdvReac Acid Reflux Verified 01/21/24 07:42 trimethoprim [From Bactrim] AdvReac Decreased Verified 01/21/24 07:42 Renal Function verapamil [From Tarka] AdvReac Acid Reflux Verified 01/21/24 07:42 Physical Exam Vitals: Vital Signs Temp Pulse Resp BP Pulse Ox 01/21/24 08:14 75 20 120/62 97 01/21/24 05:30 86 18 142/78 96 01/21/24 02:25 98.2 F 98 18 140/93 97 Intake and Output 01/20/24 01/21/24 01/21/24 22:59 06:59 14:59 Other: Weight 63.503 kg Results CBC & Chem 7: 01/21/24 02:50 01/21/24 02:50 Labs: Abnormal Lab Results - Last 24 Hours (Table) 01/21/24 01/21/24 01/21/24 Range/Units 02:50 02:50 02:50 RBC 3.06 L (3.80-5.40) m/uL Hgb 10.2 L (11.4-16.0) gm/dL Hct 30.9 L (34.0-46.0) % MCV 101.2 H (80.0-100.0) fL RDW 17.2 H (11.5-15.5) % BUN 75 H (7-17) mg/dL Creatinine 7.58 H* (0.52-1.04) mg/dL Glucose 146 H (74-99) mg/dL Calcium 11.7 H (8.4-10.2) mg/dL Alkaline Phosphatase 156 H (38-126) U/L Troponin I 0.048 H* (0.000-0.034) ng/mL 01/21/24 Range/Units 06:12 RBC (3.80-5.40) m/uL Hgb (11.4-16.0) gm/dL Hct (34.0-46.0) % MCV (80.0-100.0) fL RDW (11.5-15.5) % BUN (7-17) mg/dL Creatinine (0.52-1.04) mg/dL Glucose (74-99) mg/dL Calcium (8.4-10.2) mg/dL Alkaline Phosphatase (38-126) U/L Troponin I 0.114 H* (0.000-0.034) ng/mL
[2024-01-21] MEDS ORDERED: INSULIN DETEMIR (LEVEMIR) 100 UNIT/ML SYR SQ PRN (21:00)
[2024-01-21] MEDS ORDERED: FOLIC ACID-VIT B COMPLEX-VIT C 1 CAP PO SCH (21:00)
[2024-01-21] MEDS: MONTELUKAST 10 MG TAB PO SCH (21:17)
[2024-01-21] MEDS: EZETIMIBE 10 MG TAB PO SCH (21:17)
[2024-01-21] MEDS: ATORVASTATIN 80 MG TAB PO SCH (21:18)
[2024-01-22] MEDS ORDERED: METOPROLOL TARTRATE 25 MG TAB PO SCH (09:00)
[2024-01-22] MEDS ORDERED: ASPIRIN 325 MG TAB PO SCH (09:00)
--- NOTE | 2024-01-22 10:31 | CA ---
Transthoracic Echo Report Name: Dionne Mercado Age: 68 Gender: F : 1955 Exam Date: 01/22/2024 08:09 Exam Location: [facility] Ht (in): 62 Wt (lb): 149 Ordering Physician: Kerri Mooney MD Attending/Referring Phys: Teacher Of The Visually Impaired Stephany Blandon RDCS Procedure CPT: Indications: Unstable angina, possible NSTEMI Cardiac Hx: Technical Quality: Technically difficult study Contrast 1: Definity Total Dose (mL): 2 Contrast 2: Total Dose (mL): MEASUREMENTS (Male / Female) Normal Values 2D ECHO LV Diastolic Diameter PLAX 4.8 cm 4.2 - 5.9 / 3.9 - 5.3 cm LV Systolic Diameter PLAX 3.9 cm IVS Diastolic Thickness 1.2 cm 0.6 - 1.0 / 0.6 - 0.9 cm LVPW Diastolic Thickness 1.0 cm 0.6 - 1.0 / 0.6 - 0.9 cm LV Relative Wall Thickness 0.5 LVOT Diameter 1.9 cm LA Volume 62.9 cm??? 18 - 58 / 22 - 52 cm??? LA Volume Index 36.2 cm???/m??? 16 - 28 cm???/m??? Ascending Aorta Diameter 3.4 cm DOPPLER AV Peak Velocity 243.7 cm/s AV Peak Gradient 23.8 mmHg AV Mean Velocity 186.2 cm/s AV Mean Gradient 15.0 mmHg AV Velocity Time Integral 55.6 cm LVOT Peak Velocity 140.2 cm/s LVOT Peak Gradient 7.9 mmHg LVOT Velocity Time Integral 28.8 cm LVOT Stroke Volume 79.2 cm??? LVOT Stroke Volume Index 47.0 ml/m??? LVOT Cardiac Index 3600.7 cm???/min???m??? AV Area Cont Eq vti 1.4 cm??? AV Area Cont Eq pk 1.6 cm??? MV Peak Velocity 149.2 cm/s MV Peak Gradient 8.9 mmHg MV Mean Velocity 87.9 cm/s MV Mean Gradient 4.0 mmHg MV Velocity Time Integral 33.2 cm TR Peak Velocity 284.1 cm/s TR Peak Gradient 32.3 mmHg Right Atrial Pressure 5.0 mmHg Pulmonary Artery Systolic Pressu 37.3 mmHg Right Ventricular Systolic Press 37.3 mmHg PV Peak Velocity 86.1 cm/s PV Peak Gradient 3.0 mmHg FINDINGS Left Ventricle Left ventricular ejection fraction is estimated at 35-40 %. Mildly increased septal wall thickness. Mildly increased posterior wall thickness. Global hypokinesis. Right Ventricle Right ventricle not well visualized. Mild pulmonary hypertension. Right Atrium Normal right atrial size. Left Atrium Mildly increased left atrial volume. Mitral Valve Mitral valve thickened. Mitral annular calcification. No evidence for mitral valve prolapse. Mild mitral stenosis. Trace to mild mitral regurgitation. Aortic Valve Aortic valve not well visualized. Diffuse thickening of the aortic valve cusps with reduced excursion. Mild aortic stenosis. Mean gradient 15mmHg. No aortic regurgitation. Tricuspid Valve Structurally normal tricuspid valve. No tricuspid stenosis. Mild tricuspid regurgitation. Pulmonic Valve Pulmonic valve not well visualized. No pulmonic stenosis. Trace pulmonic regurgitation. Pericardium No pericardial effusion. Aorta Normal size aortic root and proximal ascending aorta. CONCLUSIONS Moderate LV systolic dysfunction with an ejection fraction of 35 to 40% Mild aortic stenosis Mild tricuspid regurgitation Inferior wall is hypokinetic Previewed by: Dr. Christopher Mckeon MD (Electronically Signed) Final Date: 22 January 2024 10:30
[2024-01-22 10:55] LABS: African American GFR (CKD) 8 (>60 ml/min/1.73 sqM); Non-African American GFR(CKD) 7 (>60 ml/min/1.73 sqM)
[2024-01-22 11:38] LABS: Chol/HDL Ratio 1.56 Ratio; LDL Cholesterol,Calculated 32.1 mg/dL (0.0-131.0); VLDL Calculation 9.76 mg/dL (5.00-40.00)
[2024-01-22 12:29] VITALS: RESP 16
--- NOTE | 2024-01-22 12:56 | P.PN ---
Subjective HISTORY OF PRESENT ILLNESS: This is a 68-year-old female with past medical history significant for CABG, KS, end-stage renal disease on dialysis. Per the patient she had stents placed in 2019, double vessel CABG in 2020 and an KS following that. Patient follows with Dr. Lima from [facility]. We have been asked to see the patient in consultation for chest pain. Patient was examined at the bedside in the emergency room. Patient came to the hospital because she states that over the last few weeks she has been having central, nonradiating chest pain. She states that she has been seen at [facility] last week on and was cleared. She states the pain reoccurred last night and was accompanied by nausea and vomiting. She states she took a few nitroglycerin tabs which usually relieves the pain for a few minutes but this did not work this time and that is what brought her into the hospital. DIAGNOSTICS: - EKG reveals sinus rhythm with some PVCs - Chest xray shows mild pulmonary vascular congestion - Laboratory data: Hemoglobin 10.2. MCV 101.2. BUN 75. Creatinine 7.58. Glucose 146. Calcium 11.7. Troponins x 4: 0.048, 0.114, 0.348, 0.468. - Current home cardiac medications include aspirin 81 mg, Lipitor 80 mg, Plavix 75 mg, Zetia 10 mg, Imdur 30 mg, Toprol 25 mg, Nitrostat as needed, Demadex 20 mg twice daily Most recent echocardiogram in February 2023 showed moderate global hypokinesis of left ventricular systolic function, severely calcified aortic valve with moderate aortic stenosis, moderate mitral annulus calcification with moderate MR, mild TR -Most recent cath in May 2022 showed LMCA with 50% stenosis distally, LAD with ostial 80% stenosis, occlusion of first diagonal, circumflex with 70% stenosis, RCA with proximal 20 to 30% stenosis, mid 40% stenosis. There are 2 grafts present MADERA to LAD, SVG to diagonal and 8 stents. 01/22/2024 Patient is status post cardiac catheterization with Dr. Dao yesterday revealing 50 to 60% left main stenosis, 99% proximal LAD stenosis, 30 to 40% OM1 stenosis, 100% mid circumflex stenosis, 99 percent proximal RCA stenosis, 100% small caliber PDA stenosis, significantly elevated left-sided filling pressures, mild to moderate aortic stenosis with mean gradient 16 mmHg, IFR OM1 long lesion abnormal at 0.82 however relatively normal IFR of left main. Patent SVG to diagonal and MADERA to LAD. Patient underwent stenting of the proximal to mid RCA. Echocardiogram completed revealing ejection fraction 35 to 40%, global hypokinesis, mild pulmonary hypertension, mild aortic stenosis, mild tricuspid regurgitation, inferior wall hypokinesis. Patient examined this morning the bedside. Patient currently denies any chest pain or pressure. She denies shortness of breath. PHYSICAL EXAM: VITAL SIGNS: Reviewed. GENERAL: Well-developed in no acute distress. NECK: Supple. No JVD or thyromegaly LUNGS: Respirations even and unlabored. Lungs essentially clear to auscultation bilaterally. HEART: Regular rate and rhythm. S1 and S2 heard. Systolic murmur noted. EXTREMITIES: Normal range of motion. No clubbing or cyanosis. Peripheral pulses intact. No lower extremity edema ASSESSMENT: Chest pain Non-STEMI Status post cardiac catheterization with stenting of the proximal to mid RCA End-stage renal disease on hemodialysis History of coronary artery disease with previous stenting and CABG in 2020 History of coronary brachytherapy Ischemic cardiomyopathy, 35 to 40% Hyperlipidemia PLAN: Continue dual antiplatelet therapy with aspirin and Plavix for 12 months Continue high intensity statin. LDL goal less than 70. Continue additional cardiac medications Patient currently taking Imdur 4 days a week. She states this is because she has been having issues with her blood pressure in the past. Recommended patient to take Imdur on a daily basis if she has any further episodes of chest discomfort. Patient also encouraged to continue to monitor her blood pressure. Patient is stable for discharge home today from a cardiac standpoint Patient may follow-up in the office with Dr. Dao or with her lock assembler at [facility] Nurse practitioner note has been reviewed by physician. Signing provider agrees with the documented findings, assessment, and plan of care documented by TELEPHONE TRIAGE NURSE as a scribe. Objective - Vital Signs Vital signs: Vital Signs Temp 97.9 F 01/22/24 05:00 Pulse 68 01/22/24 05:00 Resp 18 01/22/24 05:00 BP 103/53 01/22/24 05:00 Pulse Ox 95 01/22/24 05:00 FiO2 Intake & Output 01/21/24 01/22/24 01/22/24 18:59 06:59 18:59 Intake Total 150 2420 Output Total 2400 Balance 150 20 Weight 63.503 kg 65.317 kg Intake: IV 150 20 Invasive Line 1 20 Hemodialysis 2400 Output: Hemodialysis 400 Hemodialysis Net Amount 2000 Other: Voiding Method Toilet # Voids 4 1 - Labs CBC & Chem 7: 01/21/24 02:50 01/22/24 07:49 Labs: Abnormal Lab Results - Last 24 Hours (Table) 01/21/24 01/21/24 01/21/24 Range/Units 10:14 11:29 17:32 Troponin I 0.348 H* 0.468 H* 0.633 H* (0.000-0.034) ng/mL
--- NOTE | 2024-01-22 13:03 | P.PN ---
Subjective patient is seen for follow-up for end-stage renal disease. Status post hemodialysis yesterday with UF of 2 L. Status post cardiac catheterization and coronary artery stenting yesterday. Noted to have elevated left-sided filling pressures. Patient is scheduled for hemodialysis again today. No complaints of chest pain. Objective - Vital Signs Vital signs: Vital Signs Temp 98.0 F 01/22/24 08:45 Pulse 77 01/22/24 12:00 Resp 16 01/22/24 12:00 BP 132/74 01/22/24 12:00 Pulse Ox 96 01/22/24 12:00 FiO2 Intake & Output 01/21/24 01/22/24 01/22/24 18:59 06:59 18:59 Intake Total 150 2420 500 Output Total 2400 Balance 150 20 500 Weight 63.503 kg 65.317 kg Intake: IV 150 20 Invasive Line 1 20 Oral 500 Hemodialysis 2400 Output: Hemodialysis 400 Hemodialysis Net Amount 2000 Other: Voiding Method Toilet Toilet # Voids 4 1 - Exam Patient is awake, comfortable, no acute distress. Mildly short of breath Examination of the heart S1 and S2 Examination of the lungs bilateral breath sounds are heard Abdomen is soft nontender Examination of lower extremity shows no significant edema ACCESS ANALYST exam grossly intact - Labs CBC & Chem 7: 01/21/24 02:50 01/22/24 07:49 Labs: Abnormal Lab Results - Last 24 Hours (Table) 01/21/24 01/22/24 01/22/24 Range/Units 17:32 07:49 07:49 Creatinine 5.75 H (0.52-1.04) mg/dL Troponin I 0.633 H* (0.000-0.034) ng/mL HDL Cholesterol 75.10 H (40.00-60.00) mg/dL Assessment and Plan Assessment: 1. End-stage renal disease on hemodialysis on Sunday schedule 2. Volume overload 3. Significant coronary artery disease with previous coronary stents being fo llowed at [facility]. status post cardiac catheterization on 01/21/2024 with stenting of RCA 4. CK D mineral bone disorder. Hypercalcemia noted and calcitriol is on hold. Plan: Repeat hemodialysis today. Continue with Demadex Repeat hemodialysis in a.m as outpatient. Patient can be discharged from nephrology standpoint post hemodialysis.
[2024-01-22 13:52] VITALS: BMI 26.3
[2024-01-22] MEDS ORDERED: ATROPINE SULFATE 0.1 MG/ML 10ML SYRINGE IV PRN (15:48)
[2024-01-22 17:05] VITALS: BP 121/45; PULSE 88; TEMP 98.3
[2024-01-22] MEDS: ISOSORBIDE MONONITRATE ER 30 MG TAB.ER.24H PO SCH (17:24)
--- NOTE | 2024-01-22 23:54 | P.DS ---
Providers Date of admission: 01/21/24 05:37 Expected date of discharge: 01/22/24 Attending physician: Mio Mar Consults: 01/21/24 05:37 Consult Physician Routine Consulting Provider: Humberto Hercules Consult Reason/Comments: chest pain Do you want consulting provider notified?: Yes 01/21/24 10:39 Consult Physician Routine Consulting Provider: Chula Arriaga Consult Reason/Comments: dialysis M/W/F Do you want consulting provider notified?: Already Contacted 01/21/24 16:28 Consult Physician Routine Consulting Provider: [facility] Consult Reason/Comments: Post Interventional Patient Do you want consulting provider notified?: Already Contacted Primary care physician: [facility] Course: Chief Complaint: Chest pain Very pleasant 68-year-old patient, follows with Dr. Rose. With chronic stable medical conditions include diabetes mellitus, hypertension, hyperlipidemia, end-stage kidney disease on hemodialysis since 2021, on insulin pump, coronary artery disease with prior stent. Follows for her cardiac care at [facility].-Has a previous bypass. [employer] Patient presents with anterior chest wall pain on and off going for about 3 weeks. Getting tired. No radiation. She was seen last week and [facility] with no further intervention. This time the pain occurred last night with some nausea vomiting. Nitroglycerin did not help her. January 21: Dr. Dao spoke to the patient. Patient may decide to follow-up with him. He discussed the stent in place. Other anatomy during cardiac cath. Medications discussed. Hemodialysis today. Past medical history to include: Diabetes mellitus, hypertension, hyperlipidemia, end-stage kidney disease on dialysis Tuesdays and Sunday, CAD with stent and bypass-follows at [facility] Social history: Lives alone. Prior smoker. Alcohol rarely. Physical examination: VITAL SIGNS: 98.3, 88, 16, 121 x 45, 95% room air GENERAL: Lying in bed, comfortable EYES: Pupils equal. Conjunctiva normal. HEENT: External appearance of nose and ears normal, oral cavity grossly normal. NECK: JVD not raised; masses not palpable. HEART: First and second heart sounds are normal; no edema. LUNGS: Respiratory rate normal; clear to auscultation. ABDOMEN: Soft, nontender, liver spleen not palpable, no masses palpable. PSYCH: Alert and oriented x3; mood and affect normal. MUSCULOSKELETAL:No Clubbing/cyanosis;muscles-grossly intact EXTREMITY is: Left upper extremity proximal fistula INVESTIGATIONS, reviewed in the clinical context: 2D echocardiogram: EF 35 to 40%. Cardiac catheterization: Results in Dr. Dao's notes January 20: White count 8.2 hemoglobin 10.2 platelets 260 sodium 139 potassium 4.2 pain 35 creatinine 7.58 Troponin I 0.048, 0.114, 0.348 EKG tracing personally reviewed by me-normal sinus rhythm. ST segment depression in anterolateral leads and inferior leads. Chest x-ray film personally reviewed by me-cardiomegaly Assessment and plan: -Acute non-ST elevation RI. In a patient known coronary artery disease. And prior stent. Aspirin. IV heparin. Going for cardiac catheterization -Chronic congestive heart failure from systolic dysfunction EF 35-40 from underlying coronary artery- -Angioplasty to RCA with stent with shockwave lithotripsy. Patent SVG to d iagonal and MADERA to LAD. Significantly elevated left-sided filling pressures. Other details about blockage in the catheterization notes - -Coronary artery disease with prior stents, coronary bypass Aspirin. Lipitor. Plavix. -Diabetes mellitus type 2 on insulin pump Continue pump -Hyperlipidemia Lipitor 80 mg daily at bedtime. Zetia 10 mg daily at bedtime -Essential hypertension Toprol-XL. -End-stage kidney disease on hemodialysis since 2021 Regular schedule: Sunday. Left upper extremity proximal AV fistula Follow with nephrology -Severe aortic valve sclerosis with moderate aortic stenosis, moderate to severe mitral regurgitation -Gallstones asymptomatic -Normocytic anemia, secondary to chronic kidney disease Disposition: Home Past Medical History Past Medical History: Diabetes Mellitus, Hyperlipidemia, Hypertension, Renal Disease Additional Past Medical History / Comment(s): DIALYSIS.angina, kidney disease stage 4, pilonidal cyst, carpal tunnel, insulin pump History of Any Multi-Drug Resistant Organisms: None Reported Past Surgical History: Coronary Bypass/CABG, Heart Catheterization With Stent, Tonsillectomy, Tubal Ligation Additional Past Surgical History / Comment(s): cataracts Past Anesthesia/Blood Transfusion Reactions: No Reported Reaction Date of Last Stent Placement:: 2004 Past Psychological History: No Psychological Hx Reported Smoking Status: Former smoker Past Alcohol Use History: Rare Past Drug Use History: None Reported Plan - Discharge Summary Discharge Rx Participant: No New Discharge Prescriptions: Continue Nitroglycerin Sl Tabs [Nitrostat] 0.4 mg SUBLINGUAL Q5M PRN PRN Reason: Angina Montelukast [Singulair] 10 mg PO HS Ezetimibe [Zetia] 10 mg PO HS allopurinoL [Zyloprim] 100 mg PO DAILY ALPRAZolam [Xanax] 0.25 mg PO HS PRN PRN Reason: Anxiety Clopidogrel Bisulfate [Plavix] 75 mg PO DAILY Atorvastatin [Lipitor] 80 mg PO HS Aspirin EC [Ecotrin Low Dose] 81 mg PO DAILY Insulin Aspart (For Pump) [NovoLOG (For Pump)] 0.01 unit SQ-PUMP CONTINUOUS Alirocumab [Praluent Pen] 75 mg SQ Q14D Ferric Citrate [Auryxia] 210 mg PO AC-TID Midodrine [ProAmatine] 5 mg PO QID PRN PRN Reason: Blood Pressure - Low Lidocaine-Prilocaine Cream [Emla Cream 2.5%/2.5%] 1 applic TOPICAL MOWEFR Torsemide [Demadex] 20 mg PO BID Acetaminophen Tab [Tylenol] 1,000 mg PO TID Omeprazole [PriLOSEC] 20 mg PO AC-BID Metoprolol Succinate (ER) [Toprol XL] 25 mg PO DAILY Denosumab [Prolia] 1 dose SQ Q180D Insulin Glargine,Hum.rec.anlog [Basaglar Kwikpen U-100] 12 unit SQ HS PRN PRN Reason: pump failure Isosorbide Mononitrate ER [Imdur] 30 mg PO SUTUTHSA Ondansetron Odt [Zofran ODT] 4 mg PO BID PRN PRN Reason: Nausea Discharge Medication List ALPRAZolam [Xanax] 0.25 mg PO HS PRN 10/11/16 [History] Aspirin EC [Ecotrin Low Dose] 81 mg PO DAILY 10/11/16 [History] Atorvastatin [Lipitor] 80 mg PO HS 10/11/16 [History] Clopidogrel Bisulfate [Plavix] 75 mg PO DAILY 10/11/16 [History] Ezetimibe [Zetia] 10 mg PO HS 10/11/16 [History] Insulin Aspart (For Pump) [NovoLOG (For Pump)] 0.01 unit SQ-PUMP CONTINUOUS 10/11/16 [History] Montelukast [Singulair] 10 mg PO HS 10/11/16 [History] Nitroglycerin Sl Tabs [Nitrostat] 0.4 mg SUBLINGUAL Q5M PRN 10/11/16 [History] allopurinoL [Zyloprim] 100 mg PO DAILY 10/11/16 [History] Alirocumab [Praluent Pen] 75 mg SQ Q14D 09/08/21 [History] Denosumab [Prolia] 1 dose SQ Q180D 02/27/23 [History] Ferric Citrate [Auryxia] 210 mg PO AC-TID 02/27/23 [History] Insulin Glargine,Hum.rec.anlog [Basaglar Kwikpen U-100] 12 unit SQ HS PRN [History] Isosorbide Mononitrate ER [Imdur] 30 mg PO SUTUTHSA 02/27/23 [History] Lidocaine-Prilocaine Cream [Emla Cream 2.5%/2.5%] 1 applic TOPICAL MOWEFR 02/27/23 [History] Midodrine [ProAmatine] 5 mg PO QID PRN 02/27/23 [History] Torsemide [Demadex] 20 mg PO BID 02/27/23 [History] Acetaminophen Tab [Tylenol] 1,000 mg PO TID 09/05/23 [History] Ondansetron Odt [Zofran ODT] 4 mg PO BID PRN 09/05/23 [History] Metoprolol Succinate (ER) [Toprol XL] 25 mg PO DAILY 01/21/24 [History] Omeprazole [PriLOSEC] 20 mg PO AC-BID 01/21/24 [History] Follow up Appointment(s)/Referral(s): Tavon Rose DO [Primary Care Provider] - 1-2 days (Office will call with an appt. ) Otf Dao DO [STAFF PHYSICIAN] - 1 Week (Appt 01/29/24 9:15am with Dr Mckeon (Has seen Dr Mckeon in past)) Discharge Disposition: HOME WITH HOME HEALTH SERVICES
[2024-01-25 11:56] LABS: Glucose,Whole Blood 135 mg/dL (70-110)
[2024-01-25 11:56] LABS: Glucose,Whole Blood 141 mg/dL (70-110)
[2024-01-25 11:56] LABS: Glucose,Whole Blood 127 mg/dL (70-110)
[2024-01-25 11:57] LABS: Glucose,Whole Blood 86 mg/dL (70-110)
== END 2024-01-22 17:42 | disposition home health service (06) ==
LOC: EC 02:22 → 3SCARD 05:37
PROVIDERS: ADMIT Hospitalist; ATTEND Hospitalist
DX: I21.A1 Myocardial infarction type 2 (principal); I13.2 Hypertensive heart and chronic kidney disease with heart failure and with stage 5 chronic kidney disease, or end stage renal disease; I50.42 Chronic combined systolic (congestive) and diastolic (congestive) heart failure; N18.6 End stage renal disease; I25.10 Atherosclerotic heart disease of native coronary artery without angina pectoris; E11.22 Type 2 diabetes mellitus with diabetic chronic kidney disease; D63.1 Anemia in chronic kidney disease; I08.0 Rheumatic disorders of both mitral and aortic valves; I25.5 Ischemic cardiomyopathy; M89.8X9 Other specified disorders of bone, unspecified site; E83.52 Hypercalcemia; Z99.2 Dependence on renal dialysis; E78.5 Hyperlipidemia, unspecified; Z79.899 Other long term (current) drug therapy; Z79.4 Long term (current) use of insulin; Z88.8 Allergy status to other drugs, medicaments and biological substances; Z88.5 Allergy status to narcotic agent; Z87.891 Personal history of nicotine dependence; Z95.1 Presence of aortocoronary bypass graft
CPT/HCPCS: 99285; 36415; 93005; 92978; 93459; 93799; 92972; 83880; 80061; 80053; 82565; 83735; 84484; 85025; 85610; 85730; 71046; G0257 ×2; G0378 ×2; C8929; C9600; C1769 ×5; C1760; C1887 ×2; C1894 ×2; C1725 ×2; C1753; C1874; C1761; J1644 ×3; J2405; J2001; Q9967; 90935; 93306

== ENCOUNTER 2024-03-02 21:41 | Inpatient (IN) | payer MEDICARE, OTHER ==
--- NOTE | 2024-03-02 21:57 | ED ---
Chest Pain [facility] - General Chief Complaint: Chest Pain Stated Complaint: chest pain Time Seen by Provider: 03/02/24 21:48 Source: patient, EMS Mode of arrival: EMS Limitations: no limitations - History of Present Illness Initial Comments: Patient is a 68-year-old woman with history of coronary artery disease who presents with chest pain that has been going on for weeks but got worse tonight. The patient states that she has seen Dr. Dao in the clinic last week and was told that if she does not have improvement they may need to do a heart catheterization. The patient has been taking nitroglycerin which was giving her relief from the symptoms but that stopped helping much now. She denies associated symptoms. Has end-stage renal disease with dialysis Sunday. She states she did have a normal session on Sunday. MD Complaint: chest pain -: week(s) Onset: during rest Pain Location: substernal Pain Radiation: none Severity: moderate Quality: tightness Consistency: constant Improves With: nitroglycerin Worsens With: exertion, supine Treatments Prior to Arrival: nitroglycerin - Related Data Home Medications Medication Instructions Recorded Confirmed ALPRAZolam [Xanax] 0.25 mg PO HS PRN 10/11/16 03/03/24 Aspirin EC [Ecotrin Low Dose] 81 mg PO DAILY 10/11/16 03/03/24 Atorvastatin [Lipitor] 80 mg PO HS 10/11/16 03/03/24 Clopidogrel Bisulfate [Plavix] 75 mg PO DAILY 10/11/16 03/03/24 Ezetimibe [Zetia] 10 mg PO HS 10/11/16 03/03/24 Insulin Aspart (For Pump) [NovoLOG 0.01 unit SQ-PUMP CONTINUOUS 10/11/16 03/03/24 (For Pump)] Montelukast [Singulair] 10 mg PO HS 10/11/16 03/03/24 Nitroglycerin Sl Tabs [Nitrostat] 0.4 mg SUBLINGUAL Q5M PRN 10/11/16 03/03/24 allopurinoL [Zyloprim] 100 mg PO DAILY 10/11/16 03/03/24 Alirocumab [Praluent Pen] 75 mg SQ Q14D 09/08/21 03/03/24 Denosumab [Prolia] 1 dose SQ Q180D 02/27/23 03/03/24 Ferric Citrate [Auryxia] 210 mg PO AC-TID 02/27/23 03/03/24 Insulin Glargine,Hum.rec.anlog 12 unit SQ HS PRN 02/27/23 03/03/24 [Cayetano Sharma U-100] Lidocaine-Prilocaine Cream [Emla 1 applic TOPICAL MOWEFR 02/27/23 03/03/24 Cream 2.5%/2.5%] Midodrine [ProAmatine] 5 mg PO QID PRN 02/27/23 03/03/24 Acetaminophen Tab [Tylenol] 1,000 mg PO TID 09/05/23 03/03/24 Ondansetron Odt [Zofran ODT] 4 mg PO BID PRN 09/05/23 03/03/24 Omeprazole [PriLOSEC] 20 mg PO AC-BID 01/21/24 03/03/24 Isosorbide Mononitrate ER [Imdur] 30 mg PO MOTUWETHFR 03/03/24 03/03/24 Previous Rx's Medication Instructions Recorded Isosorbide Mononitrate ER [Imdur] 30 mg PO SUSA #0 03/06/24 Metoprolol Succinate (ER) [Toprol 50 mg PO DAILY #60 tab 03/06/24 XL] Torsemide [Demadex] 20 mg PO DAILY@1400 #0 03/06/24 Allergies Allergy/AdvReac Type Severity Reaction Status Date / Time famotidine [From Pepcid] Allergy Unknown Verified 03/03/24 07:12 nifedipine Allergy Swelling Verified 03/03/24 07:12 droperidol AdvReac Anxiety Verified 03/03/24 07:12 ezetimibe [From Vytorin] AdvReac Acid Reflux Verified 03/03/24 07:12 fentanyl AdvReac "Can't Verified 03/03/24 07:12 wake up"/Nausea hydrocodone AdvReac Angina Verified 03/03/24 07:12 hydromorphone [From Dilaudid] AdvReac Angina Verified 03/03/24 07:12 midazolam [From Versed] AdvReac Anxiety Verified 03/03/24 07:12 morphine AdvReac Nausea & Verified 03/03/24 07:12 Vomiting nitroglycerin AdvReac Patient Verified 03/03/24 07:12 denies this allergy. paroxetine [From Paxil] AdvReac Acid Reflux Verified 03/03/24 07:12 ranolazine [From Ranexa] AdvReac Unknown Verified 03/03/24 07:12 simvastatin [From Vytorin] AdvReac Acid Reflux Verified 03/03/24 07:12 sulfamethoxazole AdvReac Decreased Verified 03/03/24 07:12 [From Bactrim] Renal Function trandolapril [From Tarka] AdvReac Acid Reflux Verified 03/03/24 07:12 trimethoprim [From Bactrim] AdvReac Decreased Verified 03/03/24 07:12 Renal Function verapamil [From Tarka] AdvReac Acid Reflux Verified 03/03/24 07:12 Review of Systems ROS Statement: Those systems with pertinent positive or pertinent negative responses have been documented in the HPI. ROS Other: All systems not noted in ROS Statement are negative. Constitutional: Denies: fever, chills Respiratory: Denies: cough, dyspnea Cardiovascular: Reports: chest pain. Denies: palpitations, orthopnea, edema, syncope Gastrointestinal: Denies: abdominal pain, nausea, vomiting, diarrhea Genitourinary: Denies: dysuria, hematuria Musculoskeletal: Denies: back pain Skin: Denies: rash Neurological: Denies: headache, weakness EKG Findings - EKG Results: EKG: interpreted by SARAH, sinus rhythm (90 bpm), normal axis - Blocks, Carmi, Hypertrophy, ST Abn: AV and intraventricular conduction: intraventricular conduction delay Repolarization changes or abnormalities: nonspecific abnormality, ST segment, and/or T wave Past Medical History Past Medical History: Diabetes Mellitus, Hyperlipidemia, Hypertension, Renal Disease Additional Past Medical History / Comment(s): DIALYSIS.angina, kidney disease stage 4, pilonidal cyst, carpal tunnel, insulin pump History of Any Multi-Drug Resistant Organisms: None Reported Past Surgical History: Coronary Bypass/CABG, Heart Catheterization With Stent, Tonsillectomy, Tubal Ligation Additional Past Surgical History / Comment(s): cataracts Past Anesthesia/Blood Transfusion Reactions: No Reported Reaction Date of Last Stent Placement:: 2004 Past Psychological History: No Psychological Hx Reported Smoking Status: Former smoker Past Alcohol Use History: Rare Past Drug Use History: None Reported General Exam Limitations: no limitations General appearance: alert, in no apparent distress Head exam: Present: atraumatic, normocephalic Eye exam: Present: normal appearance. Absent: scleral icterus, conjunctival injection Neck exam: Present: normal inspection Respiratory exam: Present: normal lung sounds bilaterally. Absent: respiratory distress, wheezes, rales, rhonchi, stridor, accessory muscle use Cardiovascular Exam: Present: regular rate, normal rhythm, systolic murmur (Growling grade 4 out of 6 systolic ejection murmur at the left sternal border). Absent: diastolic murmur, rubs, gallop GI/Abdominal exam: Present: soft. Absent: distended, tenderness, guarding, rebound, rigid, mass Extremities exam: Present: normal inspection, normal capillary refill. Absent: pedal edema, calf tenderness Back exam: Present: normal inspection. Absent: CVA tenderness (R), CVA tenderness (L) Neurological exam: Present: alert Skin exam: Present: warm, dry, intact, normal color. Absent: rash Course Vital Signs 03/02/24 03/03/24 03/03/24 21:44 01:00 03:40 Temperature 98.3 F Pulse Rate 85 77 87 Pulse Rate [ Right Prone Radial] Respiratory 16 18 18 Rate Blood Pressure 130/65 102/56 114/61 Blood Pressure [Left Arm] O2 Sat by Pulse 99 96 96 Oximetry 03/03/24 03/03/24 03/03/24 08:44 09:39 10:11 Temperature Pulse Rate 88 82 80 Pulse Rate [ Right Prone Radial] Respiratory 18 18 18 Rate Blood Pressure 119/60 135/73 107/54 Blood Pressure [Left Arm] O2 Sat by Pulse 98 98 98 Oximetry 03/03/24 03/03/24 03/03/24 11:00 12:00 13:00 Temperature Pulse Rate 80 80 84 Pulse Rate [ Right Prone Radial] Respiratory 18 18 18 Rate Blood Pressure 107/72 102/50 102/50 Blood Pressure [Left Arm] O2 Sat by Pulse 92 L 98 98 Oximetry 03/03/24 03/03/24 03/03/24 14:00 16:00 19:20 Temperature Pulse Rate 80 88 80 Pulse Rate [ Right Prone Radial] Respiratory 18 18 16 Rate Blood Pressure 102/57 112/60 Blood Pressure [Left Arm] O2 Sat by Pulse 98 98 96 Oximetry 03/03/24 03/03/24 03/04/24 20:52 21:06 04:59 Temperature 98.3 F 98 F 98.1 F Pulse Rate 73 82 Pulse Rate [ 77 Right Prone Radial] Respiratory 18 18 16 Rate Blood Pressure 103/50 96/52 Blood Pressure 101/51 [Left Arm] O2 Sat by Pulse 96 98 Oximetry Chest Pain MDM - MDM The patient had chest x-ray that I interpreted as negative for acute infiltrate, negative for pneumothorax. Was pt. sent in by a medical professional or institution (, PA, ASSISTANT SPA DIRECTOR, urgent care, hospital, or jail...) When possible be specific @ -[No] Did you speak to anyone other than the patient for history (EMS, parent, family, police, friend...)? What history was obtained from this source @ -[No] Did you review nursing and triage notes (agree or disagree)? Why? @ -[I reviewed and agree with nursing and triage notes] Were old charts reviewed (outside hosp., previous admission, EMS record, old EK G, old radiological studies, urgent care reports/EKG's, jail records)? Report findings @ -[No old charts were reviewed] Differential Diagnosis (chest pain, altered mental status, abdominal pain women, abdominal pain men, vaginal bleeding, weakness, fever, dyspnea, syncope, headache, dizziness, GI bleed, back pain, seizure, CVA, palpatations, mental health, musculoskeletal)? @ -Differential Chest Pain: Stable Angina, Unstable Angina, STEMI, NSTEMI Aortic Dissection, Pneumothorax, Musculoskeletal, Esophageal Spasm GERD, Cholecystitis, Pancreatitis, Zoster, this is not meant to be an all-inclusive list. EKG interpreted by me (3pts min.). @ -[I interpreted as above] X-rays interpreted by me (1pt min.). @ -[I interpreted as above CT interpreted by me (1pt min.). @ -[None done] U/S interpreted by me (1pt. min.). @ -[None done] What testing was considered but not performed or refused? (CT, X-rays, U/S, labs)? Why? @ -[None] What meds were considered but not given or refused? Why? @ -[None] Did you discuss the management of the patient with other professionals (professionals i.e. , PA, ASSISTANT SPA DIRECTOR, lab, RT, psych nurse, community mental health social worker, enlisted advisor, teacher, credit compliance officer, case making machine operator)? Give summary @ -[Case discussed with admitting physician and treatment recommendations are incorporated Was smoking cessation discussed for >3mins.? @ -[No] Was critical care preformed (if so, how long)? @ -[Yes, 30 minutes Were there social determinants of health that impacted care today? How? (Homelessness, low income, unemployed, alcoholism, drug addiction, transportation, low edu. Level, literacy, decrease access to med. care, senior living, rehab)? @ -[No] Was there de-escalation of care discussed even if they declined (Discuss DNR or withdrawal of care, Hospice)? DNR status @ -[No] What co-morbidities impacted this encounter? (DM, HTN, Smoking, COPD, CAD, Cancer, CVA, ARF, Chemo, Hep., AIDS, mental health diagnosis, sleep apnea, morbid obesity)? @ -End-stage renal disease, coronary artery disease Was patient admitted / discharged? Hospital course, mention meds given and route, prescriptions, significant lab abnormalities, going to OR and other pertinent info. @ -[Patient is 68-year-old woman here with chest pain that is concerning for acute coronary syndrome. The patient will be admitted for serial cardiac enzymes, telemetry monitoring, cardiology consultation. Heparin started Undiagnosed new problem with uncertain prognosis? @ -[No] Drug Therapy requiring intensive monitoring for toxicity (Heparin, Nitro, Insulin, Cardizem)? @ -[IV heparin Were any procedures done? @ -[No] Diagnosis/symptom? @ -[Acute chest pain Acute, or Chronic, or Acute on Chronic? @ -[Acute Uncomplicated (without systemic symptoms) or Complicated (systemic symptoms)? @ -[Uncomplicated Side effects of treatment? @ -[No] Exacerbation, Progression, or Severe Exacerbation? @ -[No] Poses a threat to life or bodily function? How? (Chest pain, USA, NH, pneumonia, PE, COPD, DKA, ARF, appy, cholecystitis, CVA, Diverticulitis, Homicidal, Suicidal, threat to staff... and all critical care pts) @ -[Yes, requires cardiology evaluation Disposition Clinical Impression: ESRD on hemodialysis, Acute coronary syndrome Disposition: ADMITTED IP TO THIS HOSP Condition: Serious Is patient prescribed a controlled substance at d/c from ED?: No
[2024-03-02 23:15] LABS: Basophils # (A) 0.1 k/uL (0-0.2); Basophils % (A) 1 %; Eosinophils # (A) 0.3 k/uL (0-0.7); Eosinophils % (A) 3 %; HCT 29.4 % (34.0-46.0); HGB 9.7 gm/dL (11.4-16.0); Lymphocytes # (A) 1.3 k/uL (1.0-4.8); Lymphocytes % (A) 16 %; MCHC 32.8 g/dL (31.0-37.0); Macrocytosis Moderate; Mean Platelet Volume 7.9; Monocytes # (A) 0.6 k/uL (0-1.0); Monocytes % (A) 8 %; Neutrophils # (A) 5.7 k/uL (1.3-7.7); Neutrophils % (A) 70 %; Platelet Count 292 k/uL (150-450); RBC 2.76 m/uL (3.80-5.40); RDW 13.6 % (11.5-15.5); WBC 8.2 k/uL (3.8-10.6)
[2024-03-02 23:23] LABS: ALT 16 U/L (4-34); AST 22 U/L (14-36); African American GFR (CKD) 5 (>60 ml/min/1.73 sqM); Alkaline Phosphatase 155 U/L (38-126); Anion Gap 12 mmol/L; Blood Urea Nitrogen 83 mg/dL (7-17); Calcium 10.4 mg/dL (8.4-10.2); Carbon Dioxide 24 mmol/L (22-30); Chloride 100 mmol/L (98-107); Glucose 119 mg/dL (74-99); INR 0.9 (<1.2); Magnesium 2.1 mg/dL (1.6-2.3); Non-African American GFR(CKD) 5 (>60 ml/min/1.73 sqM); Potassium 4.3 mmol/L (3.5-5.1); Sodium 136 mmol/L (137-145); Total Bilirubin 0.5 mg/dL (0.2-1.3); Total Protein 6.9 g/dL (6.3-8.2)
[2024-03-02 23:24] LABS: MCV 106.9 fL (80.0-100.0)
--- NOTE | 2024-03-03 00:45 | XR ---
EXAM: XR Chest, 2 Views CLINICAL HISTORY: ITS.REASON XR Reason: Chest Pain TECHNIQUE: Frontal and lateral views of the chest. COMPARISON: 01/21/2024. FINDINGS: Lungs: Presumed scarring/subsegmental atelectasis near the right lung base. Pleural space: Unremarkable. No pneumothorax. Heart: There is cardiomegaly. Post CABG changes. Mediastinum: Unremarkable. Normal mediastinal contour. Bones/joints: Sternotomy wires are noted in place. No acute fracture. Vasculature: Atherosclerotic disease. IMPRESSION: 1. Cardiomegaly. 2. Post CABG changes. 3. Presumed scarring/subsegmental atelectasis at the right lung base, unchanged.
[2024-03-03] MEDS: SODIUM CHLORIDE 0.9% 1,000 ML IV SCH (00:58)
[2024-03-03] MEDS: traMADol 50 MG TAB PO STA (01:16)
[2024-03-03] MEDS: NITROGLYCERIN SL TABS 0.4 MG TAB SUBLINGUAL PRN (01:19)
[2024-03-03] MEDS ORDERED: ALPRAZolam 0.25 MG TAB PO PRN (04:25)
[2024-03-03] MEDS: CALCIUM CARBONATE 500 MG CHEWABLE PO PRN (04:54)
[2024-03-03] MEDS: HEPARIN SOD,PORK IN 0.45% NACL 25,000 UNIT in 0.45% NACL 1 250ML.BAG IV SCH (06:58)
[2024-03-03] MEDS: HEPARIN SODIUM 1,000 UN/ML (10ML VL) IV ONE (07:03)
[2024-03-03] MEDS: PANTOPRAZOLE 40 MG TABLET PO SCH (08:44)
[2024-03-03] MEDS: ISOSORBIDE MONONITRATE ER 60 MG TAB.ER.24H PO SCH (08:44)
[2024-03-03] MEDS: METOPROLOL SUCCINATE (ER) 50 MG TAB.ER.24H PO SCH (08:44)
[2024-03-03] MEDS: ASPIRIN 81 MG PO SCH (08:44)
[2024-03-03] MEDS: CLOPIDOGREL 75 MG TAB PO SCH (08:44)
[2024-03-03] MEDS: TORSEMIDE 20 MG TAB PO SCH (08:44)
[2024-03-03] MEDS ORDERED: METOPROLOL SUCCINATE (ER) 25 MG TAB.ER.24H PO SCH (09:00)
[2024-03-03] MEDS ORDERED: ONDANSETRON ODT 4 MG TAB PO PRN (09:00)
[2024-03-03] MEDS ORDERED: ISOSORBIDE MONONITRATE ER 30 MG TAB.ER.24H PO SCH ×2 (09:00→10:00)
--- NOTE | 2024-03-03 10:03 | P.CRDCN ---
History of Present Illness Consult date: 03/03/24 Consult reason: chest pain History of present illness: This is a 68-year-old female patient of Dr. Dao with past medical history of coronary artery disease status post CABG, SC, end-stage renal disease on hemodialysis, aortic stenosis, ischemic cardiomyopathy, diabetes mellitus. Patient was last seen in the office on 02/26/2024. At that time, patient was having some chest pressure with improvement with nitroglycerin. He was thought to be likely related to not having as much dialysis. He had increased Imdur for the weekend. She states that she is having the most trouble over the weekends when she does not have dialysis for several days and has some fluid buildup and if her sugars are out of control symptoms seem to be worse. She states that she had a lot of pressure in her chest last night despite increasing the isosorbide. She took several nitroglycerin on Sunday and also again on Sunday. Pain is worse with activity and better at rest. She describes it now as a mild pressure. She denies missing any dialysis treatments. She does complain of some lower extremity edema. Patient has been started on a heparin drip. And we are seeing her in the emergency center waiting for a bed on the observation unit. Regarding medications, she has tried Ranexa in the past but it caused severe dizziness. Blood pressure 119/60, heart rate 88, pulse ox 98% on room air. Patient has been started on a heparin drip. EKG: Sinus rhythm with no acute ST changes Chest x-ray: Cardiomegaly. Atelectasis at the right lung base. Laboratory studies: WBC 8.2, hemoglobin 9.7. Sodium 136, potassium 4.3, BUN 83 and creatinine 8.17. Troponins negative x 2 followed by 0.045. Home cardiac medications: Aspirin 81 mg daily, atorvastatin 80 mg at bedtime, Plavix 75 mg daily, Zetia 10 mg at bedtime, Imdur 30 mg Sunday through Sunday an d 60 mg on Sunday and Sunday, Toprol-XL 25 mg daily, Nitrostat as needed, Demadex 20 mg twice daily. Cardiac catheterization performed May 2022 with left main 50% stenosis, LAD ostial 80% stenosis, occlusion of the first diagonal branch, circumflex with 70% stenosis, RCA with proximal 20 to 30% stenosis and mid 40% stenosis. She had 2 patent grafts with MADERA to LAD and SVG to diagonal branch and a total of 8 stents previously. Brachy therapy of the RCA in-stent stenosis. Repeat cardiac catheterization performed during her hospitalization 01/21/2024 under the setting of NSTEMI found progression of RCA disease more proximal to the stent and therefore stent was placed. There was significant PDA stenosis as well that appears to be in the left main stenosis. iFR was performed of the le ft main was normal at that time. Review Of Systems: At the time of my exam: CONSTITUTIONAL: Denies fever or chills. HEENT: Denies blurred vision, vision changes, or eye pain. Denies hemoptysis CARDIOVASCULAR: Denies chest pain. Denies orthopnea. Denies PND. Denies palpitations RESPIRATORY: Denies shortness of breath. GASTROINTESTINAL: Denies abdominal pain. Denies nausea or vomiting. HEMATOLOGIC: Denies bleeding disorders. GENITOURINARY: Denies any blood in urine. SKIN: Denies puritis. Denies rash. Physical examination: Gen: This is a 68-year-old female in no acute distress VS: reviewed HEENT: Head is atraumatic, normocephalic. Pupils equal, round. Sclerae is anicteric. NECK: Supple. No JVD. LUNGS: Clear to auscultation. No wheezes or rhonchi. No intercostal retractions. HEART: Regular rate and rhythm. 3/6 systolic murmur. ABDOMEN: Soft No tenderness. EXTREMITIES: Minimal pedal edema. No calf tenderness. NEUROLOGICAL: Patient is awake, alert and oriented x3. Assessment: Chest pain CAD status post CABG and PCI In-stent stenosis status post brachytherapy History of NSTEMI 12/2023 Ischemic cardiomyopathy with known EF of 35 to 40% End-stage renal disease on hemodialysis Diabetes mellitus type 1 Aortic stenosis Plan: Resume patient's home cardiac medications with the following changes: Increase Imdur to 60 mg daily Increase metoprolol succinate to 50 mg daily Continue heparin drip Obtain 2-D echocardiogram and Doppler study to assess cardiac structure and function N.p.o. after midnight for possible ischemic workup Further recommendations to follow based upon clinical course Thank you kindly for this consultation. Nurse practitioner note has been reviewed, I agree with documented findings and plan of care. Patient was seen and examined. Past Medical History Past Medical History: Diabetes Mellitus, Hyperlipidemia, Hypertension, Renal Disease Additional Past Medical History / Comment(s): DIALYSIS.angina, kidney disease stage 4, pilonidal cyst, carpal tunnel, insulin pump History of Any Multi-Drug Resistant Organisms: None Reported Past Surgical History: Coronary Bypass/CABG, Heart Catheterization With Stent, Tonsillectomy, Tubal Ligation Additional Past Surgical History / Comment(s): cataracts Past Anesthesia/Blood Transfusion Reactions: No Reported Reaction Date of Last Stent Placement:: 2004 Past Psychological History: No Psychological Hx Reported Smoking Status: Former smoker Past Alcohol Use History: Rare Past Drug Use History: None Reported Medications and Allergies Home Medications Medication Instructions Recorded Confirmed Type ALPRAZolam [Xanax] 0.25 mg PO HS PRN 10/11/16 03/03/24 History Aspirin EC [Ecotrin Low Dose] 81 mg PO DAILY 10/11/16 03/03/24 History Atorvastatin [Lipitor] 80 mg PO HS 10/11/16 03/03/24 History Clopidogrel Bisulfate [Plavix] 75 mg PO DAILY 10/11/16 03/03/24 History Ezetimibe [Zetia] 10 mg PO HS 10/11/16 03/03/24 History Insulin Aspart (For Pump) [NovoLOG 0.01 unit SQ-PUMP CONTINUOUS 10/11/16 03/03/24 History (For Pump)] Montelukast [Singulair] 10 mg PO HS 10/11/16 03/03/24 History Nitroglycerin Sl Tabs [Nitrostat] 0.4 mg SUBLINGUAL Q5M PRN 10/11/16 03/03/24 History allopurinoL [Zyloprim] 100 mg PO DAILY 10/11/16 03/03/24 History Alirocumab [Praluent Pen] 75 mg SQ Q14D 09/08/21 03/03/24 History Denosumab [Prolia] 1 dose SQ Q180D 02/27/23 03/03/24 History Ferric Citrate [Auryxia] 210 mg PO AC-TID 02/27/23 03/03/24 History Insulin Glargine,Hum.rec.anlog 12 unit SQ HS PRN 02/27/23 03/03/24 History [Basaglar Kwikpen U-100] Isosorbide Mononitrate ER [Imdur] 60 mg PO SUSA 02/27/23 03/03/24 History Lidocaine-Prilocaine Cream [Emla 1 applic TOPICAL MOWEFR 02/27/23 03/03/24 History Cream 2.5%/2.5%] Midodrine [ProAmatine] 5 mg PO QID PRN 02/27/23 03/03/24 History Torsemide [Demadex] 20 mg PO BID 02/27/23 03/03/24 History Acetaminophen Tab [Tylenol] 1,000 mg PO TID 09/05/23 03/03/24 History Ondansetron Odt [Zofran ODT] 4 mg PO BID PRN 09/05/23 03/03/24 History Metoprolol Succinate (ER) [Toprol 25 mg PO DAILY 01/21/24 03/03/24 History XL] Omeprazole [PriLOSEC] 20 mg PO AC-BID 01/21/24 03/03/24 History Isosorbide Mononitrate ER [Imdur] 30 mg PO MOTUWETHFR 03/03/24 03/03/24 History Allergies Allergy/AdvReac Type Severity Reaction Status Date / Time famotidine [From Pepcid] Allergy Unknown Verified 03/03/24 07:12 nifedipine Allergy Swelling Verified 03/03/24 07:12 droperidol AdvReac Anxiety Verified 03/03/24 07:12 ezetimibe [From Vytorin] AdvReac Acid Reflux Verified 03/03/24 07:12 fentanyl AdvReac "Can't Verified 03/03/24 07:12 wake up"/Nausea hydrocodone AdvReac Angina Verified 03/03/24 07:12 hydromorphone [From Dilaudid] AdvReac Angina Verified 03/03/24 07:12 midazolam [From Versed] AdvReac Anxiety Verified 03/03/24 07:12 morphine AdvReac Nausea & Verified 03/03/24 07:12 Vomiting nitroglycerin AdvReac Patient Verified 03/03/24 07:12 denies this allergy. paroxetine [From Paxil] AdvReac Acid Reflux Verified 03/03/24 07:12 ranolazine [From Ranexa] AdvReac Unknown Verified 03/03/24 07:12 simvastatin [From Vytorin] AdvReac Acid Reflux Verified 03/03/24 07:12 sulfamethoxazole AdvReac Decreased Verified 03/03/24 07:12 [From Bactrim] Renal Function trandolapril [From Tarka] AdvReac Acid Reflux Verified 03/03/24 07:12 trimethoprim [From Bactrim] AdvReac Decreased Verified 03/03/24 07:12 Renal Function verapamil [From Tarka] AdvReac Acid Reflux Verified 03/03/24 07:12 Physical Exam Vitals: Vital Signs Temp Pulse Resp BP Pulse Ox 03/03/24 03:40 87 18 114/61 96 03/03/24 01:00 77 18 102/56 96 03/02/24 21:44 98.3 F 85 16 130/65 99 Intake and Output 03/02/24 03/03/24 03/03/24 22:59 06:59 14:59 Other: Weight 63.503 kg Results 03/02/24 23:08 03/02/24 23:08 Cardiac Enzymes 03/02/24 03/02/24 03/03/24 Range/Units 23:08 23:08 02:44 AST 22 (14-36) U/L Troponin I 0.029 0.033 (0.000-0.034) ng/mL 03/03/24 Range/Units 05:46 AST (14-36) U/L Troponin I 0.045 H* (0.000-0.034) ng/mL Coagulation 03/02/24 Range/Units 23:08 PT 10.0 (10.0-12.5) sec APTT 23.0 (22.0-30.0) sec CBC 03/02/24 Range/Units 23:08 WBC 8.2 (3.8-10.6) k/uL RBC 2.76 L (3.80-5.40) m/uL Hgb 9.7 L (11.4-16.0) gm/dL Hct 29.4 L (34.0-46.0) % Plt Count 292 (150-450) k/uL Comprehensive Metabolic Panel 03/02/24 Range/Units 23:08 Sodium 136 L (137-145) mmol/L Potassium 4.3 (3.5-5.1) mmol/L Chloride 100 (98-107) mmol/L Carbon Dioxide 24 (22-30) mmol/L BUN 83 H (7-17) mg/dL Creatinine 8.17 H* (0.52-1.04) mg/dL Glucose 119 H (74-99) mg/dL Calcium 10.4 H (8.4-10.2) mg/dL AST 22 (14-36) U/L ALT 16 (4-34) U/L Alkaline Phosphatase 155 H (38-126) U/L Total Protein 6.9 (6.3-8.2) g/dL Albumin 4.0 (3.5-5.0) g/dL Current Medications Generic Name Dose Route Start Last Admin Trade Name Freq PRN Reason Stop Dose Admin Alprazolam 0.25 mg 03/03/24 04:25 Alprazolam 0.25 Mg Tab PO HS PRN Anxiety Aspirin 81 mg 03/03/24 09:00 Aspirin 81 Mg PO DAILY [facility] Atorvastatin Calcium 80 mg 03/03/24 21:00 Atorvastatin 80 Mg Tab PO HS [facility] Calcium Carbonate/Glycine 500 mg 03/03/24 04:25 03/03/24 04:54 Calcium Carbonate 500 Mg Chewable PO 500 mg QID PRN Administration Heartburn Clopidogrel Bisulfate 75 mg 03/03/24 09:00 Clopidogrel 75 Mg Tab PO DAILY [facility] Ezetimibe 10 mg 03/03/24 21:00 Ezetimibe 10 Mg Tab PO HS [facility] Heparin Sodium (Porcine) 0 unit 03/03/24 06:41 Heparin Sodium 1,000 Un/Ml (10ml Vl) IV PER PROTOCOL PRN Low PTT Protocol Sodium Chloride 1,000 mls @ 100 mls/hr 03/03/24 00:30 03/03/24 00:58 Saline 0.9% IV Not Given .Q10H [facility] Heparin Sodium/Sodium Chloride 250 mls @ 7.62 mls/hr 03/03/24 06:45 03/03/24 06:58 25,000 unit/ Sodium Chloride IV 12 units/kg/hr .Q24H OSIRIS 7.62 mls/hr Administration Protocol 12 UNITS/KG/HR Isosorbide Mononitrate 30 mg 03/04/24 09:00 Isosorbide Mononitrate Er 30 Mg Tab.Er.24h PO SuTuThSa@0900 [facility] Metoprolol Succinate 25 mg 03/03/24 09:00 Metoprolol Succinate (Er) 25 Mg Tab.Er.24h PO DAILY [facility] Midodrine 5 mg 03/03/24 09:00 Midodrine 5 Mg Tab PO QID PRN Blood Pressure - Low Montelukast Sodium 10 mg 03/03/24 21:00 Montelukast 10 Mg Tab PO HS OSIRIS Nitroglycerin 0.4 mg 03/03/24 00:16 03/03/24 03:39 Nitroglycerin Sl Tabs 0.4 Mg Tab SUBLINGUAL 0.4 mg Q5M PRN Administration Chest Pain Ondansetron HCl 4 mg 03/03/24 09:00 Ondansetron Odt 4 Mg Tab PO BID PRN Nausea Pantoprazole Sodium 40 mg 03/03/24 07:30 Pantoprazole 40 Mg Tablet PO AC-BID OSIRIS Torsemide 20 mg 03/03/24 09:00 Torsemide 20 Mg Tab PO BID OSIRIS Intake and Output 03/02/24 03/03/24 03/03/24 22:59 06:59 14:59 Other: Weight 63.503 kg 03/02/24 23:08 03/02/24 23:08
[2024-03-03] MEDS: allopurinoL 100 MG TAB PO SCH (10:10)
[2024-03-03] MEDS: Insulin Aspart (For Pump) 100 UNIT/ML VIAL SQ-PUMP SCH (10:10)
--- NOTE | 2024-03-03 12:09 | P.NPCON ---
History of Present Illness - Reason for Consult end stage renal disease - History of Present Illness patient is a 68-year-old female with end-stage renal disease on hemodialysis on Sunday schedule. Patient is admitted to the hospital with complaints of chest pain and shortness of breath.[place] patient has significant underlying coronary artery disease and follows at [facility] as well. She has been evaluated by cardiology and is scheduled for cardiac catheterization in a.m. No history of fever chills nausea or vomiting or abdominal pain. Past Medical History Past Medical History: Diabetes Mellitus, Hyperlipidemia, Hypertension, Renal Disease Additional Past Medical History / Comment(s): DIALYSIS.angina, kidney disease stage 4, pilonidal cyst, carpal tunnel, insulin pump History of Any Multi-Drug Resistant Organisms: None Reported Past Surgical History: Coronary Bypass/CABG, Heart Catheterization With Stent, Tonsillectomy, Tubal Ligation Additional Past Surgical History / Comment(s): cataracts Past Anesthesia/Blood Transfusion Reactions: No Reported Reaction Date of Last Stent Placement:: 2004 Past Psychological History: No Psychological Hx Reported Smoking Status: Former smoker Past Alcohol Use History: Rare Past Drug Use History: None Reported Medications and Allergies Home Medications Medication Instructions Recorded Confirmed Type ALPRAZolam [Xanax] 0.25 mg PO HS PRN 10/11/16 03/03/24 History Aspirin EC [Ecotrin Low Dose] 81 mg PO DAILY 10/11/16 03/03/24 History Atorvastatin [Lipitor] 80 mg PO HS 10/11/16 03/03/24 History Clopidogrel Bisulfate [Plavix] 75 mg PO DAILY 10/11/16 03/03/24 History Ezetimibe [Zetia] 10 mg PO HS 10/11/16 03/03/24 History Insulin Aspart (For Pump) [NovoLOG 0.01 unit SQ-PUMP CONTINUOUS 10/11/16 03/03/24 History (For Pump)] Montelukast [Singulair] 10 mg PO HS 10/11/16 03/03/24 History Nitroglycerin Sl Tabs [Nitrostat] 0.4 mg SUBLINGUAL Q5M PRN 10/11/16 03/03/24 History allopurinoL [Zyloprim] 100 mg PO DAILY 10/11/16 03/03/24 History Alirocumab [Praluent Pen] 75 mg SQ Q14D 09/08/21 03/03/24 History Denosumab [Prolia] 1 dose SQ Q180D 02/27/23 03/03/24 History Ferric Citrate [Auryxia] 210 mg PO AC-TID 02/27/23 03/03/24 History Insulin Glargine,Hum.rec.anlog 12 unit SQ HS PRN 02/27/23 03/03/24 History [Basaglar Kwikpen U-100] Isosorbide Mononitrate ER [Imdur] 60 mg PO SUSA 02/27/23 03/03/24 History Lidocaine-Prilocaine Cream [Emla 1 applic TOPICAL MOWEFR 02/27/23 03/03/24 History Cream 2.5%/2.5%] Midodrine [ProAmatine] 5 mg PO QID PRN 02/27/23 03/03/24 History Torsemide [Demadex] 20 mg PO BID 02/27/23 03/03/24 History Acetaminophen Tab [Tylenol] 1,000 mg PO TID 09/05/23 03/03/24 History Ondansetron Odt [Zofran ODT] 4 mg PO BID PRN 09/05/23 03/03/24 History Metoprolol Succinate (ER) [Toprol 25 mg PO DAILY 01/21/24 03/03/24 History XL] Omeprazole [PriLOSEC] 20 mg PO AC-BID 01/21/24 03/03/24 History Isosorbide Mononitrate ER [Imdur] 30 mg PO MOTUWETHFR 03/03/24 03/03/24 History Allergies Allergy/AdvReac Type Severity Reaction Status Date / Time famotidine [From Pepcid] Allergy Unknown Verified 03/03/24 07:12 nifedipine Allergy Swelling Verified 03/03/24 07:12 droperidol AdvReac Anxiety Verified 03/03/24 07:12 ezetimibe [From Vytorin] AdvReac Acid Reflux Verified 03/03/24 07:12 fentanyl AdvReac "Can't Verified 03/03/24 07:12 wake up"/Nausea hydrocodone AdvReac Angina Verified 03/03/24 07:12 hydromorphone [From Dilaudid] AdvReac Angina Verified 03/03/24 07:12 midazolam [From Versed] AdvReac Anxiety Verified 03/03/24 07:12 morphine AdvReac Nausea & Verified 03/03/24 07:12 Vomiting nitroglycerin AdvReac Patient Verified 03/03/24 07:12 denies this allergy. paroxetine [From Paxil] AdvReac Acid Reflux Verified 03/03/24 07:12 ranolazine [From Ranexa] AdvReac Unknown Verified 03/03/24 07:12 simvastatin [From Vytorin] AdvReac Acid Reflux Verified 03/03/24 07:12 sulfamethoxazole AdvReac Decreased Verified 03/03/24 07:12 [From Bactrim] Renal Function trandolapril [From Tarka] AdvReac Acid Reflux Verified 03/03/24 07:12 trimethoprim [From Bactrim] AdvReac Decreased Verified 03/03/24 07:12 Renal Function verapamil [From Tarka] AdvReac Acid Reflux Verified 03/03/24 07:12 Physical Exam Vitals: Vital Signs Temp Pulse Resp BP Pulse Ox 03/03/24 10:11 80 18 107/54 98 03/03/24 09:39 82 18 135/73 98 03/03/24 08:44 88 18 119/60 98 03/03/24 03:40 87 18 114/61 96 03/03/24 01:00 77 18 102/56 96 03/02/24 21:44 98.3 F 85 16 130/65 99 Intake and Output 03/02/24 03/03/24 03/03/24 22:59 06:59 14:59 Other: Weight 63.503 kg patient is awake, comfortable, no acute distress. Examination of the heart S1 and S2 Examination of the lungs bilateral breath sounds are heard Abdomen is soft nontender Examination of lower extremity shows no significant edema [employer] exam grossly intact Results - Lab Results Most recent lab results Calcium 10.4 mg/dL (8.4-10.2) H 03/02/24 23:08 Magnesium 2.1 mg/dL (1.6-2.3) 03/02/24 23:08 03/02/24 23:08 03/02/24 23:08 Assessment and Plan Assessment: 1. End-stage renal disease on hemodialysis on Sunday schedule 2. Chest pain with underlying severe coronary artery disease and coronary stents being followed by cardiology and scheduled for cardiac catheterization 3. CK D mineral bone disorder 4. Volume overload Plan: hemodialysis today with UF of 2-3 L as tolerated DC IV fluids Continue with Demadex Repeat hemodialysis in a.m. post cardiac catheterization. Minimize IV fluids.
[2024-03-03] MEDS: MIDODRINE 5 MG TAB PO PRN (17:12)
[2024-03-03] MEDS: ACETAMINOPHEN TAB 500 MG TAB PO SCH (18:32)
--- NOTE | 2024-03-03 19:41 | P.HPIM ---
History of Present Illness H&P Date: 03/03/24 Chief Complaint: Chest pain Very pleasant 68-year-old patient, follows with Dr. Rose. With chronic stable medical conditions include diabetes mellitus, hypertension, hyper lipidemia, end-stage kidney disease on hemodialysis since 2021, on insulin pump, coronary artery disease with prior stent. Follows for her cardiac care at [facility].-Has a previous bypass. 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 Recently it continues to [place]. They decided not to do a thing further at this point. Yesterday patient is having increasing anterior chest wall pain. Upper chest. Some shortness of breath. No dizziness no lightheadedness. She is taking nitroglycerin all day with not much help. Finally decided to come in. She is denying some lower extremity edema. Gets dialysis on Sunday and Sunday. Review of systems: GEN.: Tired EYES: None HEENT: None NECK: None RESPIRATORY: None CARDIOVASCULAR: As above GASTROINTESTINAL: None GENITOURINARY: None MUSCULOSKELETAL: None LYMPHATICS: None HEMATOLOGICAL: None PSYCHIATRY: None NEUROLOGICAL: None Past medical history to include: Diabetes mellitus, hypertension, hyperlipidemia, end-stage kidney disease on dialysis Tuesdays and Sunday, CAD with stent and bypass-follows at [facility] Social history: Lives alone. Prior smoker. Alcohol rarely. Physical examination: VITAL SIGNS: Afebrile, 82, 18, 107 x 54, 98% room GENERAL: Lying in bed, bit tired EYES: Pupils equal. Conjunctiva normal. HEENT: External appearance of nose and ears normal, oral cavity grossly normal. NECK: JVD not raised; masses not palpable. HEART: First and second heart sounds are normal; no edema LUNGS: Respiratory rate normal; clear to auscultation. ABDOMEN: Soft, nontender, liver spleen not palpable, no masses palpable. PSYCH: Alert and oriented x3; mood and affect normal. MUSCULOSKELETAL:No Clubbing/cyanosis;muscles-grossly intact EXTREMITY is: Left upper extremity AV fistula LYMPHATICS: No lymph nodes palpable in the axilla and neck INVESTIGATIONS, reviewed in the clinical context: March 02, 2024: White count 8.2 hemoglobin 9.7 platelets 292 sodium 136 potassium 4.3 BUN 83 creatinine 8.17 Troponin I 0.029, 0.033, 0.045 LDL 32.1 EKG tracing personally reviewed by me-normal sinus rhythm. ST segment depression V2-V6. And inferior leads Chest x-ray film personally reviewed by me-cardiomegaly. Some venous prominence Assessment and plan: -Unstable angina patient with known coronary artery disease. Follows at [facility] with Dr. Rangel and locally with Dr. Dao Aspirin. IV heparin. Beta-devan Per cardiology today Imdur increased to 60 mg a day. Metoprolol increased to 50 mg a day. IV heparin IV heparin monitoring per protocol -Chronic congestive heart failure from systolic dysfunction EF 35-40 from underlying coronary artery- -Coronary artery disease with prior stents, coronary bypass Aspirin. Lipitor. Plavix. -Diabetes mellitus type 2 on insulin pump Continue pump -Hyperlipidemia Lipitor 80 mg daily at bedtime. Zetia 10 mg daily at bedtime -Essential hypertension Toprol-XL. -End-stage kidney disease on hemodialysis since 2021 Regular schedule: Sunday. Left upper extremity proximal AV fistula Nephrology following. -Severe aortic valve sclerosis with moderate aortic stenosis, moderate to severe mitral regurgitation -Gallstones asymptomatic -Normocytic anemia, secondary to chronic kidney disease Discussed with the patient. For cardiac catheterization possibly tomorrow. Past Medical History Past Medical History: Diabetes Mellitus, Hyperlipidemia, Hypertension, Renal Disease Additional Past Medical History / Comment(s): DIALYSIS.angina, kidney disease stage 4, pilonidal cyst, carpal tunnel, insulin pump History of Any Multi-Drug Resistant Organisms: None Reported Past Surgical History: Coronary Bypass/CABG, Heart Catheterization With Stent, Tonsillectomy, Tubal Ligation Additional Past Surgical History / Comment(s): cataracts Past Anesthesia/Blood Transfusion Reactions: No Reported Reaction Date of Last Stent Placement:: 2004 Past Psychological History: No Psychological Hx Reported Smoking Status: Former smoker Past Alcohol Use History: Rare Past Drug Use History: None Reported Medications and Allergies Home Medications Medication Instructions Recorded Confirmed Type ALPRAZolam [Xanax] 0.25 mg PO HS PRN 10/11/16 03/03/24 History Aspirin EC [Ecotrin Low Dose] 81 mg PO DAILY 10/11/16 03/03/24 History Atorvastatin [Lipitor] 80 mg PO HS 10/11/16 03/03/24 History Clopidogrel Bisulfate [Plavix] 75 mg PO DAILY 10/11/16 03/03/24 History Ezetimibe [Zetia] 10 mg PO HS 10/11/16 03/03/24 History Insulin Aspart (For Pump) [NovoLOG 0.01 unit SQ-PUMP CONTINUOUS 10/11/16 03/03/24 History (For Pump)] Montelukast [Singulair] 10 mg PO HS 10/11/16 03/03/24 History Nitroglycerin Sl Tabs [Nitrostat] 0.4 mg SUBLINGUAL Q5M PRN 10/11/16 03/03/24 History allopurinoL [Zyloprim] 100 mg PO DAILY 10/11/16 03/03/24 History Alirocumab [Praluent Pen] 75 mg SQ Q14D 09/08/21 03/03/24 History Denosumab [Prolia] 1 dose SQ Q180D 02/27/23 03/03/24 History Ferric Citrate [Auryxia] 210 mg PO AC-TID 02/27/23 03/03/24 History Insulin Glargine,Hum.rec.anlog 12 unit SQ HS PRN 02/27/23 03/03/24 History [Basaglar Kwikpen U-100] Isosorbide Mononitrate ER [Imdur] 60 mg PO SUSA 02/27/23 03/03/24 History Lidocaine-Prilocaine Cream [Emla 1 applic TOPICAL MOWEFR 02/27/23 03/03/24 History Cream 2.5%/2.5%] Midodrine [ProAmatine] 5 mg PO QID PRN 02/27/23 03/03/24 History Torsemide [Demadex] 20 mg PO BID 02/27/23 03/03/24 History Acetaminophen Tab [Tylenol] 1,000 mg PO TID 09/05/23 03/03/24 History Ondansetron Odt [Zofran ODT] 4 mg PO BID PRN 09/05/23 03/03/24 History Metoprolol Succinate (ER) [Toprol 25 mg PO DAILY 01/21/24 03/03/24 History XL] Omeprazole [PriLOSEC] 20 mg PO AC-BID 01/21/24 03/03/24 History Isosorbide Mononitrate ER [Imdur] 30 mg PO MOTUWETHFR 03/03/24 03/03/24 History Allergies Allergy/AdvReac Type Severity Reaction Status Date / Time famotidine [From Pepcid] Allergy Unknown Verified 03/03/24 07:12 nifedipine Allergy Swelling Verified 03/03/24 07:12 droperidol AdvReac Anxiety Verified 03/03/24 07:12 ezetimibe [From Vytorin] AdvReac Acid Reflux Verified 03/03/24 07:12 fentanyl AdvReac "Can't Verified 03/03/24 07:12 wake up"/Nausea hydrocodone AdvReac Angina Verified 03/03/24 07:12 hydromorphone [From Dilaudid] AdvReac Angina Verified 03/03/24 07:12 midazolam [From Versed] AdvReac Anxiety Verified 03/03/24 07:12 morphine AdvReac Nausea & Verified 03/03/24 07:12 Vomiting nitroglycerin AdvReac Patient Verified 03/03/24 07:12 denies this allergy. paroxetine [From Paxil] AdvReac Acid Reflux Verified 03/03/24 07:12 ranolazine [From Ranexa] AdvReac Unknown Verified 03/03/24 07:12 simvastatin [From Vytorin] AdvReac Acid Reflux Verified 03/03/24 07:12 sulfamethoxazole AdvReac Decreased Verified 03/03/24 07:12 [From Bactrim] Renal Function trandolapril [From Tarka] AdvReac Acid Reflux Verified 03/03/24 07:12 trimethoprim [From Bactrim] AdvReac Decreased Verified 03/03/24 07:12 Renal Function verapamil [From Tarka] AdvReac Acid Reflux Verified 03/03/24 07:12 Physical Exam Vitals: Vital Signs Temp Pulse Resp BP Pulse Ox 03/03/24 09:39 82 18 135/73 98 03/03/24 08:44 88 18 119/60 98 03/03/24 03:40 87 18 114/61 96 03/03/24 01:00 77 18 102/56 96 03/02/24 21:44 98.3 F 85 16 130/65 99 Intake and Output 03/02/24 03/03/24 03/03/24 22:59 06:59 14:59 Other: Weight 63.503 kg Results CBC & Chem 7: 11/10/24 23:08 03/02/24 23:08 Labs: Abnormal Lab Results - Last 24 Hours (Table) 03/02/24 03/02/24 03/03/24 Range/Units 23:08 23:08 05:46 RBC 2.76 L (3.80-5.40) m/uL Hgb 9.7 L (11.4-16.0) gm/dL Hct 29.4 L (34.0-46.0) % MCV 106.9 H D (80.0-100.0) fL Sodium 136 L (137-145) mmol/L BUN 83 H (7-17) mg/dL Creatinine 8.17 H* (0.52-1.04) mg/dL Glucose 119 H (74-99) mg/dL Calcium 10.4 H (8.4-10.2) mg/dL Alkaline Phosphatase 155 H (38-126) U/L Troponin I 0.045 H* (0.000-0.034) ng/mL
[2024-03-03] MEDS: MONTELUKAST 10 MG TAB PO SCH (20:39)
[2024-03-03] MEDS: EZETIMIBE 10 MG TAB PO SCH (20:39)
[2024-03-03] MEDS: ATORVASTATIN 80 MG TAB PO SCH (20:39)
[2024-03-04 05:58] LABS: Prothrombin Time 10.6 sec (10.0-12.5)
--- NOTE | 2024-03-04 07:20 | CA ---
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 67 - 155 / 56 - 104 cm??? LV Systolic Volume MOD BP 105.3 cm??? 22 - 58 / 19 - 49 cm??? LV Ejection Fraction MOD BP 42.6 % >= 55 % LV Cardiac Index MOD BP 4043.1 cm???/min???m??? LV Diastolic Volume MOD 4C 164.8 cm??? LV Systolic Volume MOD 4C 100.2 cm??? LV Ejection Fraction MOD 4C 39.2 % LV Cardiac Index MOD 4C 3345.7 cm???/min???m??? LV Diastolic Length 4C 9.5 cm LV Systolic Length 4C 8.0 cm LV Diastolic Volume MOD 2C 194.9 cm??? LV Systolic Volume MOD 2C 108.8 cm??? LV Ejection Fraction MOD 2C 44.2 % LV Cardiac Index MOD 2C 4459.6 cm???/min???m??? LV Diastolic Length 2C 9.9 cm LV Systolic Length 2C 8.2 cm DOPPLER AV Peak Velocity 267.2 cm/s AV Peak Gradient 28.6 mmHg AV Mean Velocity 194.6 cm/s AV Mean Gradient 16.8 mmHg AV Velocity Time Integral 60.4 cm LVOT Peak Velocity 136.0 cm/s LVOT Peak Gradient 7.4 mmHg LVOT Velocity Time Integral 26.5 cm LVOT Stroke Volume 79.8 cm??? LVOT Stroke Volume Index 48.6 ml/m??? LVOT Cardiac Index 4133.3 cm???/min???m??? AV Area Cont Eq vti 1.3 cm??? AV Area Cont Eq pk 1.5 cm??? MV Peak Velocity 143.4 cm/s MV Peak Gradient 8.2 mmHg MV Mean Velocity 98.2 cm/s MV Mean Gradient 4.2 mmHg MV Velocity Time Integral 27.1 cm TR Peak Velocity 298.6 cm/s TR Peak Gradient 35.7 mmHg Right Atrial Pressure 5.0 mmHg Pulmonary Artery Systolic Pressu 40.7 mmHg Right Ventricular Systolic Press 40.7 mmHg PV Peak Velocity 90.8 cm/s PV Peak Gradient 3.3 mmHg FINDINGS Left Ventricle Left ventricular ejection fraction is estimated at 35-40 %. Mildly increased septal wall thickness. Moderately increased left ventricular diastolic diameter. Severely increased left ventricular diastolic volume. Severely increased left ventricular systolic volume. Moderately decreased left ventricular ejection fraction. Right Ventricle Right ventricular dilatation with borderline reduced function. Mild pulmonary hypertension. Right Atrium Normal right atrial size. Left Atrium Left atrial dilatation. Mitral Valve Mitral valve thickened. Mitral annular calcification. No evidence for mitral valve prolapse. Moderate mitral stenosis. [id number]-[id number]-[id number] mitral regurgitation. Aortic Valve Aortic valve not well visualized. Diffuse thickening of the aortic valve cusps with reduced excursion. Mild to moderate aortic stenosis. No aortic regurgitation. Tricuspid Valve Structurally normal tricuspid valve. Mild tricuspid regurgitation. Pulmonic Valve Structurally normal pulmonic valve. No pulmonic regurgitation. No pulmonic stenosis. Pericardium No pericardial effusion. Aorta Aortic root and proximal ascending aorta not well visualized. CONCLUSIONS Impaired LV systolic function with EF between 35 to 40% Extremely thickened mitral valve apparatus with mild to moderate MR and moderate mitral stenosis Aortic sclerosis with mild to moderate stenosis Previewed by: Dr. Humberto Hercules MD (Electronically Signed) Final Date: 04 March 2024 07:19
[2024-03-04] MEDS ORDERED: ASPIRIN 325 MG TAB PO SCH (09:00)
[2024-03-04] MEDS ORDERED: ISOSORBIDE MONONITRATE ER 30 MG TAB.ER.24H PO SCH (09:00)
[2024-03-04 09:12] LABS: HCT 27.2 % (37.2-46.3); HGB 9.1 g/dL (12.0-15.0); MCH 35.3 pg (27.0-32.0); MCHC 33.5 g/dL (32.0-37.0); MCV 105.4 FL (80.0-97.0); Mean Platelet Volume 10.8 FL (9.5-12.2); NRBC Per 100 WBC 0 X 10*3/uL (0.00-0.01); Platelet Count 288 X 10*3/uL (140-440); RBC 2.58 X 10*6/uL (4.10-5.20); RDW 13.9 % (11.5-14.5); WBC 8.53 X 10*3/uL (4.50-10.00)
[2024-03-04 09:27] LABS: Chol/HDL Ratio 1.59 Ratio; LDL Cholesterol,Calculated 35.2 mg/dL (0.0-131.0); VLDL Calculation 11.02 mg/dL (5.00-40.00)
[2024-03-04 10:06] LABS: Basophils # (A) 0.05 X 10*3/uL (0.00-0.10); Basophils % (A) 0.6 %; Eosinophils # (A) 0.15 X 10*3/uL (0.04-0.35); Eosinophils % (A) 1.8 %; Lymphocytes # (A) 0.92 X 10*3/uL (0.90-5.00); Lymphocytes % (A) 10.8 %; Macrocytosis (M) 2+; Monocytes # (A) 0.45 X 10*3/uL (0.20-1.00); Monocytes % (A) 5.3 %; Neutrophils # (A) 6.93 X 10*3/uL (1.80-7.70); Neutrophils % (A) 81.1 %
--- NOTE | 2024-03-04 10:48 | P.PN ---
Subjective Progress Note Date: 03/04/24 Consult reason: chest pain History of present illness: This is a 68-year-old female patient of Dr. Dao with past medical history of coronary artery disease status post CABG, ND, end-stage renal disease on hemodialysis, aortic stenosis, ischemic cardiomyopathy, diabetes mellitus. Patient was last seen in the office on 02/26/2024. At that time, patient was having some chest pressure with improvement with nitroglycerin. This was thought to be likely related to not having as much dialysis. He had increased Imdur for the weekend. She states that she is having the most trouble over the weekends when she does not have dialysis for several days and has some fluid buildup and if her sugars are out of control symptoms seem to be worse. She states that she had a lot of pressure in her chest last night despite increasing the isosorbide. She took several nitroglycerin on Sunday and also again on Sunday. Pain is worse with activity and better at rest. She describes it now as a mild pressure. She denies missing any dialysis treatments. She does complain of some lower extremity edema. Patient has been started on a heparin drip. And we are seeing her in the emergency center waiting for a bed on the observation unit. Regarding medications, she has tried Ranexa in the past but it caused severe dizziness. Blood pressure 119/60, heart rate 88, pulse ox 98% on room air. Patient has been started on a heparin drip. EKG: Sinus rhythm with no acute ST changes Chest x-ray: Cardiomegaly. Atelectasis at the right lung base. Laboratory studies: WBC 8.2, hemoglobin 9.7. Sodium 136, potassium 4.3, BUN 83 and creatinine 8.17. Troponins negative x 2 followed by 0.045. Home cardiac medications: Aspirin 81 mg daily, atorvastatin 80 mg at bedtime, Plavix 75 mg daily, Zetia 10 mg at bedtime, Imdur 30 mg Sunday through Sunday and 60 mg on Sunday and Sunday, Toprol-XL 25 mg daily, Nitrostat as needed, Demadex 20 mg twice daily. Cardiac catheterization performed May 2022 with left main 50% stenosis, LAD ostial 80% stenosis, occlusion of the first diagonal branch, circumflex with 70% stenosis, RCA with proximal 20 to 30% stenosis and mid 40% stenosis. She had 2 patent grafts with MADERA to LAD and SVG to diagonal branch and a total of 8 stents previously. Brachy therapy of the RCA in-stent stenosis. Repeat cardiac catheterization performed during her hospitalization 01/21/2024 under the setting of NSTEMI found progression of RCA disease more proximal to the stent and therefore stent was placed. There was significant PDA stenosis as well that appears to be in the left main stenosis. iFR was performed of the left main was normal at that time. 03/04/2024 Patient states that she is feeling 1000% better today. She states her breathing is better. She has not been out of bed other than to go to the bathroom and back to her bed. She remains on a heparin drip. Blood pressure 121/61, heart rate 89, pulse ox 96% on room air. Repeat blood work reveals hemoglobin 9.1. Triglycerides 55, cholesterol 124, LDLs 35, HDL 77. Echocardiogram reveals impaired LV function of 35 to 40%. Extremely thickened mitral valve apparatus with mild to moderate MR and moderate mitral stenosis. Aortic sclerosis with mild to moderate stenosis. Physical examination: Gen: This is a 68-year-old female in no acute distress VS: reviewed HEENT: Head is atraumatic, normocephalic. Pupils equal, round. Sclerae is anicteric. NECK: Supple. No JVD. LUNGS: Clear to auscultation. No wheezes or rhonchi. No intercostal retractions. HEART: Regular rate and rhythm. 3/6 systolic murmur. ABDOMEN: Soft No tenderness. EXTREMITIES: Minimal pedal edema. No calf tenderness. NEUROLOGICAL: Patient is awake, alert and oriented x3. Assessment: Chest pain CAD status post CABG and PCI In-stent stenosis status post brachytherapy History of NSTEMI 12/2023 Ischemic cardiomyopathy with known EF of 35 to 40% End-stage renal disease on hemodialysis Diabetes mellitus type 1 Aortic stenosis Plan: Continue patient's home cardiac medications with the following changes: Increase Imdur to 60 mg daily Increase metoprolol succinate to 50 mg daily Continue heparin drip for another 24 hours No plan for cardiac catheterization today Increase activity and monitor for symptoms of chest pain Further recommendations to follow based upon clinical course Nurse practitioner note has been reviewed, I agree with documented findings and plan of care. Patient was seen and examined. Objective - Vital Signs Vital signs: Vital Signs Temp 98.6 F 03/04/24 07:34 Pulse 89 03/04/24 07:34 Resp 16 03/04/24 07:34 BP 121/61 03/04/24 07:34 Pulse Ox 96 03/04/24 07:34 FiO2 Intake & Output 03/03/24 03/04/24 03/04/24 18:59 06:59 18:59 Intake Total 700 316.501 Output Total 3700 Balance -3000 316.501 Weight 63.503 kg Intake: Intake, IV Titration 198.501 Amount Heparin Sod,Pork in 0.45% 198.501 NaCl 25,000 unit In 0.45 % NaCl 1 250ml.bag @ 12 UNITS/KG/HR 7.62 mls/hr IV .Q24H [facility] Rx#: [id number] Oral 118 Hemodialysis 700 Output: Hemodialysis 2200 Hemodialysis Net Amount 1500 Other: Voiding Method Toilet - Labs CBC & Chem 7: 03/04/24 05:12 03/02/24 23:08 Labs: Abnormal Lab Results - Last 24 Hours (Table) 03/03/24 03/04/24 03/04/24 Range/Units 12: 05:12 05:12 RBC 2.58 L (4.10-5.20) X 10*6/uL Hgb 9.1 L (12.0-15.0) g/dL Hct 27.2 L (37.2-46.3) % MCV 105.4 H (80.0-97.0) FL MCH 35.3 H (27.0-32.0) pg Macrocytosis (manual) 2+ A APTT 54.7 H (22.0-30.0) sec HDL Cholesterol 77.80 H (40.00-60.00) mg/dL
[2024-03-04] MEDS: HEPARIN SODIUM 1,000 UN/ML (10ML VL) IV PRN (11:20)
--- NOTE | 2024-03-04 12:08 | P.PN ---
Subjective Patient is seen for follow-up for end-stage renal disease. Status post hemodialysis yesterday with UF of 1.5 L. Overall patient is feeling much be tter. There are no plans for cardiac catheterization today and therefore patient will be dialyzed tomorrow. Objective - Vital Signs Vital signs: Vital Signs Temp 98.6 F 03/04/24 07:34 Pulse 89 03/04/24 07:34 Resp 16 03/04/24 07:34 BP 121/61 03/04/24 07:34 Pulse Ox 96 03/04/24 07:34 FiO2 Intake & Output 03/03/24 03/04/24 03/04/24 18:59 06:59 18:59 Intake Total 700 334.027 Output Total 3700 Balance -3000 334.027 Weight 63.503 kg Intake: Intake, IV Titration 216.027 Amount Heparin Sod,Pork in 0.45% 216.027 NaCl 25,000 unit In 0.45 % NaCl 1 250ml.bag @ 12 UNITS/KG/HR 7.62 mls/hr IV .Q24H [facility] Rx#: [id number] Oral 118 Hemodialysis 700 Output: Hemodialysis 2200 Hemodialysis Net Amount 1500 Other: Voiding Method Toilet - Exam patient is awake, comfortable, no acute distress. 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 exam grossly intact - Labs CBC & Chem 7: 03/04/24 05:12 03/02/24 23:08 Labs: Abnormal Lab Results - Last 24 Hours (Table) 03/03/24 03/04/24 03/04/24 Range/Units 12: 05:12 05:12 RBC 2.58 L (4.10-5.20) X 10*6/uL Hgb 9.1 L (12.0-15.0) g/dL Hct 27.2 L (37.2-46.3) % MCV 105.4 H (80.0-97.0) FL MCH 35.3 H (27.0-32.0) pg Macrocytosis (manual) 2+ A APTT 54.7 H (22.0-30.0) sec HDL Cholesterol 77.80 H (40.00-60.00) mg/dL 03/04/24 Range/Units 10:22 RBC (4.10-5.20) X 10*6/uL Hgb (12.0-15.0) g/dL Hct (37.2-46.3) % MCV (80.0-97.0) FL MCH (27.0-32.0) pg Macrocytosis (manual) APTT 40.1 H (22.0-30.0) sec HDL Cholesterol (40.00-60.00) mg/dL Assessment and Plan Assessment: 1. End-stage renal disease on hemodialysis on Sunday schedule 2. Chest pain with underlying severe coronary artery disease and coronary stents being followed by cardiology. No plans for cardiac catheterization today. 3. Volume overloadon my improved 4. CK D mineral bone disorder Plan: hemodialysis in a.m. Continue Demadex add Aranesp
[2024-03-04] MEDS: DARBEPOETIN ALFA 60 MCG/0.3 ML SYRINGE SQ SCH (16:00)
--- NOTE | 2024-03-04 16:10 | P.PN ---
Progress Note - Text Progress Note Date: 03/04/24 Chief Complaint: Chest pain Very pleasant 68-year-old patient, follows with Dr. Rose. With chronic stable medical conditions include diabetes mellitus, hypertension, hyperlipidemia, end-stage kidney disease on hemodialysis since 2021, on insulin pump, coronary artery disease with prior stent. Follows for her cardiac care at [facility].-Has a previous bypass. [employer] . 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 Recently it continues to [place]. They decided not to do a thing further at this point. Yesterday patient is having increasing anterior chest wall pain. Upper chest. Some shortness of breath. No dizziness no lightheadedness. She is taking nitroglycerin all day with not much help. Finally decided to come in. She is denying some lower extremity edema. Gets dialysis on Sunday and Sunday. March 04: Sitting up in a recliner. Looks more comfortable. No chest pain. Medications adjusted yesterday by cardiology. Toprol-XL was increased to 50 mg a day Imdur was increased to 60 mg. Not for any intervention today. Patient told to increase her activity see how she does clinically. Active Medications Acetaminophen (Acetaminophen Tab 500 Mg Tab) 1,000 mg PO TID [facility] Last Admin: 03/04/24 15:59 Dose: 1,000 mg Allopurinol (Allopurinol 100 Mg Tab) 100 mg PO DAILY [facility] Last Admin: 03/04/24 08:57 Dose: 100 mg Alprazolam (Alprazolam 0.25 Mg Tab) 0.25 mg PO HS PRN PRN Reason: Anxiety Aspirin (Aspirin 81 Mg) 81 mg PO DAILY [facility] Last Admin: 03/04/24 08:57 Dose: 81 mg Atorvastatin Calcium (Atorvastatin 80 Mg Tab) 80 mg PO HS [facility] Last Admin: 03/03/24 20:39 Dose: Not Given Clopidogrel Bisulfate (Clopidogrel 75 Mg Tab) 75 mg PO DAILY [facility] Last Admin: 03/04/24 08:57 Dose: 75 mg Darbepoetin Neptali (Darbepoetin Neptali 60 Mcg/0.3 Ml Syringe) 60 mcg SQ Q7D [facility] Last Admin: 03/04/24 16:00 Dose: 60 mcg Ezetimibe (Ezetimibe 10 Mg Tab) 10 mg PO [facility] Last Admin: 03/03/24 20:39 Dose: Not Given Heparin Sodium (Porcine) (Heparin Sodium 1,000 Un/Ml (10ml Vl)) 0 unit IV PER PROTOCOL PRN; Protocol PRN Reason: Low PTT Last Admin: 03/04/24 11:20 Dose: 1,575 unit Heparin Sodium/Sodium Chloride (25,000 unit/ Sodium Chloride) 250 mls @ 7.62 mls/hr IV .Q24H [facility]; Protocol Last Titration: 03/04/24 11:19 Dose: 14 units/kg/hr, 8.89 mls/hr Insulin Aspart (Insulin Aspart (For Pump) 100 Unit/Ml Vial) 0.01 unit SQ-PUMP CONTINUOUS [facility] Last Admin: 03/04/24 11:20 Dose: 0.01 unit Isosorbide Mononitrate (Isosorbide Mononitrate Er 60 Mg Tab.Er.24h) 60 mg PO DAILY [facility] Last Admin: 03/04/24 11:20 Dose: 60 mg Metoprolol Succinate (Metoprolol Succinate (Er) 50 Mg Tab.Er.24h) 50 mg PO DAILY [facility] Last Admin: 03/04/24 08:57 Dose: 50 mg Midodrine (Midodrine 5 Mg Tab) 5 mg PO QID PRN PRN Reason: Blood Pressure - Low Last Admin: 03/04/24 15:03 Dose: 5 mg Montelukast Sodium (Montelukast 10 Mg Tab) 10 mg PO HS [facility] Last Admin: 03/03/24 20:39 Dose: Not Given Nitroglycerin (Nitroglycerin Sl Tabs 0.4 Mg Tab) 0.4 mg SUBLINGUAL Q5M PRN PRN Reason: Chest Pain Last Admin: 03/03/24 03:39 Dose: 0.4 mg Ondansetron HCl (Ondansetron Odt 4 Mg Tab) 4 mg PO BID PRN PRN Reason: Nausea Pantoprazole Sodium (Pantoprazole 40 Mg Tablet) 40 mg PO AC-BID [facility] Last Admin: 03/04/24 16:00 Dose: 40 mg Torsemide (Torsemide 20 Mg Tab) 20 mg PO BID [facility] Last Admin: 03/04/24 08:57 Dose: 20 mg Past medical history to include: Diabetes mellitus, hypertension, hyperlipidemia, end-stage kidney disease on dialysis Tuesdays and Sunday, CAD with stent and bypass-follows at [facility] Social history: Lives alone. Prior smoker. Alcohol rarely. Physical examination: VITAL SIGNS: 98.9, 91, 15, 86 Dora 32, 98% room air GENERAL: L up in a recliner EYES: Pupils equal. Conjunctiva normal. HEENT: External appearance of nose and ears normal, oral cavity grossly normal. NECK: JVD not raised; masses not palpable. HEART: First and second heart sounds are normal; no edema LUNGS: Respiratory rate normal; clear to auscultation. ABDOMEN: Soft, nontender, liver spleen not palpable, no masses palpable. PSYCH: Alert and oriented x3; mood and affect normal. MUSCULOSKELETAL:No Clubbing/cyanosis;muscles-grossly intact EXTREMITY is: Left upper extremity AV fistula The that INVESTIGATIONS, reviewed in the clinical context: March 04: White count 8.5 hemoglobin 9.1 platelets 288 LDL 35.2 March 02, 2024: White count 8.2 hemoglobin 9.7 platelets 292 sodium 136 potassium 4.3 BUN 83 creatinine 8.17 Troponin I 0.029, 0.033, 0.045 LDL 32.1 EKG tracing personally reviewed by me-normal sinus rhythm. ST segment depression V2-V6. And inferior leads Chest x-ray film personally reviewed by me-cardiomegaly. Some venous prominence Assessment and plan: -Unstable angina patient with known coronary artery disease.: No chest pain today Follows at [facility] with Dr. Rangel and locally with Dr. Dao Aspirin. IV heparin. Beta-devan Per cardiology today Imdur increased to 60 mg a day. Metoprolol increased to 50 mg a day. IV heparin IV heparin monitoring per protocol -Chronic congestive heart failure from systolic dysfunction EF 35-40 from underlying coronary artery- -Coronary artery disease with prior stents, coronary bypass Aspirin. Lipitor. Plavix. -Diabetes mellitus type 2 on insulin pump Continue pump -Hyperlipidemia Lipitor 80 mg daily at bedtime. Zetia 10 mg daily at bedtime -Essential hypertension Toprol-XL. -End-stage kidney disease on hemodialysis since 2021 Regular schedule: Sunday. Left upper extremity proximal AV fistula Nephrology following. -Severe aortic valve sclerosis with moderate aortic stenosis, moderate to severe mitral regurgitation -Gallstones asymptomatic -Normocytic anemia, secondary to chronic kidney disease No chest pain today. Blood pressure running on the lower side. Being followed by cardiology. Discussed with patient. Increase activity Past Medical History Past Medical History: Diabetes Mellitus, Hyperlipidemia, Hypertension, Renal Disease Additional Past Medical History / Comment(s): DIALYSIS.angina, kidney disease stage 4, pilonidal cyst, carpal tunnel, insulin pump History of Any Multi-Drug Resistant Organisms: None Reported Past Surgical History: Coronary Bypass/CABG, Heart Catheterization With Stent, Tonsillectomy, Tubal Ligation Additional Past Surgical History / Comment(s): cataracts Past Anesthesia/Blood Transfusion Reactions: No Reported Reaction Date of Last Stent Placement:: 2004 Past Psychological History: No Psychological Hx Reported Smoking Status: Former smoker Past Alcohol Use History: Rare Past Drug Use History: None Reported
--- NOTE | 2024-03-05 08:38 | P.PN ---
Subjective Progress Note Date: 03/05/24 Consult reason: chest pain History of present illness: This is a 68-year-old female patient of Dr. Dao with past medical history of coronary artery disease status post CABG, [place], end-stage renal disease on hemodialysis, aortic stenosis, ischemic cardiomyopathy, diabetes mellitus. Patient was last seen in the office on 02/26/2024. At that time, patient was having some chest pressure with improvement with nitroglycerin. This was thought to be likely related to not having as much dialysis. He had increased Imdur for the weekend. She states that she is having the most trouble over the weekends when she does not have dialysis for several days and has some fluid buildup and if her sugars are out of control symptoms seem to be worse. She states that she had a lot of pressure in her chest last night despite increasing the isosorbide. She took several nitroglycerin on Sunday and also again on Sunday. Pain is worse with activity and better at rest. She describes it now as a mild pressure. She denies missing any dialysis treatments. She does complain of some lower extremity edema. Patient has been started on a heparin drip. And we are seeing her in the emergency center waiting for a bed on the observation unit. Regarding medications, she has tried Ranexa in the past but it caused severe dizziness. Blood pressure 119/60, heart rate 88, pulse ox 98% on room air. Patient has been started on a heparin drip. EKG: Sinus rhythm with no acute ST changes Chest x-ray: Cardiomegaly. Atelectasis at the right lung base. Laboratory studies: WBC 8.2, hemoglobin 9.7. Sodium 136, potassium 4.3, BUN 83 and creatinine 8.17. Troponins negative x 2 followed by 0.045. Home cardiac medications: Aspirin 81 mg daily, atorvastatin 80 mg at bedtime, Plavix 75 mg daily, Zetia 10 mg at bedtime, Imdur 30 mg Sunday through Sunday and 60 mg on Sunday and Sunday, Toprol-XL 25 mg daily, Nitrostat as needed, Demadex 20 mg twice daily. Cardiac catheterization performed May 2022 with left main 50% stenosis, LAD ostial 80% stenosis, occlusion of the first diagonal branch, circumflex with 70% stenosis, RCA with proximal 20 to 30% stenosis and mid 40% stenosis. She had 2 patent grafts with MADERA to LAD and SVG to diagonal branch and a total of 8 stents previously. Brachy therapy of the RCA in-stent stenosis. Repeat cardiac catheterization performed during her hospitalization 01/21/2024 under the setting of NSTEMI found progression of RCA disease more proximal to the stent and therefore stent was placed. There was significant PDA stenosis as well that appears to be in the left main stenosis. iFR was performed of the left main was normal at that time. 03/04/2024 Patient states that she is feeling 1000% better today. She states her breathing is better. She has not been out of bed other than to go to the bathroom and back to her bed. She remains on a heparin drip. Blood pressure 121/61, heart rate 89, pulse ox 96% on room air. Repeat blood work reveals hemoglobin 9.1. Triglycerides 55, cholesterol 124, LDLs 35, HDL 77. Echocardiogram reveals impaired LV function of 35 to 40%. Extremely thickened mitral valve apparatus with mild to moderate MR and moderate mitral stenosis. Aortic sclerosis with mild to moderate stenosis. 03/05/2024 Patient is seen and examined. She states she is feeling much better today. She relates that her blood pressure was low yesterday afternoon and the lowest was 78/40. Patient did have dialysis treatment yesterday. She states she has been up and walking but has not had any chest pain with this. She states she can monitor her blood pressure at home. Suggested to patient that she could stay overnight and continue to be monitored but she would like to go home today. She has been maintained on a heparin drip which we will discontinue now. Blood pressure now 104/59, heart rate 59, pulse ox 97% on room air. Physical examination: Gen: This is a 68-year-old female in no acute distress VS: reviewed HEENT: Head is atraumatic, normocephalic. Pupils equal, round. Sclerae is anicteric. NECK: Supple. No JVD. LUNGS: Clear to auscultation. No wheezes or rhonchi. No intercostal retractions. HEART: Regular rate and rhythm. 3/6 systolic murmur. ABDOMEN: Soft No tenderness. EXTREMITIES: Minimal pedal edema. No calf tenderness. NEUROLOGICAL: Patient is awake, alert and oriented x3. Assessment: Chest pain CAD status post CABG and PCI In-stent stenosis status post brachytherapy History of NSTEMI 12/2023 Ischemic cardiomyopathy with known EF of 35 to 40% End-stage renal disease on hemodialysis Diabetes mellitus type 1 Aortic stenosis Plan: Continue patient's home cardiac medications with the following changes: Increase Imdur to 60 mg daily Increase metoprolol succinate to 50 mg daily Discontinue heparin drip No plan for cardiac catheterization Increase activity and monitor for symptoms of chest pain If patient is asymptomatic with ambulation, patient is cleared for discharge and may follow-up in the office with Dr. Dao in 1 to 2 weeks. Patient to monitor her blood pressure readings at home and take this to her next appointment. Nurse practitioner note has been reviewed, I agree with documented findings and plan of care. Patient was seen and examined. Objective - Vital Signs Vital signs: Vital Signs Temp 98.3 F 03/05/24 02:00 Pulse 71 03/05/24 02:00 Resp 16 03/05/24 02:00 BP 122/54 03/05/24 02:00 Pulse Ox 99 03/05/24 02:00 FiO2 Intake & Output 03/04/24 03/05/24 03/05/24 18:59 06:59 18:59 Intake Total 334.027 Balance 334.027 Weight 63.503 kg Intake: Intake, IV Titration 216.027 Amount Heparin Sod,Pork in 0.45% 216.027 NaCl 25,000 unit In 0.45 % NaCl 1 250ml.bag @ 12 UNITS/KG/HR 7.62 mls/hr IV .Q24H [facility] Rx#: [id number] Oral 118 Other: Voiding Method Toilet Toilet # Voids 1 1 - Labs CBC & Chem 7: 03/04/24 05:12 03/02/24 23:08 Labs: Abnormal Lab Results - Last 24 Hours (Table) 03/04/24 03/04/24 03/04/24 Range/Units 05:12 05:12 10:22 RBC 2.58 L (4.10-5.20) X 10*6/uL Hgb 9.1 L (12.0-15.0) g/dL Hct 27.2 L (37.2-46.3) % MCV 105.4 H (80.0-97.0) FL MCH 35.3 H (27.0-32.0) pg Macrocytosis (manual) 2+ A APTT 40.1 H (22.0-30.0) sec HDL Cholesterol 77.80 H (40.00-60.00) mg/dL 03/04/24 03/05/24 Range/Units 17:45 05:52 RBC (4.10-5.20) X 10*6/uL Hgb (12.0-15.0) g/dL Hct (37.2-46.3) % MCV (80.0-97.0) FL MCH (27.0-32.0) pg Macrocytosis (manual) APTT 63.6 H 67.5 H (22.0-30.0) sec HDL Cholesterol (40.00-60.00) mg/dL
[2024-03-05] MEDS: ISOSORBIDE MONONITRATE ER 30 MG TAB.ER.24H PO SCH (14:45)
--- NOTE | 2024-03-05 16:55 | P.PN ---
Progress Note - Text Progress Note Date: 03/05/24 Chief Complaint: Chest pain Very pleasant 68-year-old patient, follows with Dr. Rose. With chronic stable medical conditions include diabetes mellitus, hypertension, hyperlipidemia, end-stage kidney disease on hemodialysis since 2021, on insulin pump, coronary artery disease with prior stent. Follows for her cardiac care at [facility].-Has a previous bypass. 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 Recently it continues to [place]. They decided not to do a thing further at this point. Yesterday patient is having increasing anterior chest wall pain. Upper chest. Some shortness of breath. No dizziness no lightheadedness. She is taking nitroglycerin all day with not much help. Finally decided to come in. She is denying some lower extremity edema. Gets dialysis on Sunday and Sunday. March 04: Sitting up in a recliner. Looks more comfortable. No chest pain. Medications adjusted yesterday by cardiology. Toprol-XL was increased to 50 mg a day Imdur was increased to 60 mg. Not for any intervention today. Patient told to increase her activity see how she does clinically. March 05: No chest pain today. Got hemodialysis. Blood pressure been running low. Her morning medications were given this afternoon. As patient did not want it before dialysis. Did drop down to systolic in the 80s. Increase activity. Will watch the patient overnight. Do not feel it is safe for her to go home today. Daily Past medical history to include: Diabetes mellitus, hypertension, hyperlipidemia, end-stage kidney disease on dialysis Tuesdays and Sunday, CAD with stent and bypass-follows at [facility] Social history: Lives alone. Prior smoker. Alcohol rarely. Physical examination: VITAL SIGNS: 98.4, 78, 16, 94 x 57, 94% room air GENERAL: Reclining in bed EYES: Pupils equal. Conjunctiva normal. HEENT: External appearance of nose and ears normal, oral cavity grossly normal. NECK: JVD not raised; masses not palpable. HEART: First and second heart sounds are normal; no edema LUNGS: Respiratory rate normal; clear to auscultation. ABDOMEN: Soft, nontender, liver spleen not palpable, no masses palpable. PSYCH: Alert and oriented x3; mood and affect normal. MUSCULOSKELETAL:No Clubbing/cyanosis;muscles-grossly intact EXTREMITY is: Left upper extremity AV fistula INVESTIGATIONS, reviewed in the clinical context: March 04: White count 8.5 hemoglobin 9.1 platelets 288 LDL 35.2 March 02, 2024: White count 8.2 hemoglobin 9.7 platelets 292 sodium 136 potassium 4.3 BUN 83 creatinine 8.17 Troponin I 0.029, 0.033, 0.045 LDL 32.1 EKG tracing personally reviewed by me-normal sinus rhythm. ST segment depression V2-V6. And inferior leads Chest x-ray film personally reviewed by me-cardiomegaly. Some venous prominence Assessment and plan: -Unstable angina patient with known coronary artery disease.: No chest pain today Follows at [facility] with Dr. Rangel and locally with Dr. Dao Aspirin. IV heparin-discontinued. Beta-devan Per cardiology: Imdur increased to 60 mg a day. Metoprolol increased to 50 mg a day. IV heparin monitoring per protocol -Chronic congestive heart failure from systolic dysfunction EF 35-40 from underlying coronary artery- -Coronary artery disease with prior stents, coronary bypass Aspirin. Lipitor. Plavix. -Diabetes mellitus type 2 on insulin pump Continue pump -Hyperlipidemia Lipitor 80 mg daily at bedtime. Zetia 10 mg daily at bedtime -Essential hypertension Toprol-XL. Blood pressure currently running on the lower side. Follow closely -End-stage kidney disease on hemodialysis since 2021 Regular schedule: Sunday. Left upper extremity proximal AV fistula Nephrology following. -Severe aortic valve sclerosis with moderate aortic stenosis, moderate to severe mitral regurgitation -Gallstones asymptomatic -Normocytic anemia, secondary to chronic kidney disease Patient denies being any chest pain today. Had hemodialysis. Blood pressure running on the lower side. Morning medications given early afternoon. Do not feel it is safe for the patient to go home will watch overnight at least. Past Medical History Past Medical History: Diabetes Mellitus, Hyperlipidemia, Hypertension, Renal D isease Additional Past Medical History / Comment(s): DIALYSIS.angina, kidney disease stage 4, pilonidal cyst, carpal tunnel, insulin pump History of Any Multi-Drug Resistant Organisms: None Reported Past Surgical History: Coronary Bypass/CABG, Heart Catheterization With Stent, Tonsillectomy, Tubal Ligation Additional Past Surgical History / Comment(s): cataracts Past Anesthesia/Blood Transfusion Reactions: No Reported Reaction Date of Last Stent Placement:: 2004 Past Psychological History: No Psychological Hx Reported Smoking Status: Former smoker Past Alcohol Use History: Rare Past Drug Use History: None Reported
[2024-03-05 19:46] VITALS: TEMP 98.1
[2024-03-06 07:56] VITALS: BP 113/57; PULSE 58; RESP 16
--- NOTE | 2024-03-06 10:09 | P.PN ---
Subjective Progress Note Date: 03/06/24 Consult reason: chest pain History of present illness: This is a 68-year-old female patient of Dr. Dao with past medical history of coronary artery disease status post CABG, [place], end-stage renal disease on hemodialysis, aortic stenosis, ischemic cardiomyopathy, diabetes mellitus. Patient was last seen in the office on 02/26/2024. At that time, patient was having some chest pressure with improvement with nitroglycerin. This was thought to be likely related to not having as much dialysis. He had increased Imdur for the weekend. She states that she is having the most trouble over the weekends when she does not have dialysis for several days and has some fluid buildup and if her sugars are out of control symptoms seem to be worse. She states that she had a lot of pressure in her chest last night despite increasing the isosorbide. She took several nitroglycerin on Sunday and also again on Sunday. Pain is worse with activity and better at rest. She describes it now as a mild pressure. She denies missing any dialysis treatments. She does complain of some lower extremity edema. Patient has been started on a heparin drip. And we are seeing her in the emergency center waiting for a bed on the observation unit. Regarding medications, she has tried Ranexa in the past but it caused severe dizziness. Blood pressure 119/60, heart rate 88, pulse ox 98% on room air. Patient has been started on a heparin drip. EKG: Sinus rhythm with no acute ST changes Chest x-ray: Cardiomegaly. Atelectasis at the right lung base. Laboratory studies: WBC 8.2, hemoglobin 9.7. Sodium 136, potassium 4.3, BUN 83 and creatinine 8.17. Troponins negative x 2 followed by 0.045. Home cardiac medications: Aspirin 81 mg daily, atorvastatin 80 mg at bedtime, Plavix 75 mg daily, Zetia 10 mg at bedtime, Imdur 30 mg Sunday through Sunday and 60 mg on Sunday and Sunday, Toprol-XL 25 mg daily, Nitrostat as needed, Demadex 20 mg twice daily. Cardiac catheterization performed May 2022 with left main 50% stenosis, LAD ostial 80% stenosis, occlusion of the first diagonal branch, circumflex with 70% stenosis, RCA with proximal 20 to 30% stenosis and mid 40% stenosis. She had 2 patent grafts with MADERA to LAD and SVG to diagonal branch and a total of 8 stents previously. Brachy therapy of the RCA in-stent stenosis. Repeat cardiac catheterization performed during her hospitalization 01/21/2024 under the setting of NSTEMI found progression of RCA disease more proximal to the stent and therefore stent was placed. There was significant PDA stenosis as well that appears to be in the left main stenosis. iFR was performed of the left main was normal at that time. 03/04/2024 Patient states that she is feeling 1000% better today. She states her breathing is better. She has not been out of bed other than to go to the bathroom and back to her bed. She remains on a heparin drip. Blood pressure 121/61, heart rate 89, pulse ox 96% on room air. Repeat blood work reveals hemoglobin 9.1. Triglycerides 55, cholesterol 124, LDLs 35, HDL 77. Echocardiogram reveals impaired LV function of 35 to 40%. Extremely thickened mitral valve apparatus with mild to moderate MR and moderate mitral stenosis. Aortic sclerosis with mild to moderate stenosis. 03/05/2024 Patient is seen and examined. She states she is feeling much better today. She relates that her blood pressure was low yesterday afternoon and the lowest was 78/40. Patient did have dialysis treatment yesterday. She states she has been up and walking but has not had any chest pain with this. She states she can monitor her blood pressure at home. Suggested to patient that she could stay overnight and continue to be monitored but she would like to go home today. She has been maintained on a heparin drip which we will discontinue now. Blood pressure now 104/59, heart rate 59, pulse ox 97% on room air. 03/06/2024 Patient is seen and examined. Cardiac catheterization films have been reviewed by Dr. Hercules with Dr. Dao. They are both in agreement that medical management is the best plan for the patient. Yesterday afternoon, patient requested that Imdur be changed back to lower dose which we did. She denies having any chest pain at this time. Blood pressure 113/57, heart rate 58, pulse ox 96% on room air. Physical examination: Gen: This is a 68-year-old female in no acute distress VS: reviewed HEENT: Head is atraumatic, normocephalic. Pupils equal, round. Sclerae is anicteric. NECK: Supple. No JVD. LUNGS: Clear to auscultation. No wheezes or rhonchi. No intercostal retractions. HEART: Regular rate and rhythm. 3/6 systolic murmur. ABDOMEN: Soft No tenderness. EXTREMITIES: Minimal pedal edema. No calf tenderness. NEUROLOGICAL: Patient is awake, alert and oriented x3. Assessment: Chest pain CAD status post CABG and PCI In-stent stenosis status post brachytherapy History of NSTEMI 12/2023 Ischemic cardiomyopathy with known EF of 35 to 40% End-stage renal disease on hemodialysis Diabetes mellitus type 1 Aortic stenosis Plan: Continue patient's home cardiac medications with the following changes: Increase metoprolol succinate to 50 mg daily Patient is cleared for discharge and may follow-up in the office with Dr. Dao in 1 to 2 weeks. Patient to monitor her blood pressure readings at home and take this to her next appointment. Nurse practitioner note has been reviewed, I agree with documented findings and plan of care. Patient was seen and examined. Objective - Vital Signs Vital signs: Vital Signs Temp 98.1 F 03/06/24 01:50 Pulse 60 03/06/24 01:50 Resp 18 03/06/24 01:50 BP 91/48 03/06/24 01:50 Pulse Ox 95 03/06/24 01:50 FiO2 Intake & Output 03/05/24 03/06/24 03/06/24 18:59 06:59 18:59 Intake Total 937.282 Output Total 4400 Balance -3462.718 Intake: Intake, IV Titration 183.282 Amount Heparin Sod,Pork in 0.45% 183.282 NaCl 25,000 unit In 0.45 % NaCl 1 250ml.bag @ 12 UNITS/KG/HR 7.62 mls/hr IV .Q24H OSIRIS Rx#: [id number] Oral 354 Hemodialysis 400 Output: Hemodialysis 2400 Hemodialysis Net Amount 2000 Other: # Voids 1 2 - Labs CBC & Chem 7: 03/04/24 05:12 03/02/24 23:08
--- NOTE | 2024-03-06 17:56 | P.DS ---
Providers Date of admission: 03/03/24 19:41 Expected date of discharge: 03/06/24 Attending physician: Mio Mar Consults: 03/03/24 00:16 Consult Physician Routine Consulting Provider: Humberto Hercules Consult Reason/Comments: chest pain Do you want consulting provider notified?: Yes 03/03/24 07:47 Consult Physician Routine Consulting Provider: Chula Arriaga Consult Reason/Comments: esrd on hd m,w,f Do you want consulting provider notified?: Yes Primary care physician: [facility] Course: Chief Complaint: Chest pain Very pleasant 68-year-old patient, follows with Dr. Rose. With chronic stable medical conditions include diabetes mellitus, hypertension, hyperlipidemia, end-stage kidney disease on hemodialysis since 2021, on insulin pump, coronary artery disease with prior stent. Follows for her cardiac care at [facility].-Has a previous bypass. 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 Recently it continues to [place]. They decided not to do a thing further at this point. Yesterday patient is having increasing anterior chest wall pain. Upper chest. Some shortness of breath. No dizziness no lightheadedness. She is taking nitroglycerin all day with not much help. Finally decided to come in. She is denying some lower extremity edema. Gets dialysis on Sunday and Sunday. March 04: Sitting up in a recliner. Looks more comfortable. No chest pain. Medications adjusted yesterday by cardiology. Toprol-XL was increased to 50 mg a day Imdur was increased to 60 mg. Not for any intervention today. Patient told to increase her activity see how she does clinically. March 05: No chest pain today. Got hemodialysis. Blood pressure been running low. Her morning medications were given this afternoon. As patient did not want it before dialysis. Did drop down to systolic in the 80s. Increase activity. Will watch the patient overnight. Do not feel it is safe for her to go home today. March 06: No chest pain. Feeling better. Imdur dose has been cut back. Blood pressure has been running a bit on the lower side. Patient has several questions about her medications. Patient to continue taking her midodrine. Will also cut back patient's Demadex to once a day as opposed to 2. Talk to patient about limiting her fluid intake. Patient to follow-up with the juice mixer and travel registered nurse oncology. Continue with the new dose of beta-devan. Discussion and discharge planning more than 35 minutes Past medical history to include: Diabetes mellitus, hypertension, hyperlipidemia, end-stage kidney disease on dialysis Tuesdays and Sunday, CAD with stent and bypass-follows at [facility] Social history: Lives alone. Prior smoker. Alcohol rarely. Physical examination: VITAL SIGNS: 98.1, 58, 16, 113 x 57, 96% room air GENERAL: Sitting edge of the bed, comfortable EYES: Pupils equal. Conjunctiva normal. HEENT: External appearance of nose and ears normal, oral cavity grossly normal. NECK: JVD not raised; masses not palpable. HEART: First and second heart sounds are normal; no edema LUNGS: Respiratory rate normal; clear to auscultation. ABDOMEN: Soft, nontender, liver spleen not palpable, no masses palpable. PSYCH: Alert and oriented x3; mood and affect normal. MUSCULOSKELETAL:No Clubbing/cyanosis;muscles-grossly intact EXTREMITY is: Left upper extremity AV fistula INVESTIGATIONS, reviewed in the clinical context: March 04: White count 8.5 hemoglobin 9.1 platelets 288 LDL 35.2 March 02, 2024: White count 8.2 hemoglobin 9.7 platelets 292 sodium 136 potassium 4.3 BUN 83 creatinine 8.17 Troponin I 0.029, 0.033, 0.045 LDL 32.1 EKG tracing personally reviewed by me-normal sinus rhythm. ST segment depression V2-V6. And inferior leads Chest x-ray film personally reviewed by me-cardiomegaly. Some venous prominence Assessment and plan: -Unstable angina patient with known coronary artery disease.: No further chest pain with adjusted medications Follows at [facility] with Dr. Rangel and locally with Dr. Dao Aspirin. IV heparin-discontinued. Beta-devan Per cardiology: Imdur cut back to 30 mg a day. Metoprolol increased to 50 mg a day. IV heparin monitoring per protocol-discontinued -Chronic congestive heart failure from systolic dysfunction EF 35-40 from underlying coronary artery- -Coronary artery disease with prior stents, coronary bypass Aspirin. Lipitor. Plavix. -Diabetes mellitus type 2 on insulin pump Continue pump -Hyperlipidemia Lipitor 80 mg daily at bedtime. Zetia 10 mg daily at bedtime -Essential hypertension Toprol-XL. Decrease Demadex to 20 mg a day Blood pressure currently running on the lower side. Follow closely -End-stage kidney disease on hemodialysis since 2021 Regular schedule: Sunday. Left upper extremity proximal AV fistula Nephrology following. -Severe aortic valve sclerosis with moderate aortic stenosis, moderate to severe mitral regurgitation Follow with cardiology -Gallstones asymptomatic -Normocytic anemia, secondary to chronic kidney disease Disposition: Home Past Medical History Past Medical History: Diabetes Mellitus, Hyperlipidemia, Hypertension, Renal Disease Additional Past Medical History / Comment(s): DIALYSIS.angina, kidney disease stage 4, pilonidal cyst, carpal tunnel, insulin pump History of Any Multi-Drug Resistant Organisms: None Reported Past Surgical History: Coronary Bypass/CABG, Heart Catheterization With Stent, Tonsillectomy, Tubal Ligation Additional Past Surgical History / Comment(s): cataracts Past Anesthesia/Blood Transfusion Reactions: No Reported Reaction Date of Last Stent Placement:: 2004 Past Psychological History: No Psychological Hx Reported Smoking Status: Former smoker Past Alcohol Use History: Rare Past Drug Use History: None Reported Plan - Discharge Summary Discharge Rx Participant: Yes New Discharge Prescriptions: New Metoprolol Succinate (ER) [Toprol XL] 50 mg PO DAILY #60 tab Continue Nitroglycerin Sl Tabs [Nitrostat] 0.4 mg SUBLINGUAL Q5M PRN PRN Reason: Angina Montelukast [Singulair] 10 mg PO HS Ezetimibe [Zetia] 10 mg PO HS allopurinoL [Zyloprim] 100 mg PO DAILY ALPRAZolam [Xanax] 0.25 mg PO HS PRN PRN Reason: Anxiety Clopidogrel Bisulfate [Plavix] 75 mg PO DAILY Atorvastatin [Lipitor] 80 mg PO HS Aspirin EC [Ecotrin Low Dose] 81 mg PO DAILY Insulin Aspart (For Pump) [NovoLOG (For Pump)] 0.01 unit SQ-PUMP CONTINUOUS Alirocumab [Praluent Pen] 75 mg SQ Q14D Ferric Citrate [Auryxia] 210 mg PO AC-TID Midodrine [ProAmatine] 5 mg PO QID PRN PRN Reason: Blood Pressure - Low Lidocaine-Prilocaine Cream [Emla Cream 2.5%/2.5%] 1 applic TOPICAL MOWEFR Acetaminophen Tab [Tylenol] 1,000 mg PO TID Omeprazole [PriLOSEC] 20 mg PO AC-BID Denosumab [Prolia] 1 dose SQ Q180D Insulin Glargine,Hum.rec.anlog [Basaglar Kwikpen U-100] 12 unit SQ HS PRN PRN Reason: pump failure Ondansetron Odt [Zofran ODT] 4 mg PO BID PRN PRN Reason: Nausea Isosorbide Mononitrate ER [Imdur] 30 mg PO MOTUWETHFR Changed Torsemide [Demadex] 20 mg PO DAILY@1400 #0 Isosorbide Mononitrate ER [Imdur] 30 mg PO SUSA #0 Discontinued Metoprolol Succinate (ER) [Toprol XL] 25 mg PO DAILY Discharge Medication List ALPRAZolam [Xanax] 0.25 mg PO HS PRN 10/11/16 [History] Aspirin EC [Ecotrin Low Dose] 81 mg PO DAILY 10/11/16 [History] Atorvastatin [Lipitor] 80 mg PO HS 10/11/16 [History] Clopidogrel Bisulfate [Plavix] 75 mg PO DAILY 10/11/16 [History] Ezetimibe [Zetia] 10 mg PO HS 10/11/16 [History] Insulin Aspart (For Pump) [NovoLOG (For Pump)] 0.01 unit SQ-PUMP CONTINUOUS 10/11/16 [History] Montelukast [Singulair] 10 mg PO HS 10/11/16 [History] Nitroglycerin Sl Tabs [Nitrostat] 0.4 mg SUBLINGUAL Q5M PRN 10/11/16 [History] allopurinoL [Zyloprim] 100 mg PO DAILY 10/11/16 [History] Alirocumab [Praluent Pen] 75 mg SQ Q14D 09/08/21 [History] Denosumab [Prolia] 1 dose SQ Q180D 02/27/23 [History] Ferric Citrate [Auryxia] 210 mg PO AC-TID 02/27/23 [History] Insulin Glargine,Hum.rec.anlog [Basaglar Kwikpen U-100] 12 unit SQ HS PRN 02/27/23 [History] Lidocaine-Prilocaine Cream [Emla Cream 2.5%/2.5%] 1 applic TOPICAL MOWEFR 02/27/23 [History] Midodrine [ProAmatine] 5 mg PO QID PRN 02/27/23 [History] Acetaminophen Tab [Tylenol] 1,000 mg PO TID 09/05/23 [History] Ondansetron Odt [Zofran ODT] 4 mg PO BID PRN 09/05/23 [History] Omeprazole [PriLOSEC] 20 mg PO AC-BID 01/21/24 [History] Isosorbide Mononitrate ER [Imdur] 30 mg PO MOTUWETHFR 03/03/24 [History] Isosorbide Mononitrate ER [Imdur] 30 mg PO SUSA #0 03/06/24 [Rx] Metoprolol Succinate (ER) [Toprol XL] 50 mg PO DAILY #60 tab 03/06/24 [Rx] Torsemide [Demadex] 20 mg PO DAILY@1400 #0 03/06/24 [Rx] Follow up Appointment(s)/Referral(s): Tavon Rose DO [Primary Care Provider] - 1-2 days Otf Dao DO [STAFF PHYSICIAN] - 03/14/24 1:30 pm Patient Instructions/Handouts: Chest Pain (DC) Discharge Disposition: HOME SELF-CARE
--- NOTE | 2024-03-06 22:27 | P.PN ---
Subjective Patient is seen for follow-up for end-stage renal disease. Seen on hemodialysis. Tolerating well. BP had dropped, improved now. No chest pain. Objective - Vital Signs Vital signs: Vital Signs Temp 98.1 F 03/06/24 07:00 Pulse 58 L 03/06/24 07:00 Resp 16 03/06/24 07:00 BP 113/57 03/06/24 07:00 Pulse Ox 96 03/06/24 07:00 FiO2 Intake & Output 03/06/24 03/06/24 03/07/24 06:59 18:59 06:59 Intake Total 118 Balance 118 Intake: Oral 118 Other: # Voids 2 - Exam patient is awake, comfortable, no acute distress. 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 End-stage renal disease on hemodialysis on Sunday schedule 2. Chest pain with underlying severe coronary artery disease and coronary stents being followed by cardiology. No plans for cardiac catheterization 3. Volume overload, my improved 4. CK D mineral bone disorder Plan: hemodialysis today with UF 1-2 L as tolerated. Continue Demadex
--- NOTE | 2024-03-06 22:29 | P.PN ---
Subjective Patient is seen for follow-up for end-stage renal disease. S/p hemodialysis yesterday with UF 2 L. For discharge today. BP drops on and off No chest pain. Objective - Vital Signs Vital signs: Vital Signs Temp 98.1 F 03/06/24 07:00 Pulse 58 L 03/06/24 07:00 Resp 16 03/06/24 07:00 BP 113/57 03/06/24 07:00 Pulse Ox 96 03/06/24 07:00 FiO2 Intake & Output 03/06/24 03/06/24 03/07/24 06:59 18:59 06:59 Intake Total 118 Balance 118 Intake: Oral 118 Other: # Voids 2 - Exam patient is awake, comfortable, no acute distress. 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 End-stage renal disease on hemodialysis on Sunday schedule 2. Chest pain with underlying severe coronary artery disease and coronary stents being followed by cardiology. No plans for cardiac catheterization 3. Volume overload, improved 4. CK D mineral bone disorder Plan: hemodialysis in am. May need extra Rx on Sunday Continue Demadex
--- NOTE | 2024-03-12 16:32 | CDI ---
Documentation Clarification Form Date: 03/12/2024 04:09:52 PM From: Peggy Westbrook Phone: Admit Date: 03/03/2024 07:41:00 PM Patient Name: Dionne Mercado Visit Number: [id number] Discharge Date: 03/06/2024 11:16:00 AM ATTENTION: The Clinical Documentation Specialists (CDI) and [facility] Coding Staff appreciate your assistance in clarifying documentation. Please respond to the clarification below the line at the bottom and electronically sign. The CDI & [facility] Coding staff will review the response and follow-up if needed. Please note: Queries are made part of the Legal Health Record. If you have any questions, please contact the author of this message via ITS. Doctor/Provider: Mio Mar There is documentation of In-stent Stenosis in consult note on 03/03/2024 Additional clarification is requested. History/Risk Factors: Pt is 68-year-old patient ,With chronic stable medical conditions includediabetes mellitus,hypertension, hyperlipidemia,end-stage kidney diseaseon hemodialysis [id number],on insulin pump,coronary artery diseasewith priorstent. Patient been havingchest painon and off for some time. Clinical Indicators: on 03/03 consult note Chest pain CADstatus post CABGandPCI In-stent stenosisstatus postbrachytherapy History of NSTEMI12/2023 On 03/03 consult -Chest painwith underlying severecoronary artery diseaseand coronary stentsbeing followed by cardiology and scheduled forcardiac catheterization On 03/05 pn - Cardiac catheterizationperformed May 2022 with left main 50%stenosis, LAD ostial 80%stenosis,occlusionof the first diagonal branch, circumflex with 70% stenosis, RCA with proximal 20 to 30%stenosisand mid 40%stenosis. She had patentgraftswith MADERA to LAD and SVG to diagonal branch and a total of 8 stentspreviously. Brachytherapyof theRCA in-stent stenosis. On 03/06 pn -Repeatcardiac catheterizationperformed during her hospitalization 01/21/2024 under the setting ofNSTEMIfound progression of RCA disease more proximal to thestentand thereforestentwasplaced. There was significantPDAstenosisas well that appears to be in the left mainstenosis. EKG: Sinusrhythmwith no acute ST changes Chest x-ray:Cardiomegaly. Atelectasisat the right lung base. Treatment: Aspirin 81 mg daily, atorvastatin 80 mg at bedtime, Plavix 75 mg daily, Zetia 10 mg at bedtime, Imdur 30 mg Sunday through Sunday and 60 mg on Sunday and Sunday, Toprol-XL 25 mg daily, Nitrostat as needed, Demadex 20 mg twice daily. Increase metoprolol succinate to 50 mg daily Can you please clarify In Stent Stenosis is present this admission? [ ] Yes, In Stent Stenosis is present this admission [ + ] No,In Stent Stenosis is not present this admission , pt have history of In stent stenosis [ ] Other, please specify [ ] Unable to determine (Template Last Revised: June 2020) MTDD
== END 2024-03-06 11:16 | disposition home or self-care (01) | DRG 302 ==
LOC: EC 21:41 → 6NMEDSUR 03-03 00:16 → OBSVTOIN 03-03 19:41 → 6NMEDSUR 03-04 07:07
PROVIDERS: ADMIT Hospitalist; ATTEND Hospitalist
DX: I25.110 Atherosclerotic heart disease of native coronary artery with unstable angina pectoris (principal); N18.6 End stage renal disease; I13.2 Hypertensive heart and chronic kidney disease with heart failure and with stage 5 chronic kidney disease, or end stage renal disease; I50.22 Chronic systolic (congestive) heart failure; J98.11 Atelectasis; E78.5 Hyperlipidemia, unspecified; D63.1 Anemia in chronic kidney disease; E11.22 Type 2 diabetes mellitus with diabetic chronic kidney disease; K80.20 Calculus of gallbladder without cholecystitis without obstruction; I25.5 Ischemic cardiomyopathy; I25.2 Old myocardial infarction; I08.0 Rheumatic disorders of both mitral and aortic valves; Z99.2 Dependence on renal dialysis; Z79.4 Long term (current) use of insulin; Z79.82 Long term (current) use of aspirin; Z96.41 Presence of insulin pump (external) (internal); Z95.1 Presence of aortocoronary bypass graft; Z87.891 Personal history of nicotine dependence; Z88.5 Allergy status to narcotic agent; Z88.2 Allergy status to sulfonamides; Z88.8 Allergy status to other drugs, medicaments and biological substances; Z79.02 Long term (current) use of antithrombotics/antiplatelets; Z79.899 Other long term (current) drug therapy
CPT/HCPCS: 36415; 71046; 80053; 80061; 83735; 84484; 85025; 85610; 85730; 90935; 93005; 93308; 94760; 96365; 96366; 99285

== ENCOUNTER 2024-06-30 07:40 | Observation (INO) | payer MEDICARE, OTHER ==
--- NOTE | 2024-06-30 08:01 | ED ---
General Adult HPI - General Chief complaint: Chest Pain Stated complaint: chest pain Time Seen by Provider: 06/30/24 07:43 Source: patient, EMS Mode of arrival: EMS Limitations: no limitations - History of Present Illness Initial comments: Dictation was produced using [employer] dictation software. please excuse any grammatical, word or spelling errors. Chief Complaint: 69-year-old female presents emergency department chest pain History of Present Illness: Patient 69-year-old female extensive cardiac history. She has history of bypass with multiple stents. She is established with Dr. Dao. States that today she had some chest pressure down dunbar bsternal area. Nonradiating not associated diaphoresis or nausea. Patient was brought by EMS she received aspirin and now her pain is resolved. The ROS documented in this emergency department record has been reviewed and confirmed by me. Those systems with pertinent positive or negative responses have been documented in the HPI. All other systems are other negative and/or noncontributory. - Related Data Home Medications Medication Instructions Recorded Confirmed ALPRAZolam [Xanax] 0.25 mg PO HS PRN 10/11/16 03/03/24 Aspirin EC [Ecotrin Low Dose] 81 mg PO DAILY 10/11/16 03/03/24 Atorvastatin [Lipitor] 80 mg PO HS 10/11/16 03/03/24 Clopidogrel Bisulfate [Plavix] 75 mg PO DAILY 10/11/16 03/03/24 Ezetimibe [Zetia] 10 mg PO HS 10/11/16 03/03/24 Insulin Aspart (For Pump) [NovoLOG 0.01 unit SQ-PUMP CONTINUOUS 10/11/16 03/03/24 (For Pump)] Montelukast [Singulair] 10 mg PO HS 10/11/16 03/03/24 Nitroglycerin Sl Tabs [Nitrostat] 0.4 mg SUBLINGUAL Q5M PRN 10/11/16 03/03/24 allopurinoL [Zyloprim] 100 mg PO DAILY 10/11/16 03/03/24 Alirocumab [Praluent Pen] 75 mg SQ Q14D 09/08/21 03/03/24 Denosumab [Prolia] 1 dose SQ Q180D 02/27/23 03/03/24 Ferric Citrate [Auryxia] 210 mg PO AC-TID 02/27/23 03/03/24 Insulin Glargine,Hum.rec.anlog 12 unit SQ HS PRN 02/27/23 03/03/24 [Cayetano Sharma U-100] Lidocaine-Prilocaine Cream [Emla 1 applic TOPICAL MOWEFR 02/27/23 03/03/24 Cream 2.5%/2.5%] Midodrine [ProAmatine] 5 mg PO QID PRN 02/27/23 03/03/24 Acetaminophen Tab [Tylenol] 1,000 mg PO TID 09/05/23 03/03/24 Ondansetron Odt [Zofran ODT] 4 mg PO BID PRN 09/05/23 03/03/24 Omeprazole [PriLOSEC] 20 mg PO AC-BID 01/21/24 03/03/24 Isosorbide Mononitrate ER [Imdur] 30 mg PO MOTUWETHFR 03/03/24 03/03/24 Previous Rx's Medication Instructions Recorded Isosorbide Mononitrate ER [Imdur] 30 mg PO SUSA #0 03/06/24 Metoprolol Succinate (ER) [Toprol 50 mg PO DAILY #60 tab 03/06/24 XL] Torsemide [Demadex] 20 mg PO DAILY@1400 #0 03/06/24 Allergies Allergy/AdvReac Type Severity Reaction Status Date / Time famotidine [From Pepcid] Allergy Unknown Verified 06/30/24 07:48 nifedipine Allergy Swelling Verified 06/30/24 07:48 droperidol AdvReac Anxiety Verified 06/30/24 07:48 ezetimibe [From Vytorin] AdvReac Acid Reflux Verified 06/30/24 07:48 fentanyl AdvReac "Can't Verified 06/30/24 07:48 wake up"/Nausea hydrocodone AdvReac Angina Verified 06/30/24 07:48 hydromorphone [From Dilaudid] AdvReac Angina Verified 06/30/24 07:48 midazolam [From Versed] AdvReac Anxiety Verified 06/30/24 07:48 morphine AdvReac Nausea & Verified 06/30/24 07:48 Vomiting nitroglycerin AdvReac Patient Verified 06/30/24 07:48 denies this allergy. paroxetine [From Paxil] AdvReac Acid Reflux Verified 06/30/24 07:48 ranolazine [From Ranexa] AdvReac Unknown Verified 06/30/24 07:48 simvastatin [From Vytorin] AdvReac Acid Reflux Verified 06/30/24 07:48 sulfamethoxazole AdvReac Decreased Verified 06/30/24 07:48 [From Bactrim] Renal Function trandolapril [From Tarka] AdvReac Acid Reflux Verified 06/30/24 07:48 trimethoprim [From Bactrim] AdvReac Decreased Verified 06/30/24 07:48 Renal Function verapamil [From Tarka] AdvReac Acid Reflux Verified 06/30/24 07:48 Review of Systems ROS Statement: Those systems with pertinent positive or pertinent negative responses have been documented in the HPI. ROS Other: All systems not noted in ROS Statement are negative. Past Medical History Past Medical History: Diabetes Mellitus, Hyperlipidemia, Hypertension, Renal Disease Additional Past Medical History / Comment(s): DIALYSIS.angina, kidney disease stage 4, pilonidal cyst, carpal tunnel, insulin pump History of Any Multi-Drug Resistant Organisms: None Reported Past Surgical History: Coronary Bypass/CABG, Heart Catheterization With Stent, Tonsillectomy, Tubal Ligation Additional Past Surgical History / Comment(s): cataracts Past Anesthesia/Blood Transfusion Reactions: No Reported Reaction Date of Last Stent Placement:: 2004 Past Psychological History: No Psychological Hx Reported Smoking Status: Former smoker Past Alcohol Use History: Rare Past Drug Use History: None Reported General Exam - General Exam Comments Initial Comments: PHYSICAL EXAM: General Impression: Alert and oriented x3, not in acute distress HEENT: Normocephalic atraumatic, extra-ocular movements intact, pupils equal and reactive to light bilaterally, mucous membranes moist. Cardiovascular: Heart regular rate and rhythm Chest: Able to complete full sentences, no retractions, no tachypnea Abdomen: abdomen soft, non-tender, non-distended, no organomegaly Musculoskeletal: Pulses present and equal in all extremities, no peripheral edema Motor: no focal deficits noted Neurological: CN II-XII grossly intact, no focal motor or sensory deficits noted Skin: Intact with no visualized rashes Psych: Normal affect and mood Limitations: no limitations Course Vital Signs 06/30/24 07:42 Temperature 97.7 F Pulse Rate 61 Respiratory 17 Rate Blood Pressure 103/54 O2 Sat by Pulse 98 Oximetry EKG Findings - EKG Comments: EKG Findings:: My EKG interpretation: Ventricular rate 60, sinus rhythm,. 162, cures 96, QTc 424. No TX prolongation, no QTC prolongation, no ST or T-wave ch anges noted. EKG compared to March 04, 2024 showing no changes. Overall, this EKG is unremarkable Medical Decision Making - Medical Decision Making Was pt. sent in by a medical professional or institution (, PA, NEUROSCIENCE SPECIALIST, urgent care, hospital, or detention...) When possible be specific @ -No Did you speak to anyone other than the patient for history (EMS, parent, family, police, friend...)? What history was obtained from this source @ -No Did you review nursing and triage notes (agree or disagree)? Why? @ -I reviewed and agree with nursing and triage notes Were old charts reviewed (outside hosp., previous admission, EMS record, old EKG, old radiological studies, urgent care reports/EKG's, detention records)? Report findings @ -No old charts were reviewed Differential Diagnosis (chest pain, altered mental status, abdominal pain women, abdominal pain men, vaginal bleeding, musculoskeletal, weakness, fever, dyspnea, syncope, headache, dizziness, GI bleed, back pain, seizure, CVA, palpatations, mental health)? @ -Differential Chest Pain: Stable Angina, Unstable Angina, STEMI, NSTEMI Aortic Dissection, Pneumothorax, M usculoskeletal, Esophageal Spasm GERD, Cholecystitis, Pancreatitis, Zoster, this is not meant to be an all-inclusive list. EKG interpreted by me (3pts min.). @ -See above X-rays interpreted by me (1pt min.). @ -Chest x-ray is nonacute CT interpreted by me (1pt min.). @ -None done U/S interpreted by me (1pt. min.). @ -None done What testing was considered but not performed or refused? (CT, X-rays, U/S, labs)? Why? @ -None What meds were considered but not given or refused? Why? @ -None Was smoking cessation discussed for >3mins.? @ -No Were there social determinants of health that impacted care today? How? (Homelessness, low income, unemployed, alcoholism, drug addiction, transportat ion, low edu. Level, literacy, decrease access to med. care, residential, rehab)? @ -No Was there de-escalation of care discussed even if they declined (Discuss DNR or withdrawal of care, Hospice)? DNR status @ -No What co-morbidities impacted this encounter? (DM, HTN, Smoking, COPD, CAD, Cancer, CVA, ARF, Chemo, Hep., AIDS, mental health diagnosis, sleep apnea, morbid obesity)? @ -Extensive coronary artery history Was patient admitted / discharged? Hospital course, mention meds given and route, prescriptions, significant lab abnormalities, going to OR and other pertinent info. @ -61-year-old female presents emergency with chest pain concerning for ACS. Patient extensive cardiac history including multiple stents and bypass grafting. Patient pain-free at the bedside. Vital signs stable. EKG is unremarkable. Laboratory evaluation obtained. Elevated renal function secondary to ESRD. Tro ponin 0.093. Patient at baseline has elevated troponin. Patient be admitted observation with consultation cardiology. She received aspirin by prehospital providers. Did you discuss the management of the patient with other professionals (professionals i.e. , PA, NEUROSCIENCE SPECIALIST, lab, RT, psych nurse, social security assessor, senior storage administrator, teacher, certified juvenile probation officer, supervisor case loading)? Give summary @ -Case discussed with hospitalist for admission Was critical care preformed (if so, how long)? @ -No Undiagnosed new problem with uncertain prognosis? @ -No Drug Therapy requiring intensive monitoring for toxicity (Heparin, Nitro, Insulin, Cardizem)? @ -No Were any procedures done? @ -No Diagnosis/symptom? Acute, or Chronic, or Acute on Chronic? Uncomplicated (without systemic symptoms) or Complicated (systemic symptoms)? @ -Chest pain Side effects of treatment? @ -No Exacerbation, Progression, or Severe Exacerbation? @ -No Poses a threat to life or bodily function? How? (Chest pain, [place], [place], pneumonia, PE, COPD, DKA, ARF, appy, cholecystitis, CVA, Diverticulitis, Homicidal, Suicidal, threat to staff... and all critical care pts) @ -yes - Lab Data Result diagrams: 06/30/24 08:01 06/30/24 08:01 Lab Results 06/30/24 06/30/24 06/30/24 Range/Units 08:01 08:01 08:01 WBC 6.0 (3.8-10.6) k/uL RBC 3.31 L (3.80-5.40) m/uL Hgb 11.0 L (11.4-16.0) gm/dL Hct 35.0 (34.0-46.0) % MCV 105.7 H (80.0-100.0) fL MCH 33.1 (25.0-35.0) pg MCHC 31.3 (31.0-37.0) g/dL RDW 14.8 (11.5-15.5) % Plt Count 263 (150-450) k/uL MPV 8.3 Neutrophils % 68 % Lymphocytes % 19 % Monocytes % 5 % Eosinophils % 4 % Basophils % 1 % Neutrophils # 4.1 (1.3-7.7) k/uL Lymphocytes # 1.1 (1.0-4.8) k/uL Monocytes # 0.3 (0-1.0) k/uL Eosinophils # 0.2 (0-0.7) k/uL Basophils # 0.0 (0-0.2) k/uL Macrocytosis Moderate PT 10.4 (10.0-12.5) sec INR 0.9 (<1.2) APTT 22.7 (22.0-30.0) sec Sodium 137 (137-145) mmol/L Potassium 4.3 (3.5-5.1) mmol/L Chloride 94 L (98-107) mmol/L Carbon Dioxide 28 (22-30) mmol/L Anion Gap 15 mmol/L BUN 62 H (7-17) mg/dL Creatinine 7.67 H* (0.52-1.04) mg/dL Est GFR (CKD-EPI)AfAm 6 (>60 ml/min/1.73 sqM) Est GFR (CKD-EPI)NonAf 5 (>60 ml/min/1.73 sqM) Glucose 115 H (74-99) mg/dL Calcium 10.5 H (8.4-10.2) mg/dL Magnesium 2.1 (1.6-2.3) mg/dL Total Bilirubin 0.6 (0.2-1.3) mg/dL AST 21 (14-36) U/L ALT 15 (4-34) U/L Alkaline Phosphatase 116 (38-126) U/L Troponin I (0.000-0.034) ng/mL Total Protein 7.0 (6.3-8.2) g/dL Albumin 4.2 (3.5-5.0) g/dL 06/30/24 Range/Units 08:01 WBC (3.8-10.6) k/uL RBC (3.80-5.40) m/uL Hgb (11.4-16.0) gm/dL Hct (34.0-46.0) % MCV (80.0-100.0) fL MCH (25.0-35.0) pg MCHC (31.0-37.0) g/dL RDW (11.5-15.5) % Plt Count (150-450) k/uL MPV Neutrophils % % Lymphocytes % % Monocytes % % Eosinophils % % Basophils % % Neutrophils # (1.3-7.7) k/uL Lymphocytes # (1.0-4.8) k/uL Monocytes # (0-1.0) k/uL Eosinophils # (0-0.7) k/uL Basophils # (0-0.2) k/uL Macrocytosis PT (10.0-12.5) sec INR (<1.2) APTT (22.0-30.0) sec Sodium (137-145) mmol/L Potassium (3.5-5.1) mmol/L Chloride (98-107) mmol/L Carbon Dioxide (22-30) mmol/L Anion Gap mmol/L BUN (7-17) mg/dL Creatinine (0.52-1.04) mg/dL Est GFR (CKD-EPI)AfAm (>60 ml/min/1.73 sqM) Est GFR (CKD-EPI)NonAf (>60 ml/min/1.73 sqM) Glucose (74-99) mg/dL Calcium (8.4-10.2) mg/dL Magnesium (1.6-2.3) mg/dL Total Bilirubin (0.2-1.3) mg/dL AST (14-36) U/L ALT (4-34) U/L Alkaline Phosphatase (38-126) U/L Troponin I 0.093 H* (0.000-0.034) ng/mL Total Protein (6.3-8.2) g/dL Albumin (3.5-5.0) g/dL Disposition Clinical Impression: Chest pain Disposition: ADMITTED IP TO THIS HOSP Condition: Fair Referrals: Tavon Rose DO [Primary Care Provider] - 1-2 days Decision Time: 09:23
[2024-06-30 08:14] LABS: Basophils % (A) 1 %; Eosinophils # (A) 0.2 k/uL (0-0.7); Eosinophils % (A) 4 %; Lymphocytes # (A) 1.1 k/uL (1.0-4.8); Lymphocytes % (A) 19 %; MCH 33.1 pg (25.0-35.0); MCHC 31.3 g/dL (31.0-37.0); MCV 105.7 fL (80.0-100.0); Macrocytosis Moderate; Mean Platelet Volume 8.3; Monocytes # (A) 0.3 k/uL (0-1.0); Monocytes % (A) 5 %; Neutrophils # (A) 4.1 k/uL (1.3-7.7); Neutrophils % (A) 68 %; Platelet Count 263 k/uL (150-450); RBC 3.31 m/uL (3.80-5.40); RDW 14.8 % (11.5-15.5)
[2024-06-30 08:21] LABS: INR 0.9 (<1.2); Partial Thromboplastin Time 22.7 sec (22.0-30.0); Prothrombin Time 10.4 sec (10.0-12.5)
[2024-06-30 08:38] LABS: ALT 15 U/L (4-34); AST 21 U/L (14-36); African American GFR (CKD) 6 (>60 ml/min/1.73 sqM); Albumin 4.2 g/dL (3.5-5.0); Alkaline Phosphatase 116 U/L (38-126); Anion Gap 15 mmol/L; Blood Urea Nitrogen 62 mg/dL (7-17); Calcium 10.5 mg/dL (8.4-10.2); Carbon Dioxide 28 mmol/L (22-30); Chloride 94 mmol/L (98-107); Glucose 115 mg/dL (74-99); Magnesium 2.1 mg/dL (1.6-2.3); Non-African American GFR(CKD) 5 (>60 ml/min/1.73 sqM); Potassium 4.3 mmol/L (3.5-5.1); Sodium 137 mmol/L (137-145); Total Bilirubin 0.6 mg/dL (0.2-1.3)
--- NOTE | 2024-06-30 08:41 | XR ---
EXAMINATION TYPE: XR chest 2V DATE OF EXAM: 06/30/2024 CLINICAL INDICATION: Female, 69 years old with history of Chest Pain, TECHNIQUE: Frontal and lateral views of the chest are obtained. COMPARISON: Chest x-ray March 02, 2024 FINDINGS: Overlying sternal wires are redemonstrated. Stable right mid to lower lung linear scarring and/or atelectasis and left basilar patchy scarring and/or atelectasis. There is no new focal air sp luisa opacity, pleural effusion, or pneumothorax seen. Stable mild cardiomegaly with atherosclerotic th oracic aorta. The osseous structures are intact. IMPRESSION: Chronic changes without new acute process. [facility], , 06/30/2024 8:39 AM
[2024-06-30] MEDS ORDERED: NITROGLYCERIN SL TABS 0.4 MG TAB SUBLINGUAL PRN ×2 (09:18→11:47)
[2024-06-30] MEDS ORDERED: ALPRAZolam 0.25 MG TAB PO PRN (11:47)
[2024-06-30] MEDS ORDERED: ALPRAZolam 0.5 MG TAB PO PRN (11:47)
[2024-06-30] MEDS: ASPIRIN 325 MG TAB PO STA (12:02)
--- NOTE | 2024-06-30 12:25 | P.CRDCN ---
History of Present Illness Consult date: 06/30/24 Consult reason: chest pain History of present illness: This is a 69-year-old female patient of Dr. Dao with past medical history of coronary artery disease status post CABG, [place], end-stage renal disease on hemodialysis Sunday, aortic stenosis. Patient was previously following with Dr. Lima at [facility] and that is where she had her open heart surgery completed. According to last office note dated 05/08/2024, patient was having intermittent episodes of chest pain more so related to GI issues with improvement using Tums and burping. Patient now states that she is feeling so much better. She states she could not lay down and could not prop herself up pillows she was having severe reflux and burning. She took Pepto- Bismol which seemed to help. She states because of the pain she was awake all night. Last week, patient stopped taking her isosorbide because her blood pressure was running low at dialysis and including the day after dialysis her blood pressure was still low. She states that on she was reading that this medication should not be stopped abruptly and then she started taking again along with a half a metoprolol which she has been taking for the past 2 days until yesterday. Because of the significant chest pain, she drove to the hemodialysis center for her usual treatment but said in the parking lot decided to come into the emergency center instead for further evaluation of the chest pain. Blood pressure 103/54, heart rate 61, pulse ox 98% on room air. Patient is seen today in the emergency center waiting for bed on the cardiac stepdown unit. Due to elevation in her troponins, Dr. Mckeon discussed recommendations for cardiac catheterization which she is agreeable to move forward with this today. -EKG: Sinus rhythm with no acute ST-T wave changes. -Chest x-ray: No acute process. -Laboratory studies: WBC 6, hemoglobin 11. INR 0.9. BUN 62 and creatinine 7.6 7. Troponin 0.093 and 0.087. Calcium 10.5. -Home cardiac medications: Aspirin 81 mg daily, atorvastatin 80 mg at bedtime, Plavix 75 mg daily, isosorbide 30 mg daily, metoprolol succinate 25 mg as needed and 25 mg on Sunday, Nitrostat as needed, Demadex 20 mg with supper, patient is also on midodrine as needed. -Cardiac catheter physician performed by Dr. Dao on 01/21/2024 revealed CAD with 50 to 60% left main stenosis, 99% proximal LAD stenosis, 30 to 40% OM1 sten osis, 100% mid circumflex stenosis, 99% proximal RCA stenosis, 100% small caliber PDA stenosis. Significantly elevated left-sided filling pressures. Mild to moderate aortic stenosis with mean gradient of 16 mmHg. IFR of OM1 long lesion abnormal at 0.82 with relatively normal IFR of the left main. Patient underwent PCI of the proximal to mid RCA with JOHN and post dilated with balloon, shockwave lithotripsy to the proximal to mid RCA. Patent SVG to diagonal and MADERA to LAD. -Echocardiogram performed 02/2024: EF 35 to 40%, moderate mitral regurgitation, mitral stenosis, mild to moderate aortic stenosis. Review Of Systems: At the time of my exam: CONSTITUTIONAL: Denies fever or chills. HEENT: Denies blurred vision, vision changes, or eye pain. Denies hemoptysis CARDIOVASCULAR: Denies chest pain. Denies orthopnea. Denies PND. Denies palpitations RESPIRATORY: Denies shortness of breath. GASTROINTESTINAL: Denies abdominal pain. Denies nausea or vomiting. HEMATOLOGIC: Denies bleeding disorders. GENITOURINARY: Denies any blood in urine. SKIN: Denies puritis. Denies rash. Physical examination: Gen: This is 69-year-old female in no acute distress VS: reviewed HEENT: Head is atraumatic, normocephalic. Pupils equal, round. Sclerae is anicteric. NECK: Supple. No JVD. LUNGS: Clear to auscultation. No wheezes or rhonchi. No intercostal retractions. HEART: Regular rate and rhythm. No murmur. ABDOMEN: Soft No tenderness. EXTREMITIES: No pedal edema. No calf tenderness. NEUROLOGICAL: Patient is awake, alert and oriented x3. Assessment: NSTEMI History of coronary artery disease with previous CABG and PCI History of in-stent stenosis status post brachytherapy Ischemic cardiomyopathy with EF of 35 to 40% End-stage renal disease on hemodialysis Hypertension Hyperlipidemia Aortic stenosis Plan: Resume patient's home cardiac medications Schedule patient for cardiac catheterization today with Dr. Dao Obtain 2-D echocardiogram and Doppler study to assess cardiac structure and function Further recommendations to follow based upon clinical course Thank you kindly for this consultation. Nurse practitioner note has been reviewed, I agree with documented findings and plan of care. Patient was seen and examined. Past Medical History Past Medical History: Diabetes Mellitus, Hyperlipidemia, Hypertension, Renal Disease Additional Past Medical History / Comment(s): DIALYSIS.angina, kidney disease stage 4, pilonidal cyst, carpal tunnel, insulin pump History of Any Multi-Drug Resistant Organisms: None Reported Past Surgical History: Coronary Bypass/CABG, Heart Catheterization With Stent, Tonsillectomy, Tubal Ligation Additional Past Surgical History / Comment(s): cataracts Past Anesthesia/Blood Transfusion Reactions: No Reported Reaction Date of Last Stent Placement:: 2004 Past Psychological History: No Psychological Hx Reported Smoking Status: Former smoker Past Alcohol Use History: Rare Past Drug Use History: None Reported Medications and Allergies Home Medications Medication Instructions Recorded Confirmed Type Aspirin EC [Ecotrin Low Dose] 81 mg PO DAILY 10/11/16 06/30/24 History Atorvastatin [Lipitor] 80 mg PO HS 10/11/16 06/30/24 History Clopidogrel Bisulfate [Plavix] 75 mg PO DAILY 10/11/16 06/30/24 History Insulin Aspart (For Pump) [NovoLOG 0.01 unit SQ-PUMP CONTINUOUS 10/11/16 06/30/24 History (For Pump)] Montelukast [Singulair] 10 mg PO HS 10/11/16 06/30/24 History Nitroglycerin Sl Tabs [Nitrostat] 0.4 mg SUBLINGUAL Q5M PRN 10/11/16 06/30/24 History allopurinoL [Zyloprim] 100 mg PO DAILY 10/11/16 06/30/24 History Alirocumab [Praluent Pen] 75 mg SQ Q14D 09/08/21 06/30/24 History Denosumab [Prolia] 60 mg SQ Q180D 02/27/23 06/30/24 History Ferric Citrate [Auryxia] 210 mg PO AC-TID 02/27/23 06/30/24 History Midodrine [ProAmatine] 5 mg PO QID PRN 02/27/23 06/30/24 History Acetaminophen Tab [Tylenol] 1,000 mg PO TID 09/05/23 06/30/24 History Omeprazole [PriLOSEC] 20 mg PO BID 01/21/24 06/30/24 History Cinacalcet HCl [Sensipar] 60 mg PO MOFR 06/30/24 06/30/24 History Cinacalcet [Sensipar] 30 mg PO WE 06/30/24 06/30/24 History Folic Acid/Vit B Complex and C 0.8 mg PO DAILY 06/30/24 06/30/24 History [Hien-Moi Tablet] Isosorbide Mononitrate ER [Imdur] 30 mg PO DAILY 06/30/24 06/30/24 History Metoprolol Succinate (ER) [Toprol 25 mg PO SUTUTHSA 06/30/24 06/30/24 History XL] Metoprolol Succinate [Toprol XL] 25 mg PO DAILY PRN 06/30/24 06/30/24 History Torsemide [Demadex] 20 mg PO PC-SUPPER 06/30/24 06/30/24 History calcitrioL [Rocaltrol] 1.25 mcg PO MOWEFR 06/30/24 06/30/24 History Allergies Allergy/AdvReac Type Severity Reaction Status Date / Time famotidine [From Pepcid] Allergy Unknown Verified 06/30/24 07:48 nifedipine Allergy Swelling Verified 06/30/24 07:48 droperidol AdvReac Anxiety Verified 06/30/24 07:48 ezetimibe [From Vytorin] AdvReac Acid Reflux Verified 06/30/24 07:48 fentanyl AdvReac "Can't Verified 06/30/24 07:48 wake up"/Nausea hydrocodone AdvReac Angina Verified 06/30/24 07:48 hydromorphone [From Dilaudid] AdvReac Angina Verified 06/30/24 07:48 midazolam [From Versed] AdvReac Anxiety Verified 06/30/24 07:48 morphine AdvReac Nausea & Verified 06/30/24 07:48 Vomiting nitroglycerin AdvReac Patient Verified 06/30/24 07:48 denies this allergy. paroxetine [From Paxil] AdvReac Acid Reflux Verified 06/30/24 07:48 ranolazine [From Ranexa] AdvReac Unknown Verified 06/30/24 07:48 simvastatin [From Vytorin] AdvReac Acid Reflux Verified 06/30/24 07:48 sulfamethoxazole AdvReac Decreased Verified 06/30/24 07:48 [From Bactrim] Renal Function trandolapril [From Tarka] AdvReac Acid Reflux Verified 06/30/24 07:48 trimethoprim [From Bactrim] AdvReac Decreased Verified 06/30/24 07:48 Renal Function verapamil [From Tarka] AdvReac Acid Reflux Verified 06/30/24 07:48 Physical Exam Vitals: Vital Signs Temp Pulse Resp BP Pulse Ox 06/30/24 07:42 97.7 F 61 17 103/54 98 Intake and Output 06/29/24 06/30/24 06/30/24 22:59 06:59 14:59 Other: Weight 63.503 kg Results 06/30/24 08:01 06/30/24 08:01 Cardiac Enzymes 06/30/24 06/30/24 06/30/24 Range/Units 08:01 08:01 09:48 AST 21 (14-36) U/L Troponin I 0.093 H* 0.087 H* (0.000-0.034) ng/mL Coagulation 06/30/24 Range/Units 08:01 PT 10.4 (10.0-12.5) sec APTT 22.7 (22.0-30.0) sec CBC 06/30/24 Range/Units 08:01 WBC 6.0 (3.8-10.6) k/uL RBC 3.31 L (3.80-5.40) m/uL Hgb 11.0 L (11.4-16.0) gm/dL Hct 35.0 (34.0-46.0) % Plt Count 263 (150-450) k/uL Comprehensive Metabolic Panel 06/30/24 Range/Units 08:01 Sodium 137 (137-145) mmol/L Potassium 4.3 (3.5-5.1) mmol/L Chloride 94 L (98-107) mmol/L Carbon Dioxide 28 (22-30) mmol/L BUN 62 H (7-17) mg/dL Creatinine 7.67 H* (0.52-1.04) mg/dL Glucose 115 H (74-99) mg/dL Calcium 10.5 H (8.4-10.2) mg/dL AST 21 (14-36) U/L ALT 15 (4-34) U/L Alkaline Phosphatase 116 (38-126) U/L Total Protein 7.0 (6.3-8.2) g/dL Albumin 4.2 (3.5-5.0) g/dL Current Medications Generic Name Dose Route Start Last Admin Trade Name Freq PRN Reason Stop Dose Admin Aspirin 325 mg 07/01/24 09:00 Aspirin 325 Mg Tab PO DAILY OSIRIS Nitroglycerin 0.4 mg 06/30/24 09:18 Nitroglycerin Sl Tabs 0.4 Mg Tab SUBLINGUAL Q5M PRN Chest Pain Intake and Output 06/29/24 06/30/24 06/30/24 22:59 06:59 14:59 Other: Weight 63.503 kg Patient Weight 07/01/24 06:59 Weight 63.503 kg 06/30/24 08:01 06/30/24 08:01
[2024-06-30] MEDS: ATORVASTATIN 80 MG TAB PO STA (12:42)
[2024-06-30] MEDS: CLOPIDOGREL 75 MG TAB PO SCH (12:43)
[2024-06-30] MEDS: METOPROLOL SUCCINATE (ER) 25 MG TAB.ER.24H PO SCH (12:44)
[2024-06-30] MEDS: ISOSORBIDE MONONITRATE ER 30 MG TAB.ER.24H PO SCH (12:44)
[2024-06-30 14:51] LABS: Glucose,Whole Blood 150 mg/dL (70-110)
[2024-06-30] MEDS: LIDOCAINE 1% INJ 10MG/ML (20 ML MDV) SQ ONE (15:11)
[2024-06-30] MEDS: HEPARIN SODIUM,PORCINE (1 ML) 2,500 UNIT in SODIUM CHLORIDE 0.9% 250 ML IRRIGATION ONE (15:16)
[2024-06-30] MEDS: HEPARIN SODIUM,PORCINE 10,000 UNIT in SODIUM CHLORIDE 0.9% 1,000 ML IRRIGATION ONE (15:16)
[2024-06-30] MEDS: SODIUM CHLORIDE 0.9% 1,000 ML IV ONE (15:16)
[2024-06-30] MEDS: HEPARIN SODIUM 1,000 UN/ML (10ML VL) IVP ONE ×4 (15:18→16:08)
[2024-06-30] MEDS: NITROGLYCERIN 1000MCG/10ML SYRINGE INTRACORON ONE (15:58)
[2024-06-30] MEDS: CLOPIDOGREL 75 MG TAB PO ONE (16:08)
[2024-06-30] MEDS: IOPAMIDOL-370 200ML BTL INJ ONE (16:21)
[2024-06-30 16:50] LABS: Glucose,Whole Blood 138 mg/dL (70-110)
[2024-06-30] MEDS: ONDANSETRON 4 MG/2 ML VIAL IVP STA (16:59)
[2024-06-30] MEDS: TORSEMIDE 20 MG TAB PO SCH (17:10)
[2024-06-30] MEDS: ACETAMINOPHEN TAB 325 MG TAB PO PRN (17:11)
[2024-06-30] MEDS: MIDODRINE 5 MG TAB PO PRN (20:18)
[2024-06-30 20:24] LABS: Glucose,Whole Blood 211 mg/dL (70-110)
[2024-06-30] MEDS: MIDODRINE 5 MG TAB PO STA (20:36)
--- NOTE | 2024-06-30 21:50 | P.HPIM ---
History of Present Illness H&P Date: 06/30/24 Chief Complaint: Chest pain Pleasant 69-year-old patient, follows with Dr. Rose. With chronic stable medical conditions include diabetes mellitus, hypertension, hyperlipidemia, end- stage kidney disease on hemodialysis since 2021, on insulin pump, coronary artery disease with prior stent. Follows for her cardiac care at [facility].-Has a previous bypass. [employer] . 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 Last night patient again had a episode of chest pain. Burning sensation. Fullness. She was examined in the garage. Symptoms never let go. She felt more tired. Finally decided to come in. Troponins were positive. Taken to cardiac catheterization lab. Stent was placed to the circumflex. Follow-up with results pending. Getting hemodialysis this evening Review of systems: GEN.: Tired EYES: None HEENT: None NECK: None RESPIRATORY: None CARDIOVASCULAR: As above GASTROINTESTINAL: None GENITOURINARY: None MUSCULOSKELETAL: None LYMPHATICS: None HEMATOLOGICAL: None PSYCHIATRY: None NEUROLOGICAL: None Past medical history to include: Diabetes mellitus, hypertension, hyperlipidemia, end-stage kidney disease on dialysis Tuesdays and Sunday, CAD with stent and bypass-follows at [facility] Social history: Lives alone. Prior smoker. Alcohol rarely. Physical examination: VITAL SIGNS: 97.9, 80, 17, 122 x 57, 95% room air GENERAL: Resting in bed, getting hemodialysis. Left upper extremity AV fistula EYES: Pupils equal. Conjunctiva normal. HEENT: External appearance of nose and ears normal, oral cavity grossly normal. NECK: JVD not raised; masses not palpable. HEART: First and second heart sounds are normal; no edema LUNGS: Respiratory rate normal; clear to auscultation. ABDOMEN: Soft, nontender, liver spleen not palpable, no masses palpable. PSYCH: Alert and oriented x3; mood and affect normal. MUSCULOSKELETAL:No Clubbing/cyanosis;muscles-grossly intact INVESTIGATIONS, reviewed in the clinical context: March 02: White count 6 hemoglobin 11.0 platelets 263 sodium 137 potassium 4.3 BUN 62 creatinine 7.67 Troponin I 0.093, 0.087, 0.094 EKG tracing personally reviewed by me-some ST-T wave changes. Chest x-ray film personally reviewed by me-some cardiomegaly Assessment and plan: -Acute non-ST elevation myocardial infarction. Follows at [facility] with Dr. Rangel and locally with Dr. Dao Cardiac catheterization with stent to circumflex. More details and cardiology notes IV heparin. Aspirin. Plavix. Toprol-XL. Imdur. -IV heparin monitoring per protocol- -Chronic congestive heart failure from systolic dysfunction EF 35-40 from underlying coronary artery- Toprol-XL -Coronary artery disease with prior stents, coronary bypass Aspirin. Lipitor. Plavix. -Diabetes mellitus type 2 on insulin pump Continue pump -Hyperlipidemia Lipitor 80 mg daily at bedtime. -Essential hypertension Toprol-XL. -End-stage kidney disease on hemodialysis since 2021 Regular schedule: Sunday. Left upper extremity proximal AV fistula Nephrology following. Hemodialysis today -Severe aortic valve sclerosis with moderate aortic stenosis, moderate to severe mitral regurgitation Follow with cardiology -Gallstones asymptomatic -Normocytic anemia, secondary to chronic kidney disease -Full code Past Medical History Past Medical History: Diabetes Mellitus, Hyperlipidemia, Hypertension, Renal Di sease Additional Past Medical History / Comment(s): DIALYSIS.angina, kidney disease stage 4, pilonidal cyst, carpal tunnel, insulin pump History of Any Multi-Drug Resistant Organisms: None Reported Past Surgical History: Coronary Bypass/CABG, Heart Catheterization With Stent, Tonsillectomy, Tubal Ligation Additional Past Surgical History / Comment(s): cataracts Past Anesthesia/Blood Transfusion Reactions: No Reported Reaction Date of Last Stent Placement:: 2004 Past Psychological History: No Psychological Hx Reported Smoking Status: Former smoker Past Alcohol Use History: Rare Past Drug Use History: None Reported Medications and Allergies Home Medications Medication Instructions Recorded Confirmed Type Aspirin EC [Ecotrin Low Dose] 81 mg PO DAILY 10/11/16 06/30/24 History Atorvastatin [Lipitor] 80 mg PO HS 10/11/16 06/30/24 History Clopidogrel Bisulfate [Plavix] 75 mg PO DAILY 10/11/16 06/30/24 History Insulin Aspart (For Pump) [NovoLOG 0.01 unit SQ-PUMP CONTINUOUS 10/11/1606/21 History (For Pump)] Montelukast [Singulair] 10 mg PO HS 10/11/16 06/30/24 History Nitroglycerin Sl Tabs [Nitrostat] 0.4 mg SUBLINGUAL Q5M PRN 10/11/16 06/30/24 History allopurinoL [Zyloprim] 100 mg PO DAILY 10/11/16 06/30/24 History Alirocumab [Praluent Pen] 75 mg SQ Q14D 09/08/21 06/30/24 History Denosumab [Prolia] 60 mg SQ Q180D 02/27/23 06/30/24 History Ferric Citrate [Auryxia] 210 mg PO AC-TID 02/27/23 06/30/24 History Midodrine [ProAmatine] 5 mg PO QID PRN 02/27/23 06/30/24 History Acetaminophen Tab [Tylenol] 1,000 mg PO TID 09/05/23 06/30/24 History Omeprazole [PriLOSEC] 20 mg PO BID 01/21/24 06/30/24 History Cinacalcet HCl [Sensipar] 60 mg PO MOFR 06/30/24 06/30/24 History Cinacalcet [Sensipar] 30 mg PO WE 06/30/24 06/30/24 History Folic Acid/Vit B Complex and C 0.8 mg PO DAILY 06/30/24 06/30/24 History [Hien-Moi Tablet] Isosorbide Mononitrate ER [Imdur] 30 mg PO DAILY 06/30/24 06/30/24 History Metoprolol Succinate (ER) [Toprol 25 mg PO SUTUTHSA 06/30/24 06/30/24 History XL] Metoprolol Succinate [Toprol XL] 25 mg PO DAILY PRN 06/30/24 06/30/24 History Torsemide [Demadex] 20 mg PO PC-SUPPER 06/30/24 06/30/24 History calcitrioL [Rocaltrol] 1.25 mcg PO MOWEFR 06/30/24 06/30/24 History Allergies Allergy/AdvReac Type Severity Reaction Status Date / Time famotidine [From Pepcid] Allergy Unknown Verified 06/30/24 07:48 nifedipine Allergy Swelling Verified 06/30/24 07:48 droperidol AdvReac Anxiety Verified 06/30/24 07:48 ezetimibe [From Vytorin] AdvReac Acid Reflux Verified 06/30/24 07:48 fentanyl AdvReac "Can't Verified 06/30/24 07:48 wake up"/Nausea hydrocodone AdvReac Angina Verified 06/30/24 07:48 hydromorphone [From Dilaudid] AdvReac Angina Verified 06/30/24 07:48 midazolam [From Versed] AdvReac Anxiety Verified 06/30/24 07:48 morphine AdvReac Nausea & Verified 06/30/24 07:48 Vomiting nitroglycerin AdvReac Patient Verified 06/30/24 07:48 denies this allergy. paroxetine [From Paxil] AdvReac Acid Reflux Verified 06/30/24 07:48 ranolazine [From Ranexa] AdvReac Unknown Verified 06/30/24 07:48 simvastatin [From Vytorin] AdvReac Acid Reflux Verified 06/30/24 07:48 sulfamethoxazole AdvReac Decreased Verified 06/30/24 07:48 [From Bactrim] Renal Function trandolapril [From Tarka] AdvReac Acid Reflux Verified 06/30/24 07:48 trimethoprim [From Bactrim] AdvReac Decreased Verified 06/30/24 07:48 Renal Function verapamil [From Tarka] AdvReac Acid Reflux Verified 06/30/24 07:48 Physical Exam Vitals: Vital Signs Temp Pulse Pulse Resp BP BP Pulse Ox 06/30/24 20:50 92/52 06/30/24 20:35 85/48 06/30/24 20:23 95/43 06/30/24 20:18 101/44 06/30/24 19:30 97.9 F 80 17 122/57 95 06/30/24 16:00 98.2 F 83 18 134/63 98 06/30/24 14:37 97.8 F 75 18 101/50 97 06/30/24 12:00 65 17 100/65 95 06/30/24 11:30 64 16 101/55 95 06/30/24 10:43 60 17 100/67 95 06/30/24 07:42 97.7 F 61 17 103/54 98 Intake and Output 06/30/24 06/30/24 06/30/24 06:59 14:59 22:59 Intake Total 318 Balance 318 Intake: IV 200 Oral 118 Other: Weight 63.503 kg Results CBC & Chem 7: 06/30/24 08:01 06/30/24 08:01 Labs: Abnormal Lab Results - Last 24 Hours (Table) 06/30/24 06/30/24 06/30/24 Range/Units 08:01 08:01 08:01 RBC 3.31 L (3.80-5.40) m/uL Hgb 11.0 L (11.4-16.0) gm/dL MCV 105.7 H (80.0-100.0) fL Chloride 94 L (98-107) mmol/L BUN 62 H (7-17) mg/dL Creatinine 7.67 H* (0.52-1.04) mg/dL Glucose 115 H (74-99) mg/dL POC Glucose (mg/dL) (70-110) mg/dL Calcium 10.5 H (8.4-10.2) mg/dL Troponin I 0.093 H* (0.000-0.034) ng/mL 06/30/24 06/30/24 06/30/24 Range/Units 09:48 12:22 14:49 RBC (3.80-5.40) m/uL Hgb (11.4-16.0) gm/dL MCV (80.0-100.0) fL Chloride (98-107) mmol/L BUN (7-17) mg/dL Creatinine (0.52-1.04) mg/dL Glucose (74-99) mg/dL POC Glucose (mg/dL) 150 H (70-110) mg/dL Calcium (8.4-10.2) mg/dL Troponin I 0.087 H* 0.094 H* (0.000-0.034) ng/mL 06/30/24 06/30/24 Range/Units 16:49 20:23 RBC (3.80-5.40) m/uL Hgb (11.4-16.0) gm/dL MCV (80.0-100.0) fL Chloride (98-107) mmol/L BUN (7-17) mg/dL Creatinine (0.52-1.04) mg/dL Glucose (74-99) mg/dL POC Glucose (mg/dL) 138 H 211 H (70-110) mg/dL Calcium (8.4-10.2) mg/dL Troponin I (0.000-0.034) ng/mL
[2024-06-30] MEDS ORDERED: ATROPINE SULFATE 0.1 MG/ML 10ML SYRINGE IV PRN (21:55)
[2024-06-30] MEDS ORDERED: ZOLPIDEM 5 MG TAB PO PRN (21:55)
[2024-06-30] MEDS ORDERED: RX INFO: IV CONTRAST WAS GIVEN 1 EACH MISC MISCELLANE PRN (21:55)
[2024-06-30 22:20] LABS: Glucose,Whole Blood 124 mg/dL (70-110)
--- NOTE | 2024-06-30 22:24 | P.PRCINT ---
Percutaneous Coronary Int. - Percutaneous Coronary Intervention Percutaneous Coronary Intervention: PROCEDURES PERFORMED: Left heart catheterization, bilateral coronary angiography, ultrasound guided arterial access, MADERA to LAD and SVG to diagonal angiography, IVUS left main, PCI left main into circumflex with a 2.75 x 28mm Xience JOHN, post dilated with a 4.0mm NC balloon, Shockwave lithotripsy circumflex with a 2.5mm balloon INDICATION: NSTEMI CONSENT:I have discussed the risks, benefits and alternative therapies for the above-mentioned procedure and for both sedation/analgesia as well as necessary blood product administration, if indicated, as they pertain to this patient. The patient has indicated understanding and acceptance of the risks and procedures discussed. PROCEDURE: After the risks, benefits and alternatives of the above mentioned procedure explained in detail with the patient, informed consent was obtained. Patient was taken to the catheterization lab and prepped and draped in usual fashion. Ultrasound guidance was used to assess for arterial access. 1% lidocaine was used to anesthetize the right femoral artery. A 6-Belarusian sheath was placed in the right femoral artery using modified Seldinger technique and ultrasound guidance. Left coronary angiography was performed with a 6-[place]ian JL 4.0 catheter and right coronary angiography was performed with a 6-[place]ian FR4 catheter in various views. A 6-[place]ian FR4 catheter was inserted into the left ventricle and pressure measurements were obtained. SVG to diagonal and MADERA to LAD angiography was performed with a 6FR FR4 catheter. The decision was made to perform PCI of left main into circumflex. The RCA appeared more chronically occlluded and especially given multiple issues with multiple layers of stent felt best treated medically. A 6Fr CLS 4.5 guide catheter was used to engage the left main. A 0.014 BMW wire was advanced into the distal circumflex. A 2.0 x 12 mm and then 2.5 mm NC balloon were used to pre dilated the lesion. IVUS was performed. Balloon lithotripsy was performed with a 2.5mm balloon x 3 passes. A 2.75 x 28mm Xience JOHN was placed. The proximal portion into the left main was post dilated with a 4.0mm NC balloon. Final angiograms and repeat IVUS were performed. Pre intervention there was 99% stenosis and PAULINA 3 flow and post intervention there was < 10% stenosis with PAULINA 3 flow. The right femoral angiogram showed adequate anatomy for closure and an Angioseal was placed with hemostasis achieved. The patient tolerated the procedure well. Patient was transported back to the post catheterization holding area in stable condition. Conscious Sedation: Patient was monitored under the direct supervision of myself for conscious sedation using Versed and fentanyl for a total duration of 53 minutes HEMODYNAMICS: Ao: 143/71 LV: 138/4, LVEDP 22 SELECTIVE CORONARY ARTERIOGRAPHY: LEFT MAIN: The left main is a large caliber vessel which bifurcates into the LAD and circumflex. There is 20-30% left main significant stenosis. LEFT ANTERIOR DESCENDING CORONARY ARTERY: LAD is a large caliber vessel which wraps around to the apex. There is no a proximal LAD 90% stenosis and otherwise mild 20-30% stenosis. LEFT CIRCUMFLEX CORONARY ARTERY: Left circumflex is a moderate caliber vessel with ostial 99% stenosis and proximal 60% stenosis. OM1 is moderate caliber and otherwise has mild disease. After OM1, the circumflex becomes a small to moderate caliber vessel with 100% subtotal occlusion. RIGHT CORONARY ARTERY: The right coronary artery is a large caliber vessel which gives off a PDA and PLV branch and is the dominant vessel. There is 100% stenosis at the proximal edge of the stents. Multiple layers of stent identified SVG to diagonal: widely patent MADERA to LAD: widely patent FINAL IMPRESSION: 1. CAD as described above including 20-30% left main, 90% proximal LAD, 99% ostial circumflex, 100% mid circumflex, 100% RCA 2. Patent MADERA to LAD and SVG to diagonal branch 3. S/p PCI left main into circumflex with a 2.75 x 28mm Xience JOHN, post dilated with a 4.0mm NC balloon 4. High left sided filling pressures PLAN: 1. Aggressive risk factor modification per most recent ACC/AHA guidelines. 2. Continue dual antiplateltes for 12 months 3. 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
[2024-06-30] MEDS: ACETAMINOPHEN TAB 500 MG TAB PO SCH (23:16)
[2024-07-01] MEDS: MAG HYDROX/AL HYDROX/SIMETH 30 ML CUP PO PRN (00:13)
[2024-07-01] MEDS: MONTELUKAST 10 MG TAB PO SCH (00:16)
[2024-07-01] MEDS: PANTOPRAZOLE 40 MG TABLET PO SCH (00:16)
[2024-07-01] MEDS: CINACALCET 30 MG TAB PO SCH (00:22)
[2024-07-01] MEDS: SODIUM CHLORIDE 0.9% 1,000 ML in EMPTY BAG 1 BAG IV SCH (00:27)
[2024-07-01] MEDS: INSULIN LISPRO (For Pump) 100 UNIT/ML VIAL SQ-PUMP SCH (00:51)
[2024-07-01 06:22] LABS: Glucose,Whole Blood 104 mg/dL (70-110)
[2024-07-01] MEDS ORDERED: HEPARIN SODIUM,PORCINE (1 ML) 2,500 UNIT in SODIUM CHLORIDE 0.9% 250 ML IRRIGATION PRN (07:00)
[2024-07-01] MEDS ORDERED: HEPARIN SODIUM,PORCINE 10,000 UNIT in SODIUM CHLORIDE 0.9% 1,000 ML IRRIGATION PRN (07:00)
[2024-07-01 07:14] LABS: Basophils # (A) 0.1 k/uL (0-0.2); Basophils % (A) 1 %; Eosinophils # (A) 0.2 k/uL (0-0.7); Eosinophils % (A) 3 %; HGB 10.4 gm/dL (11.4-16.0); Hypochromasia Slight; Lymphocytes # (A) 1.2 k/uL (1.0-4.8); Lymphocytes % (A) 19 %; MCH 33.4 pg (25.0-35.0); MCHC 31.4 g/dL (31.0-37.0); MCV 106.3 fL (80.0-100.0); Macrocytosis Moderate; Mean Platelet Volume 7.7; Monocytes # (A) 0.5 k/uL (0-1.0); Monocytes % (A) 7 %; Neutrophils # (A) 4.3 k/uL (1.3-7.7); Neutrophils % (A) 66 %; Platelet Count 236 k/uL (150-450); RDW 14.6 % (11.5-15.5); WBC 6.5 k/uL (3.8-10.6)
[2024-07-01 07:34] LABS: African American GFR (CKD) 8 (>60 ml/min/1.73 sqM); Non-African American GFR(CKD) 7 (>60 ml/min/1.73 sqM)
[2024-07-01 09:53] VITALS: RESP 17; TEMP 98.5
[2024-07-01] MEDS: allopurinoL 100 MG TAB PO SCH (09:56)
[2024-07-01] MEDS: ASPIRIN 325 MG TAB PO SCH (09:57)
[2024-07-01] MEDS: FOLIC ACID-VIT B COMPLEX-VIT C 1 CAP PO SCH (10:03)
[2024-07-01 11:31] VITALS: BP 93/43; PULSE 61
[2024-07-01 11:33] LABS: Glucose,Whole Blood 280 mg/dL (70-110)
--- NOTE | 2024-07-01 11:39 | P.NPCON ---
History of Present Illness - Reason for Consult end stage renal disease - History of Present Illness Reason for consultation: End-stage renal disease History of present illness: Patient is a 69-year-old female seen in renal consultation for end-stage renal disease. She is maintained on hemodialysis on Sunday schedule. Underwent hemodialysis yesterday. Patient came to the hospital due to chest discomfort. She underwent cardiac catheterization with stent placement to the circumflex. Currently she has no pain. No shortness of breath. She does make urine. No fever or chills. No vomiting or diarrhea. Patient does have history of diabetes. She also has history of CABG and multiple stents placed post CABG. Vital signs are stable. General: No acute distress. HEENT: Head exam is unremarkable. LUNGS: No audible rhonchi or wheezes. HEART: Rate and Rhythm are regular. ABDOMEN: Nontender. EXTREMITITES: No edema. Past Medical History Past Medical History: Diabetes Mellitus, Hyperlipidemia, Hypertension, Renal Disease Additional Past Medical History / Comment(s): DIALYSIS.angina, kidney disease stage 4, pilonidal cyst, carpal tunnel, insulin pump History of Any Multi-Drug Resistant Organisms: None Reported Past Surgical History: Coronary Bypass/CABG, Heart Catheterization With Stent, Tonsillectomy, Tubal Ligation Additional Past Surgical History / Comment(s): cataracts Past Anesthesia/Blood Transfusion Reactions: No Reported Reaction Date of Last Stent Placement:: 2004 Past Psychological History: No Psychological Hx Reported Smoking Status: Former smoker Past Alcohol Use History: Rare Past Drug Use History: None Reported Medications and Allergies Home Medications Medication Instructions Recorded Confirmed Type Atorvastatin [Lipitor] 80 mg PO HS 10/11/16 06/30/24 History Clopidogrel Bisulfate [Plavix] 75 mg PO DAILY 10/11/16 06/30/24 History Insulin Aspart (For Pump) [NovoLOG 0.01 unit SQ-PUMP CONTINUOUS 10/11/16 06/30/24 History (For Pump)] Montelukast [Singulair] 10 mg PO HS 10/11/16 06/30/24 History Nitroglycerin Sl Tabs [Nitrostat] 0.4 mg SUBLINGUAL Q5M PRN 10/11/16 06/30/24 History allopurinoL [Zyloprim] 100 mg PO DAILY 10/11/16 06/30/24 History Alirocumab [Praluent Pen] 75 mg SQ Q14D 05/19/22 03/10/25 History Denosumab [Prolia] 60 mg SQ Q180D 02/27/23 06/30/24 History Ferric Citrate [Auryxia] 210 mg PO AC-TID 02/27/23 06/30/24 History Midodrine [ProAmatine] 5 mg PO QID PRN 02/27/23 06/30/24 History Acetaminophen Tab [Tylenol] 1,000 mg PO TID 09/05/23 06/30/24 History Omeprazole [PriLOSEC] 20 mg PO BID 01/21/24 06/30/24 History Cinacalcet HCl [Sensipar] 60 mg PO MOFR 06/30/24 06/30/24 History Cinacalcet [Sensipar] 30 mg PO WE 06/30/24 06/30/24 History Folic Acid/Vit B Complex and C 0.8 mg PO DAILY 06/30/24 06/30/24 History [Hien-Moi Tablet] Isosorbide Mononitrate ER [Imdur] 30 mg PO DAILY 06/30/24 06/30/24 History Torsemide [Demadex] 20 mg PO PC-SUPPER 06/30/24 06/30/24 History calcitrioL [Rocaltrol] 1.25 mcg PO MOWEFR 06/30/24 06/30/24 History Aspirin EC [Ecotrin Low Dose] 81 mg PO BID #0 07/01/24 06/30/24 Rx Metoprolol Succinate [Toprol XL] 25 mg PO DAILY #0 07/01/24 06/30/24 Rx Allergies Allergy/AdvReac Type Severity Reaction Status Date / Time famotidine [From Pepcid] Allergy Unknown Verified 06/30/24 07:48 nifedipine Allergy Swelling Verified 06/30/24 07:48 droperidol AdvReac Anxiety Verified 06/30/24 07:48 ezetimibe [From Vytorin] AdvReac Acid Reflux Verified 06/30/24 07:48 fentanyl AdvReac "Can't Verified 06/30/24 07:48 wake up"/Nausea hydrocodone AdvReac Angina Verified 06/30/24 07:48 hydromorphone [From Dilaudid] AdvReac Angina Verified 06/30/24 07:48 midazolam [From Versed] AdvReac Anxiety Verified 06/30/24 07:48 morphine AdvReac Nausea & Verified 06/30/24 07:48 Vomiting nitroglycerin AdvReac Patient Verified 06/30/24 07:48 denies this allergy. paroxetine [From Paxil] AdvReac Acid Reflux Verified 06/30/24 07:48 ranolazine [From Ranexa] AdvReac Unknown Verified 06/30/24 07:48 simvastatin [From Vytorin] AdvReac Acid Reflux Verified 06/30/24 07:48 sulfamethoxazole AdvReac Decreased Verified 06/30/24 07:48 [From Bactrim] Renal Function trandolapril [From Tarka] AdvReac Acid Reflux Verified 06/30/24 07:48 trimethoprim [From Bactrim] AdvReac Decreased Verified 06/30/24 07:48 Renal Function verapamil [From Tarka] AdvReac Acid Reflux Verified 06/30/24 07:48 Physical Exam Vitals: Vital Signs Temp Pulse Pulse Resp BP BP Pulse Ox 07/01/24 11:28 61 17 93/43 95 07/01/24 07:40 62 07/01/24 07:39 98.5 F 62 17 88/48 95 07/01/24 03:43 94 16 108/48 93 L 07/01/24 01:05 81 17 107/60 95 07/01/24 00:19 65 16 95/50 100 06/30/24 23:14 66 17 95/55 97 06/30/24 22:09 102/59 06/30/24 20:50 92/52 06/30/24 20:35 85/48 06/30/24 20:23 95/43 06/30/24 20:18 101/44 06/30/24 19:30 97.9 F 80 17 122/57 95 06/30/24 17:47 98.6 F 83 18 91/48 06/30/24 16:00 98.2 F 83 18 134/63 98 06/30/24 14:37 97.8 F 75 18 101/50 97 06/30/24 12:00 65 17 100/65 95 Intake and Output 06/30/24 07/01/24 07/01/24 22:59 06:59 14:59 Intake Total 828 264 260 Output Total 500 Balance 328 264 260 Intake: IV 210 10 10 Invasive Line 1 10 10 10 Intake, IV Titration 254 Amount Sodium Chloride 0.9% 1, 254 000 ml In Empty Bag 1 bag @ 1 ML/KG/HR 63.503 mls/ hr IV .[id number] [facility] Rx#: [id number] Oral 118 250 Hemodialysis 500 Output: Urine 0 Hemodialysis 500 Hemodialysis Net Amount 0 Other: Voiding Method Toilet Toilet Toilet # Voids 1 Weight 66.2 kg Results - Lab Results Most recent lab results Calcium 10.5 mg/dL (8.4-10.2) H 06/30/24 08:01 Magnesium 2.1 mg/dL (1.6-2.3) 06/30/24 08:01 07/01/24 06:39 07/01/24 06:39 Assessment and Plan Plan: Assessment: 1. End-stage renal disease maintained on hemodialysis on Sunday schedule. 2. NSTEMI with history of coronary artery disease status post CABG and multiple stents placement. She had a stent placed to circumflex June 30, 2024. 3. Diabetes mellitus. 4. Chronic kidney disease mineral bone disease maintained on calcitriol and Sensipar. Plan: Hemodialysis tomorrow. Potential discharge today. Thank you for the consultation. I will continue to follow the patient with you during her hospital stay.
[2024-07-01 12:11] VITALS: BMI 27.1
[2024-07-01 12:56] LABS: Chol/HDL Ratio 2.09 Ratio; VLDL Calculation 17.54 mg/dL (5.00-40.00)
--- NOTE | 2024-07-01 14:31 | P.PN ---
Subjective Progress Note Date: 07/01/24 Consult reason: chest pain History of present illness: This is a 69-year-old female patient of Dr. Dao with past medical history of coronary artery disease status post CABG, NV, end-stage renal disease on hemodialysis Sunday, aortic stenosis. Patient was previously following with Dr. Lima at [facility] and that is where she had her open heart surgery completed. According to last office note dated 05/08/2024, patient was having intermittent episodes of chest pain more so related to GI issues with improvement using Tums and burping. Patient now states that she is feeling so much better. She states she could not lay down and could not prop herself up pillows she was having severe reflux and burning. She took Pepto- Bismol which seemed to help. She states because of the pain she was awake all night. Last week, patient stopped taking her isosorbide because her blood pressure was running low at dialysis and including the day after dialysis her blood pressure was still low. She states that on she was reading that this medication should not be stopped abruptly and then she started taking again along with a half a metoprolol which she has been taking for the past 2 days until yesterday. Because of the significant chest pain, she drove to the hemodialysis center for her usual treatment but said in the parking lot decided to come into the emergency center instead for further evaluation of the chest pain. Blood pressure 103/54, heart rate 61, pulse ox 98% on room air. Patient is seen today in the emergency center waiting for bed on the cardiac stepdown unit. Due to elevation in her troponins, Dr. Mckeon discussed recommendations for cardiac catheterization which she is agreeable to move forward with this today. -EKG: Sinus rhythm with no acute ST-T wave changes. -Chest x-ray: No acute process. -Laboratory studies: WBC 6, hemoglobin 11. INR 0.9. BUN 62 and creatinine 7.67. Troponin 0.093 and 0.087. Calcium 10.5. -Home cardiac medications: Aspirin 81 mg daily, atorvastatin 80 mg at bedtime, Plavix 75 mg daily, isosorbide 30 mg daily, metoprolol succinate 25 mg as needed and 25 mg on Sunday, Nitrostat as needed, Demadex 20 mg with supper, patient is also on midodrine as needed. -Cardiac catheter physician performed by Dr. Dao on 01/21/2024 revealed CAD with 50 to 60% left main stenosis, 99% proximal LAD stenosis, 30 to 40% OM1 stenosis, 100% mid circumflex stenosis, 99% proximal RCA stenosis, 100% small caliber PDA stenosis. Significantly elevated left-sided filling pressures. Mild to moderate aortic stenosis with mean gradient of 16 mmHg. IFR of OM1 long lesion abnormal at 0.82 with relatively normal IFR of the left main. Patient underwent PCI of the proximal to mid RCA with JOHN and post dilated with balloon, shockwave lithotripsy to the proximal to mid RCA. Patent SVG to diagonal and MADERA to LAD. -Echocardiogram performed 02/2024: EF 35 to 40%, moderate mitral regurgitation, mitral stenosis, mild to moderate aortic stenosis. 07/01 Patient seen and examined on the cardiac stepdown unit. Yesterday, patient underwent cardiac catheterization with Dr. Dao which revealed 20 to 30% left main, 90% proximal LAD, 99% ostial circumflex, 100% mid circumflex, 100% RCA, patent MADERA to LAD and SVG to diagonal branch. Patient underwent PCI of the left main into the circumflex with JOHN and balloon. Patient denies having chest pain, no shortness of breath. Patient had dialysis last night. She states she is feeling very well today and is anticipating going home today. Repeat EKG sinus rhythm with no ischemic changes. Physical examination: Gen: This is 69-year-old female in no acute distress VS: reviewed HEENT: Head is atraumatic, normocephalic. Pupils equal, round. Sclerae is anicteric. NECK: Supple. No JVD. LUNGS: Clear to auscultation. No wheezes or rhonchi. No intercostal retractions. HEART: Regular rate and rhythm. No murmur. ABDOMEN: Soft No tenderness. EXTREMITIES: No pedal edema. No calf tenderness. NEUROLOGICAL: Patient is awake, alert and oriented x3. Assessment: NSTEMI History of coronary artery disease with previous CABG and PCI History of in-stent stenosis status post brachytherapy Ischemic cardiomyopathy with EF of 35 to 40% End-stage renal disease on hemodialysis Hypertension Hyperlipidemia Aortic stenosis Plan: Continue patient's home cardiac medications Schedule patient for cardiac catheterization today with Dr. Dao Patient is cleared for discharge from cardiology and will follow-up with Dr. Dao in 1 week. Nurse practitioner note has been reviewed, I agree with documented findings and plan of care. Patient was seen and examined. Objective - Vital Signs Vital signs: Vital Signs Temp 97.9 F 06/30/24 19:30 Pulse 94 07/01/24 03:43 Resp 16 07/01/24 03:43 BP 108/48 07/01/24 03:43 Pulse Ox 93 L 07/01/24 03:43 FiO2 Intake & Output 06/30/24 07/01/24 07/01/24 18:59 06:59 18:59 Intake Total 818 274 250 Output Total 500 0 Balance 318 274 250 Weight 63.503 kg 66.2 kg Intake: IV 200 20 Invasive Line 1 20 Intake, IV Titration 254 Amount Sodium Chloride 0.9% 1, 254 000 ml In Empty Bag 1 bag @ 1 ML/KG/HR 63.503 mls/ hr IV .[id number] OSIRIS Rx#: [id number] Oral 118 250 Hemodialysis 500 Output: Urine 0 Hemodialysis 500 Hemodialysis Net Amount 0 Other: Voiding Method Toilet # Voids 1 - Labs CBC & Chem 7: 07/01/24 06:39 07/01/24 06:39 Labs: Abnormal Lab Results - Last 24 Hours (Table) 06/30/24 06/30/24 06/30/24 Range/Units 09:48 12:22 14:49 RBC (3.80-5.40) m/uL Hgb (11.4-16.0) gm/dL Hct (34.0-46.0) % MCV (80.0-100.0) fL Creatinine (0.52-1.04) mg/dL POC Glucose (mg/dL) 150 H (70-110) mg/dL Troponin I 0.087 H* 0.094 H* (0.000-0.034) ng/mL 06/30/24 06/30/24 06/30/24 Range/Units 16:49 20:23 22:18 RBC (3.80-5.40) m/uL Hgb (11.4-16.0) gm/dL Hct (34.0-46.0) % MCV (80.0-100.0) fL Creatinine (0.52-1.04) mg/dL POC Glucose (mg/dL) 138 H 211 H 124 H (70-110) mg/dL Troponin I (0.000-0.034) ng/mL 07/01/24 07/01/24 Range/Units 06:39 06:39 RBC 3.10 L (3.80-5.40) m/uL Hgb 10.4 L (11.4-16.0) gm/dL Hct 33.0 L (34.0-46.0) % MCV 106.3 H (80.0-100.0) fL Creatinine 5.72 H (0.52-1.04) mg/dL POC Glucose (mg/dL) (70-110) mg/dL Troponin I (0.000-0.034) ng/mL
--- NOTE | 2024-07-01 18:41 | P.DS ---
Providers Date of admission: 06/30/24 09:18 Expected date of discharge: 07/01/24 Attending physician: Mio Mar Consults: 06/30/24 09:18 Consult Physician Urgent Consulting Provider: Michael Levin Consult Reason/Comments: chest pain Do you want consulting provider notified?: Yes 06/30/24 16:56 Consult Physician Routine Consulting Provider: Ernst Johnson Consult Reason/Comments: HD Do you want consulting provider notified?: Yes 06/30/24 21:55 Consult Physician Routine Consulting Provider: [facility] Consult Reason/Comments: Post Interventional Patient Do you want consulting provider notified?: Already Contacted Primary care physician: [facility] Course: Chief Complaint: Chest pain Pleasant 69-year-old patient, follows with Dr. Rose. With chronic stable medical conditions include diabetes mellitus, hypertension, hyperlipidemia, end- stage kidney disease on hemodialysis since 2021, on insulin pump, coronary artery disease with prior stent. Follows for her cardiac care at [facility].-Has a previous bypass. [employer] . 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 Last night patient again had a episode of chest pain. Burning sensation. Fullness. She was examined in the garage. Symptoms never let go. She felt more tired. Finally decided to come in. Troponins were positive. Taken to cardiac catheterization lab. Stent was placed to the circumflex. Follow-up with results pending. Getting hemodialysis this evening July 01: Doing well. No chest pain. Cleared by cardiology for discharge. To follow-up with Dr. Dao next week. Patient underwent PCI left main into the circumflex. JOHN. And angioplasty. More details in Dr. Dao's notes Past medical history to include: Diabetes mellitus, hypertension, hyperlipidemia, end-stage kidney disease on dialysis Tuesdays and Sunday, CAD with stent and bypass-follows at [facility] Social history: Lives alone. Prior smoker. Alcohol rarely. Physical examination: VITAL SIGNS: 98.5, 62, 17, 93 x 43, 95% room air GENERAL: Resting in bed, comfortable. Left upper extremity AV fistula EYES: Pupils equal. Conjunctiva normal. HEENT: External appearance of nose and ears normal, oral cavity grossly normal. NECK: JVD not raised; masses not palpable. HEART: First and second heart sounds are normal; no edema LUNGS: Respiratory rate normal; clear to auscultation. ABDOMEN: Soft, nontender, liver spleen not palpable, no masses palpable. PSYCH: Alert and oriented x3; mood and affect normal. MUSCULOSKELETAL:No Clubbing/cyanosis;muscles-grossly intact INVESTIGATIONS, reviewed in the clinical context: July 01: White count 6.5 globin 10.4 platelets 236 LDL 52 March 02: White count 6 hemoglobin 11.0 platelets 263 sodium 137 potassium 4.3 BUN 62 creatinine 7.67 Troponin I 0.093, 0.087, 0.094 EKG tracing personally reviewed by me-some ST-T wave changes. Chest x-ray film personally reviewed by me-some cardiomegaly Assessment and plan: -Acute non-ST elevation myocardial infarction. Follows at [facility] with Dr. Rangel and locally with Dr. Dao Cardiac catheterization with PCI stent to left main into the circumflex.. More details and cardiology notes IV heparin. Aspirin. Plavix. Toprol-XL. Imdur. -Chronic congestive heart failure from systolic dysfunction EF 35-40 from underlying coronary artery- Toprol-XL -Coronary artery disease with prior stents, coronary bypass Aspirin. Lipitor. Plavix. -Diabetes mellitus type 2 on insulin pump Continue insulin pump -Hyperlipidemia Lipitor 80 mg daily at bedtime. -Essential hypertension Toprol-XL. -GERD Prilosec. Follow-up with GI outpatient -End-stage kidney disease on hemodialysis since 2021 Regular schedule: Sunday. Left upper extremity proximal AV fistula Nephrology following. Hemodialysis today -Severe aortic valve sclerosis with moderate aortic stenosis, moderate to severe mitral regurgitation Follow with cardiology -Gallstones asymptomatic -Normocytic anemia, secondary to chronic kidney disease -Full code Disposition: Home Past Medical History Past Medical History: Diabetes Mellitus, Hyperlipidemia, Hypertension, Renal Disease Additional Past Medical History / Comment(s): DIALYSIS.angina, kidney disease stage 4, pilonidal cyst, carpal tunnel, insulin pump History of Any Multi-Drug Resistant Organisms: None Reported Past Surgical History: Coronary Bypass/CABG, Heart Catheterization With Stent, Tonsillectomy, Tubal Ligation Additional Past Surgical History / Comment(s): cataracts Past Anesthesia/Blood Transfusion Reactions: No Reported Reaction Date of Last Stent Placement:: 2004 Past Psychological History: No Psychological Hx Reported Smoking Status: Former smoker Past Alcohol Use History: Rare Past Drug Use History: None Reported Plan - Discharge Summary New Discharge Prescriptions: Continue Nitroglycerin Sl Tabs [Nitrostat] 0.4 mg SUBLINGUAL Q5M PRN PRN Reason: Angina Montelukast [Singulair] 10 mg PO HS allopurinoL [Zyloprim] 100 mg PO DAILY Clopidogrel Bisulfate [Plavix] 75 mg PO DAILY Atorvastatin [Lipitor] 80 mg PO HS Insulin Aspart (For Pump) [NovoLOG (For Pump)] 0.01 unit SQ-PUMP CONTINUOUS Alirocumab [Praluent Pen] 75 mg SQ Q14D Ferric Citrate [Auryxia] 210 mg PO AC-TID Midodrine [ProAmatine] 5 mg PO QID PRN PRN Reason: Blood Pressure - Low Acetaminophen Tab [Tylenol] 1,000 mg PO TID Omeprazole [PriLOSEC] 20 mg PO BID Isosorbide Mononitrate ER [Imdur] 30 mg PO DAILY Torsemide [Demadex] 20 mg PO PC-SUPPER calcitrioL [Rocaltrol] 1.25 mcg PO MOWEFR Cinacalcet HCl [Sensipar] 60 mg PO MOFR Denosumab [Prolia] 60 mg SQ Q180D Folic Acid/Vit B Complex and C [Hien-Moi Tablet] 0.8 mg PO DAILY Cinacalcet [Sensipar] 30 mg PO WE Changed Aspirin EC [Ecotrin Low Dose] 81 mg PO BID #0 Metoprolol Succinate [Toprol XL] 25 mg PO DAILY #0 Discontinued Metoprolol Succinate (ER) [Toprol XL] 25 mg PO [facility] Discharge Medication List Atorvastatin [Lipitor] 80 mg PO HS 10/11/16 [History] Clopidogrel Bisulfate [Plavix] 75 mg PO DAILY 10/11/16 [History] Insulin Aspart (For Pump) [NovoLOG (For Pump)] 0.01 unit SQ-PUMP CONTINUOUS 10/11/16 [History] Montelukast [Singulair] 10 mg PO HS 10/11/16 [History] Nitroglycerin Sl Tabs [Nitrostat] 0.4 mg SUBLINGUAL Q5M PRN 10/11/16 [History] allopurinoL [Zyloprim] 100 mg PO DAILY 10/11/16 [History] Alirocumab [Praluent Pen] 75 mg SQ Q14D 09/08/21 [History] Denosumab [Prolia] 60 mg SQ Q180D 02/27/23 [History] Ferric Citrate [Auryxia] 210 mg PO AC-TID 02/27/23 [History] Midodrine [ProAmatine] 5 mg PO QID PRN 02/27/23 [History] Acetaminophen Tab [Tylenol] 1,000 mg PO TID 09/05/23 [History] Omeprazole [PriLOSEC] 20 mg PO BID 01/21/24 [History] Cinacalcet HCl [Sensipar] 60 mg PO MOFR 06/30/24 [History] Cinacalcet [Sensipar] 30 mg PO WE 06/30/24 [History] Folic Acid/Vit B Complex and C [Hien-Moi Tablet] 0.8 mg PO DAILY 06/30/24 [History] Isosorbide Mononitrate ER [Imdur] 30 mg PO DAILY 06/30/24 [History] Torsemide [Demadex] 20 mg PO PC-SUPPER 06/30/24 [History] calcitrioL [Rocaltrol] 1.25 mcg PO MOWEFR 06/30/24 [History] Aspirin EC [Ecotrin Low Dose] 81 mg PO BID #0 07/01/24 [Rx] Metoprolol Succinate [Toprol XL] 25 mg PO DAILY #0 07/01/24 [Rx] Follow up Appointment(s)/Referral(s): Tavon Rose DO [Primary Care Provider] - 1-2 days Otf Dao DO [STAFF PHYSICIAN] - 1 Week Patient Instructions/Handouts: Chest Pain (DC), Hyperkalemia (DC), Heart Catheterization (DC) Discharge Disposition: HOME SELF-CARE
[2024-07-02] MEDS ORDERED: CINACALCET 30 MG TAB PO SCH (09:00)
== END 2024-07-01 13:10 | disposition home or self-care (01) ==
LOC: EC 07:40 → 3SCARD 09:18
PROVIDERS: ADMIT Hospitalist; ATTEND Hospitalist
DX: I21.4 Non-ST elevation (NSTEMI) myocardial infarction (principal); I25.10 Atherosclerotic heart disease of native coronary artery without angina pectoris; E11.22 Type 2 diabetes mellitus with diabetic chronic kidney disease; E78.5 Hyperlipidemia, unspecified; I13.2 Hypertensive heart and chronic kidney disease with heart failure and with stage 5 chronic kidney disease, or end stage renal disease; I50.22 Chronic systolic (congestive) heart failure; N18.6 End stage renal disease; N25.0 Renal osteodystrophy; I25.2 Old myocardial infarction; I25.5 Ischemic cardiomyopathy; I08.0 Rheumatic disorders of both mitral and aortic valves; K80.20 Calculus of gallbladder without cholecystitis without obstruction; D63.1 Anemia in chronic kidney disease; K21.9 Gastro-esophageal reflux disease without esophagitis; Z87.891 Personal history of nicotine dependence; Z95.5 Presence of coronary angioplasty implant and graft; Z96.41 Presence of insulin pump (external) (internal); Z99.2 Dependence on renal dialysis; Z79.02 Long term (current) use of antithrombotics/antiplatelets; Z79.4 Long term (current) use of insulin; Z79.82 Long term (current) use of aspirin; Z79.899 Other long term (current) drug therapy; Z88.2 Allergy status to sulfonamides; Z88.5 Allergy status to narcotic agent
CPT/HCPCS: 99285; 36415; 93005; 80061; 80053; 82565; 83735; 84484; 85025 ×2; 85610; 85730; 71046; G0378 ×2; J1644 ×3; J2003; Q9967; J2305; 90935

== ENCOUNTER 2024-07-31 09:02 | Emergency (ER) | payer MEDICARE, OTHER ==
[2024-07-31 09:10] VITALS: TEMP 97.8
--- NOTE | 2024-07-31 09:26 | ED ---
General Adult HPI - General Chief complaint: Chest Pain Stated complaint: cardiac symptoms Time Seen by Provider: 07/31/24 09:11 Source: patient, EMS, RN notes reviewed, old records reviewed Mode of arrival: EMS Limitations: no limitations - History of Present Illness Initial comments: 69-year-old female, type I diabetic history of end-stage renal disease on hemodialysis Sunday history of coronary artery disease status post bypass and multiple stenting presenting with chest pain while having a dental procedure. Patient was given anesthetic with epinephrine and she developed a central chest tightness. This was relieved by nitroglycerin. Patient states she had stent placed several weeks ago at this institution. - Related Data Home Medications Medication Instructions Recorded Confirmed Atorvastatin [Lipitor] 80 mg PO HS 10/11/16 06/30/24 Clopidogrel Bisulfate [Plavix] 75 mg PO DAILY 10/11/16 06/30/24 Insulin Aspart (For Pump) [NovoLOG 0.01 unit SQ-PUMP CONTINUOUS 10/11/16 06/30/24 (For Pump)] Montelukast [Singulair] 10 mg PO HS 10/11/16 06/30/24 Nitroglycerin Sl Tabs [Nitrostat] 0.4 mg SUBLINGUAL Q5M PRN 10/11/16 06/30/24 allopurinoL [Zyloprim] 100 mg PO DAILY 10/11/16 06/30/24 Alirocumab [Praluent Pen] 75 mg SQ Q14D 09/08/21 06/30/24 Denosumab [Prolia] 60 mg SQ Q180D 02/27/23 06/30/24 Ferric Citrate [Auryxia] 210 mg PO AC-TID 02/27/23 06/30/24 Midodrine [ProAmatine] 5 mg PO QID PRN 02/27/23 06/30/24 Acetaminophen Tab [Tylenol] 1,000 mg PO TID 09/05/23 06/30/24 Omeprazole [PriLOSEC] 20 mg PO BID 01/21/24 06/30/24 Cinacalcet HCl [Sensipar] 60 mg PO MOFR 06/30/24 06/30/24 Cinacalcet [Sensipar] 30 mg PO WE 06/30/24 06/30/24 Folic Acid/Vit B Complex and C 0.8 mg PO DAILY 06/30/24 06/30/24 [Hien-Moi Tablet] Isosorbide Mononitrate ER [Imdur] 30 mg PO DAILY 06/30/24 06/30/24 Torsemide [Demadex] 20 mg PO PC-SUPPER 06/30/24 06/30/24 calcitrioL [Rocaltrol] 1.25 mcg PO MOWEFR 06/30/24 06/30/24 Previous Rx's Medication Instructions Recorded Aspirin EC [Ecotrin Low Dose] 81 mg PO BID #0 07/01/24 Metoprolol Succinate [Toprol XL] 25 mg PO DAILY #0 07/01/24 Allergies Allergy/AdvReac Type Severity Reaction Status Date / Time famotidine [From Pepcid] Allergy Unknown Verified 07/31/24 09:10 nifedipine Allergy Swelling Verified 07/31/24 09:10 droperidol AdvReac Anxiety Verified 07/31/24 09:10 ezetimibe [From Vytorin] AdvReac Acid Reflux Verified 07/31/24 09:10 fentanyl AdvReac "Can't Verified 07/31/24 09:10 wake up"/Nausea hydrocodone AdvReac Angina Verified 07/31/24 09:10 hydromorphone [From Dilaudid] AdvReac Angina Verified 07/31/24 09:10 midazolam [From Versed] AdvReac Anxiety Verified 07/31/24 09:10 morphine AdvReac Nausea & Verified 07/31/24 09:10 Vomiting nitroglycerin AdvReac Patient Verified 07/31/24 09:10 denies this allergy. paroxetine [From Paxil] AdvReac Acid Reflux Verified 07/31/24 09:10 ranolazine [From Ranexa] AdvReac Unknown Verified 07/31/24 09:10 simvastatin [From Vytorin] AdvReac Acid Reflux Verified 07/31/24 09:10 sulfamethoxazole AdvReac Decreased Verified 07/31/24 09:10 [From Bactrim] Renal Function trandolapril [From Tarka] AdvReac Acid Reflux Verified 07/31/24 09:10 trimethoprim [From Bactrim] AdvReac Decreased Verified 07/31/24 09:10 Renal Function verapamil [From Tarka] AdvReac Acid Reflux Verified 07/31/24 09:10 Review of Systems ROS Statement: Those systems with pertinent positive or pertinent negative responses have been documented in the HPI. ROS Other: All systems not noted in ROS Statement are negative. Past Medical History Past Medical History: Diabetes Mellitus, Hyperlipidemia, Hypertension, Renal Disease Additional Past Medical History / Comment(s): DIALYSIS.angina, kidney disease stage 4, pilonidal cyst, carpal tunnel, insulin pump History of Any Multi-Drug Resistant Organisms: None Reported Past Surgical History: Coronary Bypass/CABG, Heart Catheterization With Stent, Tonsillectomy, Tubal Ligation Additional Past Surgical History / Comment(s): cataracts Past Anesthesia/Blood Transfusion Reactions: No Reported Reaction Date of Last Stent Placement:: 2004 Past Psychological History: No Psychological Hx Reported Smoking Status: Former smoker Past Alcohol Use History: Rare Past Drug Use History: None Reported General Exam Limitations: no limitations General appearance: alert, in no apparent distress Head exam: Present: atraumatic, normocephalic Eye exam: Present: normal appearance, PERRL ENT exam: Present: normal exam Neck exam: Present: normal inspection. Absent: tenderness, meningismus Respiratory exam: Present: normal lung sounds bilaterally. Absent: respiratory distress, wheezes Cardiovascular Exam: Present: regular rate, normal rhythm GI/Abdominal exam: Present: soft. Absent: distended, tenderness, guarding Neurological exam: Present: alert, oriented X3, CN II-XII intact. Absent: motor sensory deficit Psychiatric exam: Present: normal affect, normal mood Skin exam: Present: warm, dry, intact Course Vital Signs 07/31/24 07/31/24 07/31/24 09:04 10:01 11:05 Temperature 97.8 F Pulse Rate 76 82 84 Respiratory 18 16 16 Rate Blood Pressure 128/62 114/65 125/95 O2 Sat by Pulse 99 97 Oximetry 07/31/24 12:08 Temperature Pulse Rate 75 Respiratory 18 Rate Blood Pressure 113/65 O2 Sat by Pulse 92 L Oximetry Medical Decision Making - Medical Decision Making Was pt. sent in by a medical professional or institution (, PA, DESIGN PRINTING MACHINE SETTER, urgent care, hospital, or residential...) When possible be specific @ -No Did you speak to anyone other than the patient for history (EMS, parent, family, police, friend...)? What history was obtained from this source @ -No Did you review nursing and triage notes (agree or disagree)? Why? @ -I reviewed and agree with nursing and triage notes Were old charts reviewed (outside hosp., previous admission, EMS record, old EKG, old radiological studies, urgent care reports/EKG's, residential records)? Report findings @ -No old charts were reviewed Differential Chest Pain: Stable Angina, Unstable Angina, STEMI, NSTEMI Aortic Dissection, Pneumothorax, Musculoskeletal, Esophageal Spasm GERD, Cholecystitis, Pancreatitis, Zoster, this is not meant to be an all-inclusive list. EKG interpreted by me (3pts min.). @ -Sinus rhythm rate of 86, NV interval 172, QRS duration 133, QTc [address] segment elevation. Nonspecific interventricular conduction delay. X-rays interpreted by me (1pt min.). @ -Chest x-ray, atelectasis in the right lung field CT interpreted by me (1pt min.). @ -None done U/S interpreted by me (1pt. min.). @ -None done What testing was considered but not performed or refused? (CT, X-rays, U/S, labs)? Why? @ -None What meds were considered but not given or refused? Why? @ -None Did you discuss the management of the patient with other professionals (professionals i.e. , PA, DESIGN PRINTING MACHINE SETTER, lab, RT, psych nurse, social and political studies professor, materials manager, teacher, risk officer, family preservation caseworker)? Give summary @ -[Case discussed with Dr. Mar regarding admission Was smoking cessation discussed for >3mins.? @ -No Was critical care preformed (if so, how long)? @ -No Were there social determinants of health that impacted care today? How? (Homelessness, low income, unemployed, alcoholism, drug addiction, transportation, low edu. Level, literacy, decrease access to med. care, fci, rehab)? @ -No Was there de-escalation of care discussed even if they declined (Discuss DNR or withdrawal of care, Hospice)? DNR status @ -No What co-morbidities impacted this encounter? (DM, HTN, Smoking, COPD, CAD, Cancer, CVA, ARF, Chemo, Hep., AIDS, mental health diagnosis, sleep apnea, morbid obesity)? @ -End-stage renal disease, coronary artery disease, diabetes Was patient admitted / discharged? Hospital course, mention meds given and route, prescriptions, significant lab abnormalities, going to OR and other pertinent info. @69-year-old female presenting with an episode of chest pain related to dental procedure. Symptoms resolved. Patient does have end-stage renal disease, EKG is negative for ST segment elevation. She has stable chronic lab abnormalities. Her troponin is elevated however this is elevated at baseline. The patient prefers not to stay for repeat cardiac testing. I did plan to admit this patient however given her resolved symptoms and request for discharge I did agree to second troponin. This is stable. Patient is able to be discharged at this time with strict return parameters. Undiagnosed new problem with uncertain prognosis? @ -No Drug Therapy requiring intensive monitoring for toxicity (Heparin, Nitro, Insulin, Cardizem)? @ -No Were any procedures done? @ -No Diagnosis/symptom? @ -Chest pain Acute, or Chronic, or Acute on Chronic? @ -[Acute Uncomplicated (without systemic symptoms) or Complicated (systemic symptoms)? @ -Default Side effects of treatment? @ -No Exacerbation, Progression, or Severe Exacerbation? @ -No Poses a threat to life or bodily function? How? (Chest pain, [place], CA, pneumonia, PE, COPD, DKA, ARF, appy, cholecystitis, CVA, Diverticulitis, Homicidal, Suicidal, threat to staff... and all critical care pts) @ -Low risk - Lab Data Result diagrams: 07/31/24 09:16 07/31/24 09:16 Lab Results 07/31/24 07/31/24 07/31/24 Range/Units 09:16 09:16 09:16 WBC 7.05 (4.50-10.00) 10*3/uL RBC 3.32 L (4.10-5.20) 10*6/uL Hgb 11.3 L (12.0-15.0) g/dL Hct 34.3 L (37.2-46.3) % MCV 103.3 H (80.0-97.0) fL MCH 34.0 H (27.0-32.0) pg MCHC 32.9 (32.0-37.0) g/dL Plt Count 286 (140-440) 10*3/uL MPV 10.8 (9.5-12.2) fL Immature Gran % (Auto) 0.3 % Neutrophils % 57.0 % Lymphocytes % 25.7 % Monocytes % 13.5 % Eosinophils % 2.4 % Basophils % 1.1 % Immature Gran # 0.02 (0.00-0.04) 10*3/uL Neutrophils # 4.02 (1.80-7.70) 10*3/uL Lymphocytes # 1.81 (0.90-5.00) 10*3/uL Monocytes # 0.95 (0.20-1.00) 10*3/uL Eosinophils # 0.17 (0.04-0.35) 10*3/uL Basophils # 0.08 (0.00-0.10) 10*3/uL PT 10.4 (10.0-12.5) sec INR 0.9 (<1.2) APTT 21.7 L (22.0-30.0) sec Sodium 134 L (137-145) mmol/L Potassium 5.1 (3.5-5.1) mmol/L Chloride 96 L (98-107) mmol/L Carbon Dioxide 24 (22-30) mmol/L Anion Gap 14 mmol/L BUN 37 H (7-17) mg/dL Creatinine 6.50 H (0.52-1.04) mg/dL Est GFR (CKD-EPI)AfAm 7 (>60 ml/min/1.73 sqM) Est GFR (CKD-EPI)NonAf 6 (>60 ml/min/1.73 sqM) Glucose 221 H (74-99) mg/dL Calcium 11.4 H (8.4-10.2) mg/dL Magnesium 2.0 (1.6-2.3) mg/dL Total Bilirubin 0.7 (0.2-1.3) mg/dL AST 19 (14-36) U/L ALT 17 (4-34) U/L Alkaline Phosphatase 134 H (38-126) U/L Troponin I (0.000-0.034) ng/mL Total Protein 7.2 (6.3-8.2) g/dL Albumin 4.3 (3.5-5.0) g/dL 07/31/24 07/31/24 Range/Units 09:16 12:24 WBC (4.50-10.00) 10*3/uL RBC (4.10-5.20) 10*6/uL Hgb (12.0-15.0) g/dL Hct (37.2-46.3) % MCV (80.0-97.0) fL MCH (27.0-32.0) pg MCHC (32.0-37.0) g/dL Plt Count (140-440) 10*3/uL MPV (9.5-12.2) fL Immature Gran % (Auto) % Neutrophils % % Lymphocytes % % Monocytes % % Eosinophils % % Basophils % % Immature Gran # (0.00-0.04) 10*3/uL Neutrophils # (1.80-7.70) 10*3/uL Lymphocytes # (0.90-5.00) 10*3/uL Monocytes # (0.20-1.00) 10*3/uL Eosinophils # (0.04-0.35) 10*3/uL Basophils # (0.00-0.10) 10*3/uL PT (10.0-12.5) sec INR (<1.2) APTT (22.0-30.0) sec Sodium (137-145) mmol/L Potassium (3.5-5.1) mmol/L Chloride (98-107) mmol/L Carbon Dioxide (22-30) mmol/L Anion Gap mmol/L BUN (7-17) mg/dL Creatinine (0.52-1.04) mg/dL Est GFR (CKD-EPI)AfAm (>60 ml/min/1.73 sqM) Est GFR (CKD-EPI)NonAf (>60 ml/min/1.73 sqM) Glucose (74-99) mg/dL Calcium (8.4-10.2) mg/dL Magnesium (1.6-2.3) mg/dL Total Bilirubin (0.2-1.3) mg/dL AST (14-36) U/L ALT (4-34) U/L Alkaline Phosphatase (38-126) U/L Troponin I 0.052 H* 0.054 H* (0.000-0.034) ng/mL Total Protein (6.3-8.2) g/dL Albumin (3.5-5.0) g/dL Disposition Clinical Impression: Chest pain Disposition: HOME SELF-CARE Condition: Fair Instructions (If sedation given, give patient instructions): Chest Pain (ED) Is patient prescribed a controlled substance at d/c from ED?: No Referrals: Tavon Rose DO [Primary Care Provider] - 1-2 days Time of Disposition: 13:43
[2024-07-31 09:37] LABS: Basophils # (A) 0.08 10*3/uL (0.00-0.10); Basophils % (A) 1.1 %; Eosinophils # (A) 0.17 10*3/uL (0.04-0.35); Eosinophils % (A) 2.4 %; HCT 34.3 % (37.2-46.3); HGB 11.3 g/dL (12.0-15.0); Lymphocytes # (A) 1.81 10*3/uL (0.90-5.00); Lymphocytes % (A) 25.7 %; MCHC 32.9 g/dL (32.0-37.0); MCV 103.3 fL (80.0-97.0); Mean Platelet Volume 10.8 fL (9.5-12.2); Monocytes # (A) 0.95 10*3/uL (0.20-1.00); Monocytes % (A) 13.5 %; Neutrophils # (A) 4.02 10*3/uL (1.80-7.70); Platelet Count 286 10*3/uL (140-440); RBC 3.32 10*6/uL (4.10-5.20); RDW 14.7 % (11.5-14.5); WBC 7.05 10*3/uL (4.50-10.00)
[2024-07-31 09:57] LABS: ALT 17 U/L (4-34); AST 19 U/L (14-36); African American GFR (CKD) 7 (>60 ml/min/1.73 sqM); Albumin 4.3 g/dL (3.5-5.0); Alkaline Phosphatase 134 U/L (38-126); Anion Gap 14 mmol/L; Blood Urea Nitrogen 37 mg/dL (7-17); Calcium 11.4 mg/dL (8.4-10.2); Carbon Dioxide 24 mmol/L (22-30); Chloride 96 mmol/L (98-107); Glucose 221 mg/dL (74-99); Non-African American GFR(CKD) 6 (>60 ml/min/1.73 sqM); Potassium 5.1 mmol/L (3.5-5.1); Sodium 134 mmol/L (137-145); Total Bilirubin 0.7 mg/dL (0.2-1.3); Total Protein 7.2 g/dL (6.3-8.2)
--- NOTE | 2024-07-31 10:00 | XR ---
EXAMINATION TYPE: XR chest 2V DATE OF EXAM: 07/31/2024 9:45 AM COMPARISON: 06/30/2024 CLINICAL INDICATION: Female, 69 years old with history of Chest Pain, TECHNIQUE: XR chest 2V view(s) obtained. FINDINGS: The heart size is normal. The pulmonary vasculature is normal. Platelike atelectasis or scarring is present within the right mid lung. IMPRESSION: 1. Linear persistent opacity right midlung. 2. No acute pulmonary process evident. [facility], , 07/31/2024 9:58 AM
[2024-07-31 10:27] LABS: INR 0.9 (<1.2); Prothrombin Time 10.4 sec (10.0-12.5)
[2024-07-31 10:47] LABS: Partial Thromboplastin Time 21.7 sec (22.0-30.0)
[2024-07-31 13:56] VITALS: BP 114/50; PULSE 76; RESP 16
== END 2024-07-31 13:58 | disposition home or self-care (01) ==
LOC: EC 09:02
DX: R07.9 Chest pain, unspecified (principal); I25.10 Atherosclerotic heart disease of native coronary artery without angina pectoris; E10.22 Type 1 diabetes mellitus with diabetic chronic kidney disease; N18.6 End stage renal disease; Z87.891 Personal history of nicotine dependence; Z88.2 Allergy status to sulfonamides; Z88.1 Allergy status to other antibiotic agents; Z88.5 Allergy status to narcotic agent; Z88.8 Allergy status to other drugs, medicaments and biological substances; Z99.2 Dependence on renal dialysis
CPT/HCPCS: 36415; 71046; 80053; 83735; 84484; 85025; 85610; 85730; 93005; 99285

== ENCOUNTER 2024-08-10 08:04 | Inpatient (IN) | payer MEDICARE, OTHER ==
[2024-08-10] MEDS: ASPIRIN 81 MG PO STA (08:35)
[2024-08-10] MEDS: NITROGLYCERIN OINT 1 INCH/GM PACKET TOPICAL SCH (08:35)
[2024-08-10] MEDS: PANTOPRAZOLE 40 MG/10 ML VIAL IVP STA (08:35)
[2024-08-10 08:38] LABS: Basophils # (A) 0.08 10*3/uL (0.00-0.10); Basophils % (A) 0.8 %; Eosinophils # (A) 0.17 10*3/uL (0.04-0.35); Eosinophils % (A) 1.8 %; HCT 32.1 % (37.2-46.3); HGB 10.7 g/dL (12.0-15.0); Lymphocytes # (A) 0.97 10*3/uL (0.90-5.00); MCH 34.5 pg (27.0-32.0); MCHC 33.3 g/dL (32.0-37.0); MCV 103.5 fL (80.0-97.0); Mean Platelet Volume 10.6 fL (9.5-12.2); Monocytes # (A) 0.76 10*3/uL (0.20-1.00); Monocytes % (A) 7.9 %; Neutrophils # (A) 7.67 10*3/uL (1.80-7.70); Neutrophils % (A) 79.2 %; Platelet Count 271 10*3/uL (140-440); RDW 14.6 % (11.5-14.5); WBC 9.68 10*3/uL (4.50-10.00)
--- NOTE | 2024-08-10 08:39 | ED ---
General Adult HPI - General Chief complaint: Chest Pain Stated complaint: chest pain Time Seen by Provider: 08/10/24 08:05 Source: patient, RN notes reviewed, old records reviewed Mode of arrival: ambulatory - History of Present Illness Initial comments: Patient is a 69-year-old female who presents emergency department complaining of chest pain. Patient recently had PCI with cardiac stent placement by Dr. Dao of cardiology and June 2024. Specifically on June 30, 2024. States that she initially was doing well but shortly after discharge from the hospital at that time, she again began experiencing on again off again chest pains. States it was a substernal pressure sensation with dry heaving and had acid reflux burning sensation. No radiation of the pain. States it would come and go with no known palliative or provocative factors. States has been progressively getting somewhat worse. Since Sunday it has been more frequent and starting last night at approximately 5 PM, after she ate dinner and has been intermittent. States that resolves with nitroglycerin. Took nitro tablet shortly prior to arrival and currently has no chest pain. Did not take any aspirin this morning. She has a history of ESRD on hemodialysis, hypertension, hyperlipidemia, CAD. She denies any fevers, chills, cough, current chest pain, shortness of breath, abdominal pain. Presents for further evaluation at this time. Follows up with Dr. Dao of cardiology. - Related Data Home Medications Medication Instructions Recorded Confirmed Atorvastatin [Lipitor] 80 mg PO HS 10/11/16 08/10/24 Clopidogrel Bisulfate [Plavix] 75 mg PO DAILY 10/11/16 08/10/24 Insulin Aspart (For Pump) [NovoLOG 0.01 unit SQ-PUMP CONTINUOUS 10/11/16 08/10/24 (For Pump)] Montelukast [Singulair] 10 mg PO HS 10/11/16 08/10/24 Nitroglycerin Sl Tabs [Nitrostat] 0.4 mg SUBLINGUAL Q5M PRN 10/11/16 08/10/24 allopurinoL [Zyloprim] 100 mg PO DAILY 10/11/16 08/10/24 Alirocumab [Praluent Pen] 75 mg SQ Q14D 09/08/21 08/10/24 Denosumab [Prolia] 60 mg SQ Q180D 02/27/23 08/10/24 Ferric Citrate [Auryxia] 210 mg PO QID 02/27/23 08/10/24 Midodrine [ProAmatine] 5 mg PO QID PRN 02/27/23 08/10/24 Omeprazole [PriLOSEC] 20 mg PO BID 01/21/24 08/10/24 Cinacalcet HCl [Sensipar] 60 mg PO SUTH 06/30/24 08/10/24 Cinacalcet [Sensipar] 30 mg PO MOWEFRSA 06/30/24 08/10/24 Folic Acid/Vit B Complex and C 0.8 mg PO DAILY 06/30/24 08/10/24 [Hien-Moi Tablet] Isosorbide Mononitrate ER [Imdur] 30 mg PO DAILY 06/30/24 08/10/24 Torsemide [Demadex] 20 mg PO BID 06/30/24 08/10/24 Aspirin EC [Ecotrin Low Dose] 81 mg PO DAILY 07/31/24 08/10/24 Insulin Degludec [Insulin Degludec 12 units SQ DAILY PRN 07/31/24 08/10/24 Pen (U-100)] Metoprolol Succinate [Toprol XL] 25 mg PO BID 07/31/24 08/10/24 Allergies Allergy/AdvReac Type Severity Reaction Status Date / Time famotidine [From Pepcid] Allergy Unknown Verified 08/10/24 11:45 nifedipine Allergy Swelling Verified 08/10/24 11:45 amlodipine AdvReac Swelling Verified 08/10/24 11:45 diphenhydramine AdvReac Unknown Verified 08/10/24 11:45 [From Benadryl] droperidol AdvReac Anxiety Verified 08/10/24 11:45 ezetimibe [From Vytorin] AdvReac Acid Reflux Verified 08/10/24 11:45 fentanyl AdvReac "Can't Verified 08/10/24 11:45 wake up"/Nausea hydrocodone AdvReac Angina Verified 08/10/24 11:45 hydromorphone [From Dilaudid] AdvReac Angina Verified 08/10/24 11:45 midazolam [From Versed] AdvReac Anxiety Verified 08/10/24 11:45 morphine AdvReac Nausea & Verified 08/10/24 11:45 Vomiting nitroglycerin AdvReac Patient Verified 08/10/24 11:45 denies this allergy. paroxetine [From Paxil] AdvReac Acid Reflux Verified 08/10/24 11:45 ranolazine [From Ranexa] AdvReac Unknown Verified 08/10/24 11:45 simvastatin [From Vytorin] AdvReac Acid Reflux Verified 08/10/24 11:45 sulfamethoxazole AdvReac Decreased Verified 08/10/24 11:45 [From Bactrim] Renal Function trandolapril [From Tarka] AdvReac Acid Reflux Verified 08/10/24 11:45 trimethoprim [From Bactrim] AdvReac Decreased Verified 08/10/24 11:45 Renal Function verapamil [From Tarka] AdvReac Acid Reflux Verified 08/10/24 11:45 Review of Systems ROS Statement: Those systems with pertinent positive or pertinent negative responses have been documented in the HPI. Review of Systems: CONST: Denies fever EYES: Denies blurry vision ENT: Denies nasal congestion C/V: Denies current chest pain RESP: Denies shortness of breath GI: Denies abdominal pain : Denies dysuria SKIN: Denies rash. MSK: Denies joint pain. NEURO: Denies headache ROS Other: All systems not noted in ROS Statement are negative. Past Medical History Past Medical History: Diabetes Mellitus, Hyperlipidemia, Hypertension, Renal Disease Additional Past Medical History / Comment(s): DIALYSIS.angina, kidney disease stage 4, pilonidal cyst, carpal tunnel, insulin pump History of Any Multi-Drug Resistant Organisms: None Reported Past Surgical History: Coronary Bypass/CABG, Heart Catheterization With Stent, Tonsillectomy, Tubal Ligation Additional Past Surgical History / Comment(s): cataracts Past Anesthesia/Blood Transfusion Reactions: No Reported Reaction Date of Last Stent Placement:: 2004 Past Psychological History: No Psychological Hx Reported Smoking Status: Former smoker Past Alcohol Use History: Rare Past Drug Use History: None Reported General Exam - General Exam Comments Initial Comments: General: Appears in no acute distress. HEAD: Normal with no signs of head trauma. EYES: PERRLA, EOMI, conjunctiva normal, no discharge. ENT: Hearing grossly intact, normal oropharynx. RESPIRATORY: Clear breath sounds bilaterally. No wheezes, rales, or rhonchi. C/V: Regular rate and rhythm. S1 and S2 auscultated, no edema, peripheral pulses 2+ and intact throughout. Left upper extremity AV fistula has palpable thrill and audible bruit. ABD: Abd is soft, nontender, nondistended EXT: no obvious deformity SKIN: No rashes or lesions observed on exposed skin. NEURO: Alert and oriented x 4. Course Vital Signs 08/10/24 08/10/24 08/10/24 08:05 08:14 11:40 Temperature 97.8 F Pulse Rate 82 80 Pulse Rate [ 82 Quad Stayer ] Respiratory 20 18 Rate Blood Pressure 101/56 98/55 O2 Sat by Pulse 97 99 Oximetry Medical Decision Making - Medical Decision Making Was pt. sent in by a medical professional or institution (, PA, [employer], urgent care, hospital, or care home...) When possible be specific @ -No Did you speak to anyone other than the patient for history (EMS, parent, family, police, friend...)? What history was obtained from this source @ -No Did you review nursing and triage notes (agree or disagree)? Why? @ -I reviewed and agree with nursing and triage notes Were old charts reviewed (outside hosp., previous admission, EMS record, old EKG, old radiological studies, urgent care reports/EKG's, care home records)? Report findings @ -Old charts reviewed including recent visit in June 2024, patient received PCI and cardiac stenting of the left circumflex with Dr. Dao. Differential Diagnosis (chest pain, altered mental status, abdominal pain women, abdominal pain men, vaginal bleeding, weakness, fever, dyspnea, syncope, headache, dizziness, GI bleed, back pain, seizure, CVA, palpatations, mental health, musculoskeletal)? @ -Differential Chest Pain: Stable Angina, Unstable Angina, STEMI, NSTEMI Aortic Dissection, Pneumothorax, M usculoskeletal, Esophageal Spasm GERD, Cholecystitis, Pancreatitis, Zoster, this is not meant to be an all-inclusive list. EKG interpreted by me (3pts min.). @ -As above X-rays interpreted by me (1pt min.). @ -Chest x-ray reveals no obvious acute cardiopulmonary process. CT interpreted by me (1pt min.). @ -None done U/S interpreted by me (1pt. min.). @ -None done What testing was considered but not performed or refused? (CT, X-rays, U/S, labs)? Why? @ -None What meds were considered but not given or refused? Why? @ -None Did you discuss the management of the patient with other professionals (professionals i.e. , PA, [employer], lab, RT, psych nurse, administrator social welfare, special events director, teacher, special police officer, porter sample case)? Give summary @ -Discussed with supervisor ditching, Dr. Dao who was in agreement plan for heparinization, troponin trending. Stated patient is allowed to eat does not need to be made n.p.o. for right now. Discussed with the admitting provider, Dr. Parker of [facility] who accepted the admission. Was smoking cessation discussed for >3mins.? @ -No Was critical care preformed (if so, how long)? @ -Yes, 32 minutes Were there social determinants of health that impacted care today? How? (Homelessness, low income, unemployed, alcoholism, drug addiction, transportation, low edu. Level, literacy, decrease access to med. care, [place] [facility], rehab)? @ -No Was there de-escalation of care discussed even if they declined (Discuss DNR or withdrawal of care, Hospice)? DNR status @ -No What co-morbidities impacted this encounter? (DM, HTN, Smoking, COPD, CAD, Cancer, CVA, ARF, Chemo, Hep., AIDS, mental health diagnosis, sleep apnea, morbid obesity)? @ -CAD, ESRD on hemodialysis, hypertension, hyperlipidemia Was patient admitted / discharged? Hospital course, mention meds given and rout e, prescriptions, significant lab abnormalities, going to OR and other pertinent info. @ -Patient presents for chest pain. States that is similar to when she has required stenting in the past. Recent cardiac stent in June 2024. Chest pain resolved with nitro. Has been worse over the last day or so but has been having it on a daily basis for the last few weeks. Currently is chest pain-free. Patient will receive 324 mg of aspirin. Nitropaste will be applied. She has taken a total of 3 sublingual nitroglycerin tablets since last night at approximately 5 or 6 PM. We obtain cardiac workup. She was in agreement this plan. Vital signs within acceptable limits. EKG shows some nonspecific ST segment depressions but no obvious ST segment elevations.Chest x-ray unremarkable. Laboratory studies remarkable for an elevated troponin of 0.317. Patient has an elevated BUN and creatinine in the setting of ESRD on hemodialysis. Electrolytes are within acceptable limits. Hemoglobin was 10.7 but this is chronic and stable for the patient. On reevaluation, she remains chest pain-free. I discussed with the patient and we will start the patient on heparin to cover for NSTEMI. I spoke at length with her supervisor ditching, Dr. Dao who is in agreement with plan for heparinization as well as troponin trending. Patient is allowed to eat for now and he will evaluate the patient. Patient was in agreement this plan. She will be admitted. I spoke with the admitting provider, Dr. Parker who accepted the admission. Undiagnosed new problem with uncertain prognosis? @ -No Drug Therapy requiring intensive monitoring for toxicity (Heparin, Nitro, Insulin, Cardizem)? @ -Heparin Were any procedures done? @ -No Diagnosis/symptom? @ -NSTEMI Acute, or Chronic, or Acute on Chronic? @ -Acute Uncomplicated (without systemic symptoms) or Complicated (systemic symptoms)? @ -Complicated Side effects of treatment? @ -None Exacerbation, Progression, or Severe Exacerbation] @ -No Poses a threat to life or bodily function? @ -Yes Diagnosis/symptom? @ -ESRD on hemodialysis Acute, or Chronic, or Acute on Chronic? @ -Chronic Uncomplicated (without systemic symptoms) or Complicated (systemic symptoms)? @ -Uncomplicated Side effects of treatment? @ -None Exacerbation, Progression, or Severe Exacerbation] @ -No Poses a threat to life or bodily function? @ -Unlikely at this time - Lab Data Result diagrams: 08/10/24 08:31 08/10/24 08:31 Lab Results 08/10/24 08/10/24 08/10/24 Range/Units 08:31 08:31 08:31 WBC 9.68 (4.50-10.00) 10*3/uL RBC 3.10 L (4.10-5.20) 10*6/uL Hgb 10.7 L (12.0-15.0) g/dL Hct 32.1 L (37.2-46.3) % MCV 103.5 H (80.0-97.0) fL MCH 34.5 H (27.0-32.0) pg MCHC 33.3 (32.0-37.0) g/dL Plt Count 271 (140-440) 10*3/uL MPV 10.6 (9.5-12.2) fL Immature Gran % (Auto) 0.3 % Neutrophils % 79.2 % Lymphocytes % 10.0 % Monocytes % 7.9 % Eosinophils % 1.8 % Basophils % 0.8 % Immature Gran # 0.03 (0.00-0.04) 10*3/uL Neutrophils # 7.67 (1.80-7.70) 10*3/uL Lymphocytes # 0.97 (0.90-5.00) 10*3/uL Monocytes # 0.76 (0.20-1.00) 10*3/uL Eosinophils # 0.17 (0.04-0.35) 10*3/uL Basophils # 0.08 (0.00-0.10) 10*3/uL PT 10.5 (10.0-12.5) sec INR 0.9 (<1.2) APTT 21.7 L (22.0-30.0) sec Sodium 135 L (137-145) mmol/L Potassium 4.9 (3.5-5.1) mmol/L Chloride 97 L (98-107) mmol/L Carbon Dioxide 26 (22-30) mmol/L Anion Gap 12 mmol/L BUN 57 H (7-17) mg/dL Creatinine 7.95 H* (0.52-1.04) mg/dL Est GFR (CKD-EPI)AfAm 5 (>60 ml/min/1.73 sqM) Est GFR (CKD-EPI)NonAf 5 (>60 ml/min/1.73 sqM) Glucose 168 H (74-99) mg/dL Calcium 12.6 H (8.4-10.2) mg/dL Magnesium 2.0 (1.6-2.3) mg/dL Total Bilirubin 0.7 (0.2-1.3) mg/dL AST 27 (14-36) U/L ALT 28 (4-34) U/L Alkaline Phosphatase 112 (38-126) U/L Troponin I (0.000-0.034) ng/mL NT-Pro-B Natriuret Pep >43544 pg/mL Total Protein 7.0 (6.3-8.2) g/dL Albumin 4.2 (3.5-5.0) g/dL 04/20/25 Range/Units 08:31 WBC (4.50-10.00) 10*3/uL RBC (4.10-5.20) 10*6/uL Hgb (12.0-15.0) g/dL Hct (37.2-46.3) % MCV (80.0-97.0) fL MCH (27.0-32.0) pg MCHC (32.0-37.0) g/dL Plt Count (140-440) 10*3/uL MPV (9.5-12.2) fL Immature Gran % (Auto) % Neutrophils % % Lymphocytes % % Monocytes % % Eosinophils % % Basophils % % Immature Gran # (0.00-0.04) 10*3/uL Neutrophils # (1.80-7.70) 10*3/uL Lymphocytes # (0.90-5.00) 10*3/uL Monocytes # (0.20-1.00) 10*3/uL Eosinophils # (0.04-0.35) 10*3/uL Basophils # (0.00-0.10) 10*3/uL PT (10.0-12.5) sec INR (<1.2) APTT (22.0-30.0) sec Sodium (137-145) mmol/L Potassium (3.5-5.1) mmol/L Chloride (98-107) mmol/L Carbon Dioxide (22-30) mmol/L Anion Gap mmol/L BUN (7-17) mg/dL Creatinine (0.52-1.04) mg/dL Est GFR (CKD-EPI)AfAm (>60 ml/min/1.73 sqM) Est GFR (CKD-EPI)NonAf (>60 ml/min/1.73 sqM) Glucose (74-99) mg/dL Calcium (8.4-10.2) mg/dL Magnesium (1.6-2.3) mg/dL Total Bilirubin (0.2-1.3) mg/dL AST (14-36) U/L ALT (4-34) U/L Alkaline Phosphatase (38-126) U/L Troponin I 0.317 H* (0.000-0.034) ng/mL NT-Pro-B Natriuret Pep pg/mL Total Protein (6.3-8.2) g/dL Albumin (3.5-5.0) g/dL - EKG Data -: EKG Interpreted by Me EKG Comments: 12-lead Electrocardiogram Interpretation Note EKG was reviewed and interpreted by myself. 12-lead ECG performed at 0821 is interpreted by me as revealing normal sinus rhythm at a rate of 81 beats per minute. [place] is normal. CO interval is 168 ms, QRS duration is 132 ms, QTc is 397 ms.. There are some mild nonspecific ST segment depressions throughout.. R wave progression across the precordium was delayed.. Critical Care Time Critical Care Time: Yes Total Critical Care Time: 32 Disposition Clinical Impression: Acute non-ST elevation myocardial infarction (NSTEMI), ESRD on hemodialysis Disposition: ADMITTED IP TO THIS [facility] Condition: Serious Time of Disposition: 09:42
--- NOTE | 2024-08-10 08:53 | XR ---
Chest, 2 view. CLINICAL INDICATION: Female, 69 years old with history of Chest Pain COMPARISON: 07/31/2024 TECHNIQUE: PA and lateral views the chest are obtained. FINDINGS: There are scattered mild stable interstitial lower lobes. There is no airspace consolidation. There is no pleural effusion or pneumothorax. Heart is mildly prominent in size. The pulmonary vasculature is not congested.. The osseous structures are intact. IMPRESSION: 1. No acute cardiopulmonary disease. 2. Mild chronic interstitial changes. 3. Mild cardiomegaly. Prior CABG surgery. [facility], , 08/10/2024 8:51 AM
[2024-08-10 08:59] LABS: ALT 28 U/L (4-34); AST 27 U/L (14-36); African American GFR (CKD) 5 (>60 ml/min/1.73 sqM); Albumin 4.2 g/dL (3.5-5.0); Alkaline Phosphatase 112 U/L (38-126); Anion Gap 12 mmol/L; Blood Urea Nitrogen 57 mg/dL (7-17); Calcium 12.6 mg/dL (8.4-10.2); Carbon Dioxide 26 mmol/L (22-30); Chloride 97 mmol/L (98-107); Glucose 168 mg/dL (74-99); Non-African American GFR(CKD) 5 (>60 ml/min/1.73 sqM); Potassium 4.9 mmol/L (3.5-5.1); Sodium 135 mmol/L (137-145); Total Bilirubin 0.7 mg/dL (0.2-1.3)
[2024-08-10 09:03] LABS: INR 0.9 (<1.2); Prothrombin Time 10.5 sec (10.0-12.5)
[2024-08-10] MEDS ORDERED: HEPARIN SODIUM 1,000 UN/ML (10ML VL) IV PRN (09:16)
[2024-08-10 09:22] LABS: Partial Thromboplastin Time 21.7 sec (22.0-30.0)
[2024-08-10] MEDS ORDERED: NALOXONE 0.4 MG/ML 1 ML VIAL IV PRN (09:42)
[2024-08-10] MEDS: HEPARIN SODIUM 1,000 UN/ML (10ML VL) IV ONE (10:21)
[2024-08-10] MEDS: HEPARIN SOD,PORK IN 0.45% NACL 25,000 UNIT in 0.45% NACL 1 250ML.BAG IV SCH (10:22)
[2024-08-10 11:59] LABS: Glucose,Whole Blood 90 mg/dL (70-110)
--- NOTE | 2024-08-10 12:33 | P.NPCON ---
History of Present Illness - Reason for Consult end stage renal disease - History of Present Illness Reason for consultation: End-stage renal disease History of present illness: Patient is a 69-year-old female seen in renal consultation for end-stage renal disease. She is maintained on hemodialysis on Sunday schedule. Last hemodialysis was on Sunday. Patient states she has been having chest pain for the last couple of days. Patient states yesterday evening after she had dinner she went to go upstairs and watch TV on her bed and developed chest pain in the middle of her chest. She describes the pain as pressure-like. Patient states the pain is similar to last time when she had an AL requiring stent placement. She is currently on heparin drip. Patient has history of CABG and has subsequently undergone multiple stents placement. Patient says she was also short of breath while walking at the grocery store yesterday. She does have longstanding history of diabetes. She makes little urine. Patient states she did take nitro which helped with her chest pain but does give her acid reflux. Vital signs are stable. General: No acute distress. HEENT: Head exam is unremarkable. LUNGS: No audible rhonchi or wheezes. HEART: Rate and Rhythm are regular. ABDOMEN: Nontender. EXTREMITITES: No edema. Past Medical History Past Medical History: Diabetes Mellitus, Hyperlipidemia, Hypertension, Renal Disease Additional Past Medical History / Comment(s): DIALYSIS.angina, kidney disease stage 4, pilonidal cyst, carpal tunnel, insulin pump History of Any Multi-Drug Resistant Organisms: None Reported Past Surgical History: Coronary Bypass/CABG, Heart Catheterization With Stent, Tonsillectomy, Tubal Ligation Additional Past Surgical History / Comment(s): cataracts Past Anesthesia/Blood Transfusion Reactions: No Reported Reaction Date of Last Stent Placement:: 2004 Past Psychological History: No Psychological Hx Reported Smoking Status: Former smoker Past Alcohol Use History: Rare Past Drug Use History: None Reported Medications and Allergies Home Medications Medication Instructions Recorded Confirmed Type Atorvastatin [Lipitor] 80 mg PO HS 10/11/16 08/10/24 History Clopidogrel Bisulfate [Plavix] 75 mg PO DAILY 10/11/16 08/10/24 History Insulin Aspart (For Pump) [NovoLOG 0.01 unit SQ-PUMP CONTINUOUS 10/11/16 08/10/24 History (For Pump)] Montelukast [Singulair] 10 mg PO HS 10/11/16 08/10/24 History Nitroglycerin Sl Tabs [Nitrostat] 0.4 mg SUBLINGUAL Q5M PRN 10/11/16 08/10/24 History allopurinoL [Zyloprim] 100 mg PO DAILY 10/11/16 08/10/24 History Alirocumab [Praluent Pen] 75 mg SQ Q14D 09/08/21 08/10/24 History Denosumab [Prolia] 60 mg SQ Q180D 02/27/23 08/10/24 History Ferric Citrate [Auryxia] 210 mg PO QID 02/27/23 08/10/24 History Midodrine [ProAmatine] 5 mg PO QID PRN 02/27/23 08/10/24 History Omeprazole [PriLOSEC] 20 mg PO BID 01/21/24 08/10/24 History Cinacalcet HCl [Sensipar] 60 mg PO SUTH 06/30/24 08/10/24 History Cinacalcet [Sensipar] 30 mg PO MOWEFRSA 06/30/24 08/10/24 History Folic Acid/Vit B Complex and C 0.8 mg PO DAILY 06/30/24 08/10/24 History [Hien-Moi Tablet] Isosorbide Mononitrate ER [Imdur] 30 mg PO DAILY 06/30/24 08/10/24 History Torsemide [Demadex] 20 mg PO BID 06/30/24 08/10/24 History Aspirin EC [Ecotrin Low Dose] 81 mg PO DAILY 07/31/24 08/10/24 History Insulin Degludec [Insulin Degludec 12 units SQ DAILY PRN 07/31/24 08/10/24 History Pen (U-100)] Metoprolol Succinate [Toprol XL] 25 mg PO BID 07/31/24 08/10/24 History Allergies Allergy/AdvReac Type Severity Reaction Status Date / Time famotidine [From Pepcid] Allergy Unknown Verified 08/10/24 11:45 nifedipine Allergy Swelling Verified 08/10/24 11:45 amlodipine AdvReac Swelling Verified 08/10/24 11:45 diphenhydramine AdvReac Unknown Verified 08/10/24 11:45 [From Benadryl] droperidol AdvReac Anxiety Verified 08/10/24 11:45 ezetimibe [From Vytorin] AdvReac Acid Reflux Verified 08/10/24 11:45 fentanyl AdvReac "Can't Verified 08/10/24 11:45 wake up"/Nausea hydrocodone AdvReac Angina Verified 08/10/24 11:45 hydromorphone [From Dilaudid] AdvReac Angina Verified 08/10/24 11:45 midazolam [From Versed] AdvReac Anxiety Verified 08/10/24 11:45 morphine AdvReac Nausea & Verified 08/10/24 11:45 Vomiting nitroglycerin AdvReac Patient Verified 08/10/24 11:45 denies this allergy. paroxetine [From Paxil] AdvReac Acid Reflux Verified 08/10/24 11:45 ranolazine [From Ranexa] AdvReac Unknown Verified 08/10/24 11:45 simvastatin [From Vytorin] AdvReac Acid Reflux Verified 08/10/24 11:45 sulfamethoxazole AdvReac Decreased Verified 08/10/24 11:45 [From Bactrim] Renal Function trandolapril [From Tarka] AdvReac Acid Reflux Verified 08/10/24 11:45 trimethoprim [From Bactrim] AdvReac Decreased Verified 08/10/24 11:45 Renal Function verapamil [From Tarka] AdvReac Acid Reflux Verified 08/10/24 11:45 Physical Exam Vitals: Vital Signs Temp Pulse Pulse Resp BP BP Pulse Ox 08/10/24 12:01 98.0 F 78 16 110/61 95 08/10/24 11:40 80 18 98/55 99 08/10/24 08:14 82 08/10/24 08:05 97.8 F 82 20 101/56 97 Intake and Output 08/09/24 08/10/24 08/10/24 22:59 06:59 14:59 Other: Weight 63.503 kg Results - Lab Results Most recent lab results Calcium 12.6 mg/dL (8.4-10.2) H 08/10/24 08:31 Magnesium 2.0 mg/dL (1.6-2.3) 08/10/24 08:31 08/10/24 08:31 08/10/24 08:31 Assessment and Plan Plan: Assessment: 1. End-stage renal disease maintained on hemodialysis on Sunday ay schedule. 2. Non-ST elevated myocardial infarction on heparin drip. 3. Coronary artery disease status post CABG and multiple stents. Last stent placed June 2024. 4. Diabetes mellitus. 5. Chronic kidney disease mineral bone disease. Calcium level 12.6. Patient also receives Prolia. Plan: Hemodialysis tomorrow. Avoid calcium and vitamin D supplements. Add Sensipar 30 mg once daily. She does take Sensipar outpatient. Check phosphorus level. Await cardiology recommendations. Check secondary workup for hypercalcemia. Thank you for the consultation. I will continue to follow the patient with you during her hospital stay.
[2024-08-10] MEDS ORDERED: NITROGLYCERIN SL TABS 0.4 MG TAB SUBLINGUAL PRN (13:27)
[2024-08-10] MEDS ORDERED: DEXTROSE 50% SYRINGE 50 ML IVP PRN ×2 (13:32)
--- NOTE | 2024-08-10 13:33 | P.HPIM ---
History of Present Illness H&P Date: 08/10/24 History of present illness: 69-year-old female with past medical history significant for ESRD on hemo dialysis, history of recent cardiac catheterization with stenting on 06/30/2024, history of diabetes mellitus on insulin pump, hypertension, hyperlipidemia who presented to ER with a complaint of chest pain for the last couple of days. Patient reported the chest pain was intermittent, yesterday evening patient had dinner and went to go upstairs and while was watching TV on her bed and started to have chest pain again in the middle of the chest, had associated shortness of breath, chest pain was pressure-like, nonradiating. Patient reported that she also felt chest pressure and shortness of breath intermittent with ambulation, chest pain felt similar to her previous myocardial infarction requiring stent. Patient is afebrile, heart rate 80, respiratory rate 18, blood pressure 198/55, saturating 99% on room air. WBCs 9.6, hemoglobin 10.7, platelet 271. Sodium 135 potassium 4.9 BUN 57 creatinine 7.95. Troponin 0.317, repeat 0.283. NT proBNP more than 30,000. Assessment and plan: NSTEMI: Chest pain: Hypertension: Hyperlipidemia: History of CAD multiple stents, recent cardiac catheterization with stent 06/30/2024: Presented with chest pain, recently had cardiac catheterization with stent on 06/30/2024, elevated troponin, trending up. Telemetry, trend troponin, EKGs. Continue aspirin, Plavix, statin, metoprolol, Nitropaste, as needed nitroglycerin Heparin drip Cardiology consult ESRD on hemodialysis: On hemodialysis Sunday, last hemodialysis Sunday Monitor fluid status, electrolytes Continue home medication including torsemide Nephrology consulted for maintenance hemodialysis Diabetes mellitus: Continue insulin pump Accu-Cheks, diabetic diet. DVT prophylaxis Currently on heparin drip Monitor vital signs and labs Labs and medication were reviewed. Continue same treatment. Further recommendations as per clinical course of the patient PHYSICAL EXAMINATION: GENERAL: The patient is A&O x3, NAD HEENT: EOMI, Sclerae anicteric, Moist Mucous membranes Neck: Supple, Non tender, No JVD PULMONARY: Equal breath souds B/L, No wheezing, No crackles. CARDIOVASCULAR: S1, S2 present. No murmurs, rubs, or gallops. ABDOMEN: Soft, nontender, nondistended, normoactive bowel sounds. No guarding or rebound tenderness. MUSCULOSKELETAL: No edema, No cyanosis. No clubbing. Normal ROM. Intact peripheral pulses. NEUROLOGICAL: CN 2-12 grossly intact. No FND REVIEW OF SYSTEMS: CONSTITUTIONAL: No fever, no malaise, no fatigue. HEENT: No recent visual problems or hearing problems. Denied any sore throat. CARDIOVASCULAR: No chest pain, orthopnea, PND, no palpitations, no syncope. PULMONARY: No shortness of breath, no cough, no hemoptysis. GASTROINTESTINAL: No diarrhea, no nausea, no vomiting, no abdominal pain. NEUROLOGICAL: No headaches, no weakness, no numbness. HEMATOLOGICAL: Denies any bleeding or petechiae. GENITOURINARY: Denies any burning micturition, frequency, or urgency. MUSCULOSKELETAL/RHEUMATOLOGICAL: Denies any joint pain, swelling, or any muscle pain. ENDOCRINE: Denies any polyuria or polydipsia. The rest of the 14-point review of systems is negative. Dictation was produced using PROTEGOation software. please excuse any grammatical, word or spelling errors. Past Medical History Past Medical History: Diabetes Mellitus, Hyperlipidemia, Hypertension, Renal Disease Additional Past Medical History / Comment(s): DIALYSIS.angina, kidney disease stage 4, pilonidal cyst, carpal tunnel, insulin pump History of Any Multi-Drug Resistant Organisms: None Reported Past Surgical History: Coronary Bypass/CABG, Heart Catheterization With Stent, Tonsillectomy, Tubal Ligation Additional Past Surgical History / Comment(s): cataracts Past Anesthesia/Blood Transfusion Reactions: No Reported Reaction Date of Last Stent Placement:: 2004 Past Psychological History: No Psychological Hx Reported Smoking Status: Former smoker Past Alcohol Use History: Rare Past Drug Use History: None Reported Medications and Allergies Home Medications Medication Instructions Recorded Confirmed Type Atorvastatin [Lipitor] 80 mg PO HS 10/11/16 08/10/24 History Clopidogrel Bisulfate [Plavix] 75 mg PO DAILY 10/11/16 08/10/24 History Insulin Aspart (For Pump) [NovoLOG 0.01 unit SQ-PUMP CONTINUOUS 10/11/16 08/10/24 History (For Pump)] Montelukast [Singulair] 10 mg PO HS 10/11/16 08/10/24 History Nitroglycerin Sl Tabs [Nitrostat] 0.4 mg SUBLINGUAL Q5M PRN 10/11/16 08/10/24 History allopurinoL [Zyloprim] 100 mg PO DAILY 10/11/16 08/10/24 History Alirocumab [Praluent Pen] 75 mg SQ Q14D 09/08/21 08/10/24 History Denosumab [Prolia] 60 mg SQ Q180D 02/27/23 08/10/24 History Ferric Citrate [Auryxia] 210 mg PO QID 02/27/23 08/10/24 History Midodrine [ProAmatine] 5 mg PO QID PRN 02/27/23 08/10/24 History Omeprazole [PriLOSEC] 20 mg PO BID 01/21/24 08/10/24 History Cinacalcet HCl [Sensipar] 60 mg PO SUTH 06/30/24 08/10/24 History Cinacalcet [Sensipar] 30 mg PO MOWEFRSA 06/30/24 08/10/24 History Folic Acid/Vit B Complex and C 0.8 mg PO DAILY 06/30/24 08/10/24 History [Hien-Moi Tablet] Isosorbide Mononitrate ER [Imdur] 30 mg PO DAILY 06/30/24 08/10/24 History Torsemide [Demadex] 20 mg PO BID 06/30/24 08/10/24 History Aspirin EC [Ecotrin Low Dose] 81 mg PO DAILY 07/31/24 08/10/24 History Insulin Degludec [Insulin Degludec 12 units SQ DAILY PRN 07/31/24 08/10/24 History Pen (U-100)] Metoprolol Succinate [Toprol XL] 25 mg PO BID 07/31/24 08/10/24 History Allergies Allergy/AdvReac Type Severity Reaction Status Date / Time famotidine [From Pepcid] Allergy Unknown Verified 08/10/24 11:45 nifedipine Allergy Swelling Verified 08/10/24 11:45 amlodipine AdvReac Swelling Verified 08/10/24 11:45 diphenhydramine AdvReac Unknown Verified 08/10/24 11:45 [From Benadryl] droperidol AdvReac Anxiety Verified 08/10/24 11:45 ezetimibe [From Vytorin] AdvReac Acid Reflux Verified 08/10/24 11:45 fentanyl AdvReac "Can't Verified 08/10/24 11:45 wake up"/Nausea hydrocodone AdvReac Angina Verified 08/10/24 11:45 hydromorphone [From Dilaudid] AdvReac Angina Verified 08/10/24 11:45 midazolam [From Versed] AdvReac Anxiety Verified 08/10/24 11:45 morphine AdvReac Nausea & Verified 08/10/24 11:45 Vomiting nitroglycerin AdvReac Patient Verified 08/10/24 11:45 denies this allergy. paroxetine [From Paxil] AdvReac Acid Reflux Verified 08/10/24 11:45 ranolazine [From Ranexa] AdvReac Unknown Verified 08/10/24 11:45 simvastatin [From Vytorin] AdvReac Acid Reflux Verified 08/10/24 11:45 sulfamethoxazole AdvReac Decreased Verified 08/10/24 11:45 [From Bactrim] Renal Function trandolapril [From Tarka] AdvReac Acid Reflux Verified 08/10/24 11:45 trimethoprim [From Bactrim] AdvReac Decreased Verified 08/10/24 11:45 Renal Function verapamil [From Tarka] AdvReac Acid Reflux Verified 08/10/24 11:45 Physical Exam Vitals: Vital Signs Temp Pulse Pulse Resp BP BP Pulse Ox 08/10/24 12:01 98.0 F 78 16 110/61 95 08/10/24 11:40 80 18 98/55 99 08/10/24 08:14 82 08/10/24 08:05 97.8 F 82 20 101/56 97 Intake and Output 08/09/24 08/10/24 08/10/24 22:59 06:59 14:59 Other: Weight 63.503 kg Results CBC & Chem 7: 08/10/24 08:31 08/10/24 08:31 Labs: Abnormal Lab Results - Last 24 Hours (Table) 08/10/24 08/10/24 08/10/24 Range/Units 08:31 08:31 08:31 RBC 3.10 L (4.10-5.20) 10*6/uL Hgb 10.7 L (12.0-15.0) g/dL Hct 32.1 L (37.2-46.3) % MCV 103.5 H (80.0-97.0) fL MCH 34.5 H (27.0-32.0) pg APTT 21.7 L (22.0-30.0) sec Sodium 135 L (137-145) mmol/L Chloride 97 L (98-107) mmol/L BUN 57 H (7-17) mg/dL Creatinine 7.95 H* (0.52-1.04) mg/dL Glucose 168 H (74-99) mg/dL Calcium 12.6 H (8.4-10.2) mg/dL Troponin I (0.000-0.034) ng/mL 08/10/24 08/10/24 Range/Units 08:31 11:48 RBC (4.10-5.20) 10*6/uL Hgb (12.0-15.0) g/dL Hct (37.2-46.3) % MCV (80.0-97.0) fL MCH (27.0-32.0) pg APTT (22.0-30.0) sec Sodium (137-145) mmol/L Chloride (98-107) mmol/L BUN (7-17) mg/dL Creatinine (0.52-1.04) mg/dL Glucose (74-99) mg/dL Calcium (8.4-10.2) mg/dL Troponin I 0.317 H* 0.283 H* (0.000-0.034) ng/mL
[2024-08-10] MEDS: METOPROLOL SUCCINATE (ER) 25 MG TAB.ER.24H PO SCH (14:26)
[2024-08-10] MEDS: CINACALCET 30 MG TAB PO SCH (14:40)
[2024-08-10] MEDS: PANTOPRAZOLE 40 MG TABLET PO SCH (14:42)
[2024-08-10] MEDS: CLOPIDOGREL 75 MG TAB PO SCH (14:42)
[2024-08-10] MEDS: TORSEMIDE 20 MG TAB PO SCH (14:42)
[2024-08-10] MEDS: ISOSORBIDE MONONITRATE ER 30 MG TAB.ER.24H PO SCH (14:53)
[2024-08-10] MEDS: ASPIRIN 81 MG PO SCH (14:53)
[2024-08-10] MEDS ORDERED: INSPUCOR MISCELLANE PRN (15:08)
[2024-08-10] MEDS ORDERED: INSULIN LISPRO (HumaLOG) 100 UNIT/ML 10 mL VL SQ PRN (15:08)
[2024-08-10] MEDS: ACETAMINOPHEN TAB 500 MG TAB PO SCH (15:25)
[2024-08-10 16:32] LABS: Glucose,Whole Blood 249 mg/dL (70-110)
[2024-08-10] MEDS: FERRIC CITRATE 210 MG PO SCH (17:33)
[2024-08-10] MEDS: Insulin Aspart (For Pump) 100 UNIT/ML VIAL SQ-PUMP SCH (18:35)
[2024-08-10] MEDS: MIDODRINE 5 MG TAB PO PRN (19:02)
[2024-08-10 19:40] LABS: Glucose,Whole Blood 119 mg/dL (70-110)
[2024-08-10] MEDS: MONTELUKAST 10 MG TAB PO SCH (21:40)
[2024-08-10] MEDS: ATORVASTATIN 80 MG TAB PO SCH (21:40)
[2024-08-11 01:53] LABS: Glucose,Whole Blood 95 mg/dL (70-110)
[2024-08-11 05:54] LABS: Glucose,Whole Blood 101 mg/dL (70-110)
[2024-08-11 07:33] LABS: INR 0.9 (<1.2); Partial Thromboplastin Time 45.7 sec (22.0-30.0); Prothrombin Time 10.4 sec (10.0-12.5)
[2024-08-11 07:37] LABS: Basophils # (A) 0.09 10*3/uL (0.00-0.10); Eosinophils % (A) 2.1 %; HCT 30.5 % (37.2-46.3); HGB 10.2 g/dL (12.0-15.0); Lymphocytes # (A) 1.02 10*3/uL (0.90-5.00); Lymphocytes % (A) 10.8 %; MCH 34.7 pg (27.0-32.0); MCHC 33.4 g/dL (32.0-37.0); MCV 103.7 fL (80.0-97.0); Mean Platelet Volume 11.2 fL (9.5-12.2); Monocytes # (A) 0.86 10*3/uL (0.20-1.00); Monocytes % (A) 9.1 %; Neutrophils # (A) 7.24 10*3/uL (1.80-7.70); Neutrophils % (A) 76.6 %; Platelet Count 241 10*3/uL (140-440); RBC 2.94 10*6/uL (4.10-5.20); RDW 14.9 % (11.5-14.5); WBC 9.45 10*3/uL (4.50-10.00)
[2024-08-11 07:55] LABS: ALT 105 U/L (4-34); AST 102 U/L (14-36); African American GFR (CKD) 5 (>60 ml/min/1.73 sqM); Alkaline Phosphatase 121 U/L (38-126); Anion Gap 14 mmol/L; Blood Urea Nitrogen 75 mg/dL (7-17); Calcium 11.8 mg/dL (8.4-10.2); Carbon Dioxide 23 mmol/L (22-30); Chloride 99 mmol/L (98-107); Glucose 100 mg/dL (74-99); Non-African American GFR(CKD) 4 (>60 ml/min/1.73 sqM); Potassium 5.3 mmol/L (3.5-5.1); Sodium 136 mmol/L (137-145); Total Bilirubin 0.7 mg/dL (0.2-1.3); Total Protein 6.7 g/dL (6.3-8.2)
[2024-08-11] MEDS: ASPIRIN 81 MG PO SCH (09:37)
[2024-08-11] MEDS: CINACALCET 30 MG TAB PO SCH (09:37)
[2024-08-11] MEDS: allopurinoL 100 MG TAB PO SCH (09:38)
--- NOTE | 2024-08-11 10:09 | P.PN ---
Subjective Patient is seen in follow-up for incisional disease. She is maintained on hemodialysis on Sunday schedule. Scheduled for dialysis today. Feels weak. Gets dyspneic even with minimal exertion. On heparin drip. Vital signs are stable. General: No acute distress. HEENT: Head exam is unremarkable. LUNGS: No audible rhonchi or wheezes. HEART: Rate and Rhythm are regular. ABDOMEN: Nontender. EXTREMITITES: No edema. Objective - Vital Signs Vital signs: Vital Signs Temp 98 F 08/11/24 09:32 Pulse 69 08/11/24 09:32 Resp 14 08/11/24 09:32 BP 118/59 08/11/24 09:32 Pulse Ox 94 L 08/11/24 09:32 FiO2 Intake & Output 08/10/24 08/11/24 08/11/24 18:59 06:59 18:59 Intake Total 240 164.084 Balance 240 164.084 Weight 63.503 kg 66.5 kg Intake: Intake, IV Titration 164.084 Amount Heparin Sod,Pork in 0.45% 164.084 NaCl 25,000 unit In 0.45 % NaCl 1 250ml.bag @ 12 UNITS/KG/HR 7.62 mls/hr IV .Q24H [facility] Rx#: [id number] Oral 240 Other: Voiding Method Toilet # Voids 1 - Labs CBC & Chem 7: 08/11/24 06:56 08/11/24 06:56 Labs: Abnormal Lab Results - Last 24 Hours (Table) 08/10/24 08/10/24 08/10/24 Range/Units 11:48 12:42 15:13 RBC (4.10-5.20) 10*6/uL Hgb (12.0-15.0) g/dL Hct (37.2-46.3) % MCV (80.0-97.0) fL MCH (27.0-32.0) pg APTT 49.7 H (22.0-30.0) sec Sodium (137-145) mmol/L Potassium (3.5-5.1) mmol/L BUN (7-17) mg/dL Creatinine (0.52-1.04) mg/dL Glucose (74-99) mg/dL POC Glucose (mg/dL) (70-110) mg/dL Calcium (8.4-10.2) mg/dL AST (14-36) U/L ALT (4-34) U/L Troponin I 0.283 H* (0.000-0.034) ng/mL PTH Intact 288.0 H (14.0-72.0) pg/mL 08/10/24 08/10/24 08/10/24 Range/Units 15:13 16:31 19:38 RBC (4.10-5.20) 10*6/uL Hgb (12.0-15.0) g/dL Hct (37.2-46.3) % MCV (80.0-97.0) fL MCH (27.0-32.0) pg APTT (22.0-30.0) sec Sodium (137-145) mmol/L Potassium (3.5-5.1) mmol/L BUN (7-17) mg/dL Creatinine (0.52-1.04) mg/dL Glucose (74-99) mg/dL POC Glucose (mg/dL) 249 H 119 H (70-110) mg/dL Calcium (8.4-10.2) mg/dL AST (14-36) U/L ALT (4-34) U/L Troponin I 0.307 H* (0.000-0.034) ng/mL PTH Intact (14.0-72.0) pg/mL 08/11/24 08/11/24 08/11/24 Range/Units 06:56 06:56 06:56 RBC 2.94 L (4.10-5.20) 10*6/uL Hgb 10.2 L (12.0-15.0) g/dL Hct 30.5 L (37.2-46.3) % MCV 103.7 H (80.0-97.0) fL MCH 34.7 H (27.0-32.0) pg APTT 45.7 H (22.0-30.0) sec Sodium 136 L (137-145) mmol/L Potassium 5.3 H (3.5-5.1) mmol/L BUN 75 H (7-17) mg/dL Creatinine 9.00 H* (0.52-1.04) mg/dL Glucose 100 H (74-99) mg/dL POC Glucose (mg/dL) (70-110) mg/dL Calcium 11.8 H (8.4-10.2) mg/dL AST 102 H (14-36) U/L ALT 105 H (4-34) U/L Troponin I (0.000-0.034) ng/mL PTH Intact (14.0-72.0) pg/mL Assessment and Plan Plan: Assessment: 1. End-stage renal disease maintained on hemodialysis on Sunday schedule. 2. Non-ST elevated myocardial infarction on heparin drip. 3. Coronary artery disease status post CABG and multiple stents. Last stent placed June 2024. 4. Diabetes mellitus. 5. Chronic kidney disease mineral bone disease. Calcium level better at 11.8 today. On Sensipar. Patient also receives Prolia. PTH 288. Vitamin D level 30.1. Plan: Hemodialysis today. Avoid calcium and vitamin D supplements. Follow-up phosphorus level. Follow-up secondary workup for hypercalcemia.
--- NOTE | 2024-08-11 12:13 | NM ---
EXAMINATION TYPE: NM parathyroid DATE OF EXAM: 08/11/2024 COMPARISON: NONE CLINICAL INDICATION: Female, 69 years old with history of hypercalcemia; TECHNIQUE: Following administration of 26.1 mCi Tc99m Sestamibi. Anterior projection images of the neck and ches t were obtained 10 minutes and 3 hours post injection. Patient could not tolerate SPECT imaging. FINDINGS: Thyroid tracer washout: Delayed images demonstrate near-complete tracer washout from the thyroid. Parathyroid uptake: The two-hour delayed images do demonstrate a focal region of persistent radiotrac er activity within the inferior right thyroid region. Normal uptake: There is physiological tracer uptake in the myocardium, liver, salivary glands, and th yroid gland. IMPRESSION: Focal region of persistent radiotracer uptake on delayed imaging within the inferior right thyroid re gion concerning for possible parathyroid lesion. Recommend further evaluation with ultrasound. [facility], , 08/11/2024 12:11 PM
[2024-08-11 12:37] LABS: Glucose,Whole Blood 156 mg/dL (70-110)
[2024-08-11] MEDS ORDERED: ALPRAZolam 0.25 MG TAB PO PRN (13:21)
--- NOTE | 2024-08-11 14:17 | P.CRDCN ---
History of Present Illness Consult date: 08/11/24 History of present illness: This is a 69-year-old female patient of Dr. Dao with past medical history of coronary artery disease status post CABG followed by recent PCI to the left main into circumflex, with history of in-stent stenosis status post brachytherapy, history of WI, end-stage renal disease on hemodialysis, aortic stenosis. Patient also follows at the [facility]. Patient also has a past medical history of diabetes mellitus on insulin pump, hypertension, hyperlipidemia. We have been asked to evaluate the patient for NSTEMI. Patient had a recent hospitalization and underwent cardiac catheterization on 06/30/2024 which revealed 20 to 30% left main, 90% proximal LAD, 99% ostial circumflex, 100% mid circumflex, 100% RCA. She had patent MADERA to LAD and SVG to the diagonal branch. Patient underwent PCI to the left main into the circumflex, LVEDP 22. Patient was to continue dual antiplatelet therapy for 12 months. There is known multiple issues with the RCA stents in the past and appearing more chronic it was recommended for medical therapy of the RCA [employer]. Patient presented to the hospital due to chest pain. She was doing well after she left the hospital on June 30 but then started having chest pain on and off in the midsternal area with dry heaves and gastric reflux. Nothing seems to make it better or worse. Discomfort seems to be occurring more frequently. Patient states that last evening, she had a drop in her blood pressure and she has been on Nitropaste. Will plan to have this removed so she can undergo hemodialysis this morning. Regarding Ranexa, patient states that she had tried this at [facility] also Dr. Dao who tried her on this and she does not know the reaction but she did not do well with it. Blood pressure 129/65, heart rate 74, pulse ox 95% on room air. Patient has been started on heparin drip. -EKG: Sinus rhythm with IVCD. -Chest x-ray: No acute cardiopulmonary process. Chronic interstitial changes. Mild cardiomegaly. Prior CABG. -Laboratory studies: WBC 9.4, hemoglobin 10.2, sodium 136, potassium 5.3, BUN 75 and creatinine 9. Troponins 0.317, 0.283, 0.307. proBNP greater than 30,000. Parathyroid hormone intact to 88. -Home cardiac medications: Aspirin 81 mg daily, atorvastatin 80 mg at bedtime, Plavix 75 mg daily, Imdur 30 mg daily, Toprol XL 25 mg twice daily, Nitrostat as needed, torsemide 20 mg twice daily. -Echocardiogram performed 01/21/2024 at [facility] revealed EF of 35 to 40%, mild aortic stenosis, mild tricuspid regurgitation, inferior wall is hypokinetic. Review Of Systems: At the time of my exam: CONSTITUTIONAL: Denies fever or chills. HEENT: Denies blurred vision, vision changes, or eye pain. Denies hemoptysis CARDIOVASCULAR: Denies chest pain. Denies orthopnea. Denies PND. Denies palpitations RESPIRATORY: Denies shortness of breath. GASTROINTESTINAL: Denies abdominal pain. Denies nausea or vomiting. HEMATOLOGIC: Denies bleeding disorders. GENITOURINARY: Denies any blood in urine. SKIN: Denies puritis. Denies rash. Physical examination: Gen: This is 69-year-old female in no acute respiratory distress. VS: reviewed HEENT: Head is atraumatic, normocephalic. Pupils equal, round. Sclerae is anicteric. NECK: Supple. No JVD. LUNGS: Clear to auscultation. No wheezes or rhonchi. No intercostal retractions. HEART: Regular rate and rhythm. 3/6 systolic murmur. ABDOMEN: Soft No tenderness. EXTREMITIES: No pedal edema. No calf tenderness. NEUROLOGICAL: Patient is awake, alert and oriented x3. Assessment: NSTEMI History of coronary artery disease with previous CABG and PCI to the left main into the circumflex on 06/30/2024 History of in-stent stenosis status post brachytherapy Ischemic cardiomyopathy with EF of 35 to 40% End-stage renal disease on hemodialysis Hypertension Hyperlipidemia Aortic stenosis Diabetes mellitus on insulin pump Plan: Resume patient's home cardiac medications with the following changes Change metoprolol to metoprolol tartrate 25 mg 3 times daily Hold Imdur and continue patient on Nitropaste Patient is unable to tolerate Ranexa Continue heparin drip Nephrology on for end-stage renal disease Obtain 2-D echocardiogram and Doppler study to assess cardiac structure and function Further recommendations to follow based upon clinical course Thank you kindly for this consultation. Nurse practitioner note has been reviewed, I agree with documented findings and plan of care. Patient was seen and examined. Past Medical History Past Medical History: Diabetes Mellitus, Hyperlipidemia, Hypertension, Renal Disease Additional Past Medical History / Comment(s): DIALYSIS.angina, kidney disease stage 4, pilonidal cyst, carpal tunnel, insulin pump History of Any Multi-Drug Resistant Organisms: None Reported Past Surgical History: Coronary Bypass/CABG, Heart Catheterization With Stent, Tonsillectomy, Tubal Ligation Additional Past Surgical History / Comment(s): cataracts Past Anesthesia/Blood Transfusion Reactions: No Reported Reaction Date of Last Stent Placement:: 2024 Past Psychological History: No Psychological Hx Reported Smoking Status: Former smoker Past Alcohol Use History: Rare Past Drug Use History: None Reported Medications and Allergies Home Medications Medication Instructions Recorded Confirmed Type Atorvastatin [Lipitor] 80 mg PO HS 10/11/16 08/10/24 History Clopidogrel Bisulfate [Plavix] 75 mg PO DAILY 10/11/16 08/10/24 History Insulin Aspart (For Pump) [NovoLOG 0.01 unit SQ-PUMP CONTINUOUS 10/11/16 08/10/24 History (For Pump)] Montelukast [Singulair] 10 mg PO HS 10/11/16 08/10/24 History Nitroglycerin Sl Tabs [Nitrostat] 0.4 mg SUBLINGUAL Q5M PRN 10/11/16 08/10/24 History allopurinoL [Zyloprim] 100 mg PO DAILY 10/11/16 08/10/24 History Alirocumab [Praluent Pen] 75 mg SQ Q14D 09/08/21 08/10/24 History Denosumab [Prolia] 60 mg SQ Q180D 02/27/23 08/10/24 History Ferric Citrate [Auryxia] 210 mg PO QID 02/27/23 08/10/24 History Midodrine [ProAmatine] 5 mg PO QID PRN 02/27/23 08/10/24 History Omeprazole [PriLOSEC] 20 mg PO BID 01/21/24 08/10/24 History Cinacalcet HCl [Sensipar] 60 mg PO SUTH 06/30/24 08/10/24 History Cinacalcet [Sensipar] 30 mg PO MOWEFRSA 06/30/24 08/10/24 History Folic Acid/Vit B Complex and C 0.8 mg PO DAILY 06/30/24 08/10/24 History [Hien-Moi Tablet] Isosorbide Mononitrate ER [Imdur] 30 mg PO DAILY 06/30/24 08/10/24 History Torsemide [Demadex] 20 mg PO BID 06/30/24 08/10/24 History Aspirin EC [Ecotrin Low Dose] 81 mg PO DAILY 07/31/24 08/10/24 History Insulin Degludec [Insulin Degludec 12 units SQ DAILY PRN 07/31/24 08/10/24 History Pen (U-100)] Metoprolol Succinate [Toprol XL] 25 mg PO BID 07/31/24 08/10/24 History Allergies Allergy/AdvReac Type Severity Reaction Status Date / Time famotidine [From Pepcid] Allergy Unknown Verified 08/10/24 11:45 nifedipine Allergy Swelling Verified 08/10/24 11:45 amlodipine AdvReac Swelling Verified 08/10/24 11:45 diphenhydramine AdvReac Unknown Verified 08/10/24 11:45 [From Benadryl] droperidol AdvReac Anxiety Verified 08/10/24 11:45 ezetimibe [From Vytorin] AdvReac Acid Reflux Verified 08/10/24 11:45 fentanyl AdvReac "Can't Verified 08/10/24 11:45 wake up"/Nausea hydrocodone AdvReac Angina Verified 08/10/24 11:45 hydromorphone [From Dilaudid] AdvReac Angina Verified 08/10/24 11:45 midazolam [From Versed] AdvReac Anxiety Verified 08/10/24 11:45 morphine AdvReac Nausea & Verified 08/10/24 11:45 Vomiting nitroglycerin AdvReac Patient Verified 08/10/24 11:45 denies this allergy. paroxetine [From Paxil] AdvReac Acid Reflux Verified 08/10/24 11:45 ranolazine [From Ranexa] AdvReac Unknown Verified 08/10/24 11:45 simvastatin [From Vytorin] AdvReac Acid Reflux Verified 08/10/24 11:45 sulfamethoxazole AdvReac Decreased Verified 08/10/24 11:45 [From Bactrim] Renal Function trandolapril [From Tarka] AdvReac Acid Reflux Verified 08/10/24 11:45 trimethoprim [From Bactrim] AdvReac Decreased Verified 08/10/24 11:45 Renal Function verapamil [From Tarka] AdvReac Acid Reflux Verified 08/10/24 11:45 Physical Exam Vitals: Vital Signs Temp Pulse Pulse Resp BP BP Pulse Ox 08/11/24 09:32 98 F 69 14 118/59 94 L 08/11/24 04:00 98.2 F 69 16 110/56 97 08/11/24 02:00 69 16 08/11/24 00:00 98.6 F 64 16 96/51 97 08/10/24 20:00 98.4 F 75 16 117/71 100 08/10/24 19:02 77 92/41 08/10/24 15:31 72 16 98/50 93 L 08/10/24 14:00 72 08/10/24 12:01 98.0 F 78 16 110/61 95 08/10/24 11:40 80 18 98/55 99 Intake and Output 08/10/24 08/11/24 08/11/24 22:59 06:59 14:59 Intake Total 164.084 Balance 164.084 Intake: Intake, IV Titration 164.084 Amount Heparin Sod,Pork in 0.45% 164.084 NaCl 25,000 unit In 0.45 % NaCl 1 250ml.bag @ 12 UNITS/KG/HR 7.62 mls/hr IV .Q24H [facility] Rx#: [id number] Other: Voiding Method Toilet Toilet # Voids 1 1 Weight 66.5 kg Results 08/11/24 06:56 08/11/24 06:56 Cardiac Enzymes 08/10/24 08/10/24 08/11/24 Range/Units 11:48 15:13 06:56 AST 102 H (14-36) U/L Troponin I 0.283 H* 0.307 H* (0.000-0.034) ng/mL Coagulation 08/10/24 08/11/24 Range/Units 15:13 06:56 PT 10.4 (10.0-12.5) sec APTT 49.7 H 45.7 H (22.0-30.0) sec CBC 08/11/24 Range/Units 06:56 WBC 9.45 (4.50-10.00) 10*3/uL RBC 2.94 L (4.10-5.20) 10*6/uL Hgb 10.2 L (12.0-15.0) g/dL Hct 30.5 L (37.2-46.3) % Plt Count 241 (140-440) 10*3/uL Comprehensive Metabolic Panel 08/11/24 Range/Units 06:56 Sodium 136 L (137-145) mmol/L Potassium 5.3 H (3.5-5.1) mmol/L Chloride 99 (98-107) mmol/L Carbon Dioxide 23 (22-30) mmol/L BUN 75 H (7-17) mg/dL Creatinine 9.00 H* (0.52-1.04) mg/dL Glucose 100 H (74-99) mg/dL Calcium 11.8 H (8.4-10.2) mg/dL AST 102 H (14-36) U/L ALT 105 H (4-34) U/L Alkaline Phosphatase 121 (38-126) U/L Total Protein 6.7 (6.3-8.2) g/dL Albumin 4.0 (3.5-5.0) g/dL Current Medications Generic Name Dose Route Start Last Admin Trade Name Freq PRN Reason Stop Dose Admin Acetaminophen 1,000 mg 08/10/24 16:00 08/11/24 09:38 Acetaminophen Tab 500 Mg Tab PO 1,000 mg Q8HR OSIRIS Administration Allopurinol 100 mg 08/11/24 09:00 08/11/24 09:38 Allopurinol 100 Mg Tab PO 100 mg DAILY OSIRIS Administration Aspirin 81 mg 08/11/24 09:00 08/11/24 09:37 Aspirin 81 Mg PO 81 mg DAILY OSIRIS Administration Atorvastatin Calcium 80 mg 08/10/24 21:00 08/10/24 21:40 Atorvastatin 80 Mg Tab PO 80 mg HS OSIRIS Administration Cinacalcet 30 mg 08/11/24 09:00 08/11/24 09:37 Cinacalcet 30 Mg Tab PO 30 mg MOWEFRSA OSIRIS Administration Cinacalcet 60 mg 08/10/24 13:30 08/10/24 14:40 Cinacalcet 30 Mg Tab PO Not Given SuTh@0900 OSIRIS Clopidogrel Bisulfate 75 mg 08/10/24 13:30 08/11/24 09:37 Clopidogrel 75 Mg Tab PO 75 mg DAILY OSIRIS Administration Dextrose/Water 25 ml 08/10/24 13:32 Dextrose 50% Syringe 50 Ml IVP PER PROTOCOL PRN Hypoglycemia Protocol Dextrose/Water 50 ml 08/10/24 13:32 Dextrose 50% Syringe 50 Ml IVP PER PROTOCOL PRN Hypoglycemia Protocol Heparin Sodium (Porcine) 0 unit 08/10/24 09:16 Heparin Sodium 1,000 Un/Ml (10ml Vl) IV PER PROTOCOL PRN Low PTT Protocol Heparin Sodium/Sodium Chloride 250 mls @ 7.62 mls/hr 08/10/24 09:30 08/11/24 07:54 25,000 unit/ Sodium Chloride IV 12 units/kg/hr .Q24H OSIRIS 7.62 mls/hr Titration Protocol 12 UNITS/KG/HR Insulin Human Lispro 0 unit 08/10/24 15:08 Insulin Lispro (Humalog) 100 Unit/Ml 10 Ml Vl SQ DAILY PRN Insulin Pump Replacement Metoprolol Succinate 25 mg 08/10/24 13:30 08/11/24 09:37 Metoprolol Succinate (Er) 25 Mg Tab.Er.24h PO 25 mg BID OSIRIS Administration Midodrine 5 mg 08/10/24 13:27 08/10/24 19:02 Midodrine 5 Mg Tab PO 5 mg QID PRN Administration Blood Pressure - Low Miscellaneous Information 0 unit 08/10/24 15:08 Insulin Pump Correction Bolus 1 Unit Misc MISCELLANE ACHS PRN Blood Sugar - High Protocol Montelukast Sodium 10 mg 08/10/24 21:00 08/10/24 21:40 Montelukast 10 Mg Tab PO 10 mg HS OSIRIS Administration Multivit/Ca Carb/B Cmplx/FA/Prenat 1 each 08/11/24 09:00 Folic Acid-Vit B Complex-Vit C 1 Cap PO DAILY OSIRIS Naloxone HCl 0.2 mg 08/10/24 09:42 Naloxone 0.4 Mg/Ml 1 Ml Vial IV Q2M PRN Opioid Reversal Nitroglycerin 0.5 inch 08/10/24 08:30 08/11/24 09:41 Nitroglycerin Oint 1 Inch/Gm Packet TOPICAL 0.5 inch Q8HR OSIRIS Administration Nitroglycerin 0.4 mg 08/10/24 13:27 Nitroglycerin Sl Tabs 0.4 Mg Tab SUBLINGUAL Q5M PRN Angina Patient's Own ( 210 mg 08/10/24 18:00 08/11/24 09:43 Ferric Citrate [ PO Not Given Auryxia] 210 Mg QID OSIRIS Tablet) Pantoprazole Sodium 40 mg 08/10/24 21:00 08/11/24 09:37 Pantoprazole 40 Mg Tablet PO 40 mg BID OSIRIS Administration Torsemide 20 mg 08/10/24 13:30 08/11/24 09:37 Torsemide 20 Mg Tab PO 20 mg BID@0900,1600 OSIRIS Administration Intake and Output 08/10/24 08/11/24 08/11/24 22:59 06:59 14:59 Intake Total 164.084 Balance 164.084 Intake: Intake, IV Titration 164.084 Amount Heparin Sod,Pork in 0.45% 164.084 NaCl 25,000 unit In 0.45 % NaCl 1 250ml.bag @ 12 UNITS/KG/HR 7.62 mls/hr IV .Q24H [facility] Rx#: [id number] Other: Voiding Method Toilet Toilet # Voids 1 1 Weight 66.5 kg 08/11/24 06:56 08/11/24 06:56
--- NOTE | 2024-08-11 15:05 | P.PN ---
Subjective Progress Note Date: 08/11/24 History of present illness: 69-year-old female with past medical history significant for ESRD on hemodialys is, history of recent cardiac catheterization with stenting on 06/30/2024, history of diabetes mellitus on insulin pump, hypertension, hyperlipidemia who presented to ER with a complaint of chest pain for the last couple of days. Patient reported the chest pain was intermittent, yesterday evening patient had dinner and went to go upstairs and while was watching TV on her bed and started to have chest pain again in the middle of the chest, had associated shortness of breath, chest pain was pressure-like, nonradiating. Patient reported that she also felt chest pressure and shortness of breath intermittent with ambulation, chest pain felt similar to her previous myocardial infarction requiring stent. Patient is afebrile, heart rate 80, respiratory rate 18, blood pressure 198/55, saturating 99% on room air. WBCs 9.6, hemoglobin 10.7, platelet 271. Sodium 135 potassium 4.9 BUN 57 creatinine 7.95. Troponin 0.317, repeat 0.283. NT proBNP more than 30,000. 08/11/2024 Patient seen and examined at bedside. She continues to have mild chest pain at rest. She remains on heparin infusion. She was seen by cardiology. Completed parathyroid nuclear medicine scan. She has dialysis planned today. ROS: Pertinent positives and negatives as per HPI. PHYSICAL EXAMINATION: Vitals reviewed GENERAL: The patient is A&O x3, NAD PULMONARY: Equal breath souds B/L, No wheezing, No crackles. CARDIOVASCULAR: S1, S2 present. No murmurs, rubs, or gallops. ABDOMEN: Soft, nontender, nondistended, normoactive bowel sounds. No guarding or rebound tenderness. MUSCULOSKELETAL: No edema, No cyanosis. No clubbing. Normal ROM. Intact peripheral pulses. NEUROLOGICAL: CN 2-12 grossly intact. No FND Today's objective findings: Hemoglobin 10.2, sodium 136, potassium 5.3, BUN 75, creatinine 9.0, calcium 11.8, phosphorus 6.3, AST 102, ALT 105 Nuclear medicine parathyroid scan with findings of focal region of persistent radiotracer uptake on delayed imaging within the inferior right thyroid region concern for possible parathyroid lesion. Assessment and plan: NSTEMI: Chest pain: Hypertension: Hyperlipidemia: History of CAD multiple stents, recent cardiac catheterization with stent 06/30/2024: Presented with chest pain, recently had cardiac catheterization with stent on 06/30/2024, elevated troponin, trending up. Telemetry, trend troponin, EKGs. Continue aspirin, Plavix, statin, metoprolol, Nitropaste, hold Imdur Begin metoprolol tartrate 25 mg 3 times daily Echo pending Heparin drip Cardiology consult ESRD on hemodialysis: On hemodialysis Sunday, last hemodialysis Sunday Monitor fluid status, electrolytes Continue home medication including torsemide Nephrology consulted for maintenance hemodialysis Hypercalcemia Continue Sensipar and Prolia. PTH 288. Vitamin D level 30.1. Parathyroid nuclear scan reviewed with focal uptake in inferior right thyroid Nephrology following Diabetes mellitus: Continue insulin pump Accu-Cheks, diabetic diet. DVT prophylaxis Currently on heparin drip Monitor vital signs and labs Labs and medication were reviewed. Continue same treatment. Further recommendations as per clinical course of the patient Dr. Grijalva seen patient with resident, present during exam, and agreed with findings. Dictation was produced using [employer] dictation software. please excuse any grammatical, word or spelling errors. Objective - Vital Signs Vital signs: Vital Signs Temp 98.2 F 08/11/24 04:00 Pulse 69 08/11/24 04:00 Resp 16 08/11/24 04:00 BP 110/56 08/11/24 04:00 Pulse Ox 97 08/11/24 04:00 FiO2 Intake & Output 08/10/24 08/11/24 08/11/24 18:59 06:59 18:59 Intake Total 240 164.084 Balance 240 164.084 Weight 63.503 kg 66.5 kg Intake: Intake, IV Titration 164.084 Amount Heparin Sod,Pork in 0.45% 164.084 NaCl 25,000 unit In 0.45 % NaCl 1 250ml.bag @ 12 UNITS/KG/HR 7.62 mls/hr IV .Q24H [facility] Rx#: [id number] Oral 240 Other: Voiding Method Toilet # Voids 1 - Labs CBC & Chem 7: 08/11/24 06:56 08/11/24 06:56 Labs: Abnormal Lab Results - Last 24 Hours (Table) 08/10/24 08/10/24 08/10/24 Range/Units 08:31 08:31 08:31 RBC 3.10 L (4.10-5.20) 10*6/uL Hgb 10.7 L (12.0-15.0) g/dL Hct 32.1 L (37.2-46.3) % MCV 103.5 H (80.0-97.0) fL MCH 34.5 H (27.0-32.0) pg APTT 21.7 L (22.0-30.0) sec Sodium 135 L (137-145) mmol/L Potassium (3.5-5.1) mmol/L Chloride 97 L (98-107) mmol/L BUN 57 H (7-17) mg/dL Creatinine 7.95 H* (0.52-1.04) mg/dL Glucose 168 H (74-99) mg/dL POC Glucose (mg/dL) (70-110) mg/dL Calcium 12.6 H (8.4-10.2) mg/dL AST (14-36) U/L ALT (4-34) U/L Troponin I (0.000-0.034) ng/mL 08/10/24 08/10/24 08/10/24 Range/Units 08:31 11:48 15:13 RBC (4.10-5.20) 10*6/uL Hgb (12.0-15.0) g/dL Hct (37.2-46.3) % MCV (80.0-97.0) fL MCH (27.0-32.0) pg APTT 49.7 H (22.0-30.0) sec Sodium (137-145) mmol/L Potassium (3.5-5.1) mmol/L Chloride (98-107) mmol/L BUN (7-17) mg/dL Creatinine (0.52-1.04) mg/dL Glucose (74-99) mg/dL POC Glucose (mg/dL) (70-110) mg/dL Calcium (8.4-10.2) mg/dL AST (14-36) U/L ALT (4-34) U/L Troponin I 0.317 H* 0.283 H* (0.000-0.034) ng/mL 08/10/24 08/10/24 08/10/24 Range/Units 15:13 16:31 19:38 RBC (4.10-5.20) 10*6/uL Hgb (12.0-15.0) g/dL Hct (37.2-46.3) % MCV (80.0-97.0) fL MCH (27.0-32.0) pg APTT (22.0-30.0) sec Sodium (137-145) mmol/L Potassium (3.5-5.1) mmol/L Chloride (98-107) mmol/L BUN (7-17) mg/dL Creatinine (0.52-1.04) mg/dL Glucose (74-99) mg/dL POC Glucose (mg/dL) 249 H 119 H (70-110) mg/dL Calcium (8.4-10.2) mg/dL AST (14-36) U/L ALT (4-34) U/L Troponin I 0.307 H* (0.000-0.034) ng/mL 08/11/24 08/11/24 08/11/24 Range/Units 06:56 06:56 06:56 RBC 2.94 L (4.10-5.20) 10*6/uL Hgb 10.2 L (12.0-15.0) g/dL Hct 30.5 L (37.2-46.3) % MCV 103.7 H (80.0-97.0) fL MCH 34.7 H (27.0-32.0) pg APTT 45.7 H (22.0-30.0) sec Sodium 136 L (137-145) mmol/L Potassium 5.3 H (3.5-5.1) mmol/L Chloride (98-107) mmol/L BUN 75 H (7-17) mg/dL Creatinine 9.00 H* (0.52-1.04) mg/dL Glucose 100 H (74-99) mg/dL POC Glucose (mg/dL) (70-110) mg/dL Calcium 11.8 H (8.4-10.2) mg/dL AST 102 H (14-36) U/L ALT 105 H (4-34) U/L Troponin I (0.000-0.034) ng/mL
[2024-08-11] MEDS: METOPROLOL TARTRATE 25 MG TAB PO SCH (15:28)
[2024-08-11 16:39] LABS: Glucose,Whole Blood 152 mg/dL (70-110)
[2024-08-11 20:02] LABS: Glucose,Whole Blood 136 mg/dL (70-110)
[2024-08-11] MEDS: ATORVASTATIN 40 MG TAB PO SCH (21:13)
[2024-08-11] MEDS: FOLIC ACID-VIT B COMPLEX-VIT C 1 CAP PO SCH (21:14)
[2024-08-12 02:17] LABS: Glucose,Whole Blood 174 mg/dL (70-110)
[2024-08-12 06:14] LABS: Glucose,Whole Blood 115 mg/dL (70-110)
[2024-08-12 07:46] LABS: HCT 29.9 % (37.2-46.3); HGB 9.8 g/dL (12.0-15.0); MCH 33.6 pg (27.0-32.0); MCHC 32.8 g/dL (32.0-37.0); MCV 102.4 fL (80.0-97.0); Mean Platelet Volume 10.9 fL (9.5-12.2); Platelet Count 235 10*3/uL (140-440); RBC 2.92 10*6/uL (4.10-5.20); RDW 14.8 % (11.5-14.5); WBC 8.09 10*3/uL (4.50-10.00)
[2024-08-12 08:15] LABS: ALT 70 U/L (4-34); AST 37 U/L (14-36); African American GFR (CKD) 8 (>60 ml/min/1.73 sqM); Albumin 3.9 g/dL (3.5-5.0); Alkaline Phosphatase 126 U/L (38-126); Anion Gap 14 mmol/L; Blood Urea Nitrogen 38 mg/dL (7-17); Calcium 11.1 mg/dL (8.4-10.2); Carbon Dioxide 29 mmol/L (22-30); Chloride 94 mmol/L (98-107); Glucose 113 mg/dL (74-99); Non-African American GFR(CKD) 7 (>60 ml/min/1.73 sqM); Potassium 4.5 mmol/L (3.5-5.1); Sodium 137 mmol/L (137-145); Total Bilirubin 0.7 mg/dL (0.2-1.3); Total Protein 6.8 g/dL (6.3-8.2)
[2024-08-12 08:56] LABS: Protein, Total 6.6 g/dL (6.2-8.2)
--- NOTE | 2024-08-12 10:43 | P.PN ---
Subjective Patient is seen in follow-up for end-stage renal disease. She is maintained on hemodialysis on Sunday schedule. No problems with dialysis yesterday. Feels better today. On heparin drip. Vital signs are stable. General: No acute distress. HEENT: Head exam is unremarkable. LUNGS: No audible rhonchi or wheezes. HEART: Rate and Rhythm are regular. ABDOMEN: Nontender. EXTREMITITES: No edema. Objective - Vital Signs Vital signs: Vital Signs Temp 98.4 F 08/12/24 07:45 Pulse 69 08/12/24 09:34 Resp 18 08/12/24 07:45 BP 91/47 08/12/24 09:34 Pulse Ox 93 L 08/12/24 07:45 FiO2 Intake & Output 08/11/24 08/12/24 08/12/24 18:59 06:59 18:59 Intake Total 404.084 505.916 420 Output Total 300 4400 Balance 104.084 -3894.084 420 Intake: IV 20 Invasive Line 1 20 Intake, IV Titration 164.084 85.916 Amount Heparin Sod,Pork in 0.45% 164.084 85.916 NaCl 25,000 unit In 0.45 % NaCl 1 250ml.bag @ 12 UNITS/KG/HR 7.62 mls/hr IV .Q24H [facility] Rx#: [id number] Oral 240 420 Hemodialysis 400 Output: Urine 300 Hemodialysis 2400 Hemodialysis Net Amount 2000 Other: Voiding Method Toilet Toilet # Voids 0 - Labs CBC & Chem 7: 08/12/24 07:18 08/12/24 07:18 Labs: Abnormal Lab Results - Last 24 Hours (Table) 08/11/24 08/11/24 08/11/24 Range/Units 12:35 16:37 20:00 RBC (4.10-5.20) 10*6/uL Hgb (12.0-15.0) g/dL Hct (37.2-46.3) % MCV (80.0-97.0) fL MCH (27.0-32.0) pg APTT (22.0-30.0) sec Chloride (98-107) mmol/L BUN (7-17) mg/dL Creatinine (0.52-1.04) mg/dL Glucose (74-99) mg/dL POC Glucose (mg/dL) 156 H 152 H 136 H (70-110) mg/dL Calcium (8.4-10.2) mg/dL AST (14-36) U/L ALT (4-34) U/L 08/12/24 08/12/24 08/12/24 Range/Units 02:16 06:12 07:18 RBC (4.10-5.20) 10*6/uL Hgb (12.0-15.0) g/dL Hct (37.2-46.3) % MCV (80.0-97.0) fL MCH (27.0-32.0) pg APTT 45.0 H (22.0-30.0) sec Chloride (98-107) mmol/L BUN (7-17) mg/dL Creatinine (0.52-1.04) mg/dL Glucose (74-99) mg/dL POC Glucose (mg/dL) 174 H 115 H (70-110) mg/dL Calcium (8.4-10.2) mg/dL AST (14-36) U/L ALT (4-34) U/L 08/12/24 08/12/24 Range/Units 07:18 07:18 RBC 2.92 L (4.10-5.20) 10*6/uL Hgb 9.8 L (12.0-15.0) g/dL Hct 29.9 L (37.2-46.3) % MCV 102.4 H (80.0-97.0) fL MCH 33.6 H (27.0-32.0) pg APTT (22.0-30.0) sec Chloride 94 L (98-107) mmol/L BUN 38 H (7-17) mg/dL Creatinine 5.66 H (0.52-1.04) mg/dL Glucose 113 H (74-99) mg/dL POC Glucose (mg/dL) (70-110) mg/dL Calcium 11.1 H (8.4-10.2) mg/dL AST 37 H (14-36) U/L ALT 70 H (4-34) U/L Assessment and Plan Plan: Assessment: 1. End-stage renal disease maintained on hemodialysis on Sunday schedule. 2. Non-ST elevated myocardial infarction on heparin drip. Cardiology following. 3. Coronary artery disease status post CABG and multiple stents. Last stent placed June 2024. 4. Diabetes mellitus. 5. Chronic kidney disease mineral bone disease. Phosphorus level 6.3. Calcium level trending down. On Sensipar. Patient also receives Prolia. PTH 288. Vitamin D level 30.1. Nuclear parathyroid scan concerning for adenoma. Plan: Hemodialysis tomorrow. Avoid calcium and vitamin D supplements. Add Renvela with meals. Follow-up secondary workup for hypercalcemia. Patient will be referred for possible parathyroidectomy outpatient.
[2024-08-12 11:12] LABS: Glucose,Whole Blood 167 mg/dL (70-110)
[2024-08-12 11:17] VITALS: RESP 17; TEMP 97.9
--- NOTE | 2024-08-12 13:53 | P.DS ---
Providers Date of admission: 08/10/24 09:42 Expected date of discharge: 08/12/24 Attending physician: Cameron Parker MD Consults: 08/10/24 09:30 Consult Physician Routine Consulting Provider: [facility] Consult Reason/Comments: nstemi Do you want consulting provider notified?: Yes 08/10/24 09:31 Consult Physician Routine Consulting Provider: Ernst Johnson Consult Reason/Comments: esrd on HD Do you want consulting provider notified?: Yes 08/11/24 13:52 Consult Physician Routine Consulting Provider: Reena Velasco Consult Reason/Comments: NSTEMI Do you want consulting provider notified?: Yes Primary care physician: [facility] Hospital Course: Discharge diagnoses; NSTEMI Chest pain Hypertension Hyperlipidemia History of CAD multiple stents, recent cardiac catheterization with stent 06/30/2024: ESRD on hemodialysis Hypercalcemia Parathyroid lesion Diabetes mellitus Hospital course; History of present illness: 69-year-old female with past medical history significant for ESRD on hemodialysis, history of recent cardiac catheterization with stenting on 06/30/2024, history of diabetes mellitus on insulin pump, hypertension, hyperlipidemia who presented to ER with a complaint of chest pain for the last couple of days. Patient reported the chest pain was intermittent, yesterday evening patient had dinner and went to go upstairs and while was watching TV on her bed and started to have chest pain again in the middle of the chest, had associated shortness of breath, chest pain was pressure-like, nonradiating. Pat ient reported that she also felt chest pressure and shortness of breath intermittent with ambulation, chest pain felt similar to her previous myocardial infarction requiring stent. Afebrile, heart rate 80, respiratory rate 18, blood pressure 198/55, saturating 99% on room air. WBCs 9.6, hemoglobin 10.7, platelet 271. Sodium 135 potassium 4.9 BUN 57 creatinine 7.95. Troponin 0.317, repeat 0.283. NT proBNP more than 30,000. During hospital stay patient seen by cardiology and nephrology. Initially on heparin drip. Decrease Lipitor to 40 mg nightly and began metoprolol tartrate 25 mg 3 times a day. She did get hemodialysis during stay. During stay patient calcium was elevated to 12.6 and gradually decreased. Renvela began. Nuclear medicine parathyroid scan with findings of focal region of persistent radiotracer uptake on delayed imaging within the inferior right thyroid region concern for possible parathyroid lesion. Patient discharged home in stable condition. She is to begin Lipitor 40 mg nightly, metoprolol tartrate 25 mg 3 times daily and Renvela 800 mg 3 times daily with meals. She is a follow-up with nephrology, cardiology and her PCP. Also recommended follow-up with Dr. Cotter general surgery for possible parathyroidectomy with nuclear parathyroid scan concerning for adenoma. PHYSICAL EXAMINATION: Vitals reviewed GENERAL: The patient is A&O x3, NAD PULMONARY: Equal breath souds B/L, No wheezing, No crackles. CARDIOVASCULAR: S1, S2 present. No murmurs, rubs, or gallops. ABDOMEN: Soft, nontender, nondistended, normoactive bowel sounds. No guarding or rebound tenderness. MUSCULOSKELETAL: No edema, No cyanosis. No clubbing. Normal ROM. Intact peripheral pulses. NEUROLOGICAL: CN 2-[address] No FND Dr[address] Grijalva seen patient with resident, present during exam, and agreed with findings. Dictation was produced using [employer] dictation software. please excuse any grammatical, word or spelling errors. Patient Condition at Discharge: Stable Plan - Discharge Summary Discharge Rx Participant: No New Discharge Prescriptions: New Atorvastatin [Lipitor] 40 mg PO HS #30 tab Metoprolol Tartrate [Lopressor] 25 mg PO TID #90 tab Sevelamer [Renvela] 800 mg PO TID-W/MEALS #90 tab Continue Nitroglycerin Sl Tabs [Nitrostat] 0.4 mg SUBLINGUAL Q5M PRN PRN Reason: Angina Montelukast [Singulair] 10 mg PO HS allopurinoL [Zyloprim] 100 mg PO DAILY Clopidogrel Bisulfate [Plavix] 75 mg PO DAILY Insulin Aspart (For Pump) [NovoLOG (For Pump)] 0.01 unit SQ-PUMP CONTINUOUS Alirocumab [Praluent Pen] 75 mg SQ Q14D Ferric Citrate [Auryxia] 210 mg PO QID Midodrine [ProAmatine] 5 mg PO QID PRN PRN Reason: Blood Pressure - Low Omeprazole [PriLOSEC] 20 mg PO BID Isosorbide Mononitrate ER [Imdur] 30 mg PO DAILY Torsemide [Demadex] 20 mg PO BID Cinacalcet HCl [Sensipar] 60 mg PO SUTH Insulin Degludec [Insulin Degludec Pen (U-100)] 12 units SQ DAILY PRN PRN Reason: PUMP FAILURE Denosumab [Prolia] 60 mg SQ Q180D Folic Acid/Vit B Complex and C [Hien-Moi Tablet] 0.8 mg PO DAILY Cinacalcet [Sensipar] 30 mg PO MOWEFRSA Aspirin EC [Ecotrin Low Dose] 81 mg PO DAILY Discontinued Atorvastatin [Lipitor] 80 mg PO HS Metoprolol Succinate [Toprol XL] 25 mg PO BID Discharge Medication List Clopidogrel Bisulfate [Plavix] 75 mg PO DAILY 10/11/16 [History] Insulin Aspart (For Pump) [NovoLOG (For Pump)] 0.01 unit SQ-PUMP CONTINUOUS 10/11/16 [History] Montelukast [Singulair] 10 mg PO HS 10/11/16 [History] Nitroglycerin Sl Tabs [Nitrostat] 0.4 mg SUBLINGUAL Q5M PRN 10/11/16 [History] allopurinoL [Zyloprim] 100 mg PO DAILY 10/11/16 [History] Alirocumab [Praluent Pen] 75 mg SQ Q14D 09/08/21 [History] Denosumab [Prolia] 60 mg SQ Q180D 02/27/23 [History] Ferric Citrate [Auryxia] 210 mg PO QID 02/27/23 [History] Midodrine [ProAmatine] 5 mg PO QID PRN 02/27/23 [History] Omeprazole [PriLOSEC] 20 mg PO BID 01/21/24 [History] Cinacalcet HCl [Sensipar] 60 mg PO SUTH 06/30/24 [History] Cinacalcet [Sensipar] 30 mg PO MOWEFRSA 06/30/24 [History] Folic Acid/Vit B Complex and C [Hien-Moi Tablet] 0.8 mg PO DAILY 06/30/24 [History] Isosorbide Mononitrate ER [Imdur] 30 mg PO DAILY 06/30/24 [History] Torsemide [Demadex] 20 mg PO BID 06/30/24 [History] Aspirin EC [Ecotrin Low Dose] 81 mg PO DAILY 07/31/24 [History] Insulin Degludec [Insulin Degludec Pen (U-100)] 12 units SQ DAILY PRN 07/31/24 [History] Atorvastatin [Lipitor] 40 mg PO HS #30 tab 08/12/24 [Rx] Metoprolol Tartrate [Lopressor] 25 mg PO TID #90 tab 08/12/24 [Rx] Sevelamer [Renvela] 800 mg PO TID-W/MEALS #90 tab 08/12/24 [Rx] Follow up Appointment(s)/Referral(s): Tavon Rose DO [Primary Care Provider] - 1-2 days (Patient to make appointment ) Patient Instructions/Handouts: Acute Coronary Syndrome (DC), End Stage Kidney Disease (DC)
[2024-08-12 13:57] VITALS: BP 89/54
[2024-08-12 13:59] VITALS: PULSE 58
[2024-08-12] MEDS: SEVELAMER 800 MG TAB PO SCH (14:04)
[2024-08-12] MEDS: ISOSORBIDE MONONITRATE ER 30 MG TAB.ER.24H PO SCH (14:04)
--- NOTE | 2024-08-12 14:32 | P.PN ---
Subjective Progress Note Date: 08/12/24 History of present illness: This is a 69-year-old female patient of Dr. Dao with past medical history of coronary artery disease status post CABG followed by recent PCI to the left main into circumflex, with history of in-stent stenosis status post brachytherapy, history of [place], end-stage renal disease on hemodialysis, aortic stenosis. Patient also follows at the [facility]. Patient also has a past medical history of diabetes mellitus on insulin pump, hypertension, hyperlipidemia. We have been asked to evaluate the patient for NSTEMI. Patient had a recent hospitalization and underwent cardiac catheterization on 06/30/2024 which revealed 20 to 30% left main, 90% proximal LAD, 99% ostial circumflex, 100% mid circumflex, 100% RCA. She had patent MADERA to LAD and SVG to the diagonal branch. Patient underwent PCI to the left main into the circumflex, L VEDP 22. Patient was to continue dual antiplatelet therapy for 12 months. 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 Patient presented to the hospital due to chest pain. She was doing well after she left the hospital on June 30 but then started having chest pain on and off in the midsternal area with dry heaves and gastric reflux. Nothing seems to make it better or worse. Discomfort seems to be occurring more frequently. Patient states that last evening, she had a drop in her blood pressure and she has been on Nitropaste. Will plan to have this removed so she can undergo hemodialysis this morning. Regarding Ranexa, patient states that she had tried this at [facility] also Dr. Dao who tried her on this and she does not know the reaction but she did not do well with it. Blood pressure 129/65, heart rate 74, pulse ox 95% on room air. Patient has been started on heparin drip. -EKG: Sinus rhythm with IVCD. -Chest x-ray: No acute cardiopulmonary process. Chronic interstitial changes. Mild cardiomegaly. Prior CABG. -Laboratory studies: WBC 9.4, hemoglobin 10.2, sodium 136, potassium 5.3, BUN 75 and creatinine 9. Troponins 0.317, 0.283, 0.307. proBNP greater than 30,000. Parathyroid hormone intact to 88. -Home cardiac medications: Aspirin 81 mg daily, atorvastatin 80 mg at bedtime, Plavix 75 mg daily, Imdur 30 mg daily, Toprol XL 25 mg twice daily, Nitrostat as needed, torsemide 20 mg twice daily. -Echocardiogram performed 01/21/2024 at [facility] revealed EF of 35 to 40%, mild aortic stenosis, mild tricuspid regurgitation, inferior wall is hypokinetic. 08/12 Patient seen and examined. Patient states that she underwent hemodialysis yesterday and about 1/2-hour to 1 hour into the treatment her chest pain went away completely. She has remained on heparin drip. She did not receive nitroglycerin paste this morning due to low blood pressure. Blood pressure is 91/47 and patient was feeling dizzy. She did take her midodrine this morning. She remains chest pain-free at this time. Heart rate is 50s and 70s, pulse ox 95% on room air. Repeat blood work reveals WBC 8, hemoglobin 9.8, BUN 38 creatinine 5.66. Physical examination: Gen: This is 69-year-old female in no acute respiratory distress. VS: reviewed HEENT: Head is atraumatic, normocephalic. Pupils equal, round. Sclerae is anicteric. NECK: Supple. No JVD. LUNGS: Clear to auscultation. No wheezes or rhonchi. No intercostal retractions. HEART: Regular rate and rhythm. 3/6 systolic murmur. ABDOMEN: Soft No tenderness. EXTREMITIES: No pedal edema. No calf tenderness. NEUROLOGICAL: Patient is awake, alert and oriented x3. Assessment: NSTEMI most likely secondary to end-stage renal disease History of coronary artery disease with previous CABG and PCI to the left main into the circumflex on 06/30/2024 History of in-stent stenosis status post brachytherapy Ischemic cardiomyopathy with EF of 35 to 40% End-stage renal disease on hemodialysis Hypertension Hyperlipidemia Aortic stenosis Diabetes mellitus on insulin pump Plan: Continue patient's home cardiac medications with the following changes Continue metoprolol tartrate 25 mg 3 times daily Resume Imdur and discontinue Nitropaste Patient is unable to tolerate Ranexa Discontinue heparin drip Patient is cleared for discharge from cardiology will follow-up in the office with Dr. Dao in 1 to 2 weeks. Nurse practitioner note has been reviewed, I agree with documented findings and plan of care. Patient was seen and examined. Objective - Vital Signs Vital signs: Vital Signs Temp 98.4 F 08/12/24 07:45 Pulse 69 08/12/24 09:34 Resp 18 08/12/24 07:45 BP 91/47 08/12/24 09:34 Pulse Ox 93 L 08/12/24 07:45 FiO2 Intake & Output 08/11/24 08/12/24 08/12/24 18:59 06:59 18:59 Intake Total 404.084 505.916 420 Output Total 300 4400 Balance 104.084 -3894.084 420 Intake: IV 20 Invasive Line 1 20 Intake, IV Titration 164.084 85.916 Amount Heparin Sod,Pork in 0.45% 164.084 85.916 NaCl 25,000 unit In 0.45 % NaCl 1 250ml.bag @ 12 UNITS/KG/HR 7.62 mls/hr IV .Q24H OSIRIS Rx#: [id number] Oral 240 420 Hemodialysis 400 Output: Urine 300 Hemodialysis 2400 Hemodialysis Net Amount 2000 Other: Voiding Method Toilet Toilet # Voids 0 - Labs CBC & Chem 7: 08/12/24 07:18 08/12/24 07:18 Labs: Abnormal Lab Results - Last 24 Hours (Table) 08/11/24 08/11/24 08/11/24 Range/Units 06:56 12:35 16:37 RBC (4.10-5.20) 10*6/uL Hgb (12.0-15.0) g/dL Hct (37.2-46.3) % MCV (80.0-97.0) fL MCH (27.0-32.0) pg APTT (22.0-30.0) sec Chloride (98-107) mmol/L BUN (7-17) mg/dL Creatinine (0.52-1.04) mg/dL Glucose (74-99) mg/dL POC Glucose (mg/dL) 156 H 152 H (70-110) mg/dL Calcium (8.4-10.2) mg/dL Phosphorus 6.3 H (2.5-4.5) mg/dL AST (14-36) U/L ALT (4-34) U/L 08/11/24 08/12/24 08/12/24 Range/Units 20:00 02:16 06:12 RBC (4.10-5.20) 10*6/uL Hgb (12.0-15.0) g/dL Hct (37.2-46.3) % MCV (80.0-97.0) fL MCH (27.0-32.0) pg APTT (22.0-30.0) sec Chloride (98-107) mmol/L BUN (7-17) mg/dL Creatinine (0.52-1.04) mg/dL Glucose (74-99) mg/dL POC Glucose (mg/dL) 136 H 174 H 115 H (70-110) mg/dL Calcium (8.4-10.2) mg/dL Phosphorus (2.5-4.5) mg/dL AST (14-36) U/L ALT (4-34) U/L 08/12/24 08/12/24 08/12/24 Range/Units 07:18 07:18 07:18 RBC 2.92 L (4.10-5.20) 10*6/uL Hgb 9.8 L (12.0-15.0) g/dL Hct 29.9 L (37.2-46.3) % MCV 102.4 H (80.0-97.0) fL MCH 33.6 H (27.0-32.0) pg APTT 45.0 H (22.0-30.0) sec Chloride 94 L (98-107) mmol/L BUN 38 H (7-17) mg/dL Creatinine 5.66 H (0.52-1.04) mg/dL Glucose 113 H (74-99) mg/dL POC Glucose (mg/dL) (70-110) mg/dL Calcium 11.1 H (8.4-10.2) mg/dL Phosphorus (2.5-4.5) mg/dL AST 37 H (14-36) U/L ALT 70 H (4-34) U/L
[2024-08-13 08:53] LABS: NT-Pro-B-Type Natriuretic Pept 53200 pg/mL
== END 2024-08-12 14:32 | disposition home or self-care (01) | DRG 280 ==
LOC: EC 08:04 → 3SCARD 09:42
PROVIDERS: ADMIT Internal Medicine; ATTEND Internal Medicine
PROC: 5A1D70Z Performance of Urinary Filtration, Intermittent, Less than 6 Hours Per Day (ICD-10-PCS; principal; 2024-08-11)
DX: I21.4 Non-ST elevation (NSTEMI) myocardial infarction (principal); N18.6 End stage renal disease; I12.0 Hypertensive chronic kidney disease with stage 5 chronic kidney disease or end stage renal disease; Z99.2 Dependence on renal dialysis; E11.22 Type 2 diabetes mellitus with diabetic chronic kidney disease; I35.0 Nonrheumatic aortic (valve) stenosis; Z79.4 Long term (current) use of insulin; E78.5 Hyperlipidemia, unspecified; I25.10 Atherosclerotic heart disease of native coronary artery without angina pectoris; E83.52 Hypercalcemia; Z96.41 Presence of insulin pump (external) (internal); I25.5 Ischemic cardiomyopathy; M89.8X9 Other specified disorders of bone, unspecified site; Z79.82 Long term (current) use of aspirin; Z79.899 Other long term (current) drug therapy; Z87.891 Personal history of nicotine dependence; Z79.02 Long term (current) use of antithrombotics/antiplatelets; Z95.1 Presence of aortocoronary bypass graft; Z95.5 Presence of coronary angioplasty implant and graft
CPT/HCPCS: 36415; 71046; 78070; 80053; 82306; 82652; 83735; 83880; 83970; 84100; 84165; 84484; 85025; 85027; 85610; 85730; 86334; 90935; 93005; 96365; 96375; 99291

== ENCOUNTER 2024-09-03 22:23 | Inpatient (IN) | payer MEDICARE, OTHER ==
[2024-09-03 22:49] LABS: Basophils # (A) 0.08 10*3/uL (0.00-0.10); Basophils % (A) 0.9 %; Eosinophils # (A) 0.15 10*3/uL (0.04-0.35); Eosinophils % (A) 1.8 %; HCT 28.9 % (37.2-46.3); HGB 9.8 g/dL (12.0-15.0); Lymphocytes # (A) 1.02 10*3/uL (0.90-5.00); Lymphocytes % (A) 11.9 %; MCH 35.4 pg (27.0-32.0); MCHC 33.9 g/dL (32.0-37.0); MCV 104.3 fL (80.0-97.0); Mean Platelet Volume 11.1 fL (9.5-12.2); Monocytes # (A) 0.86 10*3/uL (0.20-1.00); Monocytes % (A) 10.1 %; Neutrophils % (A) 74.9 %; Platelet Count 241 10*3/uL (140-440); RBC 2.77 10*6/uL (4.10-5.20); RDW 15.5 % (11.5-14.5); WBC 8.54 10*3/uL (4.50-10.00)
[2024-09-03 23:02] LABS: ALT 78 U/L (4-34); AST 43 U/L (14-36); African American GFR (CKD) 12 (>60 ml/min/1.73 sqM); Albumin 3.9 g/dL (3.5-5.0); Alkaline Phosphatase 163 U/L (38-126); Anion Gap 11 mmol/L; Blood Urea Nitrogen 30 mg/dL (7-17); Calcium 10.8 mg/dL (8.4-10.2); Carbon Dioxide 28 mmol/L (22-30); Chloride 95 mmol/L (98-107); Glucose 227 mg/dL (74-99); Non-African American GFR(CKD) 11 (>60 ml/min/1.73 sqM); Sodium 134 mmol/L (137-145); Total Bilirubin 0.6 mg/dL (0.2-1.3); Total Protein 6.5 g/dL (6.3-8.2)
--- NOTE | 2024-09-03 23:02 | ED ---
General Adult HPI - General Chief complaint: Chest Pain Stated complaint: chest pain Time Seen by Provider: 09/03/24 22:25 Source: patient, EMS, RN notes reviewed, old records reviewed Mode of arrival: EMS Limitations: no limitations - History of Present Illness Initial comments: 69 history of type 1 diabetes, end-stage renal disease, CAD status post bypass and multiple stenting presenting for evaluation of chest pain which has been present throughout the day today. She states her pain began after hemodialysis this morning. She did have some hypotension after dialysis and was unable to take nitroglycerin. Patient has scheduled heart cath tomorrow for intermittent episodes of chest pain over the past several months. - Related Data Home Medications Medication Instructions Recorded Confirmed Clopidogrel Bisulfate [Plavix] 75 mg PO DAILY 10/11/16 09/02/24 Insulin Aspart (For Pump) [NovoLOG 0.01 unit SQ-PUMP CONTINUOUS 10/11/16 09/02/24 (For Pump)] Montelukast [Singulair] 10 mg PO HS 10/11/16 09/02/24 Nitroglycerin Sl Tabs [Nitrostat] 0.4 mg SUBLINGUAL Q5M PRN 10/11/16 09/02/24 allopurinoL [Zyloprim] 100 mg PO DAILY 10/11/16 09/02/24 Alirocumab [Praluent Pen] 75 mg SQ Q14D 09/08/21 09/02/24 Denosumab [Prolia] 60 mg SQ Q180D 02/27/23 09/02/24 Ferric Citrate [Auryxia] 210 mg PO QID 02/27/23 09/02/24 Midodrine [ProAmatine] 5 mg PO QID PRN 02/27/23 09/02/24 Cinacalcet [Sensipar] 30 mg PO DAILY 06/30/24 09/02/24 Isosorbide Mononitrate ER [Imdur] 30 mg PO DAILY 06/30/24 09/02/24 Torsemide [Demadex] 20 mg PO BID 06/30/24 09/02/24 Aspirin EC [Ecotrin Low Dose] 81 mg PO DAILY 07/31/24 09/02/24 Insulin Degludec [Insulin Degludec 12 units SQ DAILY PRN 07/31/24 09/02/24 Pen (U-100)] Metoprolol Tartrate [Lopressor] 25 mg PO BID 09/02/24 09/02/24 Previous Rx's Medication Instructions Recorded Atorvastatin [Lipitor] 40 mg PO HS #30 tab 08/12/24 Allergies Allergy/AdvReac Type Severity Reaction Status Date / Time famotidine [From Pepcid] Allergy Unknown Verified 09/03/24 22:28 nifedipine Allergy Swelling Verified 09/03/24 22:28 amlodipine AdvReac Swelling Verified 09/03/24 22:28 diphenhydramine AdvReac Unknown Verified 09/03/24 22:28 [From Benadryl] droperidol AdvReac Anxiety Verified 09/03/24 22:28 ezetimibe [From Vytorin] AdvReac Acid Reflux Verified 09/03/24 22:28 fentanyl AdvReac "Can't Verified 09/03/24 22:28 wake up"/Nausea hydrocodone AdvReac Angina Verified 09/03/24 22:28 hydromorphone [From Dilaudid] AdvReac Angina Verified 09/03/24 22:28 midazolam [From Versed] AdvReac Anxiety Verified 09/03/24 22:28 morphine AdvReac Nausea & Verified 09/03/24 22:28 Vomiting paroxetine [From Paxil] AdvReac Acid Reflux Verified 09/03/24 22:28 ranolazine [From Ranexa] AdvReac dizziness Verified 09/03/24 22:28 simvastatin [From Vytorin] AdvReac Acid Reflux Verified 09/03/24 22:28 sulfamethoxazole AdvReac Decreased Verified 09/03/24 22:28 [From Bactrim] Renal Function trandolapril [From Tarka] AdvReac Acid Reflux Verified 09/03/24 22:28 trimethoprim [From Bactrim] AdvReac Decreased Verified 09/03/24 22:28 Renal Function verapamil [From Tarka] AdvReac Acid Reflux Verified 09/03/24 22:28 Review of Systems ROS Statement: Those systems with pertinent positive or pertinent negative responses have been documented in the HPI. ROS Other: All systems not noted in ROS Statement are negative. Past Medical History Past Medical History: Chest Pain / Angina, Diabetes Mellitus, Dialysis, GERD/Reflux, Hyperlipidemia, Hypertension, Myocardial Infarction ([place]), Osteoarthritis (OA), Renal Disease Additional Past Medical History / Comment(s): angina, kidney disease stage 4 Dialysis MWF, insulin pump. SOB with exertion. 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 3.5 parathyroid removed, 9 stents Past Anesthesia/Blood Transfusion Reactions: No Reported Reaction Additional Past Anesthesia/Blood Transfusion Reaction / Comment(s): see allergies Date of Last Stent Placement:: 2024 Past Psychological History: No Psychological Hx Reported Smoking Status: Former smoker Past Alcohol Use History: None Reported Past Drug Use History: None Reported - Past Family History Father Family Medical History: CVA/TIA, Hypertension General Exam Limitations: no limitations General appearance: alert, in no apparent distress Head exam: Present: atraumatic, normocephalic Eye exam: Present: normal appearance, PERRL ENT exam: Present: normal exam Neck exam: Present: normal inspection. Absent: tenderness, meningismus Respiratory exam: Present: normal lung sounds bilaterally. Absent: respiratory distress, wheezes Cardiovascular Exam: Present: regular rate, normal rhythm, systolic murmur GI/Abdominal exam: Present: soft. Absent: distended, tenderness Extremities exam: Present: normal inspection, normal capillary refill Neurological exam: Present: alert, oriented X3 Psychiatric exam: Present: normal affect, normal mood Skin exam: Present: warm, dry, intact. Absent: cyanosis, diaphoretic Course Vital Signs 09/03/24 09/03/24 22:25 23:10 Temperature 99 F Pulse Rate 84 77 Respiratory 16 18 Rate Blood Pressure 114/68 97/55 O2 Sat by Pulse 99 95 Oximetry - Reevaluation(s) Reevaluation #1: 09/03/24 22:[address] Ollie naranjo for cardiology, he was able to review the EKG, not felt to represent STEMI, plan for medical management at this time, awaiting heart catheterization tomorrow. Medical Decision Making - Medical Decision Making Was pt. sent in by a medical professional or institution (, PA, MANAGEMENT DEVELOPER, urgent care, hospital, or half-way...) When possible be specific @ -No Did you speak to anyone other than the patient for history (EMS, parent, family, police, friend...)? What history was obtained from this source @ -No Did you review nursing and triage notes (agree or disagree)? Why? @ -I reviewed and agree with nursing and triage notes Were old charts reviewed (outside hosp., previous admission, EMS record, old EKG, old radiological studies, urgent care reports/EKG's, half-way records)? Report findings @ -No old charts were reviewed Differential Chest Pain: Stable Angina, Unstable Angina, STEMI, NSTEMI Aortic Dissection, Pneumothorax, Musculoskeletal, Esophageal Spasm GERD, Cholecystitis, Pancreatitis, Zoster, this is not meant to be an all-inclusive list. EKG interpreted by me (3pts min.). @ -[A initial EKG at 2226, sinus rhythm with ST segment elevation in aVR and V1 and lateral ST segment depression rate of 83, MS interval 171, QRS duration 135, QTc 437 Repeat EKG at 2243, sinus rhythm, persistent ST segment changes which are unchanged from prior. MS interval 175, QRS duration 136, QTc 426 X-rays interpreted by me (1pt min.). @Chest x-ray showing atelectasis right lower lung field CT interpreted by me (1pt min.). @ -None done U/S interpreted by me (1pt. min.). @ -None done What testing was considered but not performed or refused? (CT, X-rays, U/S, labs)? Why? @ -None What meds were considered but not given or refused? Why? @ -None Did you discuss the management of the patient with other professionals (professionals i.e. , PA, MANAGEMENT DEVELOPER, lab, RT, psych nurse, social services manager, ship design teacher, teacher, credit or loans officer, case filler)? Give summary @Dr. Mar, Dr. Levin Was smoking cessation discussed for >3mins.? @ -No Was critical care preformed (if so, how long)? @ -Yes, 35 minutes Were there social determinants of health that impacted care today? How? (Homelessness, low income, unemployed, alcoholism, drug addiction, transportation, low edu. Level, literacy, decrease access to med. care, halfway, rehab)? @ -No Was there de-escalation of care discussed even if they declined (Discuss DNR or withdrawal of care, Hospice)? DNR status @ -No What co-morbidities impacted this encounter? (DM, HTN, Smoking, COPD, CAD, Cancer, CVA, ARF, Chemo, Hep., AIDS, mental health diagnosis, sleep apnea, morbid obesity)? @ -CAD end-stage renal disease on hemodialysis, type I diabetic Was patient admitted / discharged? Hospital course, mention meds given and route, prescriptions, significant lab abnormalities, going to OR and other pertinent info. @ -[69-year-old female with known CAD presenting with chest pain throughout the day today after hemodialysis. Patient is scheduled for heart cath tomorrow. Pain is minimal at the time my evaluation. EKG shows changes compared to tino cueva which is reviewed by cardiology. Patient started on heparin. She has chronic stable anemia, chronic kidney disease and troponin is elevated in the range of chronic elevation for this patient 0.111. This level will be trended. Admitted to Dr. Mar who is aware with cardiology on consult. Undiagnosed new problem with uncertain prognosis? @ -No Drug Therapy requiring intensive monitoring for toxicity (Heparin, Nitro, Insulin, Cardizem)? @ -No Were any procedures done? @ -No Diagnosis/symptom? @ -[NSTEMI Acute, or Chronic, or Acute on Chronic? @Acute Uncomplicated (without systemic symptoms) or Complicated (systemic symptoms)? @ -Default Side effects of treatment? @ -No Exacerbation, Progression, or Severe Exacerbation? @ -No Poses a threat to life or bodily function? How? (Chest pain, [place], [place], pneumonia, PE, COPD, DKA, ARF, appy, cholecystitis, CVA, Diverticulitis, Homicidal, Suicidal, threat to staff... and all critical care pts) @ -[Yes, ACS, cardiogenic shock, arrhythmia - Lab Data Result diagrams: 09/03/24 22:29 09/03/24 22:29 Lab Results 09/03/24 09/03/24 09/03/24 Range/Units 22:29 22: 22: WBC 8.54 (4.50-10.00) 10*3/uL RBC 2.77 L (4.10-5.20) 10*6/uL Hgb 9.8 L (12.0-15.0) g/dL Hct 28.9 L (37.2-46.3) % MCV 104.3 H (80.0-97.0) fL MCH 35.4 H (27.0-32.0) pg MCHC 33.9 (32.0-37.0) g/dL Plt Count 241 (140-440) 10*3/uL MPV 11.1 (9.5-12.2) fL Immature Gran % (Auto) 0.4 % Neutrophils % 74.9 % Lymphocytes % 11.9 % Monocytes % 10.1 % Eosinophils % 1.8 % Basophils % 0.9 % Immature Gran # 0.03 (0.00-0.04) 10*3/uL Neutrophils # 6.40 (1.80-7.70) 10*3/uL Lymphocytes # 1.02 (0.90-5.00) 10*3/uL Monocytes # 0.86 (0.20-1.00) 10*3/uL Eosinophils # 0.15 (0.04-0.35) 10*3/uL Basophils # 0.08 (0.00-0.10) 10*3/uL PT 11.0 (10.0-12.5) sec INR 1.0 (<1.2) APTT 21.7 L (22.0-30.0) sec Sodium 134 L (137-145) mmol/L Potassium 5.0 (3.5-5.1) mmol/L Chloride 95 L (98-107) mmol/L Carbon Dioxide 28 (22-30) mmol/L Anion Gap 11 mmol/L BUN 30 H (7-17) mg/dL Creatinine 4.02 H (0.52-1.04) mg/dL Est GFR (CKD-EPI)AfAm 12 (>60 ml/min/1.73 sqM) Est GFR (CKD-EPI)NonAf 11 (>60 ml/min/1.73 sqM) Glucose 227 H (74-99) mg/dL Calcium 10.8 H (8.4-10.2) mg/dL Magnesium 2.0 (1.6-2.3) mg/dL Total Bilirubin 0.6 (0.2-1.3) mg/dL AST 43 H (14-36) U/L ALT 78 H (4-34) U/L Alkaline Phosphatase 163 H (38-126) U/L Troponin I (0.000-0.034) ng/mL Total Protein 6.5 (6.3-8.2) g/dL Albumin 3.9 (3.5-5.0) g/dL 09/03/24 Range/Units 22:29 WBC (4.50-10.00) 10*3/uL RBC (4.10-5.20) 10*6/uL Hgb (12.0-15.0) g/dL Hct (37.2-46.3) % MCV (80.0-97.0) fL MCH (27.0-32.0) pg MCHC (32.0-37.0) g/dL Plt Count (140-440) 10*3/uL MPV (9.5-12.2) fL Immature Gran % (Auto) % Neutrophils % % Lymphocytes % % Monocytes % % Eosinophils % % Basophils % % Immature Gran # (0.00-0.04) 10*3/uL Neutrophils # (1.80-7.70) 10*3/uL Lymphocytes # (0.90-5.00) 10*3/uL Monocytes # (0.20-1.00) 10*3/uL Eosinophils # (0.04-0.35) 10*3/uL Basophils # (0.00-0.10) 10*3/uL PT (10.0-12.5) sec INR (<1.2) APTT (22.0-30.0) sec Sodium (137-145) mmol/L Potassium (3.5-5.1) mmol/L Chloride (98-107) mmol/L Carbon Dioxide (22-30) mmol/L Anion Gap mmol/L BUN (7-17) mg/dL Creatinine (0.52-1.04) mg/dL Est GFR (CKD-EPI)AfAm (>60 ml/min/1.73 sqM) Est GFR (CKD-EPI)NonAf (>60 ml/min/1.73 sqM) Glucose (74-99) mg/dL Calcium (8.4-10.2) mg/dL Magnesium (1.6-2.3) mg/dL Total Bilirubin (0.2-1.3) mg/dL AST (14-36) U/L ALT (4-34) U/L Alkaline Phosphatase (38-126) U/L Troponin I 0.111 H* (0.000-0.034) ng/mL Total Protein (6.3-8.2) g/dL Albumin (3.5-5.0) g/dL Critical Care Time Critical Care Time: Yes Total Critical Care Time: 35 Disposition Clinical Impression: ESRD on hemodialysis, Acute non-ST elevation myocardial infarction (NSTEMI) Disposition: ADMITTED IP TO THIS [facility] Condition: Stable Is patient prescribed a controlled substance at d/c from ED?: No Referrals: None,Stated [Primary Care Provider] - 1-2 days Time of Disposition: 23:52
[2024-09-03 23:06] LABS: Partial Thromboplastin Time 21.7 sec (22.0-30.0)
[2024-09-03] MEDS ORDERED: HEPARIN SODIUM 1,000 UN/ML (10ML VL) IV PRN (23:31)
[2024-09-03] MEDS ORDERED: NALOXONE 0.4 MG/ML 1 ML VIAL IV PRN (23:43)
[2024-09-03] MEDS: HEPARIN SODIUM 1,000 UN/ML (10ML VL) IV ONE (23:45)
[2024-09-03] MEDS: HEPARIN SOD,PORK IN 0.45% NACL 25,000 UNIT in 0.45% NACL 1 250ML.BAG IV SCH (23:46)
[2024-09-03] MEDS: SODIUM CHLORIDE 0.9% 1,000 ML IV SCH (23:56)
--- NOTE | 2024-09-04 00:43 | XR ---
EXAM: XR Chest, 2 Views CLINICAL HISTORY: ITS.REASON XR Reason: Chest Pain TECHNIQUE: Frontal and lateral views of the chest. COMPARISON: No relevant prior studies available. FINDINGS: Lungs: Atelectasis in the RIGHT midlung field. Pleural space: Unremarkable. No pneumothorax. Heart: Cardiomegaly. Mediastinum: Unremarkable. Bones/joints: Sternotomy wires. Vasculature: Calcified aorta. IMPRESSION: No acute findings in the chest.
[2024-09-04 06:26] LABS: Basophils # (A) 0.07 10*3/uL (0.00-0.10); Eosinophils # (A) 0.13 10*3/uL (0.04-0.35); Eosinophils % (A) 1.8 %; HCT 29.3 % (37.2-46.3); HGB 9.6 g/dL (12.0-15.0); Lymphocytes # (A) 1.37 10*3/uL (0.90-5.00); Lymphocytes % (A) 18.7 %; MCH 34.2 pg (27.0-32.0); MCHC 32.8 g/dL (32.0-37.0); MCV 104.3 fL (80.0-97.0); Mean Platelet Volume 10.9 fL (9.5-12.2); Monocytes # (A) 0.73 10*3/uL (0.20-1.00); Neutrophils # (A) 4.98 10*3/uL (1.80-7.70); Neutrophils % (A) 68.1 %; Platelet Count 226 10*3/uL (140-440); RBC 2.81 10*6/uL (4.10-5.20); RDW 15.5 % (11.5-14.5); WBC 7.31 10*3/uL (4.50-10.00)
[2024-09-04] MEDS: IV FLUID CONTINUATION 1,000 ML IV ONE (08:38)
[2024-09-04] MEDS: LIDOCAINE 1% INJ 10MG/ML (20 ML MDV) SQ ONE (08:53)
[2024-09-04] MEDS: VERAPAMIL SYRINGE (5 MG/10 ML) INTRAARTER ONE (08:55)
[2024-09-04] MEDS: HEPARIN SODIUM 1,000 UN/ML (10ML VL) IVP ONE ×2 (09:04→09:47)
[2024-09-04] MEDS: CLOPIDOGREL 75 MG TAB PO ONE (09:29)
--- NOTE | 2024-09-04 09:38 | P.CRDCN ---
History of Present Illness History of present illness: HISTORY OF PRESENT ILLNESS: This is a 69-year-old female with a past medical history significant for coronary artery disease with previous CABG and stenting, hypertension, hyperlipidemia, end-stage renal disease on hemodialysis, and aortic stenosis. Patient follows in the office with Dr. Dao. We have been asked to see the patient in consultation for non-STEMI. Patient examined at the bedside in the emergency room. Patient presented to the hospital with a chief complaint of nguyen st discomfort. Patient reports she is also been having a lot of nausea. She denies any shortness of breath. Patient was initially scheduled for outpatient cardiac catheterization today with Dr. Dao. DIAGNOSTICS: - EKG reveals sinus mechanism with IVCD. - Chest xray negative for acute findings. - Laboratory data: WBC 7.31. Hemoglobin 9.6. Platelet count 226. Sodium 134. Potassium 5.0. BUN 30. Creatinine 4.02. AST 43. ALT 78. Troponin 0.111. 0.112. 0.116. - Current home cardiac medications include Lipitor 80 mg at night, Imdur 30 mg daily, metoprolol tartrate 25 mg daily, aspirin 81 mg daily, Plavix 75 mg daily. - Most recent echocardiogram obtained in February 2024 revealed EF 35 to 40%, mild pulmonary hypertension, mild to moderate mitral regurgitation, mild to moderate aortic stenosis, mild tricuspid regurgitation - Cardiac catheterization history: June 2024 revealing 20 to 30% left main, 90% proximal LAD, 99% ostial circumflex, 100% mid circumflex, 100% RCA. Patent MADERA to LAD and SVG to diagonal branch. Patient underwent PCI of left main into circumflex. REVIEW OF SYSTEMS: At the time of my exam: CONSTITUTIONAL: Denies fever or chills. HEENT: Denies blurred vision, vision changes, or eye pain. Denies hemoptysis CARDIOVASCULAR: Denies chest pain. Denies orthopnea. Denies PND. Denies palpitations RESPIRATORY: Denies shortness of breath. GASTROINTESTINAL: Denies abdominal pain. Denies nausea or vomiting. HEMATOLOGIC: Denies bleeding disorders. GENITOURINARY: Denies any blood in urine. SKIN: Denies pruitis. Denies rash. PHYSICAL EXAM: VITAL SIGNS: Reviewed. GENERAL: Well-developed in no acute distress. HEENT: Head is normocephalic. Pupils are equal, round. Sclerae anicteric. Mucous membranes of the mouth are moist. Neck supple. No JVD or thyromegaly LUNGS: Respirations even and unlabored. Lungs essentially clear to auscultation bilaterally. HEART: Regular rate and rhythm. S1 and S2 heard. ABDOMEN: Soft. Nondistended. Nontender. EXTREMITIES: Normal range of motion. No clubbing or cyanosis. Peripheral pulses intact. No lower extremity edema NEUROLOGIC: Awake and alert. Oriented x 3. ASSESSMENT: Chest pain Chronically elevated troponin secondary to end-stage renal disease Coronary artery disease with previous CABG and stenting Ischemic cardiomyopathy, 35 to 40% End-stage renal disease on hemodialysis Hypertension Hyperlipidemia Mild to moderate aortic stenosis Mild pulmonary hypertension PLAN: Resume home cardiac medications Continue IV heparin Patient to undergo cardiac catheterization today with Dr. Dao Further recommendations pending patient course Nurse practitioner note has been reviewed by physician. Signing provider agrees with the documented findings, assessment, and plan of care documented by GUEST RELATIONS AGENT as a scribe. Past Medical History Past Medical History: Chest Pain / Angina, Diabetes Mellitus, Dialysis, GERD/Reflux, Hyperlipidemia, Hypertension, Myocardial Infarction ([place]), Osteoarthritis (OA), Renal Disease Additional Past Medical History / Comment(s): angina, kidney disease stage 4 Dialysis MWF, insulin pump. SOB with exertion. 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 3.5 parathyroid removed, 9 stents Past Anesthesia/Blood Transfusion Reactions: No Reported Reaction Additional Past Anesthesia/Blood Transfusion Reaction / Comment(s): see allergies Date of Last Stent Placement:: 2024 Past Psychological History: No Psychological Hx Reported Smoking Status: Former smoker Past Alcohol Use History: None Reported Past Drug Use History: None Reported - Past Family History Father Family Medical History: CVA/TIA, Hypertension Medications and Allergies Home Medications Medication Instructions Recorded Confirmed Type Clopidogrel Bisulfate [Plavix] 75 mg PO DAILY 10/11/16 09/04/24 History Insulin Aspart (For Pump) [NovoLOG 0.01 unit SQ-PUMP CONTINUOUS 10/11/16 09/04/24 History (For Pump)] Montelukast [Singulair] 10 mg PO HS 10/11/16 09/04/24 History Nitroglycerin Sl Tabs [Nitrostat] 0.4 mg SUBLINGUAL Q5M PRN 10/11/16 09/04/24 History allopurinoL [Zyloprim] 100 mg PO DAILY 10/11/16 09/04/24 History Alirocumab [Praluent Pen] 75 mg SQ Q14D 09/08/21 09/04/24 History Denosumab [Prolia] 60 mg SQ Q180D 02/27/23 09/04/24 History Ferric Citrate [Auryxia] 210 mg PO QID 02/27/23 09/04/24 History Midodrine [ProAmatine] 5 mg PO QID PRN 02/27/23 09/04/24 History Isosorbide Mononitrate ER [Imdur] 30 mg PO DAILY 06/30/24 09/04/24 History Aspirin EC [Ecotrin Low Dose] 81 mg PO DAILY 07/31/24 09/04/24 History Insulin Degludec [Insulin Degludec 12 units SQ DAILY PRN 07/31/24 09/04/24 History Pen (U-100)] Metoprolol Tartrate [Lopressor] 25 mg PO DAILY 09/02/24 09/04/24 History Acetaminophen [Tylenol Extra 1,000 mg PO TID 09/04/24 09/04/24 History Strength] Atorvastatin [Lipitor] 80 mg PO HS 09/04/24 09/04/24 History Folic Acid/Vit B Complex and C 0.8 mg PO DAILY 09/04/24 09/04/24 History [Hien-Moi Tablet] Omeprazole [PriLOSEC] 20 mg PO BID 09/04/24 09/04/24 History Ondansetron Odt [Zofran Odt] 4 mg PO Q8HR PRN 09/04/24 09/04/24 History Allergies Allergy/AdvReac Type Severity Reaction Status Date / Time famotidine [From Pepcid] Allergy Unknown Verified 09/04/24 07:20 nifedipine Allergy Swelling Verified 09/04/24 07:20 amlodipine AdvReac Swelling Verified 09/04/24 07:20 diphenhydramine AdvReac Unknown Verified 09/04/24 07:20 [From Benadryl] droperidol AdvReac Anxiety Verified 09/04/24 07:20 ezetimibe [From Vytorin] AdvReac Acid Reflux Verified 09/04/24 07:20 fentanyl AdvReac "Can't Verified 09/04/24 07:20 wake up"/Nausea hydrocodone AdvReac Angina Verified 09/04/24 07:20 hydromorphone [From Dilaudid] AdvReac Angina Verified 09/04/24 07:20 midazolam [From Versed] AdvReac Anxiety Verified 09/04/24 07:20 morphine AdvReac Nausea & Verified 09/04/24 07:20 Vomiting paroxetine [From Paxil] AdvReac Acid Reflux Verified 09/04/24 07:20 ranolazine [From Ranexa] AdvReac dizziness Verified 09/04/24 07:20 simvastatin [From Vytorin] AdvReac Acid Reflux Verified 09/04/24 07:20 sulfamethoxazole AdvReac Decreased Verified 09/04/24 07:20 [From Bactrim] Renal Function trandolapril [From Tarka] AdvReac Acid Reflux Verified 09/04/24 07:20 trimethoprim [From Bactrim] AdvReac Decreased Verified 09/04/24 07:20 Renal Function verapamil [From Tarka] AdvReac Acid Reflux Verified 09/04/24 07:20 Physical Exam Vitals: Vital Signs Temp Pulse Resp BP Pulse Ox 09/04/24 06:12 98.5 F 70 16 100/54 99 09/04/24 04:37 74 16 114/6 95 09/04/24 00:20 98.6 F 74 16 109/62 95 09/03/24 23:10 77 18 97/55 95 09/03/24 22:25 99 F 84 16 114/68 99 Intake and Output 09/03/24 09/04/24 09/04/24 22:59 06:59 14:59 Other: Weight 63.503 kg Results 09/04/24 05:59 09/03/24 22:29 Cardiac Enzymes 09/03/24 09/03/24 09/04/24 Range/Units 22:29 22:29 00:05 AST 43 H (14-36) U/L Troponin I 0.111 H* 0.112 H* (0.000-0.034) ng/mL 05/15/25 Range/Units 03:03 AST (14-36) U/L Troponin I 0.116 H* (0.000-0.034) ng/mL Coagulation 09/03/24 09/04/24 Range/Units 22:29 05:59 PT 11.0 11.0 (10.0-12.5) sec APTT 21.7 L 44.0 H (22.0-30.0) sec CBC 09/03/24 09/04/24 Range/Units 22:29 05:59 WBC 8.54 7.31 (4.50-10.00) 10*3/uL RBC 2.77 L 2.81 L (4.10-5.20) 10*6/uL Hgb 9.8 L 9.6 L (12.0-15.0) g/dL Hct 28.9 L 29.3 L (37.2-46.3) % Plt Count 241 226 (140-440) 10*3/uL Comprehensive Metabolic Panel 09/03/24 Range/Units 22:29 Sodium 134 L (137-145) mmol/L Potassium 5.0 (3.5-5.1) mmol/L Chloride 95 L (98-107) mmol/L Carbon Dioxide 28 (22-30) mmol/L BUN 30 H (7-17) mg/dL Creatinine 4.02 H (0.52-1.04) mg/dL Glucose 227 H (74-99) mg/dL Calcium 10.8 H (8.4-10.2) mg/dL AST 43 H (14-36) U/L ALT 78 H (4-34) U/L Alkaline Phosphatase 163 H (38-126) U/L Total Protein 6.5 (6.3-8.2) g/dL Albumin 3.9 (3.5-5.0) g/dL Current Medications Generic Name Dose Route Start Last Admin Trade Name Freq PRN Reason Stop Dose Admin Acetaminophen 650 mg 09/03/24 23:43 Acetaminophen Tab 325 Mg Tab PO Q6HR PRN Mild Pain or Fever > 100.5 Heparin Sodium (Porcine) 0 unit 09/03/24 23:31 Heparin Sodium 1,000 Un/Ml (10ml Vl) IV PER PROTOCOL PRN Low PTT Protocol Heparin Sodium/Sodium Chloride 250 mls @ 7.62 mls/hr 09/03/24 23:45 09/03/24 23:46 25,000 unit/ Sodium Chloride IV 12 units/kg/hr .Q24H OSIRIS 7.62 mls/hr Administration Protocol 12 UNITS/KG/HR Sodium Chloride 1,000 mls @ 50 mls/hr 09/03/24 23:45 09/03/24 23:56 Saline 0.9% IV 50 mls/hr .Q20H OSIRIS Administration Naloxone HCl 0.2 mg 09/03/24 23:43 Naloxone 0.4 Mg/Ml 1 Ml Vial IV Q2M PRN Opioid Reversal Intake and Output 09/03/24 09/04/24 09/04/24 22:59 06:59 14:59 Other: Weight 63.503 kg 09/04/24 05:59 09/03/24 22:29
[2024-09-04] MEDS: HEPARIN SODIUM,PORCINE (1 ML) 2,500 UNIT in SODIUM CHLORIDE 0.9% 250 ML IRRIGATION ONE (10:19)
[2024-09-04] MEDS: HEPARIN SODIUM (1,000 UNIT/ML) 1,000 UNIT in SODIUM CHLORIDE 0.9% 1,000 ML IRRIGATION ONE ×2 (10:19→10:20)
[2024-09-04] MEDS: SODIUM CHLORIDE 0.9% 500 ML 500 ML IV ONE (10:20)
[2024-09-04] MEDS ORDERED: MIDODRINE 5 MG TAB PO PRN (10:40)
[2024-09-04] MEDS ORDERED: NITROGLYCERIN SL TABS 0.4 MG TAB SUBLINGUAL PRN (10:40)
[2024-09-04] MEDS ORDERED: INSULIN GLARGINE (LANTUS) 100 UNIT/ML SYR SQ PRN (10:40)
[2024-09-04] MEDS ORDERED: ONDANSETRON ODT 4 MG TAB PO PRN (10:40)
[2024-09-04] MEDS: IOPAMIDOL-370 100ML BTL INJ ONE (10:41)
[2024-09-04] MEDS ORDERED: ZOLPIDEM 5 MG TAB PO PRN (10:48)
[2024-09-04] MEDS ORDERED: RX INFO: IV CONTRAST WAS GIVEN 1 EACH MISC MISCELLANE PRN (10:48)
[2024-09-04] MEDS ORDERED: ATROPINE SULFATE 0.1 MG/ML 10ML SYRINGE IV PRN (10:48)
[2024-09-04] MEDS ORDERED: MAG HYDROX/AL HYDROX/SIMETH 30 ML CUP PO PRN (10:48)
[2024-09-04 11:10] LABS: Glucose,Whole Blood 165 mg/dL (70-110)
[2024-09-04 16:27] LABS: Glucose,Whole Blood 138 mg/dL (70-110)
[2024-09-04] MEDS: Insulin Aspart (For Pump) 100 UNIT/ML VIAL SQ-PUMP SCH (16:34)
[2024-09-04] MEDS: PANTOPRAZOLE 40 MG TABLET PO SCH (16:45)
[2024-09-04] MEDS: FOLIC ACID-VIT B COMPLEX-VIT C 1 CAP PO SCH (16:46)
[2024-09-04] MEDS: allopurinoL 100 MG TAB PO SCH (16:48)
[2024-09-04] MEDS: FERROUS SULFATE 325 MG TAB PO SCH (16:49)
[2024-09-04] MEDS: ACETAMINOPHEN TAB 325 MG TAB PO PRN (17:50)
[2024-09-04] MEDS: ATORVASTATIN 80 MG TAB PO SCH (20:52)
[2024-09-04] MEDS: MONTELUKAST 10 MG TAB PO SCH (20:52)
[2024-09-04] MEDS: AURYXIA 210 MG PO SCH (20:58)
--- NOTE | 2024-09-04 21:16 | P.HPIM ---
History of Present Illness H&P Date: 09/04/24 Chief Complaint: Chest pain Pleasant 69-year-old patient, follows with Dr. Rose. With chronic medical conditions include diabetes mellitus, hypertension, hyperlipidemia, end-stage kidney disease on hemodialysis since 2021, on insulin pump, coronary artery disease with prior stent. Has also followed for cardiac care at [facility]Has a previous bypass. 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 Now mainly follows locally with Dr. Dao/sword swallower. Also has had in-stent stenosis and brachytherapy. Ischemic cardiomyopathy EF 35 to-40%. June 30: Stent to circumflex. July readmitted with chest pain. Was managed medically. Patient did again presents with chest pain. States after she had a stent placed about 2 weeks after that she started having tiredness with activity. Not with much activity you could really tired. And chest pressure. Last night started developing more significant chest pain. Patient was due for cardiac catheterization today's anyway. Has decided to come in. Patient today underwent angioplasty to circumflex and LAD. And stent to the left main. I saw the patient postprocedure and B7 in the recovery area. Patient also states she has been having significant reflux. Sometime she gets burning up in the middle of her chest. Sometimes she throws up after eating. Sometimes feeling of food gets stuck in lower part of the chest. 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 Alcides Mckeon.. Review of systems: GEN.: Tired EYES: None HEENT: None NECK: None RESPIRATORY: None CARDIOVASCULAR: As above GASTROINTESTINAL: As above GENITOURINARY: None MUSCULOSKELETAL: None LYMPHATICS: None HEMATOLOGICAL: None PSYCHIATRY: None NEUROLOGICAL: None Past medical history to include: Diabetes mellitus, hypertension, hyperlipidemia, end-stage kidney disease on dialysis Tuesdays and Sunday, CAD with stent and bypass- Social history: Lives alone. Prior smoker. Alcohol rarely. Physical examination: VITAL SIGNS: 98.576, 16, 116 x 56, 96% 2 L GENERAL: Resting in bed, comfortable. Left upper extremity AV fistula EYES: Pupils equal. Conjunctiva normal. HEENT: External appearance of nose and ears normal, oral cavity grossly normal. NECK: JVD not raised; masses not palpable. HEART: First and second heart sounds are normal; no edema LUNGS: Respiratory rate normal; clear to auscultation. ABDOMEN: Soft, nontender, liver spleen not palpable, no masses palpable. PSYCH: Alert and oriented x3; mood and affect normal. MUSCULOSKELETAL:No Clubbing/cyanosis;muscles-grossly intact INVESTIGATIONS, reviewed in the clinical context: September 04: White count 7.3 hemoglobin 9.6 platelets 226 Troponin I 0.111, 0.112, 0.116 September 03: Sodium 134 potassium 5 BUN 30 creatinine 4.02 Assessment and plan: -Acute non-ST elevation myocardial infarction. Followed previously at [facility] with Dr. Rangel and currently locally with Dr. Dao Cardiac catheterization today with angioplasty to circumflex and LAD. Stent to left main IV heparin. Aspirin. Plavix. Lopressor. Imdur. -Chronic congestive heart failure from systolic dysfunction EF 35-40 from unde rlying coronary artery- Toprol-XL - Exacerbated symptoms of reflux. Food getting stuck lobe of the chest. Occasionally vomiting. Patient scheduled to see Dr. Alcides Mckeon outside. Currently not available service in the hospital Barium swallow ordered -Coronary artery disease with prior stents, coronary bypass Aspirin. Lipitor. Plavix. -Diabetes mellitus type 2 on insulin pump Continue insulin pump -Hyperlipidemia Lipitor 80 mg daily at bedtime. -Essential hypertension Toprol-XL. -GERD Prilosec. Follow-up with GI outpatient -End-stage kidney disease on hemodialysis since 2021 Schedule: Sunday. Left upper extremity proximal AV fistula Nephrology f consulted -Severe aortic valve sclerosis with moderate aortic stenosis, moderate to severe mitral regurgitation Follow with cardiology -Gallstones asymptomatic -Normocytic anemia, secondary to chronic kidney disease -Full code Past Medical History Past Medical History: Chest Pain / Angina, Diabetes Mellitus, Dialysis, GERD/Reflux, Hyperlipidemia, Hypertension, Myocardial Infarction (HI), Osteoarthritis (OA), Renal Disease Additional Past Medical History / Comment(s): angina, kidney disease stage 4 Dialysis MWF, insulin pump. SOB with exertion. 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 3.5 parathyroid removed, 9 stents Past Anesthesia/Blood Transfusion Reactions: No Reported Reaction Additional Past Anesthesia/Blood Transfusion Reaction / Comment(s): see allergies Date of Last Stent Placement:: 2024 Past Psychological History: No Psychological Hx Reported Smoking Status: Former smoker Past Alcohol Use History: None Reported Past Drug Use History: None Reported - Past Family History Father Family Medical History: CVA/TIA, Hypertension Medications and Allergies Home Medications Medication Instructions Recorded Confirmed Type Clopidogrel Bisulfate [Plavix] 75 mg PO DAILY 10/11/16 09/04/24 History Insulin Aspart (For Pump) [NovoLOG 0.01 unit SQ-PUMP CONTINUOUS 10/11/16 09/04/24 History (For Pump)] Montelukast [Singulair] 10 mg PO HS 10/11/16 09/04/24 History Nitroglycerin Sl Tabs [Nitrostat] 0.4 mg SUBLINGUAL Q5M PRN 10/11/16 09/04/24 History allopurinoL [Zyloprim] 100 mg PO DAILY 10/11/16 09/04/24 History Alirocumab [Praluent Pen] 75 mg SQ Q14D 09/08/21 09/04/24 History Denosumab [Prolia] 60 mg SQ Q180D 02/27/23 09/04/24 History Ferric Citrate [Auryxia] 210 mg PO QID 02/27/23 09/04/24 History Midodrine [ProAmatine] 5 mg PO QID PRN 02/27/23 09/04/24 History Isosorbide Mononitrate ER [Imdur] 30 mg PO DAILY 06/30/24 09/04/24 History Aspirin EC [Ecotrin Low Dose] 81 mg PO DAILY 07/31/24 09/04/24 History Insulin Degludec [Insulin Degludec 12 units SQ DAILY PRN 07/31/24 09/04/24 History Pen (U-100)] Metoprolol Tartrate [Lopressor] 25 mg PO DAILY 09/02/24 09/04/24 History Acetaminophen [Tylenol Extra 1,000 mg PO TID 09/04/24 09/04/24 History Strength] Atorvastatin [Lipitor] 80 mg PO HS 09/04/24 09/04/24 History Folic Acid/Vit B Complex and C 0.8 mg PO DAILY 09/04/24 09/04/24 History [Hien-Moi Tablet] Omeprazole [PriLOSEC] 20 mg PO BID 09/04/24 09/04/24 History Ondansetron Odt [Zofran Odt] 4 mg PO Q8HR PRN 09/04/24 09/04/24 History Allergies Allergy/AdvReac Type Severity Reaction Status Date / Time famotidine [From Pepcid] Allergy Unknown Verified 09/04/24 07:20 nifedipine Allergy Swelling Verified 09/04/24 07:20 amlodipine AdvReac Swelling Verified 09/04/24 07:20 diphenhydramine AdvReac Unknown Verified 09/04/24 07:20 [From Benadryl] droperidol AdvReac Anxiety Verified 09/04/24 07:20 ezetimibe [From Vytorin] AdvReac Acid Reflux Verified 09/04/24 07:20 fentanyl AdvReac "Can't Verified 09/04/24 07:20 wake up"/Nausea hydrocodone AdvReac Angina Verified 09/04/24 07:20 hydromorphone [From Dilaudid] AdvReac Angina Verified 09/04/24 07:20 midazolam [From Versed] AdvReac Anxiety Verified 09/04/24 07:20 morphine AdvReac Nausea & Verified 09/04/24 07:20 Vomiting paroxetine [From Paxil] AdvReac Acid Reflux Verified 09/04/24 07:20 ranolazine [From Ranexa] AdvReac dizziness Verified 09/04/24 07:20 simvastatin [From Vytorin] AdvReac Acid Reflux Verified 09/04/24 07:20 sulfamethoxazole AdvReac Decreased Verified 09/04/24 07:20 [From Bactrim] Renal Function trandolapril [From Tarka] AdvReac Acid Reflux Verified 09/04/24 07:20 trimethoprim [From Bactrim] AdvReac Decreased Verified 09/04/24 07:20 Renal Function verapamil [From Tarka] AdvReac Acid Reflux Verified 09/04/24 07:20 Physical Exam Vitals: Vital Signs Temp Pulse Resp BP Pulse Ox 09/04/24 06:12 98.5 F 70 16 100/54 99 09/04/24 04:37 74 16 114/6 95 09/04/24 00:20 98.6 F 74 16 109/62 95 09/03/24 23:10 77 18 97/55 95 09/03/24 22:25 99 F 84 16 114/68 99 Intake and Output 09/03/24 09/04/24 09/04/24 22:59 06:59 14:59 Intake Total 250 Balance 250 Intake: IV 250 Other: Weight 63.503 kg Results CBC & Chem 7: 09/04/24 05:59 09/03/24 22:29 Labs: Abnormal Lab Results - Last 24 Hours (Table) 09/03/24 09/03/24 09/03/24 Range/Units 22:29 22:29 22:29 RBC 2.77 L (4.10-5.20) 10*6/uL Hgb 9.8 L (12.0-15.0) g/dL Hct 28.9 L (37.2-46.3) % MCV 104.3 H (80.0-97.0) fL MCH 35.4 H (27.0-32.0) pg APTT 21.7 L (22.0-30.0) sec Sodium 134 L (137-145) mmol/L Chloride 95 L (98-107) mmol/L BUN 30 H (7-17) mg/dL Creatinine 4.02 H (0.52-1.04) mg/dL Glucose 227 H (74-99) mg/dL Calcium 10.8 H (8.4-10.2) mg/dL AST 43 H (14-36) U/L ALT 78 H (4-34) U/L Alkaline Phosphatase 163 H (38-126) U/L Troponin I (0.000-0.034) ng/mL 09/03/24 09/04/24 09/04/24 Range/Units 22:29 00:05 03:03 RBC (4.10-5.20) 10*6/uL Hgb (12.0-15.0) g/dL Hct (37.2-46.3) % MCV (80.0-97.0) fL MCH (27.0-32.0) pg APTT (22.0-30.0) sec Sodium (137-145) mmol/L Chloride (98-107) mmol/L BUN (7-17) mg/dL Creatinine (0.52-1.04) mg/dL Glucose (74-99) mg/dL Calcium (8.4-10.2) mg/dL AST (14-36) U/L ALT (4-34) U/L Alkaline Phosphatase (38-126) U/L Troponin I 0.111 H* 0.112 H* 0.116 H* (0.000-0.034) ng/mL 09/04/24 09/04/24 Range/Units 05:59 05:59 RBC 2.81 L (4.10-5.20) 10*6/uL Hgb 9.6 L (12.0-15.0) g/dL Hct 29.3 L (37.2-46.3) % MCV 104.3 H (80.0-97.0) fL MCH 34.2 H (27.0-32.0) pg APTT 44.0 H (22.0-30.0) sec Sodium (137-145) mmol/L Chloride (98-107) mmol/L BUN (7-17) mg/dL Creatinine (0.52-1.04) mg/dL Glucose (74-99) mg/dL Calcium (8.4-10.2) mg/dL AST (14-36) U/L ALT (4-34) U/L Alkaline Phosphatase (38-126) U/L Troponin I (0.000-0.034) ng/mL
[2024-09-04] MEDS ORDERED: AURYXIA 210 MG PO SCH (22:00)
--- NOTE | 2024-09-04 22:15 | P.PRCINT ---
Percutaneous Coronary Int. - Percutaneous Coronary Intervention Percutaneous Coronary Intervention: PROCEDURES PERFORMED: Left and right heart catheterization, bilateral coronary angiography, ultrasound guided arterial access, MADERA to LAD and SVG to diagonal angiography, IVUS left main, PCI ostial left main with a 4.0 x 8mm Xience JOHN, post dilated with a 4.5mm NC balloon, balloon angioplasty of left main into circumflex and left main into LAD INDICATION: NSTEMI, NYHA class 4 symptoms CONSENT:I have discussed the risks, benefits and alternative therapies for the above-mentioned procedure and for both sedation/analgesia as well as necessary blood product administration, if indicated, as they pertain to this patient. The patient has indicated understanding and acceptance of the risks and procedures discussed. PROCEDURE: After the risks, benefits and alternatives of the above mentioned procedure explained in detail with the patient, informed consent was obtained. Patient was taken to the catheterization lab and prepped and draped in usual fashion. Ultrasound guidance was used to assess for arterial access. 1% lidocaine was used to anesthetize the right femoral artery. A 6-Mauritanian sheath was placed in the right femoral artery using modified Seldinger technique and ultrasound guidance. Left coronary angiography was performed with a 6-Mauritanian JL 4.0 catheter and right coronary angiography was performed with a 6-Mauritanian FR4 catheter in various views. A 6-Mauritanian FR4 catheter was inserted into the left ventricle and pressure measurements were obtained. SVG to diagonal and MADERA to LAD angiography was performed with a 6FR FR4 catheter. A 6Fr sheath was placed in the right femoral vein with US guidance. A 5Fr [place] Leif catheter was advanced into the RA, RV, PA, PCWP and pressure and oxygen saturations were obtained. Thermodilution was performed. Patient was felt high risk for redo surgery with additional poor targets of the PDA and circumflex and better served with PCI. Even though the LAD and diagonal grafts were patent, consideration of improving collaterals from the proximal LAD to the PDA as well as collaterals from the circumflex. The decision was made to perform PCI of left main into circumflex. A 6Fr CLS 3.5 guide catheter was used to engage the left main. A 0.014 BMW wire was advanced into the distal LAD and an additional 0.014 whisper wire into the circumflex. A 1.5mm, 2.0 x 12 mm and then 2.5 mm NC balloon were used to pre dilated the lesion circumflex. IVUS was performed. Balloon angioplast was additionally performed of the proximal LAD with a 1.5, 2.5 and 3.5mm NC balloon. Attempted advancing kissing balloons however unsuccessful through the 6Fr sheath. Balloon angioplasty was performed of the circumflex with a 3.5mm NC balloon. PCI was performed of the proximal left main with a 4.0 x 8mm Xience JOHN and this was post dilated with a 4.5mm NC balloon. Final angiograms and repeat IVUS were performed. Pre intervention there was 95% stenosis and PAULINA 3 flow and post intervention there was < 10% stenosis with PAULINA 3 flow. The right femoral angiogram showed adequate anatomy for closure and an Angioseal was placed with hemostasis achieved. The patient tolerated the procedure well. Patient was transported back to the post catheterization holding area in stable condition. Conscious Sedation: Patient was monitored under the direct supervision of myself for conscious sedation using Versed and fentanyl for a total duration of 105 minutes HEMODYNAMICS: Ao: 112/68 LV: 110/12, LVEDP 31 PCWP: 30 PA: 49/36 RV: 59/13 RA: 13 PA oxygen sat: 54% RA: oxygen sat: 43% FA oxygen saturation:92% CO by MARVEL: 4.4 L/min CI by MARVEL: 2.6 L/min/m2 CO by thermo: 3.7 L/min CI by thermo: 2.2 L/min/m2 SELECTIVE CORONARY ARTERIOGRAPHY: LEFT MAIN: The left main is a large caliber vessel which bifurcates into the LAD and circumflex. There is 95% ostial left main stenosis. LEFT ANTERIOR DESCENDING CORONARY ARTERY: LAD is a large caliber vessel which wraps around to the apex. There is a proximal LAD 90% stenosis and otherwise mild 20-30% stenosis. LEFT CIRCUMFLEX CORONARY ARTERY: Left circumflex is a moderate caliber vessel with ostial 95% instent stenosis and otherwise diffuse 30% stenosis. OM1 is moderate caliber and otherwise has mild disease. After OM1, the circumflex becomes a small to moderate caliber vessel with 100% subtotal occlusion. RIGHT CORONARY ARTERY: The right coronary artery is a large caliber vessel which gives off a PDA and PLV branch and is the dominant vessel. There is 100% stenosis at the proximal edge of the stents. Multiple layers of stent identified SVG to diagonal: widely patent MADERA to LAD: widely patent FINAL IMPRESSION: 1. CAD as described above including 95% left main, 90% proximal LAD, 95% ostial circumflex, 100% mid circumflex, 100% RCA 2. Patent MADERA to LAD and SVG to diagonal branch 3. S/p PCI ostial left main with a 4.0 x 8mm Xience JOHN 4. High left and right sided filling pressures 5. Low normal CO/CI 6. 11% oxygen saturation step up noted, may be related to measurement variance vs shunt PLAN: 1. Aggressive risk factor modification per most recent ACC/AHA guidelines. 2. Continue dual antiplateltes for 12 months with aspirin and Plavix
[2024-09-05 07:52] LABS: Basophils # (A) 0.09 10*3/uL (0.00-0.10); Eosinophils # (A) 0.14 10*3/uL (0.04-0.35); Eosinophils % (A) 1.6 %; HGB 9.4 g/dL (12.0-15.0); Lymphocytes # (A) 1.13 10*3/uL (0.90-5.00); MCH 34.7 pg (27.0-32.0); MCHC 33.6 g/dL (32.0-37.0); MCV 103.3 fL (80.0-97.0); Mean Platelet Volume 11.5 fL (9.5-12.2); Monocytes # (A) 0.86 10*3/uL (0.20-1.00); Monocytes % (A) 9.9 %; Neutrophils # (A) 6.43 10*3/uL (1.80-7.70); Neutrophils % (A) 73.9 %; Platelet Count 237 10*3/uL (140-440); RBC 2.71 10*6/uL (4.10-5.20); RDW 15.5 % (11.5-14.5)
[2024-09-05 08:07] LABS: African American GFR (CKD) 6 (>60 ml/min/1.73 sqM); Anion Gap 12 mmol/L; Blood Urea Nitrogen 48 mg/dL (7-17); Calcium 12.3 mg/dL (8.4-10.2); Carbon Dioxide 27 mmol/L (22-30); Chloride 92 mmol/L (98-107); Glucose 72 mg/dL (74-99); Non-African American GFR(CKD) 6 (>60 ml/min/1.73 sqM); Potassium 4.6 mmol/L (3.5-5.1); Sodium 131 mmol/L (137-145)
[2024-09-05] MEDS: METOPROLOL TARTRATE 25 MG TAB PO SCH (08:20)
[2024-09-05] MEDS: ISOSORBIDE MONONITRATE ER 30 MG TAB.ER.24H PO SCH (08:20)
[2024-09-05] MEDS: CLOPIDOGREL 75 MG TAB PO SCH (08:25)
[2024-09-05] MEDS: ASPIRIN 81 MG PO SCH (08:25)
[2024-09-05 08:28] VITALS: RESP 16
--- NOTE | 2024-09-05 10:18 | P.PN ---
Subjective HISTORY OF PRESENT ILLNESS: This is a 69-year-old female with a past medical history significant for coronary artery disease with previous CABG and stenting, hypertension, hyperlipidemia, end-stage renal disease on hemodialysis, and aortic stenosis. Patient follows in the office with Dr. Dao. We have been asked to see the patient in consultation for non-STEMI. Patient examined at the bedside in the emergency room. Patient presented to the hospital with a chief complaint of chest discomfort. Patient reports she is also been having a lot of nausea. She denies any shortness of breath. Patient was initially scheduled for outpatient cardiac catheterization today with Dr. Dao. DIAGNOSTICS: - EKG reveals sinus mechanism with IVCD. - Chest xray negative for acute findings. - Laboratory data: WBC 7.31. Hemoglobin 9.6. Platelet count 226. Sodium 134. Potassium 5.0. BUN 30. Creatinine 4.02. AST 43. ALT 78. Troponin 0.111. 0.112. 0.116. - Current home cardiac medications include Lipitor 80 mg at night, Imdur 30 mg d aily, metoprolol tartrate 25 mg daily, aspirin 81 mg daily, Plavix 75 mg daily. - Most recent echocardiogram obtained in February 2024 revealed EF 35 to 40%, mild pulmonary hypertension, mild to moderate mitral regurgitation, mild to moderate aortic stenosis, mild tricuspid regurgitation - Cardiac catheterization history: June 2024 revealing 20 to 30% left main, 90% proximal LAD, 99% ostial circumflex, 100% mid circumflex, 100% RCA. Patent MADERA to LAD and SVG to diagonal branch. Patient underwent PCI of left main into circumflex. 09/05/2024 Patient examined this morning at the bedside. Patient underwent cardiac catheterization yesterday with Dr. Dao revealing 95% left main, 90% prox imal LAD, 95% ostial circumflex, 100% mid circumflex, 100% RCA. Patent MADERA to LAD and SVG to diagonal branch. Patient underwent PCI of the ostial left main. Patient states she is feeling much better today. She denies any chest pain or pressure. She denies any shortness of breath. She reports improvement in her nausea and cough as well. Vital signs are stable. She is scheduled to undergo hemodialysis today. PHYSICAL EXAM: VITAL SIGNS: Reviewed. GENERAL: Well-developed in no acute distress. HEENT: Head is normocephalic. Pupils are equal, round. Sclerae anicteric. Mucous membranes of the mouth are moist. Neck supple. No JVD or thyromegaly LUNGS: Respirations even and unlabored. Lungs essentially clear to auscultation bilaterally. HEART: Regular rate and rhythm. S1 and S2 heard. ABDOMEN: Soft. Nondistended. Nontender. EXTREMITIES: Normal range of motion. No clubbing or cyanosis. Peripheral pulses intact. No lower extremity edema NEUROLOGIC: Awake and alert. Oriented x 3. ASSESSMENT: Chest pain Chronically elevated troponin secondary to end-stage renal disease Coronary artery disease with previous CABG and stenting Ischemic cardiomyopathy, 35 to 40% End-stage renal disease on hemodialysis Hypertension Hyperlipidemia Mild to moderate aortic stenosis Mild pulmonary hypertension PLAN: Continue dual antiplatelet therapy with aspirin and Plavix Continue high intensity statin Continue additional cardiac medications Patient is stable for discharge home today from a cardiac standpoint Patient to follow-up postdischarge in the office with Dr. Dao Nurse practitioner note has been reviewed by physician. Signing provider agrees with the documented findings, assessment, and plan of care documented by EMBEDDER as a scribe. Objective - Vital Signs Vital signs: Vital Signs Temp 98.5 F 09/05/24 08:15 Pulse 87 09/05/24 08:15 Resp 16 09/05/24 08:15 BP 107/61 09/05/24 08:15 Pulse Ox 100 09/05/24 08:21 FiO2 Intake & Output 09/04/24 09/05/24 09/05/24 18:59 06:59 18:59 Intake Total 500 10 Output Total 0 Balance 500 10 Weight 63.503 kg 64 kg Intake: IV 500 10 0.9 10 Output: Urine 0 Other: Voiding Method Toilet Toilet # Voids 1 - Labs CBC & Chem 7: 09/05/24 07:09 09/05/24 07:09 Labs: Abnormal Lab Results - Last 24 Hours (Table) 09/04/24 09/04/24 09/05/24 Range/Units 11:08 16:26 07:09 RBC (4.10-5.20) 10*6/uL Hgb (12.0-15.0) g/dL Hct (37.2-46.3) % MCV (80.0-97.0) fL MCH (27.0-32.0) pg Immature Gran # (0.00-0.04) 10*3/uL APTT 21.7 L (22.0-30.0) sec Sodium (137-145) mmol/L Chloride (98-107) mmol/L BUN (7-17) mg/dL Creatinine (0.52-1.04) mg/dL Glucose (74-99) mg/dL POC Glucose (mg/dL) 165 H 138 H (70-110) mg/dL Calcium (8.4-10.2) mg/dL 09/05/24 09/05/24 Range/Units 07:09 07:09 RBC 2.71 L (4.10-5.20) 10*6/uL Hgb 9.4 L (12.0-15.0) g/dL Hct 28.0 L (37.2-46.3) % MCV 103.3 H (80.0-97.0) fL MCH 34.7 H (27.0-32.0) pg Immature Gran # 0.05 H (0.00-0.04) 10*3/uL APTT (22.0-30.0) sec Sodium 131 L (137-145) mmol/L Chloride 92 L (98-107) mmol/L BUN 48 H (7-17) mg/dL Creatinine 6.99 H (0.52-1.04) mg/dL Glucose 72 L (74-99) mg/dL POC Glucose (mg/dL) (70-110) mg/dL Calcium 12.3 H (8.4-10.2) mg/dL
[2024-09-05 12:28] VITALS: BMI 25.8
[2024-09-05 12:29] LABS: Glucose,Whole Blood 138 mg/dL (70-110)
--- NOTE | 2024-09-05 14:13 | FL ---
EXAMINATION TYPE: FL barium swallow DATE OF EXAM: 09/05/2024 COMPARISON: NONE CLINICAL INDICATION: Female, 69 years old with history of Sometimes food gets stuck lower chest, vomi ting, no improvement with reflux medication. Had heart catheterization one day earlier. TECHNIQUE: A double contrast esophagram is performed utilizing air and barium. A total of 31 second s of fluoroscopic time was utilized during procedure and 75 images obtained. Total DAP = 719.64 FINDINGS: The esophagus shows mild dysmotility with some abnormal secondary and tertiary contractions . No significant delayed emptying into the stomach. No evidence of fixed hiatal hernia or stricture noted. No Intraluminal mass. No significant gastroesophageal reflux was seen during real time perform ance of this study. Post CABG changes with overlying sternal wires and mediastinal clips is present. Coronary artery stent or graft is noted during scanning. IMPRESSION: Mild dysmotility otherwise unremarkable study. No obstructing mass or stricture. [facility] Nia Schwarz, , 09/05/2024 2:10 PM
[2024-09-05 16:29] VITALS: PULSE 86
[2024-09-05 16:47] LABS: Glucose,Whole Blood 122 mg/dL (70-110)
--- NOTE | 2024-09-05 17:15 | P.NPCON ---
History of Present Illness - Reason for Consult end stage renal disease - History of Present Illness Patient is a 69-year-old female with end-stage renal disease on hemodialysis on Sunday schedule who came into the hospital with chest pain. Patient had cardiac catheterization with angioplasty and coronary stent placement on 07/05/2024. She is feeling much better today. Scheduled for hemodialysis today. No complaints of nausea vomiting or abdominal pain Past Medical History Past Medical History: Chest Pain / Angina, Diabetes Mellitus, Dialysis, GERD/Reflux, Hyperlipidemia, Hypertension, Myocardial Infarction ([place]), Osteoarthritis (OA), Renal Disease Additional Past Medical History / Comment(s): angina, kidney disease stage 4 Dialysis MWF, insulin pump. SOB with exertion. 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 3.5 parathyroid removed, 9 stents Past Anesthesia/Blood Transfusion Reactions: No Reported Reaction Additional Past Anesthesia/Blood Transfusion Reaction / Comment(s): see allergies Date of Last Stent Placement:: 2024 Past Psychological History: No Psychological Hx Reported Smoking Status: Former smoker Past Alcohol Use History: None Reported Past Drug Use History: None Reported - Past Family History Father History Unknown: Yes Family Medical History: CVA/TIA, Hypertension Medications and Allergies Home Medications Medication Instructions Recorded Confirmed Type Clopidogrel Bisulfate [Plavix] 75 mg PO DAILY 10/11/16 09/04/24 History Insulin Aspart (For Pump) [NovoLOG 0.01 unit SQ-PUMP CONTINUOUS 10/11/16 09/04/24 History (For Pump)] Montelukast [Singulair] 10 mg PO HS 10/11/16 09/04/24 History Nitroglycerin Sl Tabs [Nitrostat] 0.4 mg SUBLINGUAL Q5M PRN 10/11/16 09/04/24 History allopurinoL [Zyloprim] 100 mg PO DAILY 10/11/16 09/04/24 History Alirocumab [Praluent Pen] 75 mg SQ Q14D 09/08/21 09/04/24 History Denosumab [Prolia] 60 mg SQ Q180D 02/27/23 09/04/24 History Ferric Citrate [Auryxia] 210 mg PO QID 02/27/23 09/04/24 History Midodrine [ProAmatine] 5 mg PO QID PRN 02/27/23 09/04/24 History Isosorbide Mononitrate ER [Imdur] 30 mg PO DAILY 06/30/24 09/04/24 History Aspirin EC [Ecotrin Low Dose] 81 mg PO DAILY 07/31/24 09/04/24 History Insulin Degludec [Insulin Degludec 12 units SQ DAILY PRN 07/31/24 09/04/24 History Pen (U-100)] Metoprolol Tartrate [Lopressor] 25 mg PO DAILY 09/02/24 09/04/24 History Acetaminophen [Tylenol Extra 1,000 mg PO TID 09/04/24 09/04/24 History Strength] Atorvastatin [Lipitor] 80 mg PO HS 09/04/24 09/04/24 History Folic Acid/Vit B Complex and C 0.8 mg PO DAILY 09/04/24 09/04/24 History [Hien-Moi Tablet] Omeprazole [PriLOSEC] 20 mg PO BID 09/04/24 09/04/24 History Ondansetron Odt [Zofran Odt] 4 mg PO Q8HR PRN 09/04/24 09/04/24 History Allergies Allergy/AdvReac Type Severity Reaction Status Date / Time famotidine [From Pepcid] Allergy Unknown Verified 09/04/24 07:20 nifedipine Allergy Swelling Verified 09/04/24 07:20 amlodipine AdvReac Swelling Verified 09/04/24 07:20 diphenhydramine AdvReac Unknown Verified 09/04/24 07:20 [From Benadryl] droperidol AdvReac Anxiety Verified 09/04/24 07:20 ezetimibe [From Vytorin] AdvReac Acid Reflux Verified 09/04/24 07:20 fentanyl AdvReac "Can't Verified 09/04/24 07:20 wake up"/Nausea hydrocodone AdvReac Angina Verified 09/04/24 07:20 hydromorphone [From Dilaudid] AdvReac Angina Verified 09/04/24 07:20 midazolam [From Versed] AdvReac Anxiety Verified 09/04/24 07:20 morphine AdvReac Nausea & Verified 09/04/24 07:20 Vomiting paroxetine [From Paxil] AdvReac Acid Reflux Verified 09/04/24 07:20 ranolazine [From Ranexa] AdvReac dizziness Verified 09/04/24 07:20 simvastatin [From Vytorin] AdvReac Acid Reflux Verified 09/04/24 07:20 sulfamethoxazole AdvReac Decreased Verified 09/04/24 07:20 [From Bactrim] Renal Function trandolapril [From Tarka] AdvReac Acid Reflux Verified 09/04/24 07:20 trimethoprim [From Bactrim] AdvReac Decreased Verified 09/04/24 07:20 Renal Function verapamil [From Tarka] AdvReac Acid Reflux Verified 09/04/24 07:20 Physical Exam Vitals: Vital Signs Temp Pulse Pulse Resp BP BP Pulse Ox 09/05/24 15:25 98.1 F 86 16 111/59 96 09/05/24 13:05 81 09/05/24 11:24 81 16 104/57 98 09/05/24 08:21 100 09/05/24 08:15 98.5 F 81 87 16 107/61 94 L 09/05/24 03:50 97.6 F 81 14 116/73 97 09/04/24 23:36 98.5 F 85 14 104/60 93 L 09/04/24 20:00 98.3 F 81 18 112/60 95 Intake and Output 09/05/24 09/05/24 09/05/24 06:59 14:59 22:59 Output Total 0 Balance 0 Output: Urine 0 Other: Voiding Method Toilet Toilet Weight 64 kg 64 kg Patient is awake, comfortable, no acute distress Examination of the heart S1 and S2 Examination of the lungs bilateral breath sounds are heard Abdomen is soft nontender Examination of lower extremities shows trace edema PRINCIPAL ACCOUNT CLERK exam grossly intact Results - Lab Results Most recent lab results Calcium 12.3 mg/dL (8.4-10.2) H 09/05/24 07:09 Magnesium 2.0 mg/dL (1.6-2.3) 09/03/24 22:29 09/05/24 07:09 09/05/24 07:09 Assessment and Plan Assessment: 1. End-stage renal disease on hemodialysis on Sunday schedule 2. Chest pain status post cardiac catheterization and coronary stent placement. Troponins were negative 3. Cardiomyopathy with EF of about 40% 4. CKD mineral bone disorder with hypercalcemia, scheduled to receive Prolia which causes severe hypocalcemia. Plan: Hemodialysis today UF 1 to 2 L as tolerated. Follow-up on calcium levels as outpatient. Patient can be discharged from nephrology standpoint post hemodialysis today.
--- NOTE | 2024-09-05 17:51 | P.DS ---
Providers Date of admission: 09/03/24 23:48 Expected date of discharge: 09/05/24 Attending physician: Mio Mar Consults: 09/03/24 23:43 Consult Physician Routine Consulting Provider: Otf Dao Consult Reason/Comments: NSTEMI Do you want consulting provider notified?: Yes 09/04/24 10:48 Consult Physician Routine Consulting Provider: [facility] Consult Reason/Comments: Post Interventional patient Do you want consulting provider notified?: Already Contacted 09/04/24 12:35 Consult Physician Routine Consulting Provider: Ernst Johnson Consult Reason/Comments: For Dialysis Do you want consulting provider notified?: Yes Primary care physician: [facility] Course: Chief Complaint: Chest pain Pleasant 69-year-old patient, follows with Dr. Rose. With chronic medical conditions include diabetes mellitus, hypertension, hyperlipidemia, end-stage kidney disease on hemodialysis since 2021, on insulin pump, coronary artery disease with prior stent. Has also followed for cardiac care at [facility].-Has a previous bypass. 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 Now mainly follows locally with Dr. Dao/industrial technologist. Also has had in-stent stenosis and brachytherapy. Ischemic cardiomyopathy EF 35 to-40%. June 30: Stent to circumflex. July readmitted with chest pain. Was managed medically. Patient did again presents with chest pain. States after she had a stent placed about 2 weeks after that she started having tiredness with activity. Not with much activity you could really tired. And chest pressure. Last night started developing more significant chest pain. Patient was due for cardiac catheterization today's anyway. Has decided to come in. Patient today underwent angioplasty to circumflex and LAD. And stent to the left main. I saw the patient postprocedure and B7 in the recovery area. Patient also states she has been having significant reflux. Sometime she gets burning up in the middle of her chest. Sometimes she throws up after eating. Sometimes feeling of food gets stuck in lower part of the chest. Through her family doctor she has a referral to see winding machine operator Dr. Alcides Mckeon.. September 05: Doing well today. Underwent barium swallow. Showed some mild dysmotility. No obstruction. Patient to continue take PPI. Follow-up with Dr. Alcides Mckeon. And follow-up with her industrial technologist. Also could hemodialyzed today Past medical history to include: Diabetes mellitus, hypertension, hyperlipidemia, end-stage kidney disease on dialysis Tuesdays and Sunday, CAD with stent and bypass- Social history: Lives alone. Prior smoker. Alcohol rarely. Physical examination: VITAL SIGNS: 98.1, 86, 16, 101/59, 96% room air GENERAL: Comfortable. Left upper extremity AV fistula EYES: Pupils equal. Conjunctiva normal. HEENT: External appearance of nose and ears normal, oral cavity grossly normal. NECK: JVD not raised; masses not palpable. HEART: First and second heart sounds are normal; no edema LUNGS: Respiratory rate normal; clear to auscultation. ABDOMEN: Soft, nontender, liver spleen not palpable, no masses palpable. PSYCH: Alert and oriented x3; mood and affect normal. MUSCULOSKELETAL:No Clubbing/cyanosis;muscles-grossly intact INVESTIGATIONS, reviewed in the clinical context: September 05: White count 8.7 hemoglobin 9.4 potassium 4.6 BUN 48 creatinine 6.99 September 04: White count 7.3 hemoglobin 9.6 platelets 226 Troponin I 0.111, 0.112, 0.116 September 03: Sodium 134 potassium 5 BUN 30 creatinine 4.02 Assessment and plan: -Acute non-ST elevation myocardial infarction. Followed previously at [facility] with Dr. Rangel and currently locally with Dr. Dao Cardiac catheterization today with angioplasty to circumflex and LAD. Stent to left main IV heparin. Aspirin. Plavix. Lopressor. Imdur. -Chronic congestive heart failure from systolic dysfunction EF 35-40 from underlying coronary artery- Toprol-XL -Esophageal dysmotility calling some dysphagia intermittent Patient scheduled to see Dr. Alcides Mckeon outside. Barium swallow results as above -Coronary artery disease with prior stents, coronary bypass Aspirin. Lipitor. Plavix. -Diabetes mellitus type 2 on insulin pump Continue insulin pump -Hyperlipidemia Lipitor 80 mg daily at bedtime. -Essential hypertension Toprol-XL. -GERD Prilosec. Follow-up with GI outpatient -End-stage kidney disease on hemodialysis since 2021 Schedule: Sunday. Left upper extremity proximal AV fistula Nephrology f consulted -Severe aortic valve sclerosis with moderate aortic stenosis, moderate to severe mitral regurgitation Follow with cardiology -Gallstones asymptomatic -Normocytic anemia, secondary to chronic kidney disease -Full code Disposition: Home Past Medical History Past Medical History: Chest Pain / Angina, Diabetes Mellitus, Dialysis, GERD/Reflux, Hyperlipidemia, Hypertension, Myocardial Infarction ([place]), Osteoarthritis (OA), Renal Disease Additional Past Medical History / Comment(s): angina, kidney disease stage 4 Dialysis MWF, insulin pump. SOB with exertion. 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 3.5 parathyroid removed, 9 stents Past Anesthesia/Blood Transfusion Reactions: No Reported Reaction Additional Past Anesthesia/Blood Transfusion Reaction / Comment(s): see allergies Date of Last Stent Placement:: 2024 Past Psychological History: No Psychological Hx Reported Smoking Status: Former smoker Past Alcohol Use History: None Reported Past Drug Use History: None Reported Plan - Discharge Summary Discharge Rx Participant: No New Discharge Prescriptions: Continue Nitroglycerin Sl Tabs [Nitrostat] 0.4 mg SUBLINGUAL Q5M PRN PRN Reason: Angina Montelukast [Singulair] 10 mg PO HS allopurinoL [Zyloprim] 100 mg PO DAILY Clopidogrel Bisulfate [Plavix] 75 mg PO DAILY Insulin Aspart (For Pump) [NovoLOG (For Pump)] 0.01 unit SQ-PUMP CONTINUOUS Alirocumab [Praluent Pen] 75 mg SQ Q14D Ferric Citrate [Auryxia] 210 mg PO QID Midodrine [ProAmatine] 5 mg PO QID PRN PRN Reason: Blood Pressure - Low Isosorbide Mononitrate ER [Imdur] 30 mg PO DAILY Insulin Degludec [Insulin Degludec Pen (U-100)] 12 units SQ DAILY PRN PRN Reason: PUMP FAILURE Ondansetron Odt [Zofran ODT] 4 mg PO Q8HR PRN PRN Reason: Nausea Omeprazole [PriLOSEC] 20 mg PO BID Folic Acid/Vit B Complex and C [Hien-Moi Tablet] 0.8 mg PO DAILY Atorvastatin [Lipitor] 80 mg PO HS Denosumab [Prolia] 60 mg SQ Q180D Aspirin EC [Ecotrin Low Dose] 81 mg PO DAILY Metoprolol Tartrate [Lopressor] 25 mg PO DAILY Acetaminophen [Tylenol Extra Strength] 1,000 mg PO TID Discharge Medication List Clopidogrel Bisulfate [Plavix] 75 mg PO DAILY 10/11/16 [History] Insulin Aspart (For Pump) [NovoLOG (For Pump)] 0.01 unit SQ-PUMP CONTINUOUS 10/11/16 [History] Montelukast [Singulair] 10 mg PO HS 10/11/16 [History] Nitroglycerin Sl Tabs [Nitrostat] 0.4 mg SUBLINGUAL Q5M PRN 10/11/16 [History] allopurinoL [Zyloprim] 100 mg PO DAILY 10/11/16 [History] Alirocumab [Praluent Pen] 75 mg SQ Q14D 09/08/21 [History] Denosumab [Prolia] 60 mg SQ Q180D 02/27/23 [History] Ferric Citrate [Auryxia] 210 mg PO QID 02/27/23 [History] Midodrine [ProAmatine] 5 mg PO QID PRN 02/27/23 [History] Isosorbide Mononitrate ER [Imdur] 30 mg PO DAILY 06/30/24 [History] Aspirin EC [Ecotrin Low Dose] 81 mg PO DAILY 07/31/24 [History] Insulin Degludec [Insulin Degludec Pen (U-100)] 12 units SQ DAILY PRN 07/31/24 [History] Metoprolol Tartrate [Lopressor] 25 mg PO DAILY 09/02/24 [History] Acetaminophen [Tylenol Extra Strength] 1,000 mg PO TID 09/04/24 [History] Atorvastatin [Lipitor] 80 mg PO HS 09/04/24 [History] Folic Acid/Vit B Complex and C [Hien-Moi Tablet] 0.8 mg PO DAILY 09/04/24 [History] Omeprazole [PriLOSEC] 20 mg PO BID 09/04/24 [History] Ondansetron Odt [Zofran ODT] 4 mg PO Q8HR PRN 09/04/24 [History] Follow up Appointment(s)/Referral(s): [facility] [facility] [NON-STAFF] - Tavon Rose DO [Primary Care Provider] - 1-2 Days (Office does not have any openings at this time; per office staff, they will find an appointment date/time and call you as soon as possible with this information.) Otf Dao DO [STAFF PHYSICIAN] - 09/10/24 3:30 pm Lashawn Mckeon MD [STAFF PHYSICIAN] - 1 Week (Office closed at this time; please make follow up appointment [facility] to review results of barium swallow done in hospital on 09/05/24.) Patient Instructions/Handouts: Soft Diet (DC), Heart Catheterization (DC) Activity/Diet/Wound Care/Special Instructions: Follow up with Dr. Mckeon for results of barium swallow. Follow a soft diet. Discharge/Stand Alone Forms: Who Do I Call?
[2024-09-05 20:07] VITALS: BP 107/57; TEMP 98
== END 2024-09-05 18:54 | disposition home or self-care (01) | DRG 321 ==
LOC: EC 22:23 → 3SCARD 23:48
PROVIDERS: ADMIT Hospitalist; ATTEND Hospitalist
PROC: B240ZZ3 Ultrasonography of Single Coronary Artery, Intravascular (ICD-10-PCS; principal; 2024-09-04 09:00)
PROC: B2181ZZ Fluoroscopy of Left Internal Mammary Bypass Graft using Low Osmolar Contrast (ICD-10-PCS; principal; 2024-09-04 09:00)
PROC: B2111ZZ Fluoroscopy of Multiple Coronary Arteries using Low Osmolar Contrast (ICD-10-PCS; principal; 2024-09-04 09:00)
PROC: 027034Z Dilation of Coronary Artery, One Artery with Drug-eluting Intraluminal Device, Percutaneous Approach (ICD-10-PCS; principal; 2024-09-04 09:00)
PROC: B2131ZZ Fluoroscopy of Multiple Coronary Artery Bypass Grafts using Low Osmolar Contrast (ICD-10-PCS; principal; 2024-09-04 09:00)
PROC: 4A023N8 Measurement of Cardiac Sampling and Pressure, Bilateral, Percutaneous Approach (ICD-10-PCS; principal; 2024-09-04 09:00)
PROC: 5A1D70Z Performance of Urinary Filtration, Intermittent, Less than 6 Hours Per Day (ICD-10-PCS; 2024-09-05)
DX: I21.4 Non-ST elevation (NSTEMI) myocardial infarction (principal); N18.6 End stage renal disease; I13.2 Hypertensive heart and chronic kidney disease with heart failure and with stage 5 chronic kidney disease, or end stage renal disease; I27.20 Pulmonary hypertension, unspecified; D63.1 Anemia in chronic kidney disease; E83.9 Disorder of mineral metabolism, unspecified; Z99.2 Dependence on renal dialysis; E10.22 Type 1 diabetes mellitus with diabetic chronic kidney disease; I08.0 Rheumatic disorders of both mitral and aortic valves; I50.22 Chronic systolic (congestive) heart failure; Z79.4 Long term (current) use of insulin; I95.3 Hypotension of hemodialysis; I25.10 Atherosclerotic heart disease of native coronary artery without angina pectoris; E78.5 Hyperlipidemia, unspecified; E83.52 Hypercalcemia; I25.2 Old myocardial infarction; I25.5 Ischemic cardiomyopathy; K21.9 Gastro-esophageal reflux disease without esophagitis; K80.20 Calculus of gallbladder without cholecystitis without obstruction; K22.4 Dyskinesia of esophagus; Z79.82 Long term (current) use of aspirin; Z79.02 Long term (current) use of antithrombotics/antiplatelets; Z79.899 Other long term (current) drug therapy; Z87.891 Personal history of nicotine dependence; Z95.5 Presence of coronary angioplasty implant and graft; Z95.1 Presence of aortocoronary bypass graft; Z96.41 Presence of insulin pump (external) (internal); Z88.5 Allergy status to narcotic agent; Z88.8 Allergy status to other drugs, medicaments and biological substances
CPT/HCPCS: 36415; 71046; 74220; 80048; 80053; 83735; 84484; 85025; 85610; 85730; 90935; 92921; 92978; 93005; 93461; 94760; 96374; 99291

== ENCOUNTER → 2024-09-11 | Outpatient (CLI) | payer MEDICARE, OTHER ==
[2024-09-11 13:10] VITALS: BP 104/60; PULSE 92; RESP 16; TEMP 98.1
[2024-09-11] MEDS: DENOSUMAB 60 MG/ML 1 ML SYRINGE SQ NR (13:10)
== END ==
LOC: PROCWHC3 12:47
PROVIDERS: ATTEND Family Medicine
DX: M81.0 Age-related osteoporosis without current pathological fracture (principal)
CPT/HCPCS: 96372; J0897